=== PATIENT | female | born 1930 | race Caucasian/White ===

== ENCOUNTER 2016-07-22 08:38 | Outpatient (CLI) ==
[2015-07-03 09:52] VITALS: BMI 16.4
[2016-07-22 13:08] LABS: BASOPHILS # (AUTO) 0.1 K/uL (0-0.2); BASOPHILS % (AUTO) 0.9 % (0.0-3.0); EOSINOPHILS # (AUTO) 0.1 K/ul (0.0-0.7); EOSINOPHILS % (AUTO) 1.7 % (0.0-7.0); HEMATOCRIT 39.6 % (37.0-47.0); HEMOGLOBIN 12.1 g/dl (12.0-16.0); IMMATURE GRANULOCYTE % (AUTO) 0.5 % (0.0-5.0); LYMPHOCYTES # (AUTO) 1.5 K/uL (0.60-3.4); LYMPHOCYTES % (AUTO) 22.9 (10.0-50.0); MEAN CORPUSCULAR HEMOGLOBIN 25.7 pg (27.0-31.0); MEAN CORPUSCULAR HGB CONC 30.6 (31.8-35.4); MEAN CORPUSCULAR VOLUME 84.1 fl (81.0-99.0); MONOCYTES # (AUTO) 0.6 K/uL (0.4-2.0); MONOCYTES % (AUTO) 8.8 (0-10); NEUTROPHILS # (AUTO) 4.2 K/ul (2.0-6.9); NEUTROPHILS % (AUTO) 65.2; PLATELET COUNT 252 10^3/uL (140-440); RED BLOOD COUNT 4.71 10^6/ul (4.20-5.40)
[2016-07-22 13:13] LABS: BILIRUBIN,URINE Negative (NEGATIVE); KETONES,URINE Negative (NEGATIVE); LEUKOCYTE ESTERASE ,URINE Negative (NEGATIVE); NITRITE,URINE Negative (NEGATIVE); PH,URINE 5.5 (5-9); PROTEIN,URINE Negative (NEGATIVE); URINE, BLOOD 2+ (NEGATIVE)
[2016-07-22 13:19] LABS: ALBUMIN 3.6 g/dL (3.4-5.0); ALBUMIN/GLOBULIN RATIO 1.09; ANION GAP 15.8; BILIRUBIN,TOTAL 0.46 mg/dL (0.00-1.20); BUN/CREATININE RATIO 21.21; CALCIUM 9.6 mg/dL (8.2-10.2); CHOL/HDL RATIO 2.9 (4.5-5.5); CREATININE 0.66 mg/dL (0.60-1.30); POTASSIUM 3.8 mmol/L (3.5-5.10); TOTAL PROTEIN 6.9 g/dL (5.8-8.1)
[2016-07-22 13:28] LABS: ADD URINE MICROSCOPIC YES
== END 2016-07-22 08:39 | disposition home or self-care (01) ==
LOC: LAB 08:38
PROVIDERS: ATTEND General Practice
DX: I63.30 Cerebral infarction due to thrombosis of unspecified cerebral artery (principal); J44.9 Chronic obstructive pulmonary disease, unspecified; I73.9 Peripheral vascular disease, unspecified; Z79.899 Other long term (current) drug therapy
CPT/HCPCS: 36415; 80053; 80061; 81001; 85025

== ENCOUNTER 2016-07-30 09:21 | Outpatient (CLI) | payer OTHER ==
[2016-07-30 16:28] VITALS: BMI 16.2
== END 2016-07-30 09:22 | disposition home or self-care (01) ==
LOC: AMBL 09:21
PROVIDERS: ATTEND Emergency Medicine
DX: M79.672 Pain in left foot (principal); M79.89 Other specified soft tissue disorders

== ENCOUNTER 2016-07-30 09:33 | Inpatient (IN) ==
--- NOTE | 2016-07-30 09:44 | ED.PDOC ---
General ED Provider: Dr. LORNE GUERRERO JR Chief Complaint: Foot Pain/Injury Stated Complaint: pt states she woke up friday morning with left foot red swollen and bruised and unable to walk on it. denies any injury. also states she has had diarrhea since [End] 99.1 92 20 100 152/65 04/22 Time Seen by Physician: 09:43 Mode of Arrival: Ambulance Information Source: Patient, EMT Exam Limitations: No limitations Primary Care Provider: MICHAEL PINEDA[facility] Nursing and Triage Documentation Reviewed and Agree: No Review of Systems - Review Of Systems Constitutional: Reports: No symptoms Eyes: Reports: No symptoms Ears, Nose, Mouth, Throat: Reports: No symptoms Respiratory: Reports: No symptoms Cardiac: Reports: No symptoms GI: Reports: Diarrhea (about twice a day(16 times since friday)loose stool followed by solids; dark(I am on iron)) : Reports: No symptoms Musculoskeletal: Reports: Joint pain (foot and ankle with saddle shaped ecchymoses sparing malleolil and dosum of foot but all tender on exam pulses presnt on doppler) Skin: Reports: Bruising, Lesions Neurological: Reports: No symptoms Endocrine: Reports: No symptoms Hematologic/Lymphatic: Reports: No symptoms All Other Systems: Other Past Medical History - Past Medical History Previously Healthy: Yes Endocrine: Reports: None Cardiovascular: Reports: None Respiratory: Reports: COPD Hematological: Reports: None Gastrointestinal: Reports: Other (celiac disease) Genitourinary: Reports: None Neuro/Psych: Reports: TIA (TIA several years ago) Musculoskeletal: Reports: None Cancer: Reports: None Last Menstrual Period: none - Surgical History General Surgical History: Reports: Hysterectomy, Appendectomy, Cholecystectomy, Other (Sinus surgery, Cataract surgery). Denies: Hernia Repair ( hemorrhoidectomy) - Family History Family History: Reports: Unknown (son owns wild cat) - Social History Smoking Status: Former smoker Hx Substance Use: No Alcohol Screening: None Physical Exam - Physical Exam Appearance: Well-appearing, Thin Pain Distress: Moderate Neck: Supple Respiratory: Airway patent Skin: Warm, Dry (bruising) Re-Evaluation - Re-Evaluation Time of Re-Evaluation: 10:57 Status: Worse (tolerated norco in the past -codeine sets my teeth on edge) Physician Notification - Case Discussed Physician Notified: dr pineda Physician Notified: dr pineda Time of Notification: 14:45 (admit vancomycin check ultrasound of leg) Critical Care Note - Critical Care Note Total Time (mins): 0 Course - Course Hematology/Chemistry: 07/30/16 10:05 07/30/16 10:05 Orders, Labs, Meds: Lab Review 07/30/16 07/30/16 10:05 15:00 WBC 8.96 RBC 4.84 Hgb 12.6 Hct 39.8 MCV 82.2 MCH 26.0 L MCHC 31.7 L RDW Coeff of Gareth 15.1 H Plt Count 248 Immature Gran % (Auto) 0.4 Neut % (Auto) 72.8 Lymph % (Auto) 15.7 [place] % (Auto) 9.8 Eos % (Auto) 1.0 Baso % (Auto) 0.3 Immature Gran # (Auto) 0.0 Neut # 6.5 Lymph # 1.4 [place] # 0.9 Eos # 0.1 Baso # 0.0 ESR 36 H Sodium 140 Potassium 3.5 Chloride 102 Carbon Dioxide 29 Anion Gap 12.5 BUN 10 Creatinine 0.69 Estimated GFR (MDRD) 81.00 BUN/Creatinine Ratio 14.49 Glucose 98 Uric Acid 3.7 Calcium 9.3 Total Bilirubin 0.82 AST 18 ALT 16 Alkaline Phosphatase 81 Total Protein 7.2 Albumin 3.5 Globulin 3.7 Albumin/Globulin Ratio 0.95 Procalcitonin < 0.05 Urine Color Yellow Urine Clarity Clear Urine pH 7.0 Ur Specific [place] 1.020 Urine Protein Negative Urine Glucose (UA) Negative Urine Ketones Trace Urine Blood 2+ Urine Nitrite Negative Urine Bilirubin Negative Urine Urobilinogen 0.2 Ur Leukocyte Esterase Negative Urine Microscopic RBC 2-5 Urine Microscopic WBC 0-2 Ur Squamous Epith Cells 0-2 Ur Renal Epithelial Cell 0-2 Amorphous Sediment 2+ Urine Bacteria Trace Orders Category Date Time Status ADMIT PATIENT INPATIENT .TO [facility] (NON-MONITORED ADMISSION 07/30/16 11: 17 Active BED) ACTIVITY .BR with BRP CARE 07/30/16 11:17 Active ACTIVITY .Early Mobilization for VTE Prevention CARE 07/30/16 11:17 Completed C-DIFF MONITORING (NURSING) BID CARE 07/30/16 09:46 Active CASE MANAGEMENT CONSULT ONCE CARE 07/30/16 11:19 Completed INTAKE & OUTPUT Q8HR CARE 07/30/16 11:17 Active VITAL SIGNS Q8HR CARE 07/30/16 11:17 Completed REGULAR DIET DIETARY 07/30/16 Lunch Ordered ED IV/MEDIPORT/POWERPORT .ONCE EMERGENCY 07/30/16 11:28 Active BLOOD CULTURE Stat LAB 07/30/16 10:05 Received C. DIFFICILE Routine LAB 07/30/16 09:45 Uncollected CBC W/ AUTO DIFF DAILY@0600 LAB 07/31/16 06:00 Ordered CBC W/ AUTO DIFF DAILY@0600 LAB 08/01/16 06:00 Ordered CBC W/ AUTO DIFF DAILY@0600 LAB 08/02/16 06:00 Ordered CBC W/ AUTO DIFF DAILY@0600 LAB 08/03/16 06:00 Ordered CBC W/ AUTO DIFF DAILY@0600 LAB 08/04/16 06:00 Ordered CBC W/ AUTO DIFF DAILY@0600 LAB 08/05/16 06:00 Ordered CBC W/ AUTO DIFF DAILY@0600 LAB 08/06/16 06:00 Ordered CBC W/ AUTO DIFF DAILY@0600 LAB 08/07/16 06:00 Ordered CBC W/ AUTO DIFF DAILY@0600 LAB 08/08/16 06:00 Ordered CBC W/ AUTO DIFF DAILY@0600 LAB 08/09/16 06:00 Ordered CBC W/ AUTO DIFF DAILY@0600 LAB 08/10/16 06:00 Ordered CBC W/ AUTO DIFF DAILY@0600 LAB 08/11/16 06:00 Ordered CBC W/ AUTO DIFF DAILY@0600 LAB 08/12/16 06:00 Ordered CBC W/ AUTO DIFF DAILY@0600 LAB 08/13/16 06:00 Ordered CBC W/ AUTO DIFF DAILY@0600 LAB 08/14/16 06:00 Ordered CBC W/ AUTO DIFF DAILY@0600 LAB 08/15/16 06:00 Ordered CBC W/ AUTO DIFF DAILY@0600 LAB 08/16/16 06:00 Ordered CBC W/ AUTO DIFF DAILY@0600 LAB 08/17/16 06:00 Ordered CBC W/ AUTO DIFF DAILY@0600 LAB 08/18/16 06:00 Ordered CBC W/ AUTO DIFF DAILY@0600 LAB 08/19/16 06:00 Ordered CBC W/ AUTO DIFF Stat LAB 07/30/16 10:05 Completed CMP [COMPREHENSIVE METABOLIC PANEL] Stat LAB 07/30/16 10:05 Completed COMPREHENSIVE METABOLIC PANEL DAILY@0600 LAB 07/31/16 06:00 Ordered COMPREHENSIVE METABOLIC PANEL DAILY@0600 LAB 08/01/16 06:00 Ordered COMPREHENSIVE METABOLIC PANEL DAILY@0600 LAB 08/02/16 06:00 Ordered COMPREHENSIVE METABOLIC PANEL DAILY@0600 LAB 08/03/16 06:00 Ordered COMPREHENSIVE METABOLIC PANEL DAILY@0600 LAB 08/04/16 06:00 Ordered COMPREHENSIVE METABOLIC PANEL DAILY@0600 LAB 08/05/16 06:00 Ordered COMPREHENSIVE METABOLIC PANEL DAILY@0600 LAB 08/06/16 06:00 Ordered COMPREHENSIVE METABOLIC PANEL DAILY@0600 LAB 08/07/16 06:00 Ordered COMPREHENSIVE METABOLIC PANEL DAILY@0600 LAB 08/08/16 06:00 Ordered COMPREHENSIVE METABOLIC PANEL DAILY@0600 LAB 08/09/16 06:00 Ordered COMPREHENSIVE METABOLIC PANEL DAILY@0600 LAB 08/10/16 06:00 Ordered COMPREHENSIVE METABOLIC PANEL DAILY@0600 LAB 08/11/16 06:00 Ordered COMPREHENSIVE METABOLIC PANEL DAILY@0600 LAB 08/12/16 06:00 Ordered COMPREHENSIVE METABOLIC PANEL DAILY@0600 LAB 08/13/16 06:00 Ordered COMPREHENSIVE METABOLIC PANEL DAILY@0600 LAB 08/14/16 06:00 Ordered COMPREHENSIVE METABOLIC PANEL DAILY@0600 LAB 08/15/16 06:00 Ordered COMPREHENSIVE METABOLIC PANEL DAILY@0600 LAB 08/16/16 06:00 Ordered COMPREHENSIVE METABOLIC PANEL DAILY@0600 LAB 08/17/16 06:00 Ordered COMPREHENSIVE METABOLIC PANEL DAILY@0600 LAB 08/18/16 06:00 Ordered COMPREHENSIVE METABOLIC PANEL DAILY@0600 LAB 08/19/16 06:00 Ordered ESR Stat LAB 07/30/16 10:05 Completed OCCULT BLOOD, STOOL Stat LAB 07/30/16 09:45 Uncollected PROCALCITONIN Stat LAB 07/30/16 10:05 Completed URIC ACID Stat LAB 07/30/16 10:05 Completed VANCOMYCIN,TROUGH Timed LAB 08/03/16 08:30 Ordered 0.9 % Sodium Chloride [Saline Flush] MEDS 07/30/16 11:28 Active 1 syr IVF PRN PRN Bismuth Subsalicylate Susp [Pepto-Bismol Susp] MEDS 07/30/16 13:33 Active 15 ml PO Q6H PRN Clopidogrel Bisulfate [Plavix] MEDS 07/31/16 09:00 Active 75 mg PO DAILY Ferrous Sulfate MEDS 07/31/16 09:00 Active 324 mg PO DAILY Fluticasone/Salmeterol 500/50 [Advair 500-50 Diskus] MEDS 07/30/16 21:00 Active 1 puff IH BEDTIME Hydrocodone Bit/Acetaminophen [Hunter 5-325] MEDS 07/30/16 10:55 Discontinued 1 tab PO ONCE STA Sodium Chloride 0.9% [Sodium Chloride] 1,000 ml MEDS 07/30/16 11:30 Active IV 75 mls/hr Vancomycin HCl [Vancomycin] 1 gm MEDS 07/30/16 14:27 Discontinued 0.9 % Sodium Chloride [Sodium Chloride] 250 ml IV ONCE Vancomycin HCl [Vancomycin] 750 mg MEDS 07/31/16 09:00 Active 0.9 % Sodium Chloride [Sodium Chloride] 250 ml IV DAILY Zaleplon [Sonata] MEDS 07/30/16 11:21 Discontinued 10 mg PO PRN PRN RESUSCITATION STATUS Routine OTHERS 07/30/16 11:17 Ordered FOOT, LEFT 3 VIEWS Stat RADS 07/30/16 09:42 Completed MRI LOWER EXTREMITY W/WO LT Stat RADS 07/30/16 11:28 Completed ULTRASOUND VENOUS SCAN LT. LEG [U/S VENOUS SCAN LT. LEG RADS 07/30/16 13:21 Completed ] Stat Medications Generic Name Dose Route Start Last Admin Trade Name Freq PRN Reason Stop Dose Admin Bismuth Subsalicylate 15 ml 07/30/16 13:33 Pepto-Bismol Susp PO Q6H PRN Diarrhea Clopidogrel Bisulfate 75 mg 07/31/16 09:00 Plavix PO DAILY BRAN Ferrous Sulfate 324 mg 07/31/16 09:00 Ferrous Sulfate PO DAILY BRAN Sodium Chloride 1,000 mls @ 75 mls/hr 07/30/16 11:30 07/30/16 13:30 Sodium Chloride IV 75 mls/hr .[id number] BRAN Administration Vancomycin HCl 750 mg/ Sodium 250 mls @ 100 mls/hr 07/31/16 09:00 Chloride IV DAILY BRAN Non-Formulary Medication 10 mg 07/30/16 19:40 Zaleplon [Sonata] PO BEDTIME PRN Insomnia Fluticasone/Salmeterol 1 puff 07/30/16 21:00 07/30/16 20:08 Advair 500-50 Diskus IH 1 puff BEDTIME BRAN Administration Sodium Chloride 1 syr 07/30/16 11:28 Saline Flush IVF PRN PRN To flush IV Discontinued Medications Generic Name Dose Route Start Last Admin Trade Name Freq PRN Reason Stop Dose Admin Acetaminophen/Hydrocodone Bitart 1 tab 07/30/16 10:55 07/30/16 11:15 Hunter 5-325 PO 07/30/16 10:56 1 tab ONCE STA Administration Dexamethasone Sodium Phosphate 8 mg 07/30/16 17:56 07/30/16 18:01 Decadron 4 Mg/Ml Sdv IM 07/30/16 17:57 8 mg ONCE STA Administration Vancomycin HCl 1 gm/ Sodium 250 mls @ 250 mls/hr 07/30/16 14:27 07/30/16 14: 59 Chloride IV 07/30/16 15:26 250 mls/hr ONCE STA Administration Non-Formulary Medication 10 mg 07/30/16 11:21 Zaleplon [Sonata] PO PRN PRN Insomnia Vital Signs: Temp Pulse Resp BP Pulse Ox 07/30/16 09:33 99.1 F 92 H 20 152/65 H 100 Departure - Departure Time of Disposition: 15:00 Disposition: ADMITTED INPATIENT Discharge Problem: Injury of foot Cellulitis Qualifiers: Site of cellulitis: extremity Site of cellulitis of extremity: lower extremity Laterality: left Qualifier Code: (L03.116) Cellulitis of left lower limb Condition: Good Pt referred to PMD for follow-up: Yes Allergies/Adverse Reactions: Allergies codeine Adverse Reaction (Verified 07/30/16 09:41) Home Medications: Ambulatory Orders Ferrous Sulfate [Feosol] 325 mg PO DAILY 07/30/16 Melatonin 10 mg SL BEDTIME 07/30/16
--- NOTE | 2016-07-30 10:17 | DI ---
EXAM: Left foot three views HISTORY: Red, swollen COMPARISON: None FINDINGS: No fracture or dislocation. No cortical destruction to suggest osteomyelitis. Smoothly ma rginated periosteal reaction about the lateral aspect fourth metatarsal is nonspecific and may be du e to chronic stress reaction. Bones appear demineralized. The joints are normal. Mild posterior calc aneal enthesopathy. IMPERSSION: No acute fracture, dislocation, or cortical destruction to suggest osteomyelitis Smoothly marginated periosteal reaction about the fourth metatarsal is nonspecific and may be due to chronic stress sheree ction. MRI can be considered if there is clinical concern for osteomyelitis.
[2016-07-30 10:19] LABS: BASOPHILS % (AUTO) 0.3 % (0.0-3.0); EOSINOPHILS # (AUTO) 0.1 K/ul (0.0-0.7); HEMATOCRIT 39.8 % (37.0-47.0); HEMOGLOBIN 12.6 g/dl (12.0-16.0); IMMATURE GRANULOCYTE % (AUTO) 0.4 % (0.0-5.0); LYMPHOCYTES # (AUTO) 1.4 K/uL (0.60-3.4); LYMPHOCYTES % (AUTO) 15.7 (10.0-50.0); MEAN CORPUSCULAR HGB CONC 31.7 (31.8-35.4); MEAN CORPUSCULAR VOLUME 82.2 fl (81.0-99.0); MONOCYTES # (AUTO) 0.9 K/uL (0.4-2.0); MONOCYTES % (AUTO) 9.8 (0-10); NEUTROPHILS # (AUTO) 6.5 K/ul (2.0-6.9); NEUTROPHILS % (AUTO) 72.8; PLATELET COUNT 248 10^3/uL (140-440); RED BLOOD COUNT 4.84 10^6/ul (4.20-5.40); WHITE BLOOD COUNT 8.96 K/ul (4.6-10.2)
[2016-07-30 10:37] LABS: ALBUMIN 3.5 g/dL (3.4-5.0); ALBUMIN/GLOBULIN RATIO 0.95; ANION GAP 12.5; BILIRUBIN,TOTAL 0.82 mg/dL (0.00-1.20); BUN/CREATININE RATIO 14.49; CALCIUM 9.3 mg/dL (8.2-10.2); CREATININE 0.69 mg/dL (0.60-1.30); POTASSIUM 3.5 mmol/L (3.5-5.10); TOTAL PROTEIN 7.2 g/dL (5.8-8.1)
[2016-07-30] MEDS ORDERED: NORCO 5-325 PO STA (10:55)
[2016-07-30] MEDS ORDERED: ZALEPLON 10 MG PO PRN ×2 (11:21→19:40)
[2016-07-30 12:07] LABS: ERYTHROCYTE SEDIMENTATION RATE 36 mm/hr (0-20); ESR INTERNAL QC INTERNAL QC VALID
[2016-07-30] MEDS: SODIUM CHLORIDE 1,000 ML IV SCH (13:30)
[2016-07-30] MEDS ORDERED: PEPTO-BISMOL SUSP PO PRN (13:33)
--- NOTE | 2016-07-30 13:46 | MRI ---
EXAM: MRI left foot without and with contrast. HISTORY: Foot and ankle pain. Fourth metatarsal changes on x-ray.. Periosteal reaction described on the left foot three views 07/30/2016. No known injury. Cannot put weight on foot. Red. Swollen.. TECHNIQUE: Using a local coil on a high field strength magnet multiplanar multisequence large field of view imaging obtained of the left foot pre and post intravenous gadolinium contrast administrati on. 9 ml Omniscan administered for the examination.. COMPARISON: Three-view plain film examination left foot 07/30/2016. FINDINGS: The alignment of the left foot shows no dislocation or joint subluxation. Bone marrow si gnal intensity shows no acute fracture. Specifically no metatarsal stress fracture identified. The re is again noted periosteal ossification over the more lateral/plantar portion of the fourth metata rsal proximal to mid aspect. No underlying bone marrow edema. No lytic bone destruction. Normal kareem ne marrow enhancement otherwise. There is superficial soft tissue edema/swelling about the foot most evident over the dorsum. This m ay reflect some component of soft tissue cellulitis given the history. No soft tissue abscess. Scott e muscle bulk fatty infiltration/atrophy.. IMPRESSION: No acute fracture/stress fracture. Periosteal ossification over the more lateral/plantar portion of the fourth metatarsal, proximal to mid aspect. This corresponds to finding described on plain film radiographs 07/24/2016. Nonspecifi c. This can be seen with hypertrophic osteoarthropathy or chronic venous stasis. Superficial soft tissue edema/swelling most evident over the dorsum. This may reflect some component of cellulitis given the history. Some muscle bulk fatty infiltration/atrophy.
[2016-07-30] MEDS ORDERED: VANCOMYCIN 1 GM in SODIUM CHLORIDE 250 ML IV STA (14:27)
--- NOTE | 2016-07-30 14:35 | US ---
EXAM: Left lower extremity venous doppler. HISTORY: Left foot and ankle pain and swelling, ecchymosis. COMPARISON: None available. TECHNIQUE: Multiple grayscale and color doppler images were obtained. FINDINGS: There is normal flow, compressibility and augmentation of flow within the left common fem oral, greater saphenous, profunda, femoral, popliteal, posterior tibial, anterior tibial and peronea l veins. IMPRESSION: No evidence for left lower extremity deep vein thrombosis at the levels examined.
[2016-07-30 16:09] LABS: BILIRUBIN,URINE Negative (NEGATIVE); KETONES,URINE Trace (NEGATIVE); LEUKOCYTE ESTERASE ,URINE Negative (NEGATIVE); NITRITE,URINE Negative (NEGATIVE); PROTEIN,URINE Negative (NEGATIVE); URINE, BLOOD 2+ (NEGATIVE)
[2016-07-30 16:12] LABS: ADD URINE MICROSCOPIC YES
[2016-07-30 16:14] LABS: BACTERIA,URINE TRACE (NOT PRESENT)
[2016-07-30 16:28] VITALS: BMI 16.2
[2016-07-30] MEDS ORDERED: DECADRON 4 MG/ML SDV IM STA (17:56)
[2016-07-30] MEDS: ADVAIR 500-50 DISKUS IH SCH (20:08)
[2016-07-30] MEDS ORDERED: NON-FORMULARY MEDICATION (Melatonin [Melatonin] 1 MG) SL SCH (21:00)
[2016-07-30] MEDS ORDERED: VANCOMYCIN 500 MG in SODIUM CHLORIDE 100 ML IV SCH (21:00)
[2016-07-31] MEDS: SODIUM CHLORIDE 1,000 ML IV SCH ×3 (03:18→20:16)
[2016-07-31 04:28] LABS: BASOPHILS % (AUTO) 0.2 % (0.0-3.0); HEMOGLOBIN 11.2 g/dl (12.0-16.0); IMMATURE GRANULOCYTE % (AUTO) 0.5 % (0.0-5.0); LYMPHOCYTES # (AUTO) 0.6 K/uL (0.60-3.4); MEAN CORPUSCULAR HEMOGLOBIN 25.6 pg (27.0-31.0); MEAN CORPUSCULAR HGB CONC 31.1 (31.8-35.4); MEAN CORPUSCULAR VOLUME 82.2 fl (81.0-99.0); MONOCYTES # (AUTO) 0.1 K/uL (0.4-2.0); MONOCYTES % (AUTO) 2.5 (0-10); NEUTROPHILS # (AUTO) 4.8 K/ul (2.0-6.9); NEUTROPHILS % (AUTO) 85.8; PLATELET COUNT 213 10^3/uL (140-440); RED BLOOD COUNT 4.38 10^6/ul (4.20-5.40); WHITE BLOOD COUNT 5.54 K/ul (4.6-10.2)
[2016-07-31 04:53] LABS: ALBUMIN 2.8 g/dL (3.4-5.0); ALBUMIN/GLOBULIN RATIO 0.9; ANION GAP 11.8; BILIRUBIN,TOTAL 0.42 mg/dL (0.00-1.20); CALCIUM 8.7 mg/dL (8.2-10.2); CREATININE 0.6 mg/dL (0.60-1.30); POTASSIUM 3.8 mmol/L (3.5-5.10); TOTAL PROTEIN 5.9 g/dL (5.8-8.1)
--- NOTE | 2016-07-31 07:23 | DI ---
EXAM: Thoracic spine radiographs. HISTORY: Back pain. COMPARISON: None available. TECHNIQUE: Frontal, lateral and swimmer's views. FINDINGS: The normal curvature and alignment are maintained. Vertebral body and intervertebral dis c heights are normal. No fracture or subluxation seen. Mild multilevel endplate osteophyte formati on noted. Adjacent soft tissues are unremarkable. Right upper lung scarring is stable since prior chest radiographs. Suture anchors noted in the humeral head. Calcified granuloma seen in the anter ior right lung base. Clips seen in the upper abdomen. IMPRESSION: No acute abnormality of the thoracic spine.
--- NOTE | 2016-07-31 07:24 | DI ---
EXAM: Radiographs, lumbar spine HISTORY: Back pain. COMPARISON: 03/18/2014. TECHNIQUE: Five views. FINDINGS: There is mild left convex curvature centered in the upper lumbar spine. There is approxi mately 0.5 cm anterolisthesis of L4 on five with approximately 0.2 cm retrolisthesis of L3 on L4 and L1-2. Vertebral body heights are normal. There is severe loss of disc height throughout the lumba r spine with associated endplate sclerosis and osteophyte formation. Multilevel facet arthropathy n oted, moderate to severe. Sacral arcuate lines are intact. No acute fractures seen. Right basilar calcified granuloma noted. Previous cholecystectomy. Atherosclerotic calcifications noted. Since the prior study, there has been no significant interval change. IMPRESSION: Stable degenerative changes without acute fracture.
--- NOTE | 2016-07-31 07:25 | DI ---
EXAM: Radiographs, pelvis and bilateral hip HISTORY: Back pain. COMPARISON: 07/03/2015. TECHNIQUE: Two views. FINDINGS: Bone mineralization is decreased. There is no fracture or dislocation. The joint spaces are maintained. Lower lumbar degenerative changes incompletely imaged. Atherosclerotic calcificat ions noted. No focal soft tissue abnormality is seen. Since the prior study, there has been no sign ificant interval change. IMPRESSION: No fracture or dislocation.
[2016-07-31] MEDS: PLAVIX PO SCH (08:38)
[2016-07-31] MEDS: FERROUS SULFATE PO SCH (08:39)
[2016-07-31] MEDS ORDERED: VANCOMYCIN 750 MG in SODIUM CHLORIDE 250 ML IV SCH (09:00)
[2016-07-31] MEDS ORDERED: NON-FORMULARY MEDICATION (Ferrous Sulfate [Feosol] 325 MG) PO SCH ×22 (09:00)
[2016-07-31 10:20] LABS: OCCULT BLOOD INTERNAL QC 1 INTERNAL QC VALID; OCCULT BLOOD SAMPLE 1 NEGATIVE (NEGATIVE)
[2016-07-31] MEDS ORDERED: DECADRON 4 MG/ML SDV IM STA (11:11)
--- NOTE | 2016-07-31 12:21 | HP ---
CHIEF COMPLAINT: Pain left foot, plus swelling. Pain in the lumbar area secondary to a fall last night. SOURCE OF HISTORY: Patient and son. HISTORY OF PRESENT ILLNESS: patient claimed she experienced severe pain upon putting weight on the left foot Friday. She was unable to walk or stand. She denied any known injuty to the foot to cause swelling. The pain continued and the patient tried to get to the bathroom last night and fell getting out of bed. She is complaining of some pain in the lower lumbar area. She had movement of the lower extremities and the legs are not evaluated. The patient was evaluated at the emergency room and had x-rays of the left foot, as well as MRI. Most of the swelling is towards the tarsal area, as well as the ankle. X-ray of the foot showed some abnormalities of the foot, metatarsal, documented by MRI, but no osteomyelitis, no fracture. Labs showed slightly elevated ESR 36. The patient was admitted because of cellulitis in the foot. There were no x-rays done for the hips or lumbar spine. The emergency room physician did not indicate any fall to me when he informed me about the patient and also the need for admission. The urine has 2+ blood, 2-5 RBC. Uric acid normal. Procalcitonin normal, 0.05. PAST PERSONAL HISTORY: The patient had cataract extraction more than 20 years ago, Had sinus surgery ib deviated septum. She also had tonsillectomy. 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 The patient may have some gluten sensitivity, but no celiac disease. Previous appendectomy, cholecystectomy and abdominal hysterectomy. She also had breast biopsy. She claimed anemia and also rotator cuff surgery. The patient is known to have COPD, but that had improved after smoking cessation. FAMILY HISTORY: Father had Alzheimer's disease. Mother had cerebral vascular accident and from that problem. SOCIAL HISTORY: The patient is a and resides alone and is self sufficient. 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 She stopped smoking several years ago. No alcoholic beverages. MEDICATIONS: Prior to this admission. Plavix 75 mg daily Advair Diskus 500/50 one inhalation at bedtime Melatonin 1 mg at bedtime Ferrous sulfate 325 mg daily ALLERGIES: Codeine. REVIEW OF SYSTEMS: CONSTITUTIONAL: The patient has no fever and no chills, but some fatigue because of the pain since three days ago. AR MANAGER: The patient denies any headache, seizure disorder, ataxia, except she has problems walking now because of the pain in the left foot. VISUAL: Denies any blurred vision or double vision or transient loss of vision. AUDITORY: The patient's hearing is adequate. Denies any ringing of the ears, pain or drainage. RESPIRATORY: No cough or history of hemoptysis. CARDIOVASCULAR: Denies any chest pain or chest oppression. GASTROINTESTINAL: The patient has diarrhea since . Reason for the diarrhea is unknown. This patient had been eating a gluten free diet, but she had tried something that is not gluten free lately. Cause of the diarrhea is still unknown. She has no nausea. GENITOURINARY: The patient does not have any pain or frequency or urination. MUSCULOSKELETAL: The patient has swollen, red, markedly tender left foot. The pain is a 10 on a scale of 0-10. The pain is less when she is laying down and no weight or movement. INTEGUMENT: The patient has multiple areas of ecchymosis. This patient is on Plavix because of the TIA. She has redness of the skin on the left foot with the swelling. ENDOCRINE: Negative. HEMATOLOGIC: No history of prolonged bleeding. PSYCHIATRIC: Affect normal. PHYSICAL EXAMINATION: GENERAL: We have an 85 year old female retired Registered Nurse admitted to the hospital because of sudden swelling and redness and pain, severe , of the left foot. The pain and swelling has persisted until admission. She had fallen also the night before trying to get out of bed to the bathroom. VITAL SIGNS: HEAD: Unremarkable and there is no tenderness. FACE: Symmetrical and equal with no facial weakness. No significant tenderness in the frontal or maxillary sinus areas. EYES: Pupils equal/reactive to light. Conjunctivae not pale. Sclerae not icteric. MOUTH: Unremarkable. THROAT: No inflammation, tumors or exudate. NECK: No masses. No bruit. No tenderness. No rigidity. CHEST: Symmetrical and equal with good expansion. Ribs are prominent. LUNGS: Breath sounds are heard in both sides. No rales or wheezing. HEART: Audible and regular with good tones. No murmurs. ABDOMEN: Soft with no remarkable tenderness. No guarding. LOWER EXTREMITIES: Asymmetrical with the left foot markedly swollen and markedly tender and with adequate circulation. Anterior and posterior tibials pulse of the left is palpable. Very difficult to palpate the right. UPPER EXTREMITIES: Symmetrical and equal. ASSESSMENT: 1. 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 PAIN LUMBAR AREA SECONDARY TO FALL 3. HISTORY OF TIA ON PLAVIX 4. HISTORY OF ANEMIA ON IRON 5. HISTORY OF CHRONIC OBSTRUCTIVE LUNG DISEASE, IMPROVED 6. HISTORY OF CHRONIC TOBACCO USE, STOPPED SEVERAL YEARS AGO 7. PROBABLE GLUTEN SENSITIVITY, NOT CELIAC DISEASE PLAN: 1. Will get x-rays of the lumbar spine, plus thoracic, pelvis and hips because of the fall. 2. The patient will be tried on 8 mg of Decadron to see if this would improve the redness and swelling of the left foot, including pain. No narcotic analgesic medication is given. MTDD
--- NOTE | 2016-07-31 13:01 | RS.SLPCNOT ---
Speech Case Note Date of Note: 07/31/16 (Dysphagia Consult) Title: Dysphagia Screen Note: CUSTOMER MARKETING MANAGER consulted due to pt report of choking with PO intake. Pt reported hx of 1x choking episode prior to hospital visit. CUSTOMER MARKETING MANAGER screened pt via verbal interview. Through questions, CUSTOMER MARKETING MANAGER determined pt at mild risk for choking on stringy diet textures. CUSTOMER MARKETING MANAGER recommends to continue regular diet texture, remove any stringy diet textures, e.g. celery, from diet tray, and monitor pt intermittently during PO intake for s/s of aspiration. Pt to continue utilization of safe swallow precautions including, 90 degree posture with all liquids and solids, take small bites and sips of liquids, increase liquid intake with meals to decrease oral stasis, and monitor lung sounds post meals. Pt consumed 1 small bite and 2 small sips of liquids during interview without overt s/s of aspiration.
[2016-07-31 17:53] LABS: OCCULT BLOOD INTERNAL QC 2 INTERNAL QC VALID; OCCULT BLOOD INTERNAL QC 3 INTERNAL QC VALID; OCCULT BLOOD SAMPLE 2 NO SPECIMEN RECEIVED (NEGATIVE); OCCULT BLOOD SAMPLE 3 NO SPECIMEN RECEIVED (NEGATIVE)
[2016-07-31] MEDS: ADVAIR 500-50 DISKUS IH SCH (20:15)
[2016-08-01 05:38] LABS: BASOPHILS % (AUTO) 0.1 % (0.0-3.0); EOSINOPHILS % (AUTO) 0.1 % (0.0-7.0); HEMATOCRIT 31.4 % (37.0-47.0); IMMATURE GRANULOCYTE % (AUTO) 0.4 % (0.0-5.0); LYMPHOCYTES # (AUTO) 1.3 K/uL (0.60-3.4); LYMPHOCYTES % (AUTO) 12.9 (10.0-50.0); MEAN CORPUSCULAR HEMOGLOBIN 26.2 pg (27.0-31.0); MEAN CORPUSCULAR HGB CONC 31.8 (31.8-35.4); MEAN CORPUSCULAR VOLUME 82.2 fl (81.0-99.0); MONOCYTES # (AUTO) 0.6 K/uL (0.4-2.0); MONOCYTES % (AUTO) 6.2 (0-10); NEUTROPHILS # (AUTO) 8.3 K/ul (2.0-6.9); NEUTROPHILS % (AUTO) 80.3; PLATELET COUNT 224 10^3/uL (140-440); RED BLOOD COUNT 3.82 10^6/ul (4.20-5.40)
[2016-08-01 05:55] LABS: ALBUMIN 2.7 g/dL (3.4-5.0); ALBUMIN/GLOBULIN RATIO 0.96; ANION GAP 9.8; BILIRUBIN,TOTAL 0.32 mg/dL (0.00-1.20); BUN/CREATININE RATIO 20.68; CALCIUM 8.6 mg/dL (8.2-10.2); CREATININE 0.58 mg/dL (0.60-1.30); POTASSIUM 3.8 mmol/L (3.5-5.10); TOTAL PROTEIN 5.5 g/dL (5.8-8.1)
[2016-08-01] MEDS: PLAVIX PO SCH (08:46)
[2016-08-01] MEDS: FERROUS SULFATE PO SCH (08:46)
[2016-08-01] MEDS: SODIUM CHLORIDE 1,000 ML IV SCH (10:39)
[2016-08-01] MEDS ORDERED: DECADRON 4 MG/ML SDV IM STA (15:47)
[2016-08-01] MEDS: INFUVITE ADULT 10 ML in D5%-1/4NS-KCL 20 MEQ/L IV SOL 1,000 ML IV SCH (16:32)
[2016-08-01] MEDS: ADVAIR 500-50 DISKUS IH SCH (20:21)
[2016-08-02] MEDS ORDERED: INFUVITE ADULT IV ONE (03:39)
[2016-08-02] MEDS: INFUVITE ADULT 10 ML in D5%-1/4NS-KCL 20 MEQ/L IV SOL 1,000 ML IV SCH ×2 (03:52→16:30)
[2016-08-02 06:02] LABS: BASOPHILS % (AUTO) 0.1 % (0.0-3.0); HEMATOCRIT 33.3 % (37.0-47.0); HEMOGLOBIN 10.6 g/dl (12.0-16.0); IMMATURE GRANULOCYTE % (AUTO) 0.6 % (0.0-5.0); LYMPHOCYTES # (AUTO) 0.9 K/uL (0.60-3.4); LYMPHOCYTES % (AUTO) 13.3 (10.0-50.0); MEAN CORPUSCULAR HEMOGLOBIN 26.2 pg (27.0-31.0); MEAN CORPUSCULAR HGB CONC 31.8 (31.8-35.4); MEAN CORPUSCULAR VOLUME 82.4 fl (81.0-99.0); MONOCYTES # (AUTO) 0.2 K/uL (0.4-2.0); MONOCYTES % (AUTO) 2.8 (0-10); NEUTROPHILS # (AUTO) 5.7 K/ul (2.0-6.9); NEUTROPHILS % (AUTO) 83.2; PLATELET COUNT 264 10^3/uL (140-440); RED BLOOD COUNT 4.04 10^6/ul (4.20-5.40)
[2016-08-02 06:13] LABS: ALBUMIN 2.7 g/dL (3.4-5.0); ALBUMIN/GLOBULIN RATIO 0.9; ANION GAP 13.1; BILIRUBIN,TOTAL 0.23 mg/dL (0.00-1.20); BUN/CREATININE RATIO 18.64; CALCIUM 8.6 mg/dL (8.2-10.2); CREATININE 0.59 mg/dL (0.60-1.30); POTASSIUM 4.1 mmol/L (3.5-5.10); TOTAL PROTEIN 5.7 g/dL (5.8-8.1)
[2016-08-02] MEDS: FERROUS SULFATE PO SCH (09:12)
[2016-08-02] MEDS: PLAVIX PO SCH (09:12)
--- NOTE | 2016-08-02 11:14 | PN ---
DATE OF VISIT: 08/01/16 SUBJECTIVE: The patient is feeling better and is now able to walk but putting weight on her foot. The swelling and redness of the foot has regressed remarkably. There is no remarkably tenderness now on the left foot. I do believe that the patient had gout. I did advise her that she might be able to go home tomorrow and she told me that she would need to talk to someone who can help her home. She lives alone. The patient is generally weak at this time and she is not able to walk on her own. The patient will be referred to physical therapy and if she qualifies then maybe we could discharge her from acute care to transitional. This patient has moderate anemia, iron deficiency. Her GFR is normal. Her sugars are slightly elevated probably because of the IV plus Decadron that was given. General condition improved. Left foot and swelling and redness improved remarkably. SARAHD
[2016-08-02] MEDS ORDERED: DECADRON 4 MG/ML SDV IM STA (19:42)
[2016-08-02] MEDS: ADVAIR 500-50 DISKUS IH SCH (20:47)
[2016-08-03] MEDS ORDERED: INFUVITE ADULT IV ONE (03:18)
[2016-08-03] MEDS: INFUVITE ADULT 10 ML in D5%-1/4NS-KCL 20 MEQ/L IV SOL 1,000 ML IV SCH (03:24)
[2016-08-03] MEDS: FERROUS SULFATE PO SCH (09:40)
[2016-08-03] MEDS: PLAVIX PO SCH (09:40)
[2016-08-03 09:46] VITALS: BP 153/71; TEMP 97.5
--- NOTE | 2016-08-05 07:24 | PN ---
DATE OF VISIT: 08/02/16 SUBJECTIVE: The patient is alert, feeling better and had walked without any remarkable pain on the left foot. Nurse is Santa Olson, who tells me that she walked about 220 feet. The patient is not elgible for transitional care. The patient was evaluated by Physical Therapy. The patient does not want to go to the [facility] for further care and decided to go home. She is looking for someone who can stay with her tomorrow. She had somebody for Friday and the days after. If she has someone tomorrow we will send her home about noontime. As the patient had fallen previously, probably not prudent to send her home without someone there with her. The swelling of the left foot has almost completely resolved and no tenderness to palpation. The patient will be sent home with decreasing dose of Dexamethasone. She wanted to know what she can eat and I told her she could eat vegetables, beans and meat, preferably chicken. She needs to eat more of the beans as well as the chicken to increase her protein. This may increase the chances of recurrent acute episode of gout. She asked me if she could eat pork chops since she has at home. I told her that while she is taking the medication that indeed she can and finish it. She should avoid pork and should prepare chicken for meat. OBJECTIVE: VITAL SIGNS: Temperature today is 97.7 at 6 o'clock in the evening; 77 pulse; BP 134/62; respiratory rate 16; oxygen saturation 98% on room air. GENERAL APPEARANCE: Good. LUNGS: Clear to auscultation. HEART: Audible and regular with good tones. MTDD
--- NOTE | 2016-08-06 09:46 | DS ---
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 She woke up with the pain and was unable to put weight because of the unbearable pain. A work-up was done at the emergency room including an MRI of the foot because of the abnormal foot x-ray, but the findings were not definitive of any illness or disease. Doppler studies also were done and was negative for any thrombosis. CBC showed a normal WBC. No stabs and slightly elevated ESR at 36. Chemistry was unremarkable. Procalcitonin normal at less than 0.05. The urine had 2+ blood. RBC 2-5. The emergency room physician ordered Vancomycin 500 mg every 12 hours and was she was continued on her home medications consisting of Plavix, Advair Diskus 500/50 , Melatonin and Ferrous sulfate. The serum uric acid done at the emergency room was normal. HOSPITAL COURSE: The Vancomycin was discontinued on the second hospital day. This patient was given Decadron 8 mg IM on the first hospital day. The pain by the next day has subsided and the patient was able to put weight. Another 8 mg of Decadron was administered. The patient's pain continued to decreased remarkably and the swelling and redness also had decreased. Subsequent laboratories showed no significant abnormalities. The E GFR was 81 initially and did go up to as high as 99. The BUN has not remarkable changed. It was 10 on admission, 12 the next day and 12 again on the third hospital day and 11 on 08/02/16. Sugar did rise on the second hospital day probably secondary to the Dexamethasone. It had remained slightly high at 160, 123 and 137. The patient' s appetite had improved and she was consuming most of the meals. Her liquid intake also has improved. She was encouraged to drink more liquids of juice, tea or coffee. Water should be the major bulk of the liquids. She continued to improve and she had been walking around the hospital and Santa Olson did inform me that she walked for about 220 feet. She admits to walking around also in the hospital with no significant pain in the foot. The patient seemed to be stronger. The patient, at discharge, was alert, ambulatory. LUNGS: Clear to auscultation. HEART: Audible and regular with good tones. ABDOMEN: Nontender. LOWER EXTREMITIES: The left foot had swelling and redness and this has resolved. No tenderness to palpation and this was very tender on admission. PLAN: 1. The patient is to resume all of her previous medications. 2. Prescribed Dexamethasone 4 mg to be taken one tablet twice a day for two days and 1/2 tablet twice a day for another two days and then 1/2 tablet daily until finished or consumed. 3. The patient was given instructions for a low-purine diet. 4. She is to see me in about a week and before if there is any reoccurrence of the problem. FINAL DIAGNOSES: 1. ACUTE ARTHRITIS, GOUTY, LEFT FOOT, RESOLVED 2. PAIN IN THE LUMBAR AREA AND HIPS, SECONDARY TO FALL. NEGATIVE X-RAYS. 3. HISTORY OF TIA, PLACE ON PLAVIX 4. 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 HISTORY OF CHRONIC OBSTRUCTIVE LUNG DISEASE, IMPROVED AFTER CESSATION OF SMOKING 6. HISTORY OF CHRONIC TOBACCO USE AND STOPPED SEVERAL YEARS AGO 7. PROBABLE GLUTEN SENSITIVITY, BUT NOT CELIAC DISEASE MTDD
--- NOTE | 2016-08-13 13:16 | PN ---
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 I felt that the patient still has an acute arthritis , probably gout. This patient was given Decadron 8 mg IM last night. The pain has regressed remarkably and the patient is now able to put weight on it. The swelling also has regressed, although there is still some redness. This patient was receiving Vancomycin. I don't think that this patient has septic problems in the foot. The Vancomycin is then discontinued. The patient is given another 8 mg of Decadron IM this morning. The patient also was seen by Speech Therapy and felt that the patient is able to swallow and the likelihood of aspirating is much, much less. This patient is progressively getting debilitated. [facility]
== END 2016-08-03 14:20 | disposition home or self-care (01) | DRG 554 ==
LOC: ED 09:33 → MEDSURG B 15:29
PROVIDERS: ADMIT General Practice; ATTEND General Practice
DX: M10.9 Gout, unspecified (principal); K90.41 Non-celiac gluten sensitivity; M79.672 Pain in left foot; M54.5 Low back pain; M25.552 Pain in left hip; M25.551 Pain in right hip; S90.32XA Contusion of left foot, initial encounter; R70.0 Elevated erythrocyte sedimentation rate; D50.9 Iron deficiency anemia, unspecified; J44.9 Chronic obstructive pulmonary disease, unspecified; R31.9 Hematuria, unspecified; R19.7 Diarrhea, unspecified; L03.116 Cellulitis of left lower limb; Z86.73 Personal history of transient ischemic attack (TIA), and cerebral infarction without residual deficits; Z79.01 Long term (current) use of anticoagulants; Z79.899 Other long term (current) drug therapy; W06.XXXA Fall from bed, initial encounter; Y92.003 Bedroom of unspecified non-institutional (private) residence as the place of occurrence of the external cause
CPT/HCPCS: 36415; 80053; 81001; 82272; 84145; 84550; 85025; 85651; 87040; 87493; 96365; 97802; 99223; 99232; 99239; 99284

== ENCOUNTER 2016-09-10 10:57 | Outpatient (CLI) ==
--- NOTE | 2016-09-10 12:28 | DI ---
EXAM: Chest two views HISTORY: Cough COMPARISON: 05/10/2014 TECHNIQUE: Two views of the chest were performed FINDINGS: There is biapical scarring. No airspace consolidation. There is granulomatous calcificat ion. Lungs are hyperinflated. There is no pleural effusion or pneumothorax. The heart is normal i n size. The mediastinal contour is normal, noting atherosclerosis. There are no acute abnormalitie s of the bones. IMPRESSION: 1. No acute cardiopulmonary process. 2. Hyperinflated lungs may suggest chronic obstructive pulmonary disease.
== END 2016-09-10 10:58 | disposition home or self-care (01) ==
LOC: RAD 10:57
PROVIDERS: ATTEND General Practice
DX: R05 Cough (principal); Z87.891 Personal history of nicotine dependence

== ENCOUNTER 2016-10-01 12:03 | Outpatient (CLI) ==
--- NOTE | 2016-10-01 12:42 | CT ---
EXAM: CT right hip without contrast HISTORY: Right hip pain. COMPARISON: Radiograph 07/30/2016. TECHNIQUE: Multiple axial images of the right hip were obtained without intravenous contrast. Imag es were reformatted in the sagittal and coronal planes. FINDINGS: Bone mineralization is decreased. There is no fracture or dislocation. Moderate osteoar thritic changes of the right hip noted. No focal soft tissue abnormality is seen. Atherosclerotic c alcifications are present IMPRESSION: No fracture or dislocation.
--- NOTE | 2016-10-01 12:46 | CT ---
Examination: Noncontrast CT examination of the pelvis. Reason for study: Pain in right hip. Comparison: Pelvic radiographs performed 07/30/2016. FINDINGS: The osseous structures are diffusely demineralized. Multilevel degenerative changes seen in the low er lumbar spine and sacrum. Sacroiliac joint spaces are symmetric. No acute fracture or dislocatio n. The femoral heads articulate with the acetabula bilaterally. Moderate degenerative changes are seen with subchondral cyst formation and sclerosis. Typically benign appearing calcific hyperdensit y is seen in the right iliac on axial image number 66. Mild degenerative changes seen within the sym physis pubis. Vascular calcifications are seen within the abdomen and pelvis. Impression: No acute fracture or dislocation is seen within the pelvis or either hip. Moderate deg enerative disease is seen within both hips, the lower lumbar spine, and pelvis.
== END 2016-10-01 12:04 | disposition home or self-care (01) ==
LOC: RAD 12:03
PROVIDERS: ATTEND General Practice
DX: M25.551 Pain in right hip (principal)

== ENCOUNTER 2016-11-13 11:42 | Outpatient (CLI) | payer OTHER ==
[2016-11-13 12:45] LABS: BASOPHILS # (AUTO) 0.1 K/uL (0-0.2); BASOPHILS % (AUTO) 0.7 % (0.0-3.0); EOSINOPHILS # (AUTO) 0.1 K/ul (0.0-0.7); EOSINOPHILS % (AUTO) 1.9 % (0.0-7.0); HEMATOCRIT 40.5 % (37.0-47.0); HEMOGLOBIN 12.6 g/dl (12.0-16.0); IMMATURE GRANULOCYTE % (AUTO) 0.4 % (0.0-5.0); LYMPHOCYTES # (AUTO) 1.7 K/uL (0.60-3.4); LYMPHOCYTES % (AUTO) 25.1 (10.0-50.0); MEAN CORPUSCULAR HEMOGLOBIN 26.4 pg (27.0-31.0); MEAN CORPUSCULAR HGB CONC 31.1 (31.8-35.4); MEAN CORPUSCULAR VOLUME 84.7 fl (81.0-99.0); MONOCYTES # (AUTO) 0.5 K/uL (0.4-2.0); MONOCYTES % (AUTO) 7.9 (0-10); NEUTROPHILS # (AUTO) 4.3 K/ul (2.0-6.9); PLATELET COUNT 298 10^3/uL (140-440); RED BLOOD COUNT 4.78 10^6/ul (4.20-5.40); WHITE BLOOD COUNT 6.74 K/ul (4.6-10.2)
[2016-11-13 12:48] LABS: BILIRUBIN,URINE Negative (NEGATIVE); KETONES,URINE Negative (NEGATIVE); LEUKOCYTE ESTERASE ,URINE Negative (NEGATIVE); NITRITE,URINE Negative (NEGATIVE); PROTEIN,URINE Negative (NEGATIVE); URINE, BLOOD Trace-lysed (NEGATIVE)
[2016-11-13 12:51] LABS: ADD URINE MICROSCOPIC YES
[2016-11-13 13:01] LABS: ALBUMIN 3.4 g/dL (3.4-5.0); ANION GAP 14.9; BILIRUBIN,TOTAL 0.68 mg/dL (0.00-1.20); BUN/CREATININE RATIO 21.21; CALCIUM 9.3 mg/dL (8.2-10.2); CHOL/HDL RATIO 2.9 (4.5-5.5); CREATININE 0.66 mg/dL (0.60-1.30); POTASSIUM 3.9 mmol/L (3.5-5.10); TOTAL PROTEIN 6.8 g/dL (5.8-8.1)
== END 2016-11-13 11:43 | disposition home or self-care (01) ==
LOC: LAB 11:42
PROVIDERS: ATTEND General Practice
DX: J44.9 Chronic obstructive pulmonary disease, unspecified (principal); I63.30 Cerebral infarction due to thrombosis of unspecified cerebral artery; I87.8 Other specified disorders of veins; E53.8 Deficiency of other specified B group vitamins; M10.9 Gout, unspecified; Z79.899 Other long term (current) drug therapy; Z87.891 Personal history of nicotine dependence
CPT/HCPCS: 36415; 80053; 80061; 81001; 85025

== ENCOUNTER 2016-11-22 07:46 | Outpatient (CLI) | payer OTHER ==
--- NOTE | 2016-11-22 09:12 | CT ---
EXAM: CT ABDOMEN AND PELVIS HISTORY: Lower abdominal pain. TECHNIQUE: CT abdomen and pelvis with and without intravenous contrast. Images were reconstructed using 5 mm section thickness. Reformations were prepared. FINDINGS: Compared to 10/15/2013 and older exams. No focal hepatic or splenic lesions. Gallbladder is absent. Pancreas within normal limits. Mildly prominent left adrenal gland is stable. 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 There is a possibly partially enhancing 1.3 cm cystic mass of the inferior right renal cortex although this does not luis alberto ear noticeably changed in size since 10/26/2012. Largest simple appearing renal cortical cystic mas s is on the right at 4.8 cm. Focal parenchymal calcification of the upper left renal cortex is stab le. There is moderate atherosclerotic disease. No gastric distension. Bowel gas pattern is nonspecific with mild gaseous distension of portions of the small and large bowel. Scattered colonic diverticula are noted. Urinary bladder appears normal. No uterus is present. There is no ascites or obvious focus of inflammatory infiltration of the abdo mayelin fat. No abdominal wall hernia. The bones reveal severe degenerative disc and facet disease of the spine with mild scoliosis without noticeable change since 2013. Lung bases reveal no acute infiltrates an d there is no pneumoperitoneum. IMPRESSION: 1. Nonspecific bowel gas pattern possibly related to mild ileus. No pneumoperitoneum, ascites or w ell-defined focus of inflammatory infiltration of the abdominal fat. Follow up with KUB or other abd ominal imaging if indicated. 2. 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 There is a possibly partially enhancing 1.3 cm cystic mas s of the inferior right renal cortex although this does not appear noticeably changed in size since 10/26/2012. Correlate with renal ultrasound. 3. Moderate atherosclerotic disease. 4. Mildly prominent left adrenal gland, stable and nonspecific. 5. Severe degenerative changes of the lumbar spine is similar to that seen in 2013 without noticeab le change.
== END 2016-11-22 07:47 | disposition home or self-care (01) ==
LOC: RAD 07:46
PROVIDERS: ATTEND General Practice
DX: R10.30 Lower abdominal pain, unspecified (principal)

== ENCOUNTER 2017-05-21 08:48 | Inpatient (IN) ==
[2017-05-21] MEDS ORDERED: NORCO 10-325 PO STA (09:03)
--- NOTE | 2017-05-21 09:43 | DI ---
EXAM: Four views of the left femur. History: Left leg pain. Findings: Osteopenia. No acute fracture or dislocation. Atherosclerotic vascular calcifications. Chondrocalcinosis seen within the left hip joint. Mild narrowing of the left hip joint. Degenerativ e disc disease within the lower lumbar spine. Degenerative changes seen at the left knee joint with chondrocalcinosis. Impression: No acute osseous abnormality
--- NOTE | 2017-05-21 09:58 | CT ---
EXAM: CT Pelvis without contrast. HISTORY: Left hip pain. COMPARISON: CT 11/22/2016. Femur radiograph earlier the same day. TECHNIQUE: Multiple axial images of the pelvis were obtained without intravenous contrast. Images w ere reformatted in the coronal and sagittal plane. FINDINGS: Please note that evaluation of the pelvic soft tissue structures is limited due to lack of intravenous contrast. Bone mineralization is decreased. No fracture or dislocation identified. Mild hip joint space narro wing and marginal osteophyte formation seen bilaterally. Chondrocalcinosis surrounding the femoral h rachael noted bilaterally. Lower lumbar degenerative changes noted with disc osteophyte formation, thic kening of ligamentum flavum, and facet arthropathy causing moderate to severe central canal stenosis and severe left neural foraminal narrowing at L4-5, and moderate to severe bilateral neural foraminal narrowing at L5-S1. No localized soft tissue abnormality detected. Atherosclerotic calcifications are present. Colonic diverticulosis noted. IMPRESSION: 1. No fracture or dislocation. 2. Mild osteoarthritis of both hips. Chondrocalcinosis also present bilaterally. 3. Moderate to severe lower lumbar degenerative changes.
--- NOTE | 2017-05-21 10:03 | ED.PDOC ---
General ED Provider: Dr. SUDARSHAN TOM Chief Complaint: Hip Pain/Injury Stated Complaint: LEFT HIP PAIN Time Seen by Physician: 09:00 (CHRONIC WORSE TODAY NO INJURY) Mode of Arrival: Ambulance Information Source: Patient Exam Limitations: No limitations [facility] Documentation Reviewed and Agree: Yes Musculoskeletal Complaint Exam - Hip/Pelvis Complaint/Exam Location of Pain: Reports: Left, Hip, Groin, Pelvis Mechanism of Injury: Reports: No known trauma Onset/Duration: CHRONIC ISSUE MARKEDLY WORSE TODAY Symptoms Are: Still present Initial Severity: Moderate Current Severity: Moderate Location: Reports: Discrete Character: Reports: Aching (LEFT HIP AND TIGH) Aggravating: Reports: Movement Alleviating: Reports: Rest, Position Associated Signs and Symptoms: Denies: Swelling, Redness, Bruising, Fever, Weakness, Dizziness, Syncope, Abdominal pain, Knee pain Related History: Reports: Similar episode Able to Bear Weight: No (NOT ATTEMPTED ) Related Surgical History: Reports: None Pelvis Palpation: Stable Hip/Pelvis Findings: Absent: Extremity shortened, Swelling, Ecchymosis, Erythema , Warmth, Blisters Range of Motion Limited In: Present: Flexion, Extension, Abduction, Adduction, Internal rotation, External rotation NV Bundle Intact Distal to Injury: Yes Differential Diagnoses: Arthritis, Sprain, Strain Review of Systems - Review Of Systems Constitutional: Reports: No symptoms Eyes: Reports: No symptoms Ears, Nose, Mouth, Throat: Reports: No symptoms Respiratory: Reports: No symptoms Cardiac: Reports: No symptoms GI: Reports: No symptoms : Reports: No symptoms Musculoskeletal: Reports: Joint pain (LEFT HIP) Skin: Reports: No symptoms Neurological: Reports: No symptoms Endocrine: Reports: No symptoms Hematologic/Lymphatic: Reports: No symptoms All Other Systems: Reviewed and Negative Past Medical History - Past Medical History Previously Healthy: Yes Endocrine: Reports: None Cardiovascular: Reports: None Respiratory: Reports: COPD Hematological: Reports: None Gastrointestinal: Reports: Other (celiac disease) Genitourinary: Reports: None Neuro/Psych: Reports: TIA (TIA several years ago) Musculoskeletal: Reports: None Cancer: Reports: None Last Menstrual Period: n/a - Surgical History General Surgical History: Reports: Hysterectomy, Appendectomy, Cholecystectomy, Other (Sinus surgery, Cataract surgery). Denies: Hernia Repair ( hemorrhoidectomy) - Family History Family History: Reports: Unknown (son owns wild cat) - Social History Smoking Status: Former smoker Hx Substance Use: No Alcohol Screening: None Physical Exam - Physical Exam Appearance: Well-appearing, No pain distress, Well-nourished Eyes: DON, EOMI, Conjunctiva clear ENT: Ears normal, Nose normal, Oropharynx normal Respiratory: Airway patent, Breath sounds clear, Breath sounds equal, Respirations nonlabored Cardiovascular: RRR, Pulses normal, No rub, No murmur GI/: Soft, Nontender, No masses, Bowel sounds normal, No Organomegaly Musculoskeletal: Limited ROM (LEFT HIP) Skin: Warm, Dry, Normal color Neurological: Sensation intact, Motor intact, Reflexes intact, Cranial nerves intact, Alert, Oriented Psychiatric: Affect appropriate, Mood appropriate Interpretation - Radiology Interpretation Radiology Interpretation By: Radiologist Radiology Results: No acute changes Physician Notification - Case Discussed Physician Notified: BLOOD Time of Notification: 10:09 ([facility] ) Admit To: Inpatient Critical Care Note - Critical Care Note Total Time (mins): 0 Course - Course Orders, Labs, Meds: Orders Category Date Time Status Hydrocodone Bit/Acetaminophen [[place] 10-325] MEDS 05/21/17 09:03 Discontinued 1 tab PO ONCE STA CT PELVIS W/O CONTRAST Stat RADS 05/21/17 09:03 Completed FEMUR, LEFT 2 VIEWS Stat RADS 05/21/17 09:19 Completed Medications Discontinued Medications Generic Name Dose Route Start Last Admin Trade Name Freq PRN Reason Stop Dose Admin Acetaminophen/Hydrocodone Bitart 1 tab 05/21/17 09:03 05/21/17 09:08 [place] 10-325 PO 05/21/17 09:04 1 tab ONCE STA Administration Vital Signs: Temp Pulse Resp BP Pulse Ox 05/21/17 08:49 99.9 F H 92 H 20 156/92 H 96 Departure - Departure Time of Disposition: 10:09 Disposition: HOME SELF-CARE Discharge Problem: Hip pain Instructions: Arthralgia (ED), Hip Pain (ED) Condition: Good Pt referred to PMD for follow-up: Yes Additional Instructions: Please call your Family Physician as soon as possible to schedule a follow-up appointment. Allergies/Adverse Reactions: Allergies codeine Adverse Reaction (Verified 05/21/17 08:55) Home Medications: Ambulatory Orders Melatonin 10 mg SL BEDTIME 07/30/16 Lactobacillus Acidophilus [Probiotic] 1 each PO DAILY #30 tab-cap 05/12/17 Diazepam 2 mg PO PRN PRN 05/21/17 Disposition Discussed With: Patient
[2017-05-21] MEDS ORDERED: VALIUM PO PRN (10:11)
[2017-05-21] MEDS ORDERED: MORPHINE 2 MG/ML SYRINGE IVP STA (10:12)
[2017-05-21] MEDS ORDERED: MORPHINE 2 MG/ML SYRINGE IVP PRN (10:12)
[2017-05-21] MEDS ORDERED: ZOFRAN 4 MG/2 ML IVP PRN (10:13)
[2017-05-21] MEDS ORDERED: TORADOL IVP PRN ×2 (10:14→12:59)
[2017-05-21 10:28] LABS: BASOPHILS % (AUTO) 0.2 % (0.0-3.0); EOSINOPHILS % (AUTO) 0.1 % (0.0-7.0); HEMATOCRIT 38.9 % (37.0-47.0); IMMATURE GRANULOCYTE % (AUTO) 0.4 % (0.0-5.0); LYMPHOCYTES # (AUTO) 1.2 K/uL (0.60-3.4); LYMPHOCYTES % (AUTO) 13.4 (10.0-50.0); MEAN CORPUSCULAR HEMOGLOBIN 27.1 pg (27.0-31.0); MEAN CORPUSCULAR HGB CONC 33.4 (31.8-35.4); MEAN CORPUSCULAR VOLUME 81.2 fl (81.0-99.0); MONOCYTES # (AUTO) 0.8 K/uL (0.4-2.0); MONOCYTES % (AUTO) 8.6 (0-10); NEUTROPHILS # (AUTO) 7.2 K/ul (2.0-6.9); NEUTROPHILS % (AUTO) 77.3; PLATELET COUNT 262 10^3/uL (140-440); RED BLOOD COUNT 4.79 10^6/ul (4.20-5.40); WHITE BLOOD COUNT 9.28 K/ul (4.6-10.2)
[2017-05-21 10:34] LABS: BILIRUBIN,URINE Negative (NEGATIVE); KETONES,URINE 1+ (NEGATIVE); LEUKOCYTE ESTERASE ,URINE Trace (NEGATIVE); NITRITE,URINE Negative (NEGATIVE); PH,URINE 8.5 (5-9); PROTEIN,URINE Trace (NEGATIVE); URINE, BLOOD 2+ (NEGATIVE)
[2017-05-21 10:42] LABS: ADD URINE MICROSCOPIC YES
[2017-05-21 10:48] LABS: ALBUMIN 3.4 g/dL (3.4-5.0); ALBUMIN/GLOBULIN RATIO 0.92; ANION GAP 13.7; BILIRUBIN,TOTAL 1.05 mg/dL (0.00-1.20); BUN/CREATININE RATIO 14.75; CALCIUM 9.8 mg/dL (8.2-10.2); CREATININE 0.61 mg/dL (0.60-1.30); POTASSIUM 3.7 mmol/L (3.5-5.10); TOTAL PROTEIN 7.1 g/dL (5.8-8.1)
[2017-05-21 11:40] VITALS: BMI 16.5
[2017-05-21] MEDS: SODIUM CHLORIDE 1,000 ML IV SCH (12:04)
[2017-05-21] MEDS ORDERED: PREDNISONE PO SCH (12:58)
[2017-05-21] MEDS ORDERED: DECADRON 4 MG/ML SDV IM STA (12:58)
[2017-05-21] MEDS: PREDNISONE PO SCH (13:51)
--- NOTE | 2017-05-21 16:19 | RS.PTINEVL ---
Subjective - Patient information Date of Evaluation: 05/21/17 Date of Arrival on Unit: 05/21/17 Admitted From:: Emergency Dept Usual Living Arrangement: Alone Subjective Information/ Patient Comments:: Patient reports left hip/groin pain without any injury. States she was trying to get out of her lift chair and sat back down with severe increased pain. States she uses a rolling walker at home. States she has not needed it the last few days. States pain is down with pain medication currently to a 4/10. - Level of function Prior to this admission, the patient could do the following:: Independent Selfcare, Independent ADL's, Independent Ambulation, Perform Salt Lifter/ Cooking Abilities prior to this admission: She takes care of her 3 dogs and 2 cats. Current Level of Function: Partially Dependent Current Equipment Used at Home: lift chair, wheelchair, walker, shower chair ( if needed) Interventions - Objective Patient Orientation: Person, Place, Time, Situation Current Interventions: IV's Range of Motion - ROM Right Upper Extremity AROM: WFL's Left Upper Extremity AROM: WFL's Right Lower Extremity AROM: WFL's Left Lower Extremity AROM: Moderate limitation Muscle Strength - Muscle Strength Comments:: Bilateral LE strength at least 3+ to 4/5. Sensation - Sensation Comments: Reports impaired sensation throughout left LE. Balance - Sitting Balance and Reactions Static Sitting Balance: Good Dynamic Sitting Balance: Good - Standing Balance and Reactions Static Standing Balance: Good (-) Dynamic Standing Balance: Fair Functional Mobility - Bed Mobility Scooting: Mod Assist, 1 person assist, Verbal Cues, Tactile Cues Supine to Sit: Mod Assist, 1 person assist, Verbal Cues, Tactile Cues Sit to Supine: Mod Assist, 2 person assist, Verbal Cues, Tactile Cues Comments:: Assistance given for left LE. Patient reports pain with movement of the left hip. - Transfers Sit to Stand: Mod Assist, 2 person assist, Verbal Cues, Tactile Cues Stand to Sit: Mod Assist, 1 person assist, Verbal Cues, Tactile Cues Stand Pivot Transfers: Not Tested Comments:: Patient requires VC's to use arms to push from seated surface for sit to stand, and then VC's to reach back for bed prior to sitting down. Assisted patient with changing depends. Patient stood at walker and took her full weight onto left LE to remove right leg from the depends, but could not perform the same for the left LE. Reports pain with lifting the left LE, so she was assisted to sit on the side of the bed to remove the left leg from the depends. - Safety Awareness Safety Awareness: Fair Ambulation - Ambulation Weight Bearing Status: WBAT Assistive Device Used: Standard Walker Distance: 2 steps forward, 2 steps back to bed Assistance needed with Ambulation: Mod Assist, 1 person assist, Verbal Cues, Tactile Cues Gait Deviations: Wide Based gait, Forward posture, Short stride, Lacks step continuity Ambulation Comments: Patient demonstrates difficulty advancing the left LE. Reports pain with attempts to flex the left hip. Factors Affecting Ambulation: Pain (left hip/groin), Weakness, Decreased ROM ( left hip), Decreased Safety Treatment time - Time with patient Total treatment time: 19 (mins) Patient Education - Education Patient Education: Home Safety Teaching Recipient: Patient Teaching Methods: Discussion Assessment - Assessment Problem List:: Decreased level of function, Requires training/education, Decreased safety/Risk of falls, Pain limits previous level of function Rehab Potential: Good Further Therapy Indicated?: Yes Short Term Goals GOAL #1: Supine to sit/sit to supine with min of one. Goal to be met by: 05/24/17 GOAL #2: Sit to stand with CGA of one and consistent use of UE's to push from seat. Goal to be met by: 05/24/17 GOAL #3: Pt to amb. with RW 10 feet with min of one and VC's. Goal to be met by: 05/24/17 Agriculture Teacher Goals GOAL #1: All bed mobility independent. Goal to be met by: 05/27/17 GOAL #2: All transfers independent with good safety. Goal to be met by: 05/27/17 GOAL #3: Pt to amb. household distances with RW, independently with good safety. Goal to be met by: 05/27/17 Plan Plan of Care: Therapeutic EX, Therapeutic Activity, Self-Care/Home Management Modalities: Hot Pack, Cold Pack/Cryotherapy, Electrical Stimulation Frequency of Treatment: 1-2 X day, as tolerated Duration of Treatment: 4-5 days Anticipated Discharge Destination: Home Has the Physician been added for Co-signature?: Yes
[2017-05-21] MEDS: FLORASTOR PO SCH (20:30)
[2017-05-21] MEDS: ADVAIR 500-50 DISKUS IH SCH (20:30)
[2017-05-22] MEDS: SODIUM CHLORIDE 1,000 ML IV SCH ×2 (00:14→12:59)
[2017-05-22 04:23] LABS: BASOPHILS % (AUTO) 0.2 % (0.0-3.0); HEMATOCRIT 34.8 % (37.0-47.0); HEMOGLOBIN 11.5 g/dl (12.0-16.0); IMMATURE GRANULOCYTE % (AUTO) 0.5 % (0.0-5.0); LYMPHOCYTES # (AUTO) 0.8 K/uL (0.60-3.4); LYMPHOCYTES % (AUTO) 12.7 (10.0-50.0); MEAN CORPUSCULAR HEMOGLOBIN 27.4 pg (27.0-31.0); MEAN CORPUSCULAR VOLUME 83.1 fl (81.0-99.0); MONOCYTES # (AUTO) 0.6 K/uL (0.4-2.0); MONOCYTES % (AUTO) 9.5 (0-10); NEUTROPHILS # (AUTO) 4.9 K/ul (2.0-6.9); NEUTROPHILS % (AUTO) 77.1; PLATELET COUNT 224 10^3/uL (140-440); RED BLOOD COUNT 4.19 10^6/ul (4.20-5.40); WHITE BLOOD COUNT 6.32 K/ul (4.6-10.2)
[2017-05-22 04:55] LABS: ALBUMIN 2.9 g/dL (3.4-5.0); ALBUMIN/GLOBULIN RATIO 1.07; ANION GAP 12.1; BILIRUBIN,TOTAL 0.38 mg/dL (0.00-1.20); BUN/CREATININE RATIO 23.21; CALCIUM 8.7 mg/dL (8.2-10.2); CREATININE 0.56 mg/dL (0.60-1.30); POTASSIUM 4.1 mmol/L (3.5-5.10); TOTAL PROTEIN 5.6 g/dL (5.8-8.1)
[2017-05-22] MEDS ORDERED: PLAVIX PO SCH (09:00)
[2017-05-22] MEDS ORDERED: VALIUM PO PRN (09:30)
[2017-05-22] MEDS: PREDNISONE PO SCH (09:36)
[2017-05-22] MEDS: PLAVIX PO SCH (09:37)
[2017-05-22] MEDS: NON-FORMULARY MEDICATION (Lactobacillus Acidophilus [Probiotic] 1 EACH) PO SCH ×22 (09:37)
--- NOTE | 2017-05-22 10:12 | PCM.PROG ---
Attending Provider: ATTENDING PROVIDER: [facility] patient is seen with Amaya Cevallos, Nurse Practitioner. DATE OF SERVICE: 05/22/17 SUBJECTIVE: This 86 year old WHITE/ F was hospitalized 05/21/17. The patient is alert, lying in bed. She states she slept well. Her pain is somewhat better in the left hip. Will do PT/OT consult today. REVIEW OF SYSTEMS: CONSTITUTIONAL: No night sweats. No fatigue, malaise, lethargy. No fever or chills. HEENT: Eyes: No visual changes. No eye pain. No eye discharge. ENT: No runny nose. No epistaxis. No sinus pain. No odynophagia. No congestion. RESPIRATORY: No cough, no congestion. No hemoptysis. No shortness of breath. CARDIOVASCULAR: No angina symptoms. No CHF symptoms. No atypical chest pain for CAD. No palpitations. No orthopnea.. GASTROINTESTINAL: No abdominal pain. No nausea or vomiting. No diarrhea or constipation. No hematemesis. No hematochezia. GENITOURINARY: No urgency. No frequency. No dysuria. No hematuria. No obstructive symptoms. No discharge. No pain. No significant abnormal bleeding. MUSCULOSKELETAL: Left hip pain. Leg weakness. NEUROLOGICAL: Awake, alert, oriented to time, place and person. No headache. No neck pain. No syncope. No seizures. No dizziness. PSYCHIATRIC: Not anxious. No depression. No suicidal thoughts. No homicidal thoughts. SKIN: No rash. No lesions. No wounds. ENDOCRINE: No unexplained weight loss. No weight gain. HEMATOLOGIC/LYMPHATIC: No anemia. No purpura. No petechiae. No prolonged or excessive bleeding. No palpable lymph nodes. PHYSICAL EXAMINATION: GENERAL: The patient is awake, alert and oriented, lying/sitting in bed in no distress. VITAL SIGNS: Temperature 97.8 F, Pulse 78, Respiratory Rate 16, BP 102/56, Pulse Ox 97% HEENT: Head normocephalic, atraumatic. Eyes: Extraocular muscles are intact. Pupils are equal, round and reactive to light and accommodation. Ears: No lesions. Nose appeared normal. Throat: No exudate or erythema. NECK: Supple. No JVD, no carotid bruit. No lymphadenopathy or thyromegaly. LUNGS: Diminished breath sounds. Clear to auscultation. Percussion note normal. Chest symmetrical. HEART: S1, S2, no S3. No murmurs. No cyanosis or clubbing. No ascites. Pulses: Dorsalis pedis and posterior tibial pulses +1 to +2 both sides. ABDOMEN: Soft. Non-tender. Bowel sounds active. No CVA tenderness. No mass felt. EXTREMITIES: No edema. Full range of motion of all extremities, equal. NEUROLOGIC: No focal deficit. Cranial nerves II through XII are grossly intact. No headache, no double vision or headache. Leg weakness - uses walker. SKIN: Not dry. Intact. Turgor-normal. LYMPHATIC: No palpable lymph nodes/no lymphedema. MUSCULOSKELETAL: Normal joints with no swelling. Muscle tone is normal. LAB REVIEW: 05/22/17 03:50 05/22/17 03:50 05/22/17 03:50: Sodium 139, Potassium 4.1, Chloride 106, Carbon Dioxide 25, Anion Gap 12.1, BUN 13, Creatinine 0.56 L, Estimated GFR (MDRD) 103.00, BUN/ Creatinine Ratio 23.21, Glucose 139 H, Calcium 8.7, Total Bilirubin 0.38, AST 22 , ALT 17, Alkaline Phosphatase 88, Total Protein 5.6 L, Albumin 2.9 L, Globulin 2.7, Albumin/Globulin Ratio 1.07 05/22/17 03:50: WBC 6.32, RBC 4.19 L, Hgb 11.5 L, Hct 34.8 L, MCV 83.1, MCH 27.4 , MCHC 33.0, RDW Coeff of Gareth 14.7, Plt Count 224, Immature Gran % (Auto) 0.5, Neut % (Auto) 77.1, Lymph % (Auto) 12.7, [place] % (Auto) 9.5, Eos % (Auto) 0.0, Baso % (Auto) 0.2, Immature Gran # (Auto) 0.0, Neut # 4.9, Lymph # 0.8, [place] # 0.6, Eos # 0.0, Baso # 0.0 ASSESSMENT: 1. Left hip pain 2. Left hip osteoarthritis 3. Leg weakness 4. CAD PLAN: 1. Continue IV Toradol 2. PT/OT consult 3. D/C Morphine Plan and coordination of the patient's care discussed in the presence of Senior Geologist and nurse. CONDITION: Stable SCRIBED BY: ROMERO SHIPMAN Care Giver scribed while in presence of service performed by Dr. Blood/Amaya Cevallos APRN on 05/22/17 ([id number])
[2017-05-22] MEDS: FLORASTOR PO SCH (10:15)
[2017-05-22] MEDS: ADVAIR 500-50 DISKUS IH SCH ×3 (11:14→20:11)
[2017-05-22] MEDS: VALIUM PO SCH ×2 (11:14→17:03)
--- NOTE | 2017-05-22 13:53 | PN ---
DATE OF SERVICE: 05/21/17 ADMIT NOTE SUBJECTIVE: 86 year old white female who lives at home by herself was brought to the emergency room because severe left hip pain to the point where she is crying out with pain. Unable to get up. She has generalized DJD. REVIEW OF SYSTEMS: CONSTITUTIONAL: No night sweats. No fatigue, malaise, lethargy. No fever or chills. HEENT: Eyes: No visual changes. No eye pain. No eye discharge. ENT: No runny nose. No epistaxis. No sinus pain. No sore throat. No odynophagia. No congestion. RESPIRATORY: No cough, no congestion. No hemoptysis. No shortness of breath. CARDIOVASCULAR: No angina symptoms. No CHF symptoms. No atypical chest pain for CAD. No palpitations. No orthopnea. GASTROINTESTINAL: No abdominal pain. No nausea or vomiting. No diarrhea or constipation. No hematemesis. No hematochezia. GENITOURINARY: No urgency. No frequency. No dysuria. No hematuria. No obstructive symptoms. No discharge. No pain. No significant abnormal bleeding. MUSCULOSKELETAL: No musculoskeletal pain; no joint swelling. Left him pain. NEUROLOGICAL: No headache. No neck pain. No syncope. No seizures. No dizziness. PSYCHIATRIC: Not anxious. No depression. No suicidal thoughts. No homicidal thoughts. SKIN: No rash. No lesions. No wounds. ENDOCRINE: No unexplained weight loss. No weight gain. HEMATOLOGIC/LYMPHATIC: No anemia. No purpura. No petechiae. No prolonged or excessive bleeding. No palpable lymph nodes. MEDICATIONS: Melatonin 10mg sublingual Lactobacillus Diazepam 2mg PRN SOCIAL HISTORY: Former smoker and no alcohol about. . Son helps her to take care of her. The patient is able to do all activity of daily living but because of this pain she has been handicap. SURGICAL HISTORY: Hysterectomy Appendectomy Cholecystectomy Hernia repair Questionable history of TIA on Plavix now. PHYSICAL EXAMINATION: VITAL SIGNS: Temperature 99.9, pulse 92, respiratory rate 20, blood pressure 156/92 and pulse ox 96%. HEENT: Head normocephalic, atraumatic. Eyes: Extraocular muscles are intact. Pupils are equal, round and reactive to light and accommodation. Ears: No lesions. Nose appeared normal. Throat: No exudate or erythema. NECK: Supple. No JVD, no carotid bruit. No lymphadenopathy or thyromegaly. LUNGS: Decreased breath sounds but clear to auscultation. Percussion note normal. Chest symmetrical. HEART: S1, S2, no S3. No murmurs. No cyanosis or clubbing. No ascites. Pulses: Dorsalis pedis and posterior tibial pulses +1 to +2 both sides. ABDOMEN: Soft. Nontender. Bowel sounds active. No CVA tenderness. No mass felt. EXTREMITIES: No edema. Full range of motion of all extremities, equal. Left hip seems to be normal with normal motion. x-ray shows DJD, no fractures. Osteopenia. Four view of femur normal. 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 NEUROLOGIC: No focal deficit. Cranial nerves II through XII are grossly intact. No headache, no double vision or headache. SKIN: Not dry. Intact. Turgor - normal. LYMPHATIC: No palpable lymph nodes/no lymphedema. MUSCULOSKELETAL: Normal joints with no swelling. Muscle tone is normal. LABS: Hgb 13, hct 38, WBC 9,200 normal differential, creatinine 0.6, BUN 9, potassium 3.7, normal liver profile ASSESSMENT: 1. Severe left hip pain 2. Possible sciatica 3. Questionable History TIA 4. Hypertension PLAN: 1. Give Morphine 2mg IV Q 8 hours 2. Toradol 30mg Q 8 PRN 3. 1cc Decadron today 4. Prednisone 30mg today and tomorrow morning When I saw the patient she said that her pain is a lot better and it is bearable now. CONDITION: STABLE TIME SPENT: More than 30 minutes. Plan and coordination of the patient's care discussed in the presence of nurse. DALE
--- NOTE | 2017-05-22 14:01 | RS.SLPCNOT ---
Speech Case Note Date of Note: 05/22/17 Note: The patient was referred for a speech consult upon admission to [facility]. The patient stated that she has a history of esophageal dysphagia requiring dilitation several years ago. The patient also stated that she had an appointment with Dr. Brown a few months ago where he prescribed a medication to be taken 1 hour prior to intake. The patient stated that since she has begun taking this medication her swallowing has improved. The patient consumed a regular snack with thin liquids demonstrating no overt s/s of aspiration or difficulty. Nursing also reported no difficulty swallowing has been observed since admission. No further CERTIFIED HYPERBARIC TECHNICIAN services are recommended at this time.
--- NOTE | 2017-05-22 15:11 | RS.OTINEVL ---
Subjective - Patient information Date of Evaluation: 05/22/17 Date of Arrival on Unit: 05/20/17 Admitted From:: Emergency Dept Diagnosis: Left hip pain Usual Living Arrangement: Alone Living Arrangement Comments: Lives alone Home Environment: House Medical History: CVA/TIA Medical History Comments:: Left Hip pain, COPD, Respiratory disease, anemia, Celiac disease, Total hysterectomy, Breast Biopsy, Tonsillectomy, appendectomy, rotator cuff injury, TIA 2013, incontinent urine Surgical History: Tonsillectomy, Hysterectomy Surgical History Comments:: cataract surgery, tonsillectomy, appendectomy, Subjective Information/ Patient Comments:: "I live alone. My grandson is at [facility]. " - Level of function Prior to this admission, the patient could do the following:: Independent Selfcare, Independent ADL's, Independent Ambulation, Perform Supervisor Scenic Arts/ Cooking Abilities prior to this admission: Pt was independent at home with all ADLS and driving prior to this incident. Current Level of Function: Partially Dependent Current Equipment Used at Home: lift chair, wheelchair, walker, shower chair ( if needed) Pain Assessment - Pain Pain Score: 4 Side: left Pain Location Body Site: Hip Pain Aggravating Factors: Standing, Walking Pain Alleviating Factors: Medication, Lying Supine Interventions - Objective Patient Orientation: Person, Place, Situation Current Interventions: IV's Observation: Pt reports her Left leg feels heavy and yesterday it was numb. Interventions - ROM Right Upper Extremity AROM: Marked limitation Left Upper Extremity AROM: WFL's - Strength Right Upper Extremity Strength: Severe Weakness Left Upper Extremity Strength: Mild Weakness - Sensation Right Upper Extremity Sensation: Intact/Normal Left Upper Extremity Sensation: Intact/Normal Balance - Sitting Balance Static Sitting Balance: Fair Dynamic Sitting Balance: Fair - Standing Balance Static Standing Balance: Fair Dynamic Standing Balance: Fair ADL Skills - Self Feeding Self Feeding: Independent - Grooming Grooming: Min Assist - Bathing Bathing UE: Min Assist Bathing LE: Min Assist - Dressing Dressing UE: Min Assist Dressing LE: Min Assist - Toilet Management Toileting Management: Min Assist Functional Mobility - Bed Mobility Rolling R/L: Independent Scooting: Supervision Supine to Sit: Supervision Sit to Supine: Supervision - Transfers Sit to Stand: Min Assist Stand to Sit: Min Assist Stand Pivot Transfers: Min Assist Additional Treatment Performed - Additional units charged ADL: 15 - Time with patient Total treatment time: 24 Activities Patient Interests:: Reading Books/Magazines, Watching Television, Puzzles/Games Patient Education Patient Education: Education of diagnosis, Home Exercise Program, Education of Plan of Care Teaching Recipient: Patient Teaching Methods: Discussion Assessment Problem List:: Decreased level of function, Requires training/education, Decreased safety/Risk of falls, Weakness, Pain limits previous level of function Rehab Potential: Good Further Therapy Indicated?: Yes Short Term Goals - Goals GOAL 1: Pt to increase RUE shoulder flexion 0-110 degrees. Goal to be met by: 05/29/17 GOAL 2: Pt to be CGA with sink level ADLS. Goal to be met by: 05/29/17 GOAL 3: Pt to increase strength in RUE to 4/5. Goal to be met by: 05/29/17 Instructor Substitute Cosmetology Goals GOAL 1: Pt to increase RUE shoulder flexion 0-125 degrees. Goal to be met by: 06/05/17 GOAL 2: Pt to be IN with sink level ADLS. Goal to be met by: 06/05/17 GOAL 3: Pt to increase strength in RUE to 4+/5. Goal to be met by: 06/05/17 Plan Plan of Care: Therapeutic EX, Neuromuscular Re-Educ, Therapeutic Activity, Self- Care/Home Management Modalities: Hot Pack, Cold Pack/Cryotherapy, Ultrasound, Ultrasound Combination , Electrical Stimulation Frequency of Treatment: 1-2 X day, as tolerated Duration of Treatment: 2 Weeks Anticipated Discharge Destination: Home Has the Physician been added for Co-signature?: Yes
[2017-05-22] MEDS: NON-FORMULARY MEDICATION (Melatonin [Melatonin] 10 MG) SL SCH (20:11)
[2017-05-23] MEDS: SODIUM CHLORIDE 1,000 ML IV SCH (01:29)
[2017-05-23 05:31] LABS: BASOPHILS % (AUTO) 0.3 % (0.0-3.0); EOSINOPHILS % (AUTO) 0.6 % (0.0-7.0); HEMATOCRIT 32.3 % (37.0-47.0); HEMOGLOBIN 10.5 g/dl (12.0-16.0); IMMATURE GRANULOCYTE % (AUTO) 0.3 % (0.0-5.0); LYMPHOCYTES % (AUTO) 28.5 (10.0-50.0); MEAN CORPUSCULAR HEMOGLOBIN 26.9 pg (27.0-31.0); MEAN CORPUSCULAR HGB CONC 32.5 (31.8-35.4); MEAN CORPUSCULAR VOLUME 82.6 fl (81.0-99.0); MONOCYTES # (AUTO) 0.6 K/uL (0.4-2.0); MONOCYTES % (AUTO) 8.7 (0-10); NEUTROPHILS # (AUTO) 4.4 K/ul (2.0-6.9); NEUTROPHILS % (AUTO) 61.6; PLATELET COUNT 230 10^3/uL (140-440); RED BLOOD COUNT 3.91 10^6/ul (4.20-5.40); WHITE BLOOD COUNT 7.05 K/ul (4.6-10.2)
[2017-05-23 05:50] LABS: ALBUMIN 2.6 g/dL (3.4-5.0); ALBUMIN/GLOBULIN RATIO 0.93; ANION GAP 9.4; BILIRUBIN,TOTAL 0.26 mg/dL (0.00-1.20); BUN/CREATININE RATIO 16.98; CALCIUM 8.7 mg/dL (8.2-10.2); CREATININE 0.53 mg/dL (0.60-1.30); POTASSIUM 3.4 mmol/L (3.5-5.10); TOTAL PROTEIN 5.4 g/dL (5.8-8.1)
[2017-05-23] MEDS: VALIUM PO SCH ×3 (06:35→16:40)
[2017-05-23] MEDS ORDERED: DECADRON 4 MG/ML SDV IM STA (08:06)
[2017-05-23] MEDS: PLAVIX PO SCH (08:15)
[2017-05-23] MEDS: NON-FORMULARY MEDICATION (Lactobacillus Acidophilus [Probiotic] 1 EACH) PO SCH ×22 (08:15)
[2017-05-23] MEDS: PREDNISONE PO SCH (08:16)
[2017-05-23] MEDS: ADVAIR 500-50 DISKUS IH SCH ×2 (08:16→20:29)
[2017-05-23] MEDS: K-DUR PO SCH ×2 (08:31→17:23)
[2017-05-23] MEDS ORDERED: PLAVIX PO SCH (09:00)
--- NOTE | 2017-05-23 09:09 | PCM.PROG ---
Attending Provider: ATTENDING PROVIDER: [facility] This patient is seen with Amaya Cevallos, Nurse Practitioner. DATE OF SERVICE: 05/23/17 SUBJECTIVE: This 86 year old WHITE/ F was hospitalized 05/21/17. The patient is sitting in bed, is alert. Left hip pain is better. She is still unable to get up without assistance. REVIEW OF SYSTEMS: CONSTITUTIONAL: No night sweats. No fatigue, malaise, lethargy. No fever or chills. HEENT: Eyes: No visual changes. No eye pain. No eye discharge. ENT: No runny nose. No epistaxis. No sinus pain. No odynophagia. No congestion. RESPIRATORY: No cough, no congestion. No hemoptysis. No shortness of breath. CARDIOVASCULAR: No angina symptoms. No CHF symptoms. No atypical chest pain for CAD. No palpitations. No orthopnea.. GASTROINTESTINAL: No abdominal pain. No nausea or vomiting. No diarrhea or constipation. No hematemesis. No hematochezia. GENITOURINARY: No urgency. No frequency. No dysuria. No hematuria. No obstructive symptoms. No discharge. No pain. No significant abnormal bleeding. MUSCULOSKELETAL: Left hip pain and weakness. NEUROLOGICAL: Awake, alert, oriented to time, place and person. No headache. No neck pain. No syncope. No seizures. No dizziness. PSYCHIATRIC: Not anxious. No depression. No suicidal thoughts. No homicidal thoughts. SKIN: No rash. No lesions. No wounds. ENDOCRINE: No unexplained weight loss. No weight gain. HEMATOLOGIC/LYMPHATIC: No anemia. No purpura. No petechiae. No prolonged or excessive bleeding. No palpable lymph nodes. PHYSICAL EXAMINATION: GENERAL: The patient is awake, alert and oriented, lying in bed in no distress. VITAL SIGNS: Temperature 98.3 F, Pulse 68, Respiratory Rate 16, BP 148/70, Pulse Ox 98% HEENT: Head normocephalic, atraumatic. Eyes: Extraocular muscles are intact. Pupils are equal, round and reactive to light and accommodation. Ears: No lesions. Nose appeared normal. Throat: No exudate or erythema. NECK: Supple. No JVD, no carotid bruit. No lymphadenopathy or thyromegaly. LUNGS: Clear to auscultation. Percussion note normal. Chest symmetrical. HEART: S1, S2, no S3. No murmurs. No cyanosis or clubbing. No ascites. Pulses: Dorsalis pedis and posterior tibial pulses +1 to +2 both sides. ABDOMEN: Soft. Non-tender. Bowel sounds active. No CVA tenderness. No mass felt. EXTREMITIES: No edema. Full range of motion of all extremities, equal. NEUROLOGIC: No focal deficit. Cranial nerves II through XII are grossly intact. No headache, no double vision or headache. SKIN: Not dry. Intact. Turgor-normal. LYMPHATIC: No palpable lymph nodes/no lymphedema. MUSCULOSKELETAL: Normal joints with no swelling. Muscle tone is normal. LAB REVIEW: 05/23/17 05:05 05/23/17 05:05 05/23/17 05:05: Sodium 142, Potassium 3.4 L, Chloride 108 H, Carbon Dioxide 28, Anion Gap 9.4, BUN 9, Creatinine 0.53 L, Estimated GFR (MDRD) 109.00, BUN/ Creatinine Ratio 16.98, Glucose 96, Calcium 8.7, Total Bilirubin 0.26, AST 19, ALT 15, Alkaline Phosphatase 69, Total Protein 5.4 L, Albumin 2.6 L, Globulin 2.8, Albumin/Globulin Ratio 0.93 05/23/17 05:05: WBC 7.05, RBC 3.91 L, Hgb 10.5 L, Hct 32.3 L, MCV 82.6, MCH 26.9 L, MCHC 32.5, RDW Coeff of Gareth 15.0 H, Plt Count 230, Immature Gran % (Auto ) 0.3, Neut % (Auto) 61.6, Lymph % (Auto) 28.5, [place] % (Auto) 8.7, Eos % (Auto) 0.6, Baso % (Auto) 0.3, Immature Gran # (Auto) 0.0, Neut # 4.4, Lymph # 2.0, [place] # 0.6, Eos # 0.0, Baso # 0.0 ASSESSMENT: 1. Left hip pain, improving 2. Left hip osteoarthritis 3. Leg weakness 4. CAD 5. Hypokalemia PLAN: 1. Decadron 4 mg IM 2. PT/OT 3. Potassium 20 mg b.i.d. Plan and coordination of the patient's care discussed in the presence of Diving Instructor and nurse. CONDITION: Stable SCRIBED BY: ROMERO SHIPMAN, Hospice/Home Health Aide scribed while in presence of service performed by Dr. Blood/Amaya Cevallos APRN on 05/23/17 ([id number])
[2017-05-23] MEDS: NON-FORMULARY MEDICATION (Melatonin [Melatonin] 10 MG) SL SCH (20:28)
[2017-05-24] MEDS: VALIUM PO SCH ×3 (06:37→16:50)
[2017-05-24 07:40] LABS: BASOPHILS % (AUTO) 0.1 % (0.0-3.0); EOSINOPHILS % (AUTO) 0.4 % (0.0-7.0); HEMOGLOBIN 11.2 g/dl (12.0-16.0); IMMATURE GRANULOCYTE % (AUTO) 0.3 % (0.0-5.0); LYMPHOCYTES % (AUTO) 28.3 (10.0-50.0); MEAN CORPUSCULAR HEMOGLOBIN 26.7 pg (27.0-31.0); MEAN CORPUSCULAR VOLUME 83.3 fl (81.0-99.0); MONOCYTES # (AUTO) 0.4 K/uL (0.4-2.0); MONOCYTES % (AUTO) 6.3 (0-10); NEUTROPHILS # (AUTO) 4.5 K/ul (2.0-6.9); NEUTROPHILS % (AUTO) 64.6; PLATELET COUNT 278 10^3/uL (140-440); WHITE BLOOD COUNT 6.95 K/ul (4.6-10.2)
[2017-05-24 08:02] LABS: ALBUMIN 2.8 g/dL (3.4-5.0); ALBUMIN/GLOBULIN RATIO 0.85; ANION GAP 9.7; BILIRUBIN,TOTAL 0.26 mg/dL (0.00-1.20); BUN/CREATININE RATIO 17.54; CALCIUM 9.3 mg/dL (8.2-10.2); CREATININE 0.57 mg/dL (0.60-1.30); POTASSIUM 3.7 mmol/L (3.5-5.10); TOTAL PROTEIN 6.1 g/dL (5.8-8.1)
[2017-05-24] MEDS: PLAVIX PO SCH (08:44)
[2017-05-24] MEDS: PREDNISONE PO SCH (08:44)
[2017-05-24] MEDS: ADVAIR 500-50 DISKUS IH SCH ×3 (08:44→20:18)
[2017-05-24] MEDS: NON-FORMULARY MEDICATION (Lactobacillus Acidophilus [Probiotic] 1 EACH) PO SCH ×22 (08:45)
[2017-05-24] MEDS: K-DUR PO SCH ×2 (08:45→16:50)
[2017-05-24] MEDS: NON-FORMULARY MEDICATION (Melatonin [Melatonin] 10 MG) SL SCH (20:18)
[2017-05-25 05:27] LABS: BASOPHILS % (AUTO) 0.3 % (0.0-3.0); EOSINOPHILS # (AUTO) 0.1 K/ul (0.0-0.7); EOSINOPHILS % (AUTO) 0.8 % (0.0-7.0); HEMATOCRIT 35.3 % (37.0-47.0); HEMOGLOBIN 11.4 g/dl (12.0-16.0); IMMATURE GRANULOCYTE % (AUTO) 0.4 % (0.0-5.0); LYMPHOCYTES # (AUTO) 2.8 K/uL (0.60-3.4); LYMPHOCYTES % (AUTO) 38.6 (10.0-50.0); MEAN CORPUSCULAR HEMOGLOBIN 26.6 pg (27.0-31.0); MEAN CORPUSCULAR HGB CONC 32.3 (31.8-35.4); MEAN CORPUSCULAR VOLUME 82.3 fl (81.0-99.0); MONOCYTES # (AUTO) 0.5 K/uL (0.4-2.0); MONOCYTES % (AUTO) 6.8 (0-10); NEUTROPHILS # (AUTO) 3.9 K/ul (2.0-6.9); NEUTROPHILS % (AUTO) 53.1; PLATELET COUNT 283 10^3/uL (140-440); RED BLOOD COUNT 4.29 10^6/ul (4.20-5.40); WHITE BLOOD COUNT 7.36 K/ul (4.6-10.2)
[2017-05-25 05:43] LABS: ALBUMIN 2.8 g/dL (3.4-5.0); ALBUMIN/GLOBULIN RATIO 0.93; ANION GAP 11.1; BILIRUBIN,TOTAL 0.25 mg/dL (0.00-1.20); BUN/CREATININE RATIO 19.67; CALCIUM 9.1 mg/dL (8.2-10.2); CREATININE 0.61 mg/dL (0.60-1.30); POTASSIUM 4.1 mmol/L (3.5-5.10); TOTAL PROTEIN 5.8 g/dL (5.8-8.1)
[2017-05-25] MEDS: VALIUM PO SCH ×3 (07:53→16:56)
[2017-05-25] MEDS: K-DUR PO SCH ×2 (08:47→16:56)
[2017-05-25] MEDS: PREDNISONE PO SCH (08:47)
[2017-05-25] MEDS: PLAVIX PO SCH (08:47)
[2017-05-25] MEDS: NON-FORMULARY MEDICATION (Lactobacillus Acidophilus [Probiotic] 1 EACH) PO SCH ×22 (08:47)
[2017-05-25] MEDS: ADVAIR 500-50 DISKUS IH SCH ×3 (08:48→20:12)
[2017-05-25] MEDS: NON-FORMULARY MEDICATION (Melatonin [Melatonin] 10 MG) SL SCH (20:13)
[2017-05-26 05:22] LABS: BASOPHILS % (AUTO) 0.4 % (0.0-3.0); EOSINOPHILS # (AUTO) 0.1 K/ul (0.0-0.7); EOSINOPHILS % (AUTO) 1.4 % (0.0-7.0); HEMATOCRIT 34.8 % (37.0-47.0); HEMOGLOBIN 11.3 g/dl (12.0-16.0); IMMATURE GRANULOCYTE % (AUTO) 0.7 % (0.0-5.0); LYMPHOCYTES # (AUTO) 3.1 K/uL (0.60-3.4); LYMPHOCYTES % (AUTO) 35.8 (10.0-50.0); MEAN CORPUSCULAR HEMOGLOBIN 26.5 pg (27.0-31.0); MEAN CORPUSCULAR HGB CONC 32.5 (31.8-35.4); MEAN CORPUSCULAR VOLUME 81.7 fl (81.0-99.0); MONOCYTES # (AUTO) 0.5 K/uL (0.4-2.0); MONOCYTES % (AUTO) 6.1 (0-10); NEUTROPHILS # (AUTO) 4.8 K/ul (2.0-6.9); NEUTROPHILS % (AUTO) 55.6; PLATELET COUNT 300 10^3/uL (140-440); RED BLOOD COUNT 4.26 10^6/ul (4.20-5.40); WHITE BLOOD COUNT 8.53 K/ul (4.6-10.2)
[2017-05-26 05:40] LABS: ALBUMIN 2.7 g/dL (3.4-5.0); ALBUMIN/GLOBULIN RATIO 0.93; ANION GAP 11.1; BILIRUBIN,TOTAL 0.15 mg/dL (0.00-1.20); BUN/CREATININE RATIO 29.03; CALCIUM 8.9 mg/dL (8.2-10.2); CREATININE 0.62 mg/dL (0.60-1.30); POTASSIUM 4.1 mmol/L (3.5-5.10); TOTAL PROTEIN 5.6 g/dL (5.8-8.1)
[2017-05-26] MEDS: VALIUM PO SCH ×3 (07:27→16:39)
[2017-05-26] MEDS: PREDNISONE PO SCH (08:47)
[2017-05-26] MEDS: K-DUR PO SCH ×2 (08:47→17:39)
[2017-05-26] MEDS: NON-FORMULARY MEDICATION (Lactobacillus Acidophilus [Probiotic] 1 EACH) PO SCH ×22 (08:48)
[2017-05-26] MEDS: PLAVIX PO SCH (08:48)
[2017-05-26] MEDS: ADVAIR 500-50 DISKUS IH SCH ×2 (08:48→20:38)
--- NOTE | 2017-05-26 09:14 | PN ---
DATE OF SERVICE: 05/23/17 SUBJECTIVE: 86 year old white male hospitalized with left hip pain. The patient's left hip pain is improving some she is on physical therapy and she is up about. 4mg Decadron will be given. He had hypokalemia 20 meq K-dur twice a day should be given. The patient will seen and examined with Nurse Practitioner. TIME SPENT: More than 30 minutes. Plan and coordination of the patient's care discussed in the presence of nurse. DALE
--- NOTE | 2017-05-26 09:28 | PCM.PROG ---
Attending Provider: [facility]END[facility] patient is seen with Amaya Cevallos, Nurse Practitioner. DATE OF SERVICE: 05/26/17 SUBJECTIVE: This 86 year old WHITE/ F was hospitalized 05/21/17. The patient is sitting up in bed, alert. She states she feels good today. Left hip pain is better. Now she is having right shoulder pain. She has ambulated with assistance of a walker and gait belt over the weekend. REVIEW OF SYSTEMS: CONSTITUTIONAL: No night sweats. No fatigue, malaise, lethargy. No fever or chills. HEENT: Eyes: No visual changes. No eye pain. No eye discharge. ENT: No runny nose. No epistaxis. No sinus pain. No odynophagia. No congestion. RESPIRATORY: No cough, no congestion. No hemoptysis. No shortness of breath. CARDIOVASCULAR: No angina symptoms. No CHF symptoms. No atypical chest pain for CAD. No palpitations. No orthopnea.. GASTROINTESTINAL: No abdominal pain. No nausea or vomiting. No diarrhea or constipation. No hematemesis. No hematochezia. GENITOURINARY: No urgency. No frequency. No dysuria. No hematuria. No obstructive symptoms. No discharge. No pain. No significant abnormal bleeding. MUSCULOSKELETAL: Left hip pain, right shoulder pain. NEUROLOGICAL: Awake, alert, oriented to time, place and person. No headache. No neck pain. No syncope. No seizures. No dizziness. PSYCHIATRIC: Not anxious. No depression. No suicidal thoughts. No homicidal thoughts. SKIN: No rash. No lesions. No wounds. ENDOCRINE: No unexplained weight loss. No weight gain. HEMATOLOGIC/LYMPHATIC: No anemia. No purpura. No petechiae. No prolonged or excessive bleeding. No palpable lymph nodes. PHYSICAL EXAMINATION: GENERAL: The patient is awake, alert and oriented, lying in bed in no distress. VITAL SIGNS: Temperature 98.5 F, Pulse 82, Respiratory Rate 20, BP 116/66, Pulse Ox 98% HEENT: Head normocephalic, atraumatic. Eyes: Extraocular muscles are intact. Pupils are equal, round and reactive to light and accommodation. Ears: No lesions. Nose appeared normal. Throat: No exudate or erythema. NECK: Supple. No JVD, no carotid bruit. No lymphadenopathy or thyromegaly. LUNGS: Diminished breath sounds bilaterally. Clear to auscultation. Percussion note normal. Chest symmetrical. HEART: S1, S2, no S3. No murmurs. No cyanosis or clubbing. No ascites. Pulses: Dorsalis pedis and posterior tibial pulses +1 to +2 both sides. ABDOMEN: Soft. Non-tender. Bowel sounds active. No CVA tenderness. No mass felt. EXTREMITIES: No edema. Full range of motion of all extremities, equal. NEUROLOGIC: No focal deficit. Cranial nerves II through XII are grossly intact. No headache, no double vision or headache. SKIN: Not dry. Intact. Turgor-normal. LYMPHATIC: No palpable lymph nodes/no lymphedema. MUSCULOSKELETAL: Normal joints with no swelling. Muscle tone is normal. LAB REVIEW: 05/26/17 04:55 05/26/17 04:55 05/26/17 04:55: Sodium 140, Potassium 4.1, Chloride 105, Carbon Dioxide 28, Anion Gap 11.1, BUN 18, Creatinine 0.62, Estimated GFR (MDRD) 91.00, BUN/ Creatinine Ratio 29.03, Glucose 89, Calcium 8.9, Total Bilirubin 0.15, AST 11 L , ALT 15, Alkaline Phosphatase 67, Total Protein 5.6 L, Albumin 2.7 L, Globulin 2.9, Albumin/Globulin Ratio 0.93 05/26/17 04:55: WBC 8.53, RBC 4.26, Hgb 11.3 L, Hct 34.8 L, MCV 81.7, MCH 26.5 L , MCHC 32.5, RDW Coeff of [place]areth 14.6, Plt Count 300, Immature Gran % (Auto) 0.7, Neut % (Auto) 55.6, Lymph % (Auto) 35.8, [place] % (Auto) 6.1, Eos % (Auto) 1.4, Baso % (Auto) 0.4, Immature Gran # (Auto) 0.1, Neut # 4.8, Lymph # 3.1, [place] # 0.5, Eos # 0.1, Baso # 0.0 ASSESSMENT: 1. Left hip pain, improving 2. Left hip osteoarthritis 3. Leg weakness 4. CAD PLAN: 1. Encourage the patient to be up and about 2. Continue PT/OT 3. Possible candidate for swing bed Plan and coordination of the patient's care discussed in the presence of Huller Operator and nurse. CONDITION: Stable SCRIBED BY: ROMERO SHIPMAN Door Assembler scribed while in presence of service performed by Dr. Blood/Amaya Cevallos APRN on 05/26/17 ([id number])
--- NOTE | 2017-05-26 12:52 | PN ---
DATE OF SERVICE: 05/24/17 SUBJECTIVE: 86 year old white female hospitalized with left hip pain. The patient used to up and about at home but after she developed the pain in the left hip she requires a lot of help. The patient is much less. She is up and about doing well. The patient's pain is much better. She has been able to walk to the bathroom. She patient has been treated with Steroids and anti-inflammatory. REVIEW OF SYSTEMS: CONSTITUTIONAL: No night sweats. No fatigue, malaise, lethargy. No fever or chills. HEENT: Eyes: No visual changes. No eye pain. No eye discharge. ENT: No runny nose. No epistaxis. No sinus pain. No sore throat. No odynophagia. No congestion. RESPIRATORY: No cough, no congestion. No hemoptysis. No shortness of breath. CARDIOVASCULAR: No angina symptoms. No CHF symptoms. No atypical chest pain for CAD. No palpitations. No orthopnea. GASTROINTESTINAL: No abdominal pain. No nausea or vomiting. No diarrhea or constipation. No hematemesis. No hematochezia. GENITOURINARY: No urgency. No frequency. No dysuria. No hematuria. No obstructive symptoms. No discharge. No pain. No significant abnormal bleeding. MUSCULOSKELETAL: No musculoskeletal pain; no joint swelling. NEUROLOGICAL: No headache. No neck pain. No syncope. No seizures. No dizziness. PSYCHIATRIC: Not anxious. No depression. No suicidal thoughts. No homicidal thoughts. SKIN: No rash. No lesions. No wounds. ENDOCRINE: No unexplained weight loss. No weight gain. HEMATOLOGIC/LYMPHATIC: No anemia. No purpura. No petechiae. No prolonged or excessive bleeding. No palpable lymph nodes. PHYSICAL EXAMINATION: HEENT: Head normocephalic, atraumatic. Eyes: Extraocular muscles are intact. Pupils are equal, round and reactive to light and accommodation. Ears: No lesions. Nose appeared normal. Throat: No exudate or erythema. NECK: Supple. No JVD, no carotid bruit. No lymphadenopathy or thyromegaly. LUNGS: Clear to auscultation. Percussion note normal. Chest symmetrical. HEART: S1, S2, no S3. No murmurs. No cyanosis or clubbing. No ascites. Pulses: Dorsalis pedis and posterior tibial pulses +1 to +2 both sides. ABDOMEN: Soft. Nontender. Bowel sounds active. No CVA tenderness. No mass felt. EXTREMITIES: No edema. Full range of motion of all extremities, equal. NEUROLOGIC: No focal deficit. Cranial nerves II through XII are grossly intact. No headache, no double vision or headache. SKIN: Not dry. Intact. Turgor - normal. LYMPHATIC: No palpable lymph nodes/no lymphedema. MUSCULOSKELETAL: Normal joints with no swelling. Muscle tone is normal. LABS: Hgb is close to 11 with hct of 33. Her potassium and kidney functions are normal. ASSESSMENT: 1. Left hip pain seems to be subsiding 2. Other medication conditions are stable. PLAN: 1. Continue anti-inflammatory 2. Steroids as needed 3. Physical therapy which the patient is very cooperative. The patient's granddaughter is in the room. CONDITION: Improving. Stable TIME SPENT: More than 30 minutes. Plan and coordination of the patient's care discussed in the presence of nurse. DALE
[2017-05-26] MEDS: NON-FORMULARY MEDICATION (Melatonin [Melatonin] 10 MG) SL SCH (20:38)
[2017-05-27] MEDS: VALIUM PO SCH ×2 (06:12→11:34)
[2017-05-27] MEDS: PLAVIX PO SCH (08:23)
[2017-05-27] MEDS: NON-FORMULARY MEDICATION (Lactobacillus Acidophilus [Probiotic] 1 EACH) PO SCH ×22 (08:23)
[2017-05-27] MEDS: PREDNISONE PO SCH (08:23)
[2017-05-27] MEDS: K-DUR PO SCH (08:24)
[2017-05-27] MEDS: ADVAIR 500-50 DISKUS IH SCH (09:22)
--- NOTE | 2017-05-27 10:33 | PCM.PROG ---
Attending Provider: ATTENDING PROVIDER[facility] patient is seen with Amaya Cevallos, Nurse Practitioner. DATE OF SERVICE: 05/27/17 SUBJECTIVE: This 86 year old WHITE/ F was hospitalized 05/21/17. The patient is sitting up in bed, alert. She states she has spoken with her son and they have arranged for her to go home with help will arrange for [facility]. The patient has been up to bathroom without assistance. She is eating well. REVIEW OF SYSTEMS: CONSTITUTIONAL: Weakness. No night sweats. No fever or chills. HEENT: Eyes: No visual changes. No eye pain. No eye discharge. ENT: No runny nose. No epistaxis. No sinus pain. No odynophagia. No congestion. RESPIRATORY: No cough, no congestion. No hemoptysis. No shortness of breath. CARDIOVASCULAR: No angina symptoms. No CHF symptoms. No atypical chest pain for CAD. No palpitations. No orthopnea.. GASTROINTESTINAL: No abdominal pain. No nausea or vomiting. No diarrhea or constipation. No hematemesis. No hematochezia. GENITOURINARY: No urgency. No frequency. No dysuria. No hematuria. No obstructive symptoms. No discharge. No pain. No significant abnormal bleeding. MUSCULOSKELETAL: Left hip pain improved. NEUROLOGICAL: Awake, alert, oriented to time, place and person. No headache. No neck pain. No syncope. No seizures. No dizziness. PSYCHIATRIC: Not anxious. No depression. No suicidal thoughts. No homicidal thoughts. SKIN: No rash. No lesions. No wounds. ENDOCRINE: No unexplained weight loss. No weight gain. HEMATOLOGIC/LYMPHATIC: No anemia. No purpura. No petechiae. No prolonged or excessive bleeding. No palpable lymph nodes. PHYSICAL EXAMINATION: GENERAL: The patient is awake, alert and oriented, lying/sitting in bed in no distress. VITAL SIGNS: Temperature 98.4 F, Pulse 79, Respiratory Rate 16, BP 114/75, Pulse Ox 97% HEENT: Head normocephalic, atraumatic. Eyes: Extraocular muscles are intact. Pupils are equal, round and reactive to light and accommodation. Ears: No lesions. Nose appeared normal. Throat: No exudate or erythema. NECK: Supple. No JVD, no carotid bruit. No lymphadenopathy or thyromegaly. LUNGS: Diminished breath sounds bilaterally. Clear to auscultation. Percussion note normal. Chest symmetrical. HEART: S1, S2, no S3. No murmurs. No cyanosis or clubbing. No ascites. Pulses: Dorsalis pedis and posterior tibial pulses +1 to +2 both sides. ABDOMEN: Soft. Non-tender. Bowel sounds active. No CVA tenderness. No mass felt. EXTREMITIES: No edema. Full range of motion of all extremities, equal. NEUROLOGIC: No focal deficit. Cranial nerves II through XII are grossly intact. No headache, no double vision or headache. SKIN: Not dry. Intact. Turgor-normal. LYMPHATIC: No palpable lymph nodes/no lymphedema. MUSCULOSKELETAL: Normal joints with no swelling. Muscle tone is normal. LAB REVIEW: 05/26/17 04:55 05/26/17 04:55 ASSESSMENT: 1. Left hip pain, improving 2. Left hip osteoarthritis 3. Leg weakness 4. CAD PLAN: 1. Discharge home today 2. The patient will have [facility] for nursing services and PT/OT. 3. Ultram 50 mg b.i.d. #30 p.r.n. Plan and coordination of the patient's care discussed in the presence of Motorcycle Riding Instructor and nurse. CONDITION: Stable SCRIBED BY: Tayla WOODist scribed while in presence of service performed by Dr. Blood/Amaya Cevallos APRN on 05/27/17 ([id number])
[2017-05-27 10:52] VITALS: BP 113/68; TEMP 97.7
--- NOTE | 2017-05-27 11:14 | PN ---
DATE OF SERVICE: 05/22/17 SUBJECTIVE: The patient was admitted with hip pain, left-sided. It is much better. PT consult will be given. REVIEW OF SYSTEMS: CONSTITUTIONAL: No night sweats. No fatigue, malaise, lethargy. No fever or chills. HEENT: Eyes: No visual changes. No eye pain. No eye discharge. ENT: No runny nose. No epistaxis. No sinus pain. No sore throat. No odynophagia. No congestion. RESPIRATORY: No cough, no congestion. No hemoptysis. No shortness of breath. CARDIOVASCULAR: No angina symptoms. No CHF symptoms. No atypical chest pain for CAD. No palpitations. No orthopnea. GASTROINTESTINAL: No abdominal pain. No nausea or vomiting. No diarrhea or constipation. No hematemesis. No hematochezia. GENITOURINARY: No urgency. No frequency. No dysuria. No hematuria. No obstructive symptoms. No discharge. No pain. No significant abnormal bleeding. MUSCULOSKELETAL: Osteoarthritic pain, left hip, improved. NEUROLOGICAL: No headache. No neck pain. No syncope. No seizures. No dizziness. PSYCHIATRIC: Not anxious. No depression. No suicidal thoughts. No homicidal thoughts. SKIN: No rash. No lesions. No wounds. ENDOCRINE: No unexplained weight loss. No weight gain. HEMATOLOGIC/LYMPHATIC: No anemia. No purpura. No petechiae. No prolonged or excessive bleeding. No palpable lymph nodes. PHYSICAL EXAMINATION: HEENT: Head normocephalic, atraumatic. Eyes: Extraocular muscles are intact. Pupils are equal, round and reactive to light and accommodation. Ears: No lesions. Nose appeared normal. Throat: No exudate or erythema. NECK: Supple. No JVD, no carotid bruit. No lymphadenopathy or thyromegaly. LUNGS: Clear to auscultation. Percussion note normal. Chest symmetrical. HEART: S1, S2, no S3. No murmurs. No cyanosis or clubbing. No ascites. Pulses: Dorsalis pedis and posterior tibial pulses +1 to +2 both sides. ABDOMEN: Soft. Nontender. Bowel sounds active. No CVA tenderness. No mass felt. EXTREMITIES: No edema. Full range of motion of all extremities, equal. NEUROLOGIC: No focal deficit. Cranial nerves II through XII are grossly intact. No headache, no double vision or headache. SKIN: Not dry. Intact. Turgor - normal. LYMPHATIC: No palpable lymph nodes/no lymphedema. MUSCULOSKELETAL: Normal joints with no swelling. Muscle tone is normal. ASSESSMENT: 1. Left hip pain, osteoarthritis, better with nonsteroidal antiinflammatory and steroids. The patient is seen and examined with nurse practitioner. TIME SPENT: More than 30 minutes. Plan and coordination of the patient's care discussed in the presence of nurse. DALE
--- NOTE | 2017-05-27 11:54 | CM.DICTOOL ---
ADMISSION: 05/21/17 10:40 DISCHARGE: 05/27/17 FINAL DIAGNOSIS Hip pain (Acute) LEFT HIP OSTEOARTHRITIS HYPOKALEMIA - RESOLVED RIGHT SHOULDER PAIN LEG WEAKNESS HISTORY OF: COPD CELIAC DISEASE TIA ANEMIA CAD SURGICAL HISTORY: HYSTERECTOMY - DATE UNKNOWN APPENDECTOY - DATE UNKNOWN CHOLECYSTECETOMY - DATE UNKNOWN SINUS SURGERY - DATE UNKNOWN CATARACT SURGERY - DATE UNKNOWN HERNIA REPAIR - DATE UNKNOWN HEMORROIDECTOMY - DATE UNKNOWN BREAST BIOPSY - DATE UNKNOWN ROTATOR CUFF REPAIR - DATE UNKNOWN LAST VITALS Temp Pulse Resp BP Pulse Ox 97.7 F 84 16 113/68 97 05/27/17 10:00 05/27/17 10:00 05/27/17 10:00 05/27/17 10:00 05/27/17 10:00 ACTIVE HOME MEDICATIONS Clopidogrel Bisulfate (Plavix) 75 mg PO DAILY [facility] Last Admin: 05/27/17 08:23 Dose: 75 mg Diazepam (Valium) 1 mg PO 0700,1100,1630 [facility] Last Admin: 05/27/17 06:12 Dose: 1 mg Non-Formulary Medication (Lactobacillus Acidophilus [Probiotic]) 1 each PO DAILY [facility] Last Admin: 05/27/17 08:23 Dose: 1 each Non-Formulary Medication (Melatonin [Melatonin]) 10 mg SL BEDTIME [facility] Last Admin: 05/26/17 20:38 Dose: 10 mg Fluticasone/Salmeterol (Advair 500-50 Diskus) 1 puff IH BID [facility] Last Admin: 05/27/17 09:22 Dose: Not Given ALLERGIES codeine Adverse Reaction (Verified 05/21/17 08:55 NEW PRESCRIPTIONS: NEW MEDICATION: 1. ULTRAM 50MG TAKE 1 TABLET 2 TIMES A DAY NEEDED FOR PAIN SMOKING: N/A DISEASE SPECIFIC EDUCATION: OSTEOARTHRITIS MEDICATIONS ACTIVITY FOLLOW UP APPOINTMENTS HOME HEALTH LAB REVIEW: 05/26/17 04:55 05/26/17 04:55 PLAN: DISCHARGE HOME TODAY CONTINUE HOME MEDICATIONS PER NURSING SHEET. NEW MEDICATION: 1. ULTRAM 50MG TAKE 1 TABLET 2 TIMES A DAY NEEDED FOR PAIN DIET TOLERATED GRADUALLY RESUME ACTIVITY. USE WALKER TO AMBULATE. [facility] [place] HAS BEEN ARRANGED FOR YOU. THEY WILL CALL YOU TO SET UP AN APPOINTMENT TO COME SEE YOU. FOLLOW UP WITH DR. BLOOD ON FridayMay AT 12 NOON. CALL IF UNABLE TO KEEP APPOINTMENT. [phone]. FOLLOW UP WITH DR. FERRARI ON FridayJune AT 230PM. CALL IF UNABLE TO KEEP APPOINTMENT. [phone]. SITTING UP IN BED. ALERT AND ORIENTED X 4. Fredi DANIELLE APRN INTO SEE PATIENT. PATIENT STATES FEELING BETTER AND IS READY TO GO HOME. DISCUSSION OF HOME HEALTH AND USE OF ROLLING WALKER. Fredi DANIELLE DISCUSSED PLAN OF CARE INCLUDING DISCHARGE, MEDICATIONS, HOME HEALTH, ACTIVITY, AND FOLLOW UP APPTS. PATIENT VERBALIZES UNDERSTANDING AND AGREEABLE. APPETITE IS FAIR. VITAL SIGNS ARE STABLE. IS AFEBRILE. POX 97% ION ROOM AIR. HEART TONES ARE REGULAR. LUNGS ARE CLEAR WITH DIMINISHED BREATH SOUNDS. NO COUGH NOTED. ABDOMEN IS SOFT, NON- TENDER WITH BOWEL SOUNDS POSITIVE IN ALL 4 QUADS. LAST BM 05/27/17. PEDAL PULSES POSITIVE WITHOUT EDEMA. IS A FALL RISK WITH FALL PRECAUTIONS IN USE. STAND BY ASSIST WITH ROLLING WALKER. PATIENT DOES WELL WITH AMBULATING WITH STEADY GAIT AND MONITORING. HAS BEEN PROGRESSING WITH PT/OT THERAPY. DR. BEATRIZ BLOOD MD Fredi DANIELLE APRN
--- NOTE | 2017-05-27 14:26 | DS ---
DATE OF SERVICE: 05/27/17 FINAL DIAGNOSIS: 1. HIP PAIN (ACUTE) 2. LEFT HIP OSTEOARTHRITIS 3. HYPOKALEMIA- RESOLVED 4. RIGHT SHOULDER PAIN 5. LEG WEAKNESS 6. HISTORY OF COPD 7. CELIAC DISEASE 8. TIA 9. ANEMIA 10. CAD 11. HYSTERECTOMY, DATE UNKNOWN 12. APPENDECTOMY, DATE UNKNOWN 13. CHOLECYSTECTOMY, DATE UNKNOWN 14. SINUS SURGERY, DATE UNKNOWN 15. CATARACT SURGERY, DATE UNKNOWN 16. HERNIA REPAIR, DATE UNKNOWN 17. HEMORRHOIDECTOMY, DATE UNKNOWN 18. BREAST BIOPSY, DATE UNKNOWN 19. ROTATOR CUFF REPAIR, DATE UNKNOWN DISCHARGE INSTRUCTIONS: Followup appointment with Dr. Buchanan on June 03 at 12 noon. Call if unable to keep appointment, [phone]. [facility] has been arranged for the patient. They will call to set up an appointment. Followup with Dr. Benavidez on June 24 at 2:30 p.m. Call if unable to keep appointment, [phone]. MEDICATIONS AT DISCHARGE: Clopidogrel (Plavix) 75 mg p.o. daily [facility] Diazepam (Valium) 1 mg p.o. 0700, 1100, 1630 [facility] Probiotic - Lactobacillus Acidophilius one each p.o. daily [facility] Melatonin 10 mg SL bedtime [facility] Fluticasone/Salmeterol (Advair 500-50 Diskus) one puff IH b.i.d. [facility] NEW PRESCRIPTIONS: Ultram 50 mg take one tablet two times a day as needed for pain. DIET INSTRUCTIONS: As tolerated. ACTIVITY: Gradually resume activity, use walker to ambulate. SMOKING: N/A DISEASE SPECIFIC EDUCATION: Osteoarthritis Medications Activity Follow up appointments Home Health HOSPITAL COURSE: This is an 86-year-old white female who presented to the emergency room with acute left hip pain. X-ray and CT revealed left hip osteoarthritis. At the time of admission, she was experiencing severe leg weakness. She was unable to stand without assistance. She was unable to walk using a walker. She has a history of celiac disease, TIA, anemia and COPD. She was subsequently admitted, placed on Toradol 30 mg IV q.8hr for pain control. Again, CT scan was done after the hip x -ray which just revealed osteoarthritis. We placed her on 30 mg of Prednisone daily to help with inflammation. Her vital signs have remained stable during the course of her hospital stay. Today, on day of discharge, temperature 97.7, heart rate 84, respirations 16, BP 113/68, pulse ox 97%. She does have a history of chronic anemia although this has remained stable during her stay. Today, on day of discharge, hemoglobin 11.3, hematocrit 34.8, white count 8.53. Kidney function is normal with BUN of 18, creatinine 0.62. After 2 to 3 days she and after physical therapy was started, she has been able to ambulate without assistance for the past two days. Prior to this she was having to use a gait belt and the assistance of two people. Yesterday and today she could get up to the restroom with her walker. We discussed placing her for swing bed admission for physical therapy although she didn't qualify. The patient declines going to a rehab facility for strenghtening. She has arranged to have caretakers at home. Her son currently lives here and has arranged for this as well. Fall precautions have been discussed in detail along with getting her home ready in order to prevent falls. [facility] has agreed to come in for PT and OT at her home. She is a long term patient of Dr. Benavidez, although he is currently out of town. We will see her next week in the office for followup and then Dr. Benavidez will see her in one month. Again, she is discharged in stable condition. She has been up and and about. Pain has significantly improved. We will give her Ultram 50 mg b.i.d. p.r.n. just in case she has some pain at home. The patient is discharged in stable condition. TIME SPENT: More than 60 minutes. DALE
--- NOTE | 2017-05-28 12:52 | PN ---
DATE OF SERVICE: 05/26/17 SUBJECTIVE: The patient has left hip pain which has practically resolving. The patient is up and about doing all activity of daily living. The patient's condition it improving with physical therapy. The patient maybe considered for swing bed. The patient was seen and examined with Nurse Practitioner. TIME SPENT: More than 30 minutes. Plan and coordination of the patient's care discussed in the presence of nurse. DALE
--- NOTE | 2017-05-28 13:55 | PN ---
DATE OF SERVICE: 05/27/17 SUBJECTIVE: 86 year old white male hospitalized with left hip pain. The patient's condition has improved and she is doing well with physical therapy. PHYSICAL EXAMINATION: HEENT: Head normocephalic, atraumatic. Eyes: Extraocular muscles are intact. Pupils are equal, round and reactive to light and accommodation. Ears: No lesions. Nose appeared normal. Throat: No exudate or erythema. NECK: Supple. No JVD, no carotid bruit. No lymphadenopathy or thyromegaly. LUNGS: Clear to auscultation. Percussion note normal. Chest symmetrical. HEART: S1, S2, no S3. No murmurs. No cyanosis or clubbing. No ascites. Pulses: Dorsalis pedis and posterior tibial pulses +1 to +2 both sides. ABDOMEN: Soft. Nontender. Bowel sounds active. No CVA tenderness. No mass felt. EXTREMITIES: No edema. Full range of motion of all extremities, equal. NEUROLOGIC: No focal deficit. Cranial nerves II through XII are grossly intact. No headache, no double vision or headache. SKIN: Not dry. Intact. Turgor - normal. LYMPHATIC: No palpable lymph nodes/no lymphedema. MUSCULOSKELETAL: Normal joints with no swelling. Muscle tone is normal. PLAN: 1. Consider for swing bed 2. The patient lives by herself, used to do all activity of daily living before flair up of osteoarthritis on the left hip. CONDITION: Stable The patient was seen and examined with Nurse Practitioner. TIME SPENT: More than 30 minutes. ADDENDUM: The patient was referred for Swing bed to the Swing Bed committee and was not accepted. She will be discharged. She is up and about. The patient is going to have help at home. The patient is oriented to time, place and person. There is no history of fall. The patient is going to be followed by me in one week and be seen by Dr. Benavidez in 4 weeks. Condition at the time of discharge is stable. The patient was seen and examined with Nurse Practitioner. Plan and coordination of the patient's care discussed in the presence of nurse. DALE
--- NOTE | 2017-05-28 14:24 | PN ---
05/21/17: Level 5 05/22/17: Intermediate 05/23/17: Intermediate 05/24/17: Brief 05/25/17: Brief 05/26/17: Brief 05/27/17: D as in discharge MTDD
== END 2017-05-27 13:26 | disposition home health service (06) | DRG 556 ==
LOC: ED 08:48 → MEDSURG B 10:40
PROVIDERS: ADMIT Internal Medicine; ATTEND Internal Medicine
DX: M25.552 Pain in left hip (principal); M16.12 Unilateral primary osteoarthritis, left hip; E87.6 Hypokalemia; M62.81 Muscle weakness (generalized); K90.0 Celiac disease; I25.10 Atherosclerotic heart disease of native coronary artery without angina pectoris; D50.0 Iron deficiency anemia secondary to blood loss (chronic); J44.9 Chronic obstructive pulmonary disease, unspecified; M25.511 Pain in right shoulder; M85.80 Other specified disorders of bone density and structure, unspecified site; I10 Essential (primary) hypertension; M54.30 Sciatica, unspecified side; Z86.73 Personal history of transient ischemic attack (TIA), and cerebral infarction without residual deficits; Z79.02 Long term (current) use of antithrombotics/antiplatelets; Z79.899 Other long term (current) drug therapy
CPT/HCPCS: 36415; 80053; 81001; 85025; 93005; 93010; 96374; 97802; 99284

== ENCOUNTER 2017-06-02 10:09 | Observation (INO) | payer OTHER ==
--- NOTE | 2017-06-02 10:38 | ED.PDOC ---
General ED Provider: Dr. ALLIE ESPINO Chief Complaint: Weakness Stated Complaint: Fell last night; weak this morning Time Seen by Physician: 10:15 Mode of Arrival: Ambulance Information Source: Patient, Family, EMT [facility] Nursing and Triage Documentation Reviewed and Agree: Yes Review of Systems - Review Of Systems Constitutional: Reports: Weakness Eyes: Reports: No symptoms Ears, Nose, Mouth, Throat: Reports: No symptoms Respiratory: Reports: No symptoms Cardiac: Reports: No symptoms GI: Reports: No symptoms Musculoskeletal: Reports: Joint pain (Arthritis; chronic - multiple sites) Skin: Reports: Bruising (Chronic bruising; multiple sites) Neurological: Reports: No symptoms Hematologic/Lymphatic: Reports: Easy bruising All Other Systems: Reviewed and Negative Past Medical History - Past Medical History Previously Healthy: Yes Endocrine: Reports: None Cardiovascular: Reports: None Respiratory: Reports: COPD Hematological: Reports: None Gastrointestinal: Reports: Other (celiac disease) Genitourinary: Reports: None Neuro/Psych: Reports: TIA (TIA several years ago) Musculoskeletal: Reports: None Cancer: Reports: None Last Menstrual Period: none - Surgical History General Surgical History: Reports: Hysterectomy, Appendectomy, Cholecystectomy, Other (Sinus surgery, Cataract surgery). Denies: Hernia Repair ( hemorrhoidectomy) - Family History Family History: Reports: Unknown (son owns wild cat) - Social History Smoking Status: Former smoker Hx Substance Use: No Alcohol Screening: None Physical Exam - Physical Exam Appearance: Ill-appearing Ill-appearing: Mild Pain Distress: Mild Eyes: DON, EOMI, Conjunctiva clear ENT: Ears normal, Nose normal, Oropharynx normal Neck: Supple Respiratory: Airway patent, Breath sounds clear, Breath sounds equal Cardiovascular: RRR, Pulses normal GI/: Soft Musculoskeletal: Limited ROM (Secondary to weakness and chronic pain) Skin: Warm, Dry, Pale (Chronic bruising multiple sites) Neurological: Sensation intact, Motor intact, Alert, Oriented Psychiatric: Affect appropriate, Mood appropriate Interpretation - EKG Interpretation Time of EKG #1: 10:30 Rate: Tachy Rhythm: Sinus Ectopy: None Lane: Left ST Segment: Normal Interpretation: No acute changes Physician Notification - Case Discussed Physician Notified: Dr. Buchanan Time of Notification: 14:15 (Discussed admission) Critical Care Note - Critical Care Note Total Time (mins): 40 Course - Course Hematology/Chemistry: 06/02/17 11:25 06/02/17 10:55 Orders, Labs, Meds: Lab Review 06/02/17 06/02/17 06/02/17 10:35 10:55 11:25 WBC 16.76 H RBC 4.74 Hgb 12.9 Hct 38.5 MCV 81.2 MCH 27.2 MCHC 33.5 RDW Coeff of Gareth 14.6 Plt Count 274 Immature Gran % (Auto) 0.5 Neut % (Auto) 82.9 Lymph % (Auto) 6.9 L Otoe % (Auto) 9.5 Eos % (Auto) 0.0 Baso % (Auto) 0.2 Immature Gran # (Auto) 0.1 Neut # 13.9 H Lymph # 1.2 Otoe # 1.6 Eos # 0.0 Baso # 0.0 Puncture Site R rad O2 Saturation 96.0 ABG pH 7.522 H* ABG pCO2 30.2 L ABG pO2 74.0 L ABG HCO3 24.7 ABG Total CO2 26 ABG Base Excess 2 Ulysses Test + FiO2 % 21.0 Sodium 134 L Potassium 4.9 Chloride 97 L Carbon Dioxide 23 Anion Gap 18.9 BUN 16 Creatinine 0.73 Estimated GFR (MDRD) 76.00 BUN/Creatinine Ratio 21.91 Glucose 141 H Lactic Acid Calcium 9.7 Total Bilirubin 0.96 AST 30 ALT 14 Alkaline Phosphatase 79 Total Protein 7.8 Albumin 3.0 L Globulin 4.8 Albumin/Globulin Ratio 0.63 Procalcitonin Urine Color Urine Clarity Urine pH Ur Specific [place] Urine Protein Urine Glucose (UA) Urine Ketones Urine Blood Urine Nitrite Urine Bilirubin Urine Urobilinogen Ur Leukocyte Esterase Urine Microscopic RBC Ur Squamous Epith Cells Urine Yeast 06/02/17 06/02/17 06/02/17 12:33 13:00 13:00 WBC RBC Hgb Hct MCV MCH MCHC RDW Coeff of Gareth Plt Count Immature Gran % (Auto) Neut % (Auto) Lymph % (Auto) [place] % (Auto) Eos % (Auto) Baso % (Auto) Immature Gran # (Auto) Neut # Lymph # [place] # Eos # Baso # Puncture Site O2 Saturation ABG pH ABG pCO2 ABG pO2 ABG HCO3 ABG Total CO2 ABG Base Excess Ulysses Test FiO2 % Sodium Potassium Chloride Carbon Dioxide Anion Gap BUN Creatinine Estimated GFR (MDRD) BUN/Creatinine Ratio Glucose Lactic Acid 12.6 Calcium Total Bilirubin AST ALT Alkaline Phosphatase Total Protein Albumin Globulin Albumin/Globulin Ratio Procalcitonin 0.54 Urine Color Yellow Urine Clarity Slightly Urine pH 6.5 Ur Specific [place] 1.020 Urine Protein 2+ Urine Glucose (UA) Negative Urine Ketones 3+ Urine Blood 2+ Urine Nitrite Negative Urine Bilirubin 1+ Urine Urobilinogen 2.0 Ur Leukocyte Esterase Negative Urine Microscopic RBC Tntc Ur Squamous Epith Cells Not present Urine Yeast Trace Orders Category Date Time Status ADMIT PATIENT INPATIENT .TO [facility] (MONITORED BED) ADMISSION 06/02/17 14: 20 Active ABG DRAW REQUEST Stat CARDIO 06/02/17 10:22 Completed EKG-(IP & OP ONLY) Stat CARDIO 06/02/17 10:21 Completed OXYGEN Routine CARDIO 06/02/17 14:24 Ordered ACTIVITY .Complete BR CARE 06/02/17 14:20 Active INTAKE & OUTPUT Q8HR CARE 06/02/17 14:20 Active INTAKE & OUTPUT Q8HR CARE 06/02/17 14:24 Active IV ACCESS ONCE CARE 06/02/17 12:54 Active TELEMETRY MONITORING TELE CARE 06/02/17 14:22 Active VITAL SIGNS Q8HR CARE 06/02/17 14:20 Active REGULAR DIET DIETARY 06/02/17 Dinner Ordered ED APPLY O2 .ONCE EMERGENCY 06/02/17 12:54 Active ED FINISH OFF OPERATOR APPLIED .ONCE EMERGENCY 06/02/17 12:54 Active ED VITAL SIGNS Q1HR EMERGENCY 06/02/17 12:54 Active OXYGEN [ED APPLY O2] .ONCE EMERGENCY 06/02/17 10:44 Active ABG Stat LAB 06/02/17 10:35 Completed BLOOD CULTURE Stat LAB 06/02/17 13:15 Received CBC W/ AUTO DIFF DAILY@0600 LAB 06/03/17 06:00 Ordered CBC W/ AUTO DIFF DAILY@0600 LAB 06/04/17 06:00 Ordered CBC W/ AUTO DIFF Stat LAB 06/02/17 11:25 Completed COMPREHENSIVE METABOLIC PANEL DAILY@0600 LAB 06/03/17 06:00 Ordered COMPREHENSIVE METABOLIC PANEL DAILY@0600 LAB 06/04/17 06:00 Ordered COMPREHENSIVE METABOLIC PANEL Stat LAB 06/02/17 10:55 Completed LACTIC ACID Stat LAB 06/02/17 13:00 Completed PROCALCITONIN Stat LAB 06/02/17 13:00 Completed RAPID FLU A/B Stat LAB 06/02/17 14:30 Ordered URINALYSIS C & S IF INDICATED Stat LAB 06/02/17 12:33 Completed Methylprednisolone Sod Succ/Pf [Solu-Medrol 40 mg] MEDS 06/02/17 14:27 Discontinued 40 mg IVP ONCE STA Methylprednisolone Sod Succ/Pf [Solu-Medrol 40 mg] MEDS 06/02/17 14:30 Ordered 40 mg IVP Q12HR Sodium Chloride 0.9% [Sodium Chloride] 1,000 ml MEDS 06/02/17 14:30 Active IV 75 mls/hr RESUSCITATION STATUS Routine OTHERS 06/02/17 14:20 Ordered CHEST, 1V AP ONLY Stat RADS 06/02/17 12:54 Completed Medications Generic Name Dose Route Start Last Admin Trade Name Freq PRN Reason Stop Dose Admin Clopidogrel Bisulfate 75 mg 06/02/17 14:30 Plavix PO DAILY BRAN Diazepam 1 mg 06/02/17 15:00 Valium PO TID BRAN Sodium Chloride 1,000 mls @ 75 mls/hr 06/02/17 14:30 Sodium Chloride IV .[id number] BRAN Methylprednisolone Sodium Succinate 40 mg 06/02/17 14:30 Solu-Medrol 40 Mg IVP Q12HR BRAN Non-Formulary Medication 1 each 06/02/17 14:30 Lactobacillus Acidophilus [Probiotic] PO DAILY BRAN Non-Formulary Medication 10 mg 06/02/17 21:00 Melatonin [Melatonin] SL BEDTIME [facility]AN Fluticasone/Salmeterol 1 puff 06/02/17 14:30 Advair 500-50 Diskus IH BID BRAN Tramadol HCl 50 mg 06/02/17 14:30 Ultram PO BID PRN MODERATE PAIN Discontinued Medications Generic Name Dose Route Start Last Admin Trade Name Freq PRN Reason Stop Dose Admin Methylprednisolone Sodium Succinate 40 mg 06/02/17 14:27 Solu-Medrol 40 Mg IVP 06/02/17 14:28 ONCE STA Vital Signs: Temp Pulse Resp BP Pulse Ox 06/02/17 12:53 101.7 F H 06/02/17 10:09 99.3 F 110 H 20 134/80 96 Departure - Departure Time of Disposition: 14:34 Disposition: HOME SELF-CARE Discharge Problem: Weakness Condition: Stable Pt referred to PMD for follow-up: Yes Allergies/Adverse Reactions: Allergies codeine Adverse Reaction (Verified 06/02/17 10:23) Home Medications: Ambulatory Orders Melatonin 10 mg SL BEDTIME 07/30/16 Lactobacillus Acidophilus [Probiotic] 1 each PO DAILY #30 tab-cap 05/12/17 Diazepam 1 mg PO TID 05/21/17 Tramadol HCl [Ultram] 50 mg PO BID PRN #30 tablet 05/27/17
[2017-06-02 10:42] LABS: ABG BASE EXCESS 2 (-2.0-2.0); ABG HCO3 24.7 (22.0-26.0); ABG PCO2 30.2 mmHg (35-45); ABG PH 7.522 (7.35-7.45); ABG TCO2 26 (22.0-28.0)
[2017-06-02 11:29] LABS: BASOPHILS % (AUTO) 0.2 % (0.0-3.0); HEMATOCRIT 38.5 % (37.0-47.0); HEMOGLOBIN 12.9 g/dl (12.0-16.0); IMMATURE GRANULOCYTE % (AUTO) 0.5 % (0.0-5.0); LYMPHOCYTES # (AUTO) 1.2 K/uL (0.60-3.4); LYMPHOCYTES % (AUTO) 6.9 (10.0-50.0); MEAN CORPUSCULAR HEMOGLOBIN 27.2 pg (27.0-31.0); MEAN CORPUSCULAR HGB CONC 33.5 (31.8-35.4); MEAN CORPUSCULAR VOLUME 81.2 fl (81.0-99.0); MONOCYTES # (AUTO) 1.6 K/uL (0.4-2.0); MONOCYTES % (AUTO) 9.5 (0-10); NEUTROPHILS # (AUTO) 13.9 K/ul (2.0-6.9); NEUTROPHILS % (AUTO) 82.9; PLATELET COUNT 274 10^3/uL (140-440); RED BLOOD COUNT 4.74 10^6/ul (4.20-5.40); WHITE BLOOD COUNT 16.76 K/ul (4.6-10.2)
[2017-06-02 11:34] LABS: ALBUMIN/GLOBULIN RATIO 0.63; ANION GAP 18.9; BILIRUBIN,TOTAL 0.96 mg/dL (0.00-1.20); BUN/CREATININE RATIO 21.91; CALCIUM 9.7 mg/dL (8.2-10.2); CREATININE 0.73 mg/dL (0.60-1.30); POTASSIUM 4.9 mmol/L (3.5-5.10); TOTAL PROTEIN 7.8 g/dL (5.8-8.1)
[2017-06-02 12:53] LABS: BILIRUBIN,URINE 1+ (NEGATIVE); KETONES,URINE 3+ (NEGATIVE); LEUKOCYTE ESTERASE ,URINE Negative (NEGATIVE); NITRITE,URINE Negative (NEGATIVE); PH,URINE 6.5 (5-9); PROTEIN,URINE 2+ (NEGATIVE); URINE, BLOOD 2+ (NEGATIVE)
[2017-06-02 13:14] LABS: ADD URINE MICROSCOPIC YES
--- NOTE | 2017-06-02 13:32 | DI ---
EXAM: CHEST FRONTAL VIEW HISTORY: Fever. COMPARISON: 09/10/2016 FINDINGS: Heart size remains within normal limits. There is diffuse, chronic appearing interstitial accentuation. Lungs are hyperinflated and there is relative lucency of the lung zones suggesting the possibility of pulmonary emphysema. No acute infiltrates are seen. No vascular congestion. There is no consolidation, visible pleural fluid or pneumothorax. Bones reveal no acute fracture. IMPRESSION: Cannot exclude a component chronic obstructive pulmonary disease, correlate clinically. No acute cardiopulmonary process.
[2017-06-02] MEDS ORDERED: SOLU-MEDROL 40 MG IVP STA (14:27)
[2017-06-02] MEDS ORDERED: ADVAIR 500-50 DISKUS IH SCH (14:30)
[2017-06-02] MEDS ORDERED: PLAVIX PO SCH (14:30)
[2017-06-02] MEDS ORDERED: ULTRAM PO PRN ×2 (14:30→16:30)
[2017-06-02 14:59] LABS: FLU INTERNAL QC INTERNAL QC VALID; RAPID FLU A NEGATIVE (NEGATIVE); RAPID FLU B NEGATIVE (NEGATIVE)
[2017-06-02] MEDS ORDERED: VALIUM PO SCH (15:00)
[2017-06-02] MEDS: SOLU-MEDROL 40 MG IVP SCH ×2 (15:19→21:20)
[2017-06-02] MEDS: SODIUM CHLORIDE 1,000 ML IV SCH (15:49)
[2017-06-02 16:28] VITALS: BMI 16.1
[2017-06-02] MEDS ORDERED: TORADOL IVP STA (17:00)
[2017-06-02] MEDS ORDERED: DECADRON 4 MG/ML SDV IM STA (17:02)
[2017-06-02] MEDS: NON-FORMULARY MEDICATION (Lactobacillus Acidophilus [Probiotic] 1 EACH) PO SCH ×22 (18:34)
[2017-06-02] MEDS: ADVAIR 500-50 DISKUS IH SCH (21:18)
[2017-06-02] MEDS: VALIUM PO SCH (21:18)
[2017-06-02] MEDS: NON-FORMULARY MEDICATION (Melatonin [Melatonin] 10 MG) SL SCH (21:18)
[2017-06-02] MEDS: TORADOL IVP SCH (21:19)
[2017-06-03 05:00] LABS: BASOPHILS % (AUTO) 0.1 % (0.0-3.0); HEMATOCRIT 37.9 % (37.0-47.0); HEMOGLOBIN 12.4 g/dl (12.0-16.0); LYMPHOCYTES # (AUTO) 0.7 K/uL (0.60-3.4); LYMPHOCYTES % (AUTO) 7.8 (10.0-50.0); MEAN CORPUSCULAR HEMOGLOBIN 26.9 pg (27.0-31.0); MEAN CORPUSCULAR HGB CONC 32.7 (31.8-35.4); MEAN CORPUSCULAR VOLUME 82.2 fl (81.0-99.0); MONOCYTES # (AUTO) 0.3 K/uL (0.4-2.0); MONOCYTES % (AUTO) 3.9 (0-10); NEUTROPHILS # (AUTO) 7.3 K/ul (2.0-6.9); NEUTROPHILS % (AUTO) 87.2; PLATELET COUNT 268 10^3/uL (140-440); RED BLOOD COUNT 4.61 10^6/ul (4.20-5.40); WHITE BLOOD COUNT 8.41 K/ul (4.6-10.2)
[2017-06-03 05:32] LABS: ALBUMIN 2.4 g/dL (3.4-5.0); ALBUMIN/GLOBULIN RATIO 0.6; BILIRUBIN,TOTAL 0.45 mg/dL (0.00-1.20); BUN/CREATININE RATIO 41.09; CALCIUM 9.5 mg/dL (8.2-10.2); CREATININE 0.73 mg/dL (0.60-1.30); TOTAL PROTEIN 6.4 g/dL (5.8-8.1)
[2017-06-03] MEDS: TORADOL IVP SCH ×3 (05:50→20:36)
[2017-06-03] MEDS: SODIUM CHLORIDE 1,000 ML IV SCH ×2 (06:55→20:36)
[2017-06-03] MEDS: NON-FORMULARY MEDICATION (Lactobacillus Acidophilus [Probiotic] 1 EACH) PO SCH ×22 (08:03)
[2017-06-03] MEDS: ADVAIR 500-50 DISKUS IH SCH ×2 (08:04→20:36)
[2017-06-03] MEDS: SOLU-MEDROL 40 MG IVP SCH (08:04)
[2017-06-03] MEDS: PLAVIX PO SCH (08:04)
[2017-06-03] MEDS: DECADRON 4 MG/ML SDV IM SCH (08:04)
[2017-06-03] MEDS: VALIUM PO SCH ×3 (08:04→20:36)
[2017-06-03] MEDS ORDERED: ROCEPHIN 1 GM in SODIUM CHLORIDE 50 ML IV STA (08:19)
--- NOTE | 2017-06-03 11:04 | PCM.PROG ---
Attending Provider: ATTENDING PROVIDER: Dr. BEATRIZ BLOOD This patient is seen with Amaya Cevallos, Nurse Practitioner. DATE OF SERVICE: 06/03/17 SUBJECTIVE: This 86 year old WHITE/ F was hospitalized 06/02/17. The patient is lying in bed, alert. She had fallen at home and is still experiencing left hip pain. Discussed in detail with the patient custodial placement for PT/ OT. The patient is agreeable. REVIEW OF SYSTEMS: CONSTITUTIONAL: No night sweats. No fatigue, malaise, lethargy. No fever or chills. HEENT: Eyes: No visual changes. No eye pain. No eye discharge. ENT: No runny nose. No epistaxis. No sinus pain. No odynophagia. No congestion. RESPIRATORY: Dry cough, no congestion. No hemoptysis. No shortness of breath. CARDIOVASCULAR: No angina symptoms. No CHF symptoms. No atypical chest pain for CAD. No palpitations. No orthopnea.. GASTROINTESTINAL: No abdominal pain. No nausea or vomiting. No diarrhea or constipation. No hematemesis. No hematochezia. GENITOURINARY: No urgency. No frequency. No dysuria. No hematuria. No obstructive symptoms. No discharge. No pain. No significant abnormal bleeding. MUSCULOSKELETAL: Leg weakness, left hip pain. NEUROLOGICAL: Awake, alert, oriented to time, place and person. No headache. No neck pain. No syncope. No seizures. No dizziness. PSYCHIATRIC: Not anxious. No depression. No suicidal thoughts. No homicidal thoughts. SKIN: No rash. No lesions. No wounds. ENDOCRINE: No unexplained weight loss. No weight gain. HEMATOLOGIC/LYMPHATIC: No anemia. No purpura. No petechiae. No prolonged or excessive bleeding. No palpable lymph nodes. PHYSICAL EXAMINATION: GENERAL: The patient is awake, alert and oriented, lying in bed in no distress. VITAL SIGNS: Temperature 99.0 F, Pulse 83, Respiratory Rate 20, BP 98/54, Pulse Ox 94% HEENT: Head normocephalic, atraumatic. Eyes: Extraocular muscles are intact. Pupils are equal, round and reactive to light and accommodation. Ears: No lesions. Nose appeared normal. Throat: No exudate or erythema. NECK: Supple. No JVD, no carotid bruit. No lymphadenopathy or thyromegaly. LUNGS: Diminished breath sounds bilaterally. Clear to auscultation. Percussion note normal. Chest symmetrical. HEART: S1, S2, no S3. No murmurs. No cyanosis or clubbing. No ascites. Pulses: Dorsalis pedis and posterior tibial pulses +1 to +2 both sides. ABDOMEN: Soft. Non-tender. Bowel sounds active. No CVA tenderness. No mass felt. EXTREMITIES: No edema. Full range of motion of all extremities, equal. NEUROLOGIC: No focal deficit. Cranial nerves II through XII are grossly intact. No headache, no double vision or headache. SKIN: Not dry. Intact. Turgor-normal. LYMPHATIC: No palpable lymph nodes/no lymphedema. MUSCULOSKELETAL: Normal joints with no swelling. Muscle tone is normal. LAB REVIEW: 06/03/17 04:15 06/03/17 04:15 06/03/17 04:15: Sodium 137, Potassium 4.0, Chloride 102, Carbon Dioxide 25, Anion Gap 14.0, BUN 30 H, Creatinine 0.73, Estimated GFR (MDRD) 76.00, BUN/ Creatinine Ratio 41.09, Glucose 169 H, Calcium 9.5, Total Bilirubin 0.45, AST 13 L, ALT 11 L, Alkaline Phosphatase 75, Total Protein 6.4, Albumin 2.4 L, Globulin 4.0, Albumin/Globulin Ratio 0.60 06/03/17 04:15: WBC 8.41 D, RBC 4.61, Hgb 12.4, Hct 37.9, MCV 82.2, MCH 26.9 L , MCHC 32.7, RDW Coeff of Gareth 14.7, Plt Count 268, Immature Gran % (Auto) 1.0, Neut % (Auto) 87.2, Lymph % (Auto) 7.8 L, Cass % (Auto) 3.9, Eos % (Auto) 0.0, Baso % (Auto) 0.1, Immature Gran # (Auto) 0.1, Neut # 7.3 H, Lymph # 0.7, Cass # 0.3 L, Eos # 0.0, Baso # 0.0 ASSESSMENT: 1. Status post fall 2. left hip pain 3. OA 4. Generalized weakness 5. Urine culture pending PLAN: 1. 1 gm Rocephin Plan and coordination of the patient's care discussed in the presence of Weigher Bulker and nurse. CONDITION: Stable SCRIBED BY: ROMERO SHIPMAN, Computer Applications Developer scribed while in presence of service performed by Dr. Blood/Amaya Cevallos APRN on 06/03/17 ([id number])
--- NOTE | 2017-06-03 15:50 | DI ---
EXAM: Radiographs, pelvis and bilateral hips HISTORY: Initial presentation for pelvic trauma due to a fall. COMPARISON: CT 05/21/2017. TECHNIQUE: Two views. FINDINGS: Bone mineralization is decreased. There is no fracture or dislocation. Mild osteoarthrit ic changes present along with chondrocalcinosis. Lower lumbar degenerative changes are more advanced but incompletely imaged. Atherosclerotic calcifications are present. IMPRESSION: No fracture or dislocation.
[2017-06-03] MEDS: NON-FORMULARY MEDICATION (Melatonin [Melatonin] 10 MG) SL SCH (20:36)
[2017-06-04] MEDS: TORADOL IVP SCH (05:16)
[2017-06-04 05:17] LABS: BASOPHILS % (AUTO) 0.1 % (0.0-3.0); HEMATOCRIT 30.2 % (37.0-47.0); HEMOGLOBIN 10.1 g/dl (12.0-16.0); IMMATURE GRANULOCYTE % (AUTO) 0.8 % (0.0-5.0); LYMPHOCYTES # (AUTO) 0.6 K/uL (0.60-3.4); LYMPHOCYTES % (AUTO) 4.7 (10.0-50.0); MEAN CORPUSCULAR HEMOGLOBIN 27.1 pg (27.0-31.0); MEAN CORPUSCULAR HGB CONC 33.4 (31.8-35.4); MONOCYTES # (AUTO) 0.6 K/uL (0.4-2.0); MONOCYTES % (AUTO) 5.1 (0-10); NEUTROPHILS # (AUTO) 11.1 K/ul (2.0-6.9); NEUTROPHILS % (AUTO) 89.3; PLATELET COUNT 249 10^3/uL (140-440); RED BLOOD COUNT 3.73 10^6/ul (4.20-5.40); WHITE BLOOD COUNT 12.43 K/ul (4.6-10.2)
[2017-06-04 05:37] LABS: ALBUMIN 2.1 g/dL (3.4-5.0); ALBUMIN/GLOBULIN RATIO 0.68; ANION GAP 10.7; BILIRUBIN,TOTAL 0.13 mg/dL (0.00-1.20); BUN/CREATININE RATIO 53.03; CALCIUM 8.5 mg/dL (8.2-10.2); CREATININE 0.66 mg/dL (0.60-1.30); POTASSIUM 3.7 mmol/L (3.5-5.10); TOTAL PROTEIN 5.2 g/dL (5.8-8.1)
[2017-06-04 08:10] LABS: BILIRUBIN,URINE Negative (NEGATIVE); KETONES,URINE Negative (NEGATIVE); LEUKOCYTE ESTERASE ,URINE Trace (NEGATIVE); NITRITE,URINE Positive (NEGATIVE); PH,URINE 5.5 (5-9); PROTEIN,URINE Trace (NEGATIVE); URINE, BLOOD 2+ (NEGATIVE)
[2017-06-04 08:11] LABS: ADD URINE MICROSCOPIC YES
[2017-06-04] MEDS ORDERED: ROCEPHIN 1 GM in SODIUM CHLORIDE 50 ML IV STA (08:15)
[2017-06-04 08:22] LABS: BACTERIA,URINE 3+ (NOT PRESENT)
[2017-06-04] MEDS: VALIUM PO SCH (08:32)
[2017-06-04] MEDS: ADVAIR 500-50 DISKUS IH SCH (08:33)
[2017-06-04] MEDS: DECADRON 4 MG/ML SDV IM SCH (08:33)
[2017-06-04] MEDS: PLAVIX PO SCH (09:56)
[2017-06-04] MEDS: NON-FORMULARY MEDICATION (Lactobacillus Acidophilus [Probiotic] 1 EACH) PO SCH ×22 (09:56)
--- NOTE | 2017-06-04 10:46 | PN ---
DATE OF SERVICE: 06/02/17 SUBJECTIVE: 86 year old white female hospitalized through the emergency room with complaint of being weak. The patient on further work up has temperature of 100.5, WBC 16, 000 and her U/A is abnormal with protein blood and ketones but no leukocyte esterase positive. She seems to be somewhat Dehydrated. Atrial blood gasses and labs are otherwise negative. According to the son who is present in the room, Mark, the patient is unable to ambulate. She had a fall before she came to the hospital. The patient did fine for a couple of days after discharge a week ago but again her condition deteriorated. Mainly the patient is living by herself and now because of generalized osteoarthritis unable to carry on her daily function and needs to be in the rehab program, correction or both. After long discussion both patient and the son agreed. REVIEW OF SYSTEMS: CONSTITUTIONAL: No night sweats. Fatigue and weakness. No fever or chills. HEENT: Eyes: No visual changes. No eye pain. No eye discharge. ENT: No runny nose. No epistaxis. No sinus pain. No sore throat. No odynophagia. No congestion. RESPIRATORY: No cough, no congestion. No hemoptysis. No shortness of breath. CARDIOVASCULAR: No angina symptoms. No CHF symptoms. No atypical chest pain for CAD. No palpitations. No orthopnea. No PND. GASTROINTESTINAL: No abdominal pain. No nausea or vomiting. No diarrhea or constipation. No hematemesis. No hematochezia. GENITOURINARY: No urgency. No frequency. No dysuria. No hematuria. No obstructive symptoms. No discharge. No pain. No significant abnormal bleeding. MUSCULOSKELETAL: No musculoskeletal pain; no joint swelling. Arthritic pain. Inability to ambulate without support. NEUROLOGICAL: No headache. No neck pain. No syncope. No seizures. No dizziness. PSYCHIATRIC: Not anxious. No depression. No suicidal thoughts. No homicidal thoughts. SKIN: No rash. No lesions. No wounds. ENDOCRINE: No unexplained weight loss. No weight gain. HEMATOLOGIC/LYMPHATIC: No anemia. No purpura. No petechiae. No prolonged or excessive bleeding. No palpable lymph nodes. LABS: Hgb 12.9, hct 28, WBC 16,000 normal differential. Arterial blood gasses pH 7.52 with pO2 74, pCO2 30 with 96% saturation. Creatinine 0.7, BUN 16, potassium 4.9. Liver profile normal. lactic acid 12.6 normal, procalcitonin 0.54 normal. U /A as mentioned above 2+ protein and 3+ ketones, 2+ blood and 1+ bilirubin. Leukocyte and nitrates negative. EKG sinus rhythm, ST-T wave change, poor R wave progression, Incomplete RBB, Left bundle branch type of pattern. Chest x- ray possibly COPD. PLAN: 1. IV fluids 2. Toradol 30mg IV 3. Decadron 4mg IM 4. Lipid Q in the morning 5. Influenza Rapid A and B negative 6. Evaluate her situation again tomorrow and decide. CONDITION: Stable. TIME SPENT: More than 30 minutes. Plan and coordination of the patient's care discussed in the presence of nurse. DALE
[2017-06-04 10:52] VITALS: BP 110/59; TEMP 97.5
--- NOTE | 2017-06-04 15:21 | PN ---
DATE OF SERVICE: 06/04/17 SUBJECTIVE: 86-year-old white female hospitalized with weakness, generalized osteoarthritis type of pain. Also had hip pain with history of fall. The hip x-ray shows osteoarthritis. The patient was given Rocephin for urinary tract infection. The patient's condition is stable. The patient is going to be put on Ultram. The patient agreed to [facility]. The son also agreed. CONDITION AT TIME OF DISCHARGE TO THE DETENTION: STABLE. The patient was seen and examined with nurse practitioner and case operator. TIME SPENT: More than 30 minutes. Plan and coordination of the patient's care discussed in the presence of nurse. DALE
--- NOTE | 2017-06-04 15:22 | PN ---
CODING FOR BILLING 06/02/17 LEVEL 5 FOR OBSERVATION 06/03/17 INTERMEDIATE 06/04/17 DISCHARGE MTDD
--- NOTE | 2017-06-12 13:16 | PN ---
DATE OF SERVICE: 06/03/17 SUBJECTIVE: 86 year old white female was seen and examined with Nurse Practitioner and Helmet Hat Brim Cutter. She was admitted with weakness. The patient is living by herself with help from son who is working. The patient also had fever of 101.7. Rocephin was given for abnormal U/A and possibility of any infection. The patient had fall prior to hospitalization. We will do x-ray of the hips. The patient's family has chosen go to [facility]. Ultram 50mg three times a day will be given. CONDITION: Stable TIME SPENT: More than 30 minutes. Plan and coordination of the patient's care discussed in the presence of nurse. DALE
--- NOTE | 2017-06-26 10:23 | SSS ---
DATE OF SERVICE: 06/04/17 (DISCHARGE) 06/02/17 (ADMIT) REASON FOR CONSULTATION/ADMISSION: The patient was admitted to observation with weakness, recent fall at home. She was seen in the ER by Dr. Franklin. HISTORY OF PRESENT ILLNESS: This is an 86-year-old female who fell at home last night. She is falling more frequently. She is unsteady on her feet. She has hip pain. She feels weak this morning. REVIEW OF SYSTEMS: CONSTITUTIONAL: No night sweats. No fatigue, malaise, lethargy. No fever or chills. HEENT: Eyes: No visual changes. No eye pain. No eye discharge. ENT: No runny nose. No epistaxis. No sinus pain. No sore throat. No odynophagia. No ear pain. No congestion. RESPIRATORY: No cough, no congestion. No hemoptysis. No shortness of breath. CARDIOVASCULAR: No angina symptoms. No CHF symptoms. No atypical chest pain for CAD. No palpitations. No orthopnea. GASTROINTESTINAL: No abdominal pain. No nausea or vomiting. No diarrhea or constipation. No hematemesis. No hematochezia. GENITOURINARY: positive for urinary incontinence. MUSCULOSKELETAL: Left leg pain. NEUROLOGICAL: Awake, alert, oriented to time, place and person. No headache. No neck pain. No syncope. No seizures. No dizziness. PSYCHIATRIC: Not anxious. No depression. No suicidal thoughts. No homicidal thoughts. SKIN: No rash. No lesions. No wounds. ENDOCRINE: No unexplained weight loss. No weight gain. HEMATOLOGIC/LYMPHATIC: No anemia. No purpura. No petechiae. No prolonged or excessive bleeding. No palpable lymph nodes. PAST HISTORY: 1. Left hip osteoarthritis 2. COPD 3. Celiac disease 4. TIA 5. Anemia 6. CAD 7. Hysterectomy 8. Appendectomy 9. Cholecystectomy 10. Sinus surgery 11. Cataract extractions 12. Hernia repair 13. Breast biopsy 14. Rotator cuff repair PERSONAL/FAMILY HISTORY/SOCIAL HISTORY: The patient is . She resides at home alone. Son, Mark, is supportive. She is becoming more dependent for ADLs due to weakness. She has not required DME, Home Health or homemaking services at home. PHYSICAL EXAMINATION: GENERAL: The patient is an 86-year-old female. Height 5'7", weight 109.5 pounds. VITAL SIGNS: On admission, BP 134/80, pulse 110, respiratory rate 20, temperature 99.3. Sats 96% on room air. HEENT: Head normocephalic, atraumatic. Eyes: Extraocular muscles are intact. Pupils are equal, round and reactive to light and accommodation. Ears: No lesions. Nose appeared normal. Throat: No exudate or erythema. NECK: Supple. No JVD, no carotid bruit. Full range of motion. No lymphadenopathy or thyromegaly. LUNGS: Diminished breath sounds, clear to auscultation. Percussion note normal. Chest symmetrical. HEART: Regular rhythm and rate. S1, S2, no S3. No murmur. No cyanosis or clubbing. No ascites. Pulses: Dorsalis pedis and posterior tibial pulses +1 to +2 both sides. ABDOMEN: Soft. Nontender. Bowel sounds active. No CVA tenderness. No mass felt. EXTREMITIES: No edema. Full range of motion of all extremities, equal. NEUROLOGIC: Awake, alert and oriented times three. No focal deficit. Cranial nerves II through XII are grossly intact. No headache, no double vision or headache. SKIN: Not dry. Intact. Turgor - normal. LYMPHATIC: No palpable lymph nodes/no lymphedema. MUSCULOSKELETAL: Normal joints with no swelling. Muscle tone is normal. Old/present records reviewed Office records reviewed. ALLERGIES: CODEINE MEDICATIONS: Ultram Melatonin Probiotic Advair Diazepam Plavix LABS/EKG'S/X-RAY/ECHO/AB06/02/17 WBC 16.76, hgb 12.9, hct 38.5, platelets 274. Sodium 134, chloride 97, BUN 16, GFR 76, glucose 141, potassium 4.9, carbon dioxide 23, creatinine 0.73. 06/03/17 Sodium 137, Potassium 4.0, chloride 102, BUN 30, Creatinine 0.73, glucose 169. 06/04/17 Sodium 137, potassium 3.7, chloride 107, carbon dioxide 23, BUN 35, creatinine 0.66, glucose 177. 06/04/17 WBC 12.4, RBC 3.73, Hgb 10.1, Hct 30.2, platelet count 249. Hips and pelvic x-ray negative for fracture or dislocation. Influenza A and B negative. PROGRESS NOTES: See transcribed notes. Case Discussed with Attending Physician: Yes Case Discussed with Family: Yes DIAGNOSES: 1. LEFT HIP PAIN STATUS POST FALL AT HOME 2. OSTEOARTHRITIS/GENERALIZED WEAKNESS 3. UTI 4. NEW URINARY INCONTINENCE RECOMMENDATIONS/PLAN: 1. Discharge to [facility] 2. Continue home medications 3. Dr. [facility]avidez [facility]. We will continue to follow until his return. 4. New medications: Prednisone 10 mg p.o. b.i.d times five days with food, Keflex 500 mg p.o. b.i.d. times 10 days. Prescription for Ultram 50 mg p.o. t.i.d. for hip pain. EDUCATION CARRIED OUT ABOUT: Physical and Occupational Therapy needs, prison for rehabilitation, medications and followup. TIME SPENT: More than 70 minutes. MTDD
== END 2017-06-04 11:45 ==
LOC: ED 10:09 → MEDSURG B 14:30 → INTOOBSV 14:30
PROVIDERS: ADMIT Internal Medicine; ATTEND Internal Medicine
DX: S79.912A Unspecified injury of left hip, initial encounter (principal); N39.0 Urinary tract infection, site not specified; R50.9 Fever, unspecified; E86.0 Dehydration; M15.9 Polyosteoarthritis, unspecified; R53.1 Weakness; M79.605 Pain in left leg; R00.0 Tachycardia, unspecified; R29.6 Repeated falls; W19.XXXA Unspecified fall, initial encounter; Z79.02 Long term (current) use of antithrombotics/antiplatelets; Z86.73 Personal history of transient ischemic attack (TIA), and cerebral infarction without residual deficits; Z79.899 Other long term (current) drug therapy
CPT/HCPCS: 36415; 80053; 81001; 82803; 83605; 84145; 85025; 87040; 87086; 87804; 93005; 93010; 96374; 99284

== ENCOUNTER 2017-09-03 12:16 | Outpatient (CLI) | payer OTHER | END 2017-09-03 12:17 | disposition home or self-care (01) | LOC: LAB 12:16 | PROVIDERS: ATTEND General Practice | DX: I63.30 Cerebral infarction due to thrombosis of unspecified cerebral artery (principal); J44.9 Chronic obstructive pulmonary disease, unspecified; R31.29 Other microscopic hematuria; N28.89 Other specified disorders of kidney and ureter; I87.8 Other specified disorders of veins; E53.8 Deficiency of other specified B group vitamins; Z79.899 Other long term (current) drug therapy; Z87.891 Personal history of nicotine dependence | CPT/HCPCS: 36415; 80053; 80061; 81001; 85025 ==

== ENCOUNTER 2017-10-29 11:40 | Outpatient (CLI) | payer OTHER ==
--- NOTE | 2017-10-29 14:05 | DI ---
EXAM: Three views of the right shoulder HISTORY: Pain in right shoulder. COMPARISON: Chest x-ray 06/02/2017 FINDINGS: There is no cortical irregularity or displaced fracture of the right shoulder. There is mo derate to severe narrowing of the glenohumeral joint and the acromioclavicular joint with moderate ballesteros perior migration of the humeral head in the glenohumeral joint. There is no lytic or blastic lesion. There is no displaced fracture. The adjacent osseous structures and soft tissues are normal. 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
--- NOTE | 2017-10-29 14:15 | CT ---
EXAM: CT Head HISTORY: Dizziness and giddiness COMPARISON: 06/15/2014 TECHNIQUE: CT head performed without contrast FINDINGS: There is no mass effect, midline shift, or intracranial hemmorhage. Dobbs white differenti ation is preserved. There is no extra-axial collection. The ventricles, sulci, and basal cisterns a re patent and symmetric. There is chronic ischemic disease of the white matter and cerebral volume l oss. There is no depressed calvarial fracture. The mastoid air cells are clear. The visualized para nasal sinuses are clear. There are intracranial atherosclerotic calcifications. IMPRESSION: 1. No acute intracranial abnormality. 2. 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
== END 2017-10-29 11:41 | disposition home or self-care (01) ==
LOC: RAD 11:40
PROVIDERS: ATTEND General Practice
DX: R42 Dizziness and giddiness (principal); H53.2 Diplopia; M25.511 Pain in right shoulder; Z86.73 Personal history of transient ischemic attack (TIA), and cerebral infarction without residual deficits
CPT/HCPCS: 36415; 80053; 83090; 85025

== ENCOUNTER 2017-11-19 15:01 | Observation (INO) | payer OTHER ==
[2017-11-19 15:37] VITALS: BMI 17.6
[2017-11-19] MEDS ORDERED: INFUVITE ADULT IV ONE (17:05)
[2017-11-19] MEDS: INFUVITE ADULT 10 ML in D5%-1/2NS-KCL 20 MEQ/L IV SOL 1,000 ML IV SCH (17:08)
[2017-11-19] MEDS ORDERED: VANCOMYCIN 1,000 MG in SODIUM CHLORIDE 200 ML IV SCH (19:00)
[2017-11-19] MEDS ORDERED: VANCOMYCIN 1,000 MG in SODIUM CHLORIDE 250 ML IV SCH (21:00)
[2017-11-19] MEDS: ROCEPHIN 1 GM in SODIUM CHLORIDE 50 ML IV SCH (22:09)
[2017-11-20] MEDS ORDERED: INFUVITE ADULT IV ONE (07:21)
[2017-11-20] MEDS: INFUVITE ADULT 10 ML in D5%-1/2NS-KCL 20 MEQ/L IV SOL 1,000 ML IV SCH (07:27)
[2017-11-20] MEDS: ROCEPHIN 1 GM in SODIUM CHLORIDE 50 ML IV SCH (08:47)
[2017-11-20] MEDS ORDERED: VANCOMYCIN 1 GM in SODIUM CHLORIDE 250 ML IV SCH (09:00)
[2017-11-20] MEDS ORDERED: SODIUM CHLORIDE 250 ML IV ONE (09:30)
[2017-11-20 13:35] VITALS: BP 120/56; TEMP 98.4
--- NOTE | 2017-11-28 13:39 | SSS ---
DATE OF SERVICE: 11/19/17 AND 11/20/17 CHIEF COMPLAINT: Pain left leg lateral with scabbing ulceration with surrounding redness and swelling. The patient also had swelling of the left ankle. HISTORY OF PRESENT ILLNESS: The patient had the ulceration several days ago and she was in the office with the ulceration, but she forgot to complain about it. The pain had intensified prompting her to come to the office for examination and treatment. The patient was found to have swelling and redness on the left lateral leg. There was marked tenderness. No tenderness in the calf muscles and no significant swelling on either legs. The patient was felt to have a cellulitis maybe from staph infection because of the ulcer that is scabbing. There is no drainage visible. The patient is advised admission to the hospital for initial IV antibiotic therapy and then to be continued at home on an oral therapy. The patient was agreeable. She also claimed that she was not able to sleep for the last few days because of the pain and has difficulty ambulating, again because of the pain. PAST PERSONAL HISTORY: The patient may have some bloating sensitivity, but not celiac disease. She had an abdominal hysterectomy, appendectomy and cholecystectomy, breast biopsy, as well as tonsillectomy. Rotator cuff surgery. She also had previous bilateral cataract extraction and mini strokes some 20 to 30 years ago. She had a TIA in 2013. FAMILY HISTORY: Father had Alzheimer's disease. Mother had carcinoma, as well as a CVA, massive and from the cerebral vascular accident. SOCIAL HISTORY: The patient is a and resides alone with the help of family. 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 She doesn't drink any alcoholic beverages and she denies any use of drugs other than prescriptions. HOME MEDICATIONS: Melatonin 10 mg tablet at bedtime Advair Diskus 500/50, one puff twice a day Probiotic one capsule daily Tramadol 50 mg tablet three times a day Megestrol Acetate 400 mg in 10 cc daily Plavix 75 mg daily Diazepam 2 mg tablet before meals ALLERGIES: Codeine. REVIEW OF SYSTEMS: CONSTITUTIONAL: The patient had no fever or chills, but some fatigue because of not able to sleep, secondary to the pain in the left leg. QUALITY CONTROL LAB TECHNICIAN: No headaches. No syncopal episodes. No seizure episodes. VISUAL: Denies any blurred vision, double vision or transient loss of vision. AUDITORY: Hearing is decreased remarkably. Denies any tinnitus or pain or drainage. RESPIRATORY: The patient has no significant cough and no dyspnea with usual exertion. CARDIOVASCULAR: Denies any chest pain or chest tightness. GASTROINTESTINAL: Appetite is somewhat poor, although the patient is taking Megestrol and it seemed to help. The patient is no longer on a gluten free diet. She tried that and it seemed to help. The patient may have some gluten sensitivity, but not a celiac disease. The patient might be considered for a low food map diet fermentable alegodesaccharide and monosaccharide and polyol. GENITOURINARY: Denies any pain on urination or frequency. ENDOCRINE: Negative. INTEGUMENT: Denies any rash or pruritus. HEMATOLOGIC: No history of prolonged bleeding. PSYCHIATRIC: Affect is normal. PHYSICAL EXAMINATION: GENERAL: We have a 86 year old female , retired registered nurse, admitted to the hospital because of pain on the left leg, severe. It is keeping her awake through the night and producing difficulty of ambulation. The patient has a scabbed ulceration that is surrounded with redness and swelling in the left lateral leg. She also has some swelling on the ankle, but no tenderness in calf muscles and Honeycutt's sign in negative. No edema or both lower extremities, expect the area where there is redness and swelling. VITAL SIGNS: Temperature 97.7, pulse 85, blood pressure 150/74, respiratory rate 16, oxygen saturation 97 at room air. She is 109 pounds, 5'6", BMI 17.6. HEAD: Unremarkable. FACE: Symmetrical and equal. No weakness of either side and no significant tenderness to palpation under pressure in the frontal or maxillary sinus dora. EYES: Pupils equal/reactive to light. Conjunctivae not pale. Sclerae not icteric. EARS: No drainage. MOUTH: Unremarkable. THROAT: No inflammation, tumors or exudate. NECK: No masses. No bruit. No tenderness. No rigidity. CHEST: Symmetrical and equal with good expansion. LUNGS: Breath sounds are diminished bilaterally. No rales or wheezing. HEART: Audible and regular with good tones. No murmurs. ABDOMEN: Flat, soft with no remarkable tenderness. No guarding. No masses and no bruit and bowel sounds are normoactive. LOWER EXTREMITIES: No significant edema. The patient does have a scabbed ulceration left lateral leg, lower with surrounding redness with marked tenderness to palpation. There is some swelling in the left ankle. No tenderness in the posterior leg area and Honeycutt's sign was negative. UPPER EXTREMITIES: Symmetrical and equal. ASSESSMENT: 1. INFECTED ULCERATION LEFT LATERAL LEG/CELLULITIS Admission. 2. Antibiotics. 3. Blood culture. 4. Culture, if possible if the scab is removable. NOTE: This patient, about three weeks ago, had some dizziness, but the CT scan of the head was negative for any tumor or acute abnormalities. Other previous diagnosis consisted of CVA, thrombosis of the cerebral artery, but had good recovery. Chronic obstructive lung disease, secondary to smoking. Chronic tobacco use, stopped several years ago. Degenerative disc disease of the lumbar spine, Osteoarthritis, peripheral arterial disease, venous stasis, venous insufficiency bilateral legs, Vitamin B12 deficiency, right shoulder pain , history of dizziness and diplopia. HOSPITAL COURSE: The patient was treated after the blood culture was done with Vancomyin 1 gram every 12 hours with Rocephin 1 gram every 24 hours. The swelling in the left leg has regressed remarkably several hours after admission and much more today. The redness also is less. The tenderness is less. The scab is adherent and so no attempt to remove it. It probably will come off some several days later. The patient at discharge is alert, ambulatory with a less amount of pain and less swelling. Her initial CBC showed a normal WBC, mild anemia, maybe some iron deficiency since the MCH is 27.3 and RDW 15.5, above normal. BUN 11, creatinine 0.64, GFR 88, sugar 92 and the rest of the chemistries are normal. The patient is going to be discharged today and prescribed Bactrim DS to be taken one twice a day. She was instructed to drink plenty of liquids. I would need to see her a week from today at the office and before if she has any questions or problems. DALE
== END 2017-11-20 16:40 | disposition home or self-care (01) ==
LOC: MEDSURG A 15:01
PROVIDERS: ADMIT General Practice; ATTEND General Practice
DX: L97.829 Non-pressure chronic ulcer of other part of left lower leg with unspecified severity (principal); L03.116 Cellulitis of left lower limb; I73.89 Other specified peripheral vascular diseases; I83.12 Varicose veins of left lower extremity with inflammation; I83.11 Varicose veins of right lower extremity with inflammation; J44.9 Chronic obstructive pulmonary disease, unspecified; E53.8 Deficiency of other specified B group vitamins; Z86.73 Personal history of transient ischemic attack (TIA), and cerebral infarction without residual deficits; Z87.891 Personal history of nicotine dependence; Z79.02 Long term (current) use of antithrombotics/antiplatelets; Z79.899 Other long term (current) drug therapy
CPT/HCPCS: 36415; 80053; 85025; 87040; 97802

== ENCOUNTER 2018-01-27 09:35 | Outpatient (CLI) | END 2018-01-27 09:36 | disposition home or self-care (01) | LOC: FCC-LAB 09:35 | PROVIDERS: ATTEND General Practice | DX: I63.30 Cerebral infarction due to thrombosis of unspecified cerebral artery (principal); J44.9 Chronic obstructive pulmonary disease, unspecified; N28.89 Other specified disorders of kidney and ureter; E53.8 Deficiency of other specified B group vitamins; R63.4 Abnormal weight loss; R26.81 Unsteadiness on feet; E46 Unspecified protein-calorie malnutrition; Z87.891 Personal history of nicotine dependence; Z79.899 Other long term (current) drug therapy | CPT/HCPCS: 36415; 80053; 80061; 81001; 85025 ==

== ENCOUNTER 2018-02-25 15:18 | Inpatient (IN) ==
[2018-02-25 16:31] VITALS: BMI 16.9
[2018-02-25] MEDS ORDERED: MAXIPIME IV ONE ×2 (17:29→19:59)
[2018-02-25] MEDS: MAXIPIME 2 GM in SODIUM CHLORIDE 100 ML IV SCH ×2 (17:48→20:38)
[2018-02-25] MEDS: VALIUM PO SCH (17:48)
[2018-02-25] MEDS: ULTRAM PO SCH (20:40)
[2018-02-25] MEDS: ADVAIR 500-50 DISKUS IH SCH (20:41)
[2018-02-25] MEDS ORDERED: NON-FORMULARY MEDICATION (Melatonin [Melatonin] 10 MG) SL SCH (21:00)
[2018-02-25] MEDS: NORCO 5-325 PO PRN (21:37)
[2018-02-26] MEDS: VALIUM PO SCH ×3 (05:57→17:33)
--- NOTE | 2018-02-26 07:39 | DI ---
EXAM: Two views of the right lower leg HISTORY: Open wound. COMPARISON: Right tibia-fibula x-rays 05/10/2014 FINDINGS: There is degenerative change of the right knee with narrowing and osteophyte formation. Th ere is narrowing and degenerative change of the right ankle. There is no lytic or blastic lesion. T here is no displaced fracture or dislocation. The soft tissues are unchanged. The soft tissues are unremarkable. IMPRESSION: 1. No acute abnormality of the right lower leg. 2. Degenerative disease of the ankle and knee.
[2018-02-26] MEDS: MAXIPIME 2 GM in SODIUM CHLORIDE 100 ML IV SCH ×2 (07:44→20:57)
[2018-02-26] MEDS ORDERED: NON-FORMULARY MEDICATION (Ferrous Sulfate [Iron] 325 MG) PO SCH (09:00)
[2018-02-26] MEDS ORDERED: NON-FORMULARY MEDICATION (Lactobacillus Acidophilus [Probiotic] 1 EACH) PO SCH (09:00)
[2018-02-26] MEDS: FLORASTOR PO SCH ×2 (09:23→20:58)
[2018-02-26] MEDS: FERROUS SULFATE PO SCH (09:23)
[2018-02-26] MEDS: PLAVIX PO SCH (09:23)
[2018-02-26] MEDS: ULTRAM PO SCH ×3 (09:24→20:58)
[2018-02-26] MEDS: ADVAIR 500-50 DISKUS IH SCH (20:58)
[2018-02-26] MEDS: NON-FORMULARY MEDICATION (Melatonin [Melatonin] 10 MG) SL SCH (21:02)
[2018-02-27] MEDS: VALIUM PO SCH ×3 (06:07→16:26)
[2018-02-27] MEDS: MAXIPIME 2 GM in SODIUM CHLORIDE 100 ML IV SCH ×2 (08:58→20:14)
[2018-02-27] MEDS: ULTRAM PO SCH ×3 (08:59→20:15)
[2018-02-27] MEDS: FERROUS SULFATE PO SCH (08:59)
[2018-02-27] MEDS: FLORASTOR PO SCH ×2 (08:59→20:15)
[2018-02-27] MEDS: PLAVIX PO SCH (08:59)
[2018-02-27] MEDS: NORCO 5-325 PO PRN (11:20)
[2018-02-27] MEDS: NON-FORMULARY MEDICATION (Melatonin [Melatonin] 10 MG) SL SCH (20:15)
[2018-02-27] MEDS: ADVAIR 500-50 DISKUS IH SCH (20:15)
[2018-02-28] MEDS: VALIUM PO SCH ×2 (06:15→11:32)
[2018-02-28] MEDS: MAXIPIME 2 GM in SODIUM CHLORIDE 100 ML IV SCH (08:32)
[2018-02-28] MEDS: FERROUS SULFATE PO SCH (08:32)
[2018-02-28] MEDS: ULTRAM PO SCH (08:32)
[2018-02-28] MEDS: FLORASTOR PO SCH (08:32)
[2018-02-28] MEDS: PLAVIX PO SCH (08:33)
[2018-02-28 10:04] VITALS: BP 116/64; TEMP 97.9
--- NOTE | 2018-03-03 15:59 | HP ---
DATE OF SERVICE: 02/25/18 CHIEF COMPLAINT: Pain in right leg, swelling and redness. HISTORY OF PRESENT ILLNESS: The patient had an ulceration in the right leg caused by her god jumping on her leg during a storm. She had been treated with Silvadene cream, however the problem did not improve and instead it continued to drain and now with redness and pain, as well as swelling. The redness is mostly in the lateral side of the right leg, as well as the ankle. The swelling is the whole leg. The patient was felt to require admission for antibiotic administration. Culture was done at the office from the wound after the dressing was removed and the Silvadene. The patient was admitted in November 2017 because of ulceration and swelling and redness of the left lateral leg. The patient at that time was given Vancomycin, as well as Rocephin. The patient has some gluten sensitivity, but not Celiac disease. She also had pain in the right shoulder and was seen by an orthopedist recently and was given an articular injection. She was advised that that is all that he can do for her. 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 She had a TIA in 2018. PAST PERSONAL HISTORY: The patient has some gluten sensitivity, but not Celiac disease. She also had pain in the right shoulder and was seen by an orthopedist recently and was given an articular injection. She was advised that that is all that he can do for her. 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 She had a TIA in 2018. PAST SURGICAL HISTORY: Consisted of total abdominal hysterectomy, appendectomy , cholecystectomy, breast biopsy, tonsillectomy, rotator cuff surgery and cataract extraction. FAMILY HISTORY: Father had Alzheimer's disease. Mother had carcinoma, as well as CVA and from the CVA. SOCIAL HISTORY: The patient is a and resides alone with the help of the family. She has one son left and alive and one grandson. 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 She doesn't drink any alcoholic beverages. She denies any use of drugs other than prescriptions. MEDICATIONS: Prior to this admission consisted of: Melatonin 10 mg at bedtime Probiotics, Lactobacillus Acidophilus one daily Tramadol 50 mg three times a day as needed Plavix 75 mg daily Valium 2mg tablet p.o. at bedtime. We will need to check that on follow up visit. Ferrous Sulfate 325 mg tablet daily Adv Diskus 500/50 one puff at bedtime ALLERGIES: Codeine. REVIEW OF SYSTEMS: CONSTITUTIONAL: Denies any fever or chills, but has some fatigue. 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 No dizziness now. She had some dizziness at one time and a CT scan was unremarkable. No ataxia. No syncopal episodes. VISUAL: Denies any blurred vision, double vision or loss of vision. AUDITORY: The patient has diminished hearing acuity, but no tinnitus, no pain or drainage. RESPIRATORY: No cough, no hemoptysis, no shortness of breath with just the usual exertion. CARDIOVASCULAR: Denies any chest tightness, diaphoresis or weakness. GASTROINTESTINAL: The patient has no nausea, anorexia or dysphagia. She claims to have a good appetite. No abdominal pain. The patient does have some bloating and it is less now than it had been before. GENITOURINARY: Denies any pain on urination. No nocturnal frequency. MUSCULOSKELETAL: The patient is complaining of pain in the right shoulder and the patient had seen an orthopedist for the problem and was given an injection in the shoulder joint. The orthopedist told her that that is all he can do for her right shoulder. ENDOCRINE: Negative. INTEGUMENT: The patient has an ulceration on the right anterolateral leg with surrounding redness and swelling. The patient does experience pain in this area. HEMATOLOGIC: No history of prolonged bleeding. PSYCHIATRIC: Affect is normal. 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 VITAL SIGNS: On admission consisted of temperature 97.4, pulse 76, blood pressure 134/68, respiratory rate 20, oxygen saturation 95 at room air. She is 5'6" and 105 pounds, BMI 16.9. HEAD: Unremarkable. Scalp with no active dermatitis. FACE: Symmetrical and equal with no facial weakness and no redness. No swelling. There is no tenderness in the frontal or maxillary sinus areas to palpation under pressure. EYES: Pupils equal/reactive to light about 3 mm in size. Conjunctivae slightly pale. Sclerae not icteric. EARS: No remarkable abnormalities externally. No pain on traction. MOUTH: Unremarkable. THROAT: No inflammation, tumors or exudate. NECK: No masses. No bruit. No tenderness. No rigidity. CHEST: Essentially symmetrical and equal with prominent ribs, but no remarkable tenderness. LUNGS: Breath sounds are heard in both sides. No rales or wheezing. HEART: Audible and regular with good tones. No murmurs. ABDOMEN: Flat, soft with no remarkable tenderness. No guarding. Bowel sounds are active. No masses palpable. LOWER EXTREMITIES: The right leg is edematous, as well as erythematous with an ulceration on the anteromedial side. Swelling also involved of the right lateral malleolar surface with edema. The left has no swelling, but does have some discoloration secondary to venous insufficiency. The tibial pulses are absent. UPPER EXTREMITIES: Symmetrical and equal. ASSESSMENT: 1. CELLULITIS RIGHT LOWER LEG SECONDARY TO INJURY 2. PERIPHERAL ARTERIAL DISEASE, ABSENT TIBIAL PULSES 3. HISTORY OF TIA ON PLAVIX. 4. SHOULDER PAIN, RIGHT SIDE, SEEN BY ORTHOPEDIST 5. HISTORY OF CHRONIC TOBACCO USE STOPPED SEVERAL YEARS AGO 6. CHRONIC OBSTRUCTIVE PULMONARY DISEASE ON MEDICATION TIME SPENT: GREATER THAN 65 MINUTES MTDD
--- NOTE | 2018-03-03 16:24 | DS ---
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 The patient had an injury to the right leg caused by her dog and was treated with Silvadene. The treatment was not quite successful and the patient has developed pain in the right leg with redness and swelling, mostly on the lateral side of the leg. A culture of the wound was negative for any growth. HOSPITAL COURSE: Labs done on admission showed mild anemia, probably iron deficiency. Chemistry was unremarkable. The BUN is 20, creatinine 0.63, E GFR 89. the patient was continued on her medications, except the Probiotic was changed to Florastor, since we do not have the probiotic that she had at home. She was given Cefepime 2 grams IV every 8 hours and that was changed to every 12 hours. The leg was elevated and the ulcer was dressed with moist sterile saline dressing during the day and changed to a dry dressing during the night. The swelling and redness of the leg has resolved on 02/27/2018. The pain also had regressed remarkably. The patient on 02/28/18 was alert, ambulatory and did eat 50% of her lunch and 75% of her dinner yesterday. VITAL SIGNS: On 02/28/18 at 10 a.m. showed a temperature of 97.9, pulse 74, blood pressure 116/64, respiratory rate 20, oxygen saturation 96 at room air. LUNGS: Clear to auscultation. HEART: Normal sinus rhythm. UPPER EXTREMITIES: The shoulder is about the same. No redness and not warm to touch. It might require another injection if she would have significant amount of pain. The swelling and redness has resolved completely and an new dressing was applied. I told the patient that I would not remove the dressing, but this dressing should be changed tomorrow by herself or somebody else to help her and it should be a moist dressing during the daytime and then a dry dressing during the night. Her leg should remain elevated almost all of the time possible. No further antibiotics is prescribed today. She will be seen at the office in about a week and before if there is any concerns. The patient is to resume all of her previous medications and elevate the leg. Moist dressing was demonstrated and instructed to her in the presence of the nurse. I should see her in one week. FINAL DIAGNOSES: 1. CELLULITIS OF THE RIGHT LOWER LEG AND ANKLE, RESOLVED. 2. PERIPHERAL ARTERIAL DISEASE 3. HISTORY OF TIA ON PLAVIX 4. HISTORY OF GLUTEN SENSITIVITY 5. HISTORY OF RIGHT SHOULDER PAIN 6. HISTORY OF CHRONIC OBSTRUCTIVE PULMONARY DISEASE 7. HISTORY OF CHRONIC TOBACCO USE AND ABUSE, STOPPED SEVERAL YEARS AGO PROGNOSIS: Guarded. TIME SPENT: GREATER THAN 30 MINUTES MTDD
== END 2018-02-28 14:22 | disposition home or self-care (01) | DRG 301 ==
LOC: MEDSURG B 15:18
PROVIDERS: ADMIT General Practice; ATTEND General Practice
DX: I73.9 Peripheral vascular disease, unspecified (principal); J44.9 Chronic obstructive pulmonary disease, unspecified; M79.661 Pain in right lower leg
CPT/HCPCS: 36415; 80053; 85025

== ENCOUNTER 2018-02-25 16:01 | Outpatient (CLI) | END 2018-02-25 16:02 | disposition home or self-care (01) | LOC: FCC-LAB 16:01 | PROVIDERS: ATTEND General Practice | DX: T14.8XXA Other injury of unspecified body region, initial encounter (principal) | CPT/HCPCS: 87070 ==

== ENCOUNTER 2018-03-04 10:11 | Outpatient (CLI) | END 2018-03-04 10:12 | disposition home or self-care (01) | LOC: WOUND 10:11 | PROVIDERS: ATTEND Nurse Practitioner Family | DX: S80.811A Abrasion, right lower leg, initial encounter (principal); I70.203 Unspecified atherosclerosis of native arteries of extremities, bilateral legs; E46 Unspecified protein-calorie malnutrition; Z86.73 Personal history of transient ischemic attack (TIA), and cerebral infarction without residual deficits ==

== ENCOUNTER 2018-03-11 10:37 | Outpatient (CLI) | END 2018-03-11 10:38 | disposition home or self-care (01) | LOC: WOUND 10:37 | PROVIDERS: ATTEND Nurse Practitioner Family | DX: S80.811A Abrasion, right lower leg, initial encounter (principal); I70.203 Unspecified atherosclerosis of native arteries of extremities, bilateral legs; Z86.73 Personal history of transient ischemic attack (TIA), and cerebral infarction without residual deficits; E46 Unspecified protein-calorie malnutrition ==

== ENCOUNTER 2018-03-25 10:45 | Outpatient (CLI) | payer OTHER | END 2018-03-25 10:46 | disposition home or self-care (01) | LOC: WOUND 10:45 | PROVIDERS: ATTEND Nurse Practitioner Family | DX: S80.811A Abrasion, right lower leg, initial encounter (principal); I70.203 Unspecified atherosclerosis of native arteries of extremities, bilateral legs; Z86.73 Personal history of transient ischemic attack (TIA), and cerebral infarction without residual deficits; E46 Unspecified protein-calorie malnutrition | CPT/HCPCS: 11042 ==

== ENCOUNTER 2018-04-01 10:47 | Outpatient (CLI) | END 2018-04-01 10:48 | disposition home or self-care (01) | LOC: WOUND 10:47 | PROVIDERS: ATTEND Nurse Practitioner Family | DX: S80.811A Abrasion, right lower leg, initial encounter (principal); I70.203 Unspecified atherosclerosis of native arteries of extremities, bilateral legs; Z86.73 Personal history of transient ischemic attack (TIA), and cerebral infarction without residual deficits; E46 Unspecified protein-calorie malnutrition | CPT/HCPCS: 11042 ==

== ENCOUNTER 2018-04-08 10:57 | Outpatient (CLI) | payer OTHER | END 2018-04-08 10:58 | disposition home or self-care (01) | LOC: WOUND 10:57 | PROVIDERS: ATTEND Nurse Practitioner Family | DX: S80.811A Abrasion, right lower leg, initial encounter (principal); I70.203 Unspecified atherosclerosis of native arteries of extremities, bilateral legs; Z86.73 Personal history of transient ischemic attack (TIA), and cerebral infarction without residual deficits; E46 Unspecified protein-calorie malnutrition | CPT/HCPCS: 11042 ==

== ENCOUNTER 2018-04-15 11:09 | Outpatient (CLI) | payer OTHER | END 2018-04-15 11:10 | disposition home or self-care (01) | LOC: WOUND 11:09 | PROVIDERS: ATTEND Nurse Practitioner Family | DX: S80.811A Abrasion, right lower leg, initial encounter (principal); I70.203 Unspecified atherosclerosis of native arteries of extremities, bilateral legs; Z86.73 Personal history of transient ischemic attack (TIA), and cerebral infarction without residual deficits; E46 Unspecified protein-calorie malnutrition ==

== ENCOUNTER 2018-04-22 10:59 | Outpatient (CLI) | payer OTHER | END 2018-04-22 11:00 | disposition home or self-care (01) | LOC: WOUND 10:59 | PROVIDERS: ATTEND Nurse Practitioner Family | DX: S80.811A Abrasion, right lower leg, initial encounter (principal); I70.203 Unspecified atherosclerosis of native arteries of extremities, bilateral legs; Z86.73 Personal history of transient ischemic attack (TIA), and cerebral infarction without residual deficits; E46 Unspecified protein-calorie malnutrition | CPT/HCPCS: 99213 ==

== ENCOUNTER 2018-10-21 11:36 | Outpatient (CLI) | END 2018-10-21 11:37 | disposition home or self-care (01) | LOC: RHC-LAB 11:36 | PROVIDERS: ATTEND General Practice | DX: R53.83 Other fatigue (principal) | CPT/HCPCS: 87502 ==

== ENCOUNTER 2018-10-21 12:07 | Inpatient (IN) | payer OTHER ==
[2018-10-21 12:55] VITALS: BMI 16.2
[2018-10-21] MEDS: INFUVITE ADULT 10 ML in D5%-1/2NS-KCL 20 MEQ/L IV SOL 1,000 ML IV SCH (15:36)
[2018-10-21] MEDS ORDERED: VALIUM PO STA (15:51)
--- NOTE | 2018-10-21 15:59 | RS.PTINEVL ---
Subjective - Patient information Date of Evaluation: 10/21/18 Date of Arrival on Unit: 10/21/18 Admitted From:: Home Diagnosis: abd pain, diarrhea Usual Living Arrangement: Alone Living Arrangement Comments: Lives alone Home Environment: House, Stairs (few), Rail Medical History: Hypertension, CVA/TIA, Arthritis (OA, RA) Medical History Comments:: celiac dz, macular degeneration LATEX ALLERGY?: No Surgical History: Cholecystectomy, Hysterectomy Surgical History Comments:: appey, rotator cuff repair Medications: see chart Subjective Information/ Patient Comments:: pt states that she has been sick a couple of weeks. States she uses rollator rwx at home. - Level of function Prior to this admission, the patient could do the following:: Independent Selfcare, Independent ADL's, Independent Ambulation, Perform Project Economist/ Cooking Abilities prior to this admission: pt amb independently with rollator rwx , independent with shower, light cooking. Has a workers compensation attorney 1 x per week. Current Level of Function: Partially Dependent Current Equipment Used at Home: rollator Interventions - Objective Patient Orientation: Person, Place, Time, Situation Range of Motion - ROM Right Upper Extremity AROM: Moderate limitation (limited shld flex) Left Upper Extremity AROM: Moderate limitation (limited shld flex) Right Lower Extremity AROM: WFL's Left Lower Extremity AROM: WFL's Muscle Strength - Muscle Strength Right Upper Extremity Strength: Mild Weakness (shld flex 3-/5, elbow flex/ext 4- /5) Left Upper Extremity Strength: Mild Weakness (shld flex 3-/5, elbow flex/ext 4-/ 5) Right Lower Extremity Strength: Mild Weakness (hip flex 4-/5, knee flex/ext 4/5 , ankle DF/PF 4/5) Left Lower Extremity Strength: Mild Weakness (hip flex 4-/5, knee flex/ext 4/5, ankle DF/PF 4/5) Sensation - Sensation Right Upper Extremity Sensation: Intact/Normal Left Upper Extremity Sensation: Intact/Normal Right Lower Extremity Sensation: Impaired Left Lower Extremity Sensation: Impaired Comments: reports n/t B plantar surface of feet Palpation Palpation Findings: None/Normal Balance - Sitting Balance and Reactions Static Sitting Balance: Good Dynamic Sitting Balance: Fair - Standing Balance and Reactions Static Standing Balance: Poor Dynamic Standing Balance: Poor Standing Equilibrium Reactions: Delayed Left, Delayed Right Standing Protective Reactions: Delayed Left, Delayed Right Functional Mobility - Bed Mobility Rolling R/L: CGA Supine to Sit: Min Assist Sit to Supine: CGA - Transfers Sit to Stand: Min Assist Stand to Sit: Min Assist - Safety Awareness Safety Awareness: Fair SHLOMO INDEX SCORE: n/a Ambulation - Ambulation Assistive Device Used: Rollator Orthotic/Prosthetic Device: No Distance: 100 Assistance needed with Ambulation: CGA Quality of Ambulation: pt amb with flexed posture, decreased step length. pt requires verbal cues to stay close to rwx as well as to look up. Factors Affecting Ambulation: Decreased Balance, Weakness, Decreased Safety, Limited Endurance, Limited Sensation Treatment time - Time with patient Length of Evaluation: 21 Total treatment time: 26 Assessment - Assessment Problem List:: Decreased level of function, Requires training/education, Decreased safety/Risk of falls, Weakness Rehab Potential: Fair Further Therapy Indicated?: Yes Candidate for Swing Bed for Therapy Services?: Feel pt would need to be reevaluated at a later date to determine due to higher level of function at time of eval. Evaluation Complexity: HISTORY: Medium (HTn, TIA, celiac, OA, RA, ), EXAM OF BODY SYSTEMS: Medium (strength, balance, gait, transfers, ), CLINICAL PRESENTATION: Medium, CLINICAL DECISION MAKING: Medium Short Term Goals GOAL #1: pt demonstrate independence with rolling and scooting in bed Goal to be met by: 10/24/18 GOAL #2: pt transfer sup to/from sit with CGA Goal to be met by: 10/24/18 GOAL #3: Transfer sit to/from stand CGA Goal to be met by: 10/24/18 GOAL #4: pt amb with rollator with CGA 120ft with improved posture, sequencing. Goal to be met by: 10/24/18 GOAL #5: Improve BLE strength 4 to 4+/5 Goal to be met by: 10/24/18 Health Information Technician Goals GOAL #1: Transfer sup to/from sit with SBA to I Goal to be met by: 10/27/18 GOAL #2: Transfer sit to/from stand SBA to I Goal to be met by: 10/27/18 GOAL #3: pt amb household distances with rollator with SBA with no LOB Goal to be met by: 10/27/18 Plan Plan of Care: Therapeutic EX, Therapeutic Activity Other:: gait training Frequency of Treatment: 1-2 X day, as tolerated Duration of Treatment: 6 days Anticipated Discharge Destination: Home Treatment Diagnosis (ICD 10 Codes): difficulty walking R26.2. Balance impaired R 26.81. weakness M 62.81 Has the Physician been added for Co-signature?: Yes
--- NOTE | 2018-10-21 16:03 | DI ---
EXAM: Two views of the chest. History: Weight loss. Comparison: Chest radiograph 06/02/2017 Findings: Heart size is upper limits of normal. There is pleural thickening within the right latera l upper hemithorax which was not clearly seen on the prior study. There is a new left suprahilar den sity. Hyperinflation with increase in retrosternal clear space. No appreciable pleural fluid and no pneumothorax. No acute osseous abnormalities. Postsurgical changes of the left shoulder Impression: 1. New left suprahilar opacity and right upper lateral pleural thickening. Recommend further evalua tion with contrast enhanced CT of the chest. 2. Probable chronic obstructive pulmonary disease
--- NOTE | 2018-10-21 16:22 | CT ---
EXAM: CT of the abdomen pelvis without contrast History: Lower abdominal pain, previous appendectomy. Comparison: CT abdomen pelvis 11/22/2016 Technique: Multiplanar CT images through the abdomen pelvis were obtained without the administration of IV contrast Findings: Lung bases are clear. Pectus excavitum deformity. Osteopenia. Degenerative changes of t he spine. Chondrocalcinosis within bilateral hip joints and within the pubic symphysis. Minimal ant erolisthesis of L4 on L5 is stable and the degenerative in nature. No hydronephrosis. Stable right renal cyst. No change in the small benign calcified nodule within t he superior pole of the left kidney. The liver and spleen are not enlarged. Status post cholecystec alycia. There is new dilatation of the common bile duct measuring up to 1.8 cm in caliber. There is a lso intrahepatic biliary ductal dilatation. No serenity peripancreatic inflammation. Adrenal glands ar e unremarkable. No bladder wall thickening. Uterus is not seen. Colonic diverticulosis. There is inflammation seen adjacent to the sigmoid colon. No obvious free intraperitoneal air. Evaluation fo r abscess is limited due to the lack of contrast administration but no obvious abscess is seen. Ther e is short segment wall thickening of the sigmoid colon. Impression: 1. Acute diverticulitis of the sigmoid colon. The wall thickening of the sigmoid colon is probably reactive but follow-up is recommended to assure resolution and exclude any underlying neoplastic etio logy. 2. There is new intrahepatic and extrahepatic biliary ductal dilatation. Recommend further evaluati on with MRI/MRCP of the abdomen
[2018-10-21] MEDS ORDERED: VALIUM PO SCH (16:30)
[2018-10-21] MEDS: VALIUM PO SCH (16:38)
[2018-10-21] MEDS ORDERED: ROCEPHIN 2 GM in SODIUM CHLORIDE 100 ML IV SCH (19:00)
[2018-10-21] MEDS ORDERED: ROCEPHIN ONE (20:38)
[2018-10-21] MEDS ORDERED: FLAGYL 500 MG/100 ML 100 ML IV ONE (20:38)
[2018-10-21] MEDS: FLAGYL 500 MG/100 ML 500 MG in PREMIX 100 ML NS 1 BAG IV SCH ×2 (22:06→22:11)
[2018-10-22] MEDS ORDERED: FLAGYL 500 MG/100 ML 100 ML IV ONE (04:20)
[2018-10-22] MEDS: FLAGYL 500 MG/100 ML 500 MG in PREMIX 100 ML NS 1 BAG IV SCH ×3 (04:22→21:40)
[2018-10-22] MEDS ORDERED: INFUVITE ADULT IV ONE ×2 (06:19→20:11)
[2018-10-22] MEDS: INFUVITE ADULT 10 ML in D5%-1/2NS-KCL 20 MEQ/L IV SOL 1,000 ML IV SCH ×3 (06:22→21:48)
[2018-10-22] MEDS: VALIUM PO SCH ×3 (08:15→17:21)
[2018-10-22] MEDS: PLAVIX PO SCH (08:15)
[2018-10-22] MEDS ORDERED: PLAVIX PO SCH (09:00)
[2018-10-22] MEDS ORDERED: DILAUDID 0.5 MG/0.5 ML SYRINGE IVP STA (10:08)
[2018-10-22] MEDS ORDERED: DILAUDID 0.5 MG/0.5 ML SYRINGE ONE (10:12)
[2018-10-22] MEDS ORDERED: ULTRAM PO PRN (19:49)
[2018-10-22] MEDS: ROCEPHIN 2 GM in SODIUM CHLORIDE 100 ML IV SCH (20:22)
[2018-10-22] MEDS ORDERED: BENADRYL PO STA (21:24)
[2018-10-22] MEDS ORDERED: TYLENOL PO STA (21:28)
[2018-10-22] MEDS: ADVAIR 500-50 DISKUS IH SCH ×2 (21:38)
[2018-10-23] MEDS: FLAGYL 500 MG/100 ML 500 MG in PREMIX 100 ML NS 1 BAG IV SCH ×3 (04:13→22:10)
--- NOTE | 2018-10-23 07:33 | HP ---
DATE OF SERVICE: 10/21/18 CHIEF COMPLAINT: Diarrhea and abdominal pain; loose bowel movement after eating. SOURCE OF HISTORY: The patient. Reliability - acceptable. HISTORY OF PRESENT ILLNESS: The patient claimed that she had experienced bowel movement every time she eats for about one month. She was at the office and also complained of lower abdominal pain that may have begun yesterday or the day she presented. The patient indeed has tenderness in the left lower quadrant and because of the post prandial diarrhea as well as the abdominal pain, the patient was advised admission to the hospital. The lungs were clear to auscultation. PAST PERSONAL HISTORY: The patient was admitted 02/25/18 because of pain, swelling and redness of the right leg. The patient seemed to have improved with gluten free diet but did not stay on. She had pain in the right shoulder and seen orthopedist for the problem. She was given an injection by the orthopaedic surgeon. She was told by the orthopaedic surgeon that is all he can help her, injection and no surgical intervention. The patient had previous total abdominal hysterectomy and BSO, appendectomy and cholecystectomy, breast biopsy, tonsillectomy, rotator cuff surgery and cataract extraction. FAMILY HISTORY: Father had Alzheimer's disease, mother had carcinoma, CVA and from the CVA. Sister also had a CVA. SOCIAL HISTORY: The patient is and resides alone with the help of her family. 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 She stopped smoking several years ago and does not drink any alcoholic beverages. She denies using other drugs other than prescription. MEDICATIONS: (HOME) Melatonin 10 mg tablet at bedtime Probiotic one daily Ferrous Sulfate 325 mg daily Advair Diskus 550 one puff at bedtime Plavix 75 mg daily Tramadol 50 mg tablet q.i.d. p.r.n. Diazepam 2 mg tablet one-half tablet before meals ALLERGIES: CODEINE REVIEW OF SYSTEMS: CONSTITUTIONAL: The patient had no fever, no chills but is tired and fatigued because of the diarrhea as well as the abdominal pain. No vomiting. 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 No syncopal episode or seizure events. VISUAL: Denies any loss of vision or double vision. AUDITORY: The patient has diminished hearing. No tinnitus. No pain or drainage. RESPIRATORY: Denies any significant cough. No hemoptysis. No shortness of breath with usual exertion. CARDIOVASCULAR: Denies any chest pain, tightness or diaphoresis. The patient does have weakness but from other reasons. GASTROINTESTINAL: The patient has a bowel movement every time she eats. She also had experienced abdominal pain since yesterday. The pain is in the lower abdomen more on the left side. She denied any vomiting or dysphagia. GENITOURINARY: The patient denies any pain on urination and no nocturnal frequency. MUSCULOSKELETAL: The patient does have pain in the right shoulder and had received injection from an orthopaedic surgeon. ENDOCRINE: Negative. INTEGUMENT: The patient's skin is dry. Some areas of ecchymosis but no hematomas. No rash. HEMATOLOGIC: No history of prolonged bleeding or continuous bleeding. PSYCHIATRIC: Affect is normal. Reasoning is present. PHYSICAL EXAMINATION: GENERAL: 87-year-old female admitted to the hospital because of diarrhea post prandial with pain in the lower abdomen with tenderness in the left lower quadrant more than any other quadrant and bowel sounds are active. VITAL SIGNS: 12:30 p.m. 10/21/18: Temperature 98.5, pulse 86, blood pressure 146/ 77, respiratory rate 14, oxygen saturation 95 on room air. 5'6 inches, 103 lbs and 13.4 ozs. HEAD: Unremarkable. Scalp: No active dermatitis. Face is symmetrical and equal with no facial weakness and no redness. There is no significant tenderness to palpation and/or pressure in the frontal or maxillary sinus areas. EYES: Pupils equal/reactive to light, about 3 mm in size. Conjunctivae somewhat pale. Sclerae not icteric. EARS: Externally unremarkable. No drainage. MOUTH: Unremarkable. THROAT: No inflammation, no tumors or no exudate. NECK: No masses. No bruit. No tenderness. No rigidity. CHEST: Essentially symmetrical and equal with prominent ribs. Expansion good. LUNGS: Breath sounds are heard on both sides. No rales or wheezing. HEART: Audible and regular with good tones. No murmurs. ABDOMEN: Flat, soft with remarkable tenderness in the left lower quadrant with muscular guarding. Bowel sounds are active. No remarkable tenderness in the upper abdomen. EXTERNAL GENITALIA: Not examined. RECTAL: Not performed. LOWER EXTREMITIES: No significant edema. There is some discoloration of the skin in both lower extremities. Pedal pulses are absent. UPPER EXTREMITIES: Symmetrical and equal. ASSESSMENT: 1. 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 2. Lower quadrant tenderness probably diverticulitis. 3. Peripheral arterial disease, absent tibial pulses. 4. History of TIA, on Plavix prescribed by neurologist. 5. Right shoulder pain secondary to osteoarthritis seen by orthopaedic surgeon. 6. History of chronic tobacco use and abuse, stopped several years ago. 7. Chronic obstructive pulmonary lung disease, has improved after tobacco cessation. PLAN: 1. CT scan of the abdomen and pelvis. 2. CBC, CMP. 3. UA. 4. Blood cultures, twin site. 5. Discontinue most of the medications which might have contributed to it. 6. This patient will be given Questran after all studies are done and see if this would help the problem. PROGNOSIS: Guarded. TIME SPENT: GREATER THAN 65 MINUTES MTDD
--- NOTE | 2018-10-23 07:46 | PN ---
DATE OF SERVICE: 10/22/18 SUBJECTIVE: The patient is alert, still complaining of pain. She doesn't like her diet when I did put her on gluten free diet. She still has diarrhea post prandial. I did inform her in the presence of her son and the son's about the findings of the CT scan of the abdomen and pelvis, which showed diverticulitis, inflammation of a segment of the colon. It also showed a dilatation of the tubes that carries the bile coming from the liver. These tubes normally dilates after a gallbladder surgery but however these seem to be much bigger than what would be expected. The radiolgist had recommended MRI/MRCP and injection of contrast will be given. The patient's chest x-ray was abnormal and the radiologist recommened a CT with contrast. I would try a CT without contrast and see if we can define it better. The patient is receiving Rocephin 2 gm daily and Flagyl 500 mg every 8 hours. Again, prognosis is guarded. Will reduce the fluid to 42 cc/hr from 83. The son was hoping that things would go faster and I told him that it takes some time for the inflammation in the colon to improve. She is getting antibiotics and hopefully it will help reduce the inflammation. Sometimes patients would need surgery if it doesn't improve consisting of removal of that segment and probably a colostomy also. I don't think at this time it is needed. DALE
[2018-10-23] MEDS: VIT A PO SCH (13:17)
[2018-10-23] MEDS: COPPER PO SCH (13:17)
[2018-10-23] MEDS: [UNRECOGNIZED DRUG - OTHER] PO SCH (13:17)
[2018-10-23] MEDS: VALIUM PO SCH ×3 (13:17→16:42)
[2018-10-23] MEDS: VIT E PO SCH (13:17)
[2018-10-23] MEDS: ZINC PO SCH (13:17)
[2018-10-23] MEDS: VIT C PO SCH (13:17)
[2018-10-23] MEDS: PLAVIX PO SCH (13:18)
[2018-10-23] MEDS: ADVAIR 500-50 DISKUS IH SCH ×2 (13:19→20:37)
--- NOTE | 2018-10-23 13:48 | CT ---
EXAM: CT of the chest without contrast History: Cough, abnormal chest radiograph Comparison: Chest radiograph 10/21/2018, chest CT 09/29/2012 Technique: Multiplanar CT images through the thorax were obtained without the administration of IV c ontrast Findings: Heart size is upper limits of normal. Trace pericardial fluid. No thoracic aortic aneury sm. No axillary lymphadenopathy. No pathologically enlarged mediastinal lymph nodes. Evaluation fo r hilar lymph nodes is limited due to the lack of contrast administration but no bulky hilar adenopat hy is seen. The pleural thickening within the right upper lateral lung has slightly increased compar ed to the prior chest CT. There is a new the 2 cm irregular area of consolidation within the left up per lobe with surrounding ground-glass infiltrate. No pleural fluid. Mitral valve calcifications Within the visualized upper abdomen, status post cholecystectomy. No acute osseous abnormalities. O steopenia. Impression: 1. New irregular area of consolidation within the left upper lobe. Differential diagnosis includes focal pneumonia, invasive aspergillosis or malignancy. Biopsy may be needed. 2. Slightly increased right lateral pleural thickening most likely post inflammatory etiology. 3. Mitral valve calcifications
--- NOTE | 2018-10-23 14:50 | MRI ---
EXAM: MRI abdomen without and with contrast/MRCP HISTORY: Abdominal pain, biliary dilatation TECHNIQUE: Multiplanar, multisequence without and following the administration of intravenous Omnisc an, 9 mL. MRCP is acquired with 3-D volume rendered images of the biliary tree. COMPARISON: CT abdomen from 10/21/2018 FINDINGS: A pectus excavatum is noted. The visible fractures have normal size. No pericardial or p leural effusions are appreciated. There is no evidence of hepatic steatosis. No hepatic masses are evident. The portal and hepatic ve ins are patent. The spleen has normal size and signal. The gallbladder is surgically absent. The common bile duct is mildly dilated 9.4 mm. No intralumina l filling defects are evident. The pancreatic duct has normal signal and caliber without divisum or side branch duct dilatation. The pancreas is grossly normal. There are no duodenal diverticula. Multiple simple acquired renal cyst are noted. The ureters have normal caliber and visualized portio ns. Diverticula arise from the large bowel. There is focal thickening of the andrade of the sigmoid c olon. Trace free pelvic fluid is suggested. The bladder is grossly normal. The uterus is surgicall y absent. There are no adnexal masses. No lymphadenopathy. No suspicious bone lesions are evident. IMPRESSION: 1. Mild extra panic dilatation is 12 within normal limits with patient age and post cholecystectomy status. 2. Colitis and diverticulitis of the sigmoid colon. 3. Simple acquired renal cysts. 4. Pectus excavatum. 5. Trace free pelvic fluid suggested.
[2018-10-23] MEDS ORDERED: PHENERGAN 25 MG/ML VIAL 12.5 MG in SODIUM CHLORIDE 50 ML IV STA (14:53)
[2018-10-23] MEDS: ROCEPHIN 2 GM in SODIUM CHLORIDE 100 ML IV SCH (20:37)
[2018-10-24] MEDS ORDERED: INFUVITE ADULT IV ONE (02:33)
[2018-10-24] MEDS: INFUVITE ADULT 10 ML in D5%-1/2NS-KCL 20 MEQ/L IV SOL 1,000 ML IV SCH (02:39)
[2018-10-24] MEDS ORDERED: PHENERGAN 25 MG/ML VIAL 12.5 MG in SODIUM CHLORIDE 50 ML IV STA (04:00)
[2018-10-24] MEDS ORDERED: PHENERGAN 25 MG/ML VIAL ONE (04:03)
[2018-10-24 05:05] VITALS: BP 112/72; TEMP 97.6
[2018-10-24] MEDS: FLAGYL 500 MG/100 ML 500 MG in PREMIX 100 ML NS 1 BAG IV SCH (05:23)
[2018-10-24] MEDS: ZINC PO SCH (08:44)
[2018-10-24] MEDS: [UNRECOGNIZED DRUG - OTHER] PO SCH (08:44)
[2018-10-24] MEDS: VIT A PO SCH (08:44)
[2018-10-24] MEDS: VIT C PO SCH (08:44)
[2018-10-24] MEDS: VIT E PO SCH (08:44)
[2018-10-24] MEDS: COPPER PO SCH (08:44)
[2018-10-24] MEDS: VALIUM PO SCH (08:45)
[2018-10-24] MEDS: PLAVIX PO SCH (08:45)
[2018-10-24] MEDS: ADVAIR 500-50 DISKUS IH SCH (08:45)
--- NOTE | 2018-10-26 07:43 | PN ---
DATE OF SERVICE: 10/23/18 SUBJECTIVE: The patient is alert and not dyspneic or tachypneic. I did inform her that the MRI of the abdomen does not show anything remarkably abnormal. The diverticulitis of colitis is again demonstrated. The ductal enlargement seemed to be within normal limits according the doctor that read the MRI. I also advised her that the chest X-ray a consolidation maybe pneumonia but could be a tumor but we would address that after she gets out the hospital. The abdomen is less tender now than on the day of admission. The bowel sounds are active. She is continued on her tea, Jello and soda crackers, toast and jelly plus coffee. MTDD
--- NOTE | 2018-11-02 08:34 | DS ---
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 This had been ongoing for the last month. The pain began one day before. The patient had been complaining of increasing weakness and had difficulty standing which she was able to do without any problems before. The patient does live alone with family support. Because of the abdominal pain and bowel movement with diarrhea post prandial and increasing weakness with difficulty to ambulate and even go to the kitchen to feed herself, was then admitted to the hospital for further workup and treatment. The patient was alert and weak. Lungs were clear. Heart is audible with good tones. Abdomen is markedly tender in the left lower quadrant with no palpable mass. Bowel sounds were active with no bruit. Vital signs on admission Temperature 98.5, pulse 86, blood pressure 146/77, respiratory rate 14, oxygen saturation 95 on room air. She did weigh on admission 103 lbs and 13.4 ozs, 5'7" not measured. The patient's lab CBC marginal hemoglobin 12, hematocrit 38.7, normal WBC. MCV 85.4, MCH 26.5, MCHC 31.0. Electrolytes normal. c02 slightly above normal 31.1 , BUN 14.3, creatinine 0.52, EGFR 112. Blood sugar 143.4, liver panel normal. Total protein and albumin normal. Urine 1+ blood, 10 to 20 RBC, 5 to 10 WBC, celiac screen normal. Chest x-ray on admission 10/21/18 new left suprahilar opacity and right upper bilateral pleural thickening, recommended further study, contrast CT, probable chronic obstructive pulmonary disease. CT scan of the abdomen and pelvis without contrast acute diverticulitis of the sigmoid colon, followup is recommended to assure resolution or improvement and exclude underlying neoplastic disease. There is new intraheptic and extrahepatic ductal dilatation recommending MRCP of the abdomen with MRI. Chest CT 10/23/18 done without contrast did demonstrate the new irregular area of consolidation within the left upper lobe, differential diagnosis focal pneumonia, invasive aspergillosis or malignancy. Biopsy may be needed. Slightly increased right lateral pleural thickening, most likely post inflammation. Mitral valve calcification. MRI/MRCP of the abdomen mild extrahepatic dilatastion is 12 within normal limits with patient's age and post cholecystectomy status. Colitis and diverticulitis of the sigmoid colon. Simple acquired renal cysts. Pectus excavatum. Trace pelvic fluid suggested. This patient was advised of the dilatation of the ducts in the liver and outside of the liver and that the MRI/MRCP does not indicate any abnormalities but the chest CT does show pneumonia or a mass which would require further testing when she gets better. The patient was continued on Diazepam 1 mg before meals. She was given Flagyl 500 mg intravenously q.8hr and Ceftriaxone 2 gm intravenously daily. Intravenous fluids were initiated with multivitamins and vitamin K added. Plavix was continued at 75 mg daily. Dilaudid 0.5 mg intravenously and call me if there is further need. She did receive two doses of Hydromorphone. She had an episode of nausea and was given 12.5 mg in 50 cc' intravenously. She did receive a dose on 10/23 and also on 10/24. The patient's abdomen was flat and soft but tenderness is less. The patient's diet was changed when she had the nausea to tea, jello and soda crackers, toast with jelly and banana. This progressed to a baked potato with salt as well as meat. The patient just about discharge was given a soft diet, low fat. Vital signs on discharge 10/24/18 at 5:04 a.m. showed a temperature of 97.6, pulse 84, blood pressure 112/72, respiratory rate 20, oxygen saturation 99 on room air. The patient, the day before discharge, had 75% of lunch and 50% supper and refused snack. The patient on the day of discharge has 25% of breakfast. The patient is discharged from acute care and admitted to transitional care because of the need for continuous antibiotic therapy consisting of Flagyl 500 mg q.8hr and Rocephin 2 gm every 24 hours. FINAL DIAGNOSES: 1. ACUTE SIGMOID DIVERTICULITIS. 2. RIGHT LEFT UPPER LOBE CONSOLIDATION, PNEUMONIA VS TUMOR VS UPPER ASPERGILLOSIS. 3. EXTRAHEPTIC AND INTRAHEPATIC DUCTAL DILATATION MEASURED 12 MM BY MRI/MRCP , MEASURED PREVIOUSLY BY CT AT 16 MM - WITHIN NORMAL LIMITS PER MRI/MRCP. 4. POST PRANDIAL DIARRHEA AND BOWEL MOVEMENT, ETIOLOGY UNDETERMINED, MAY BE RELATED TO PREVIOUS CHOLECYSTECTOLY. 5. 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 6. HISTORY OF TIA ON PLAVIX PRESCRIBED BY NEUROLOGIST. 7. RIGHT SHOULDER OSTEOARTHRITIS SEEN BY ORTHOPAEDIC SURGEON. 8. CHRONIC TOBACCO USE AND ABUSE, STOPPED SEVERAL YEARS AGO. 9. CHRONIC OBSTRUCTIVE PULMONARY DISEASE, IMPROVED AFTER TOBACCO CESSATION. 10. ANEMIA. TIME SPENT: GREATER THAN 30 MINUTES MTDD
== END 2018-10-24 10:45 | disposition swing bed (61) | DRG 392 ==
LOC: MEDSURG B 12:07
PROVIDERS: ADMIT General Practice; ATTEND General Practice
DX: K57.92 Diverticulitis of intestine, part unspecified, without perforation or abscess without bleeding (principal); I73.9 Peripheral vascular disease, unspecified; M19.011 Primary osteoarthritis, right shoulder; J44.9 Chronic obstructive pulmonary disease, unspecified; D64.9 Anemia, unspecified; R10.30 Lower abdominal pain, unspecified; Z86.73 Personal history of transient ischemic attack (TIA), and cerebral infarction without residual deficits
CPT/HCPCS: 36415; 80053; 81001; 82784; 83516; 83880; 84436; 84443; 85025; 85651; 87015; 87040; 87045; 87046; 87086; 87493; 87899; 93005; 93010; 97802

== ENCOUNTER 2018-10-24 11:09 | Inpatient (IN) | payer OTHER ==
[2018-10-24 11:29] VITALS: BMI 16.1
[2018-10-24] MEDS ORDERED: ULTRAM PO PRN (11:47)
[2018-10-24] MEDS: VALIUM PO SCH ×2 (12:22→16:10)
[2018-10-24] MEDS: FLAGYL 500 MG/100 ML 500 MG in PREMIX 100 ML NS 1 BAG IV SCH ×2 (12:59→20:21)
[2018-10-24] MEDS: ADVAIR 500-50 DISKUS IH SCH (20:21)
[2018-10-24] MEDS ORDERED: ROCEPHIN 2 GM in SODIUM CHLORIDE 50 ML IV SCH (21:00)
[2018-10-25] MEDS: FLAGYL 500 MG/100 ML 500 MG in PREMIX 100 ML NS 1 BAG IV SCH ×3 (04:18→20:33)
[2018-10-25] MEDS: ZINC PO SCH (08:09)
[2018-10-25] MEDS: VALIUM PO SCH ×3 (08:09→16:16)
[2018-10-25] MEDS: VIT C PO SCH (08:09)
[2018-10-25] MEDS: VIT A PO SCH (08:09)
[2018-10-25] MEDS: VIT E PO SCH (08:09)
[2018-10-25] MEDS: [UNRECOGNIZED DRUG - OTHER] PO SCH (08:09)
[2018-10-25] MEDS: PLAVIX PO SCH (08:09)
[2018-10-25] MEDS: COPPER PO SCH (08:09)
[2018-10-25] MEDS: INFUVITE ADULT 10 ML in D5%-1/2NS-KCL 20 MEQ/L IV SOL 1,000 ML IV SCH (09:12)
[2018-10-25] MEDS: ADVAIR 500-50 DISKUS IH SCH (20:33)
[2018-10-25] MEDS: ROCEPHIN 2 GM in SODIUM CHLORIDE 100 ML IV SCH (20:33)
[2018-10-26] MEDS: FLAGYL 500 MG/100 ML 500 MG in PREMIX 100 ML NS 1 BAG IV SCH ×3 (04:28→21:35)
[2018-10-26] MEDS: [UNRECOGNIZED DRUG - OTHER] PO SCH (08:42)
[2018-10-26] MEDS: COPPER PO SCH (08:42)
[2018-10-26] MEDS: VIT E PO SCH (08:42)
[2018-10-26] MEDS: VIT C PO SCH (08:42)
[2018-10-26] MEDS: VIT A PO SCH (08:42)
[2018-10-26] MEDS: ZINC PO SCH (08:42)
[2018-10-26] MEDS: VALIUM PO SCH ×3 (08:43→16:44)
[2018-10-26] MEDS: PLAVIX PO SCH (08:43)
[2018-10-26] MEDS ORDERED: INFUVITE ADULT IV ONE (12:58)
[2018-10-26] MEDS: INFUVITE ADULT 10 ML in D5%-1/2NS-KCL 20 MEQ/L IV SOL 1,000 ML IV SCH (13:01)
--- NOTE | 2018-10-26 13:37 | RS.PTINEVL ---
Subjective - Patient information Date of Evaluation: 10/26/18 Date of Arrival on Unit: 10/24/18 Admitted From:: Facility Transfer (transfer to swing bed) Diagnosis: abd pain, diverticulitis Usual Living Arrangement: Alone Living Arrangement Comments: Lives alone Home Environment: House, Stairs (few), Rail Medical History: CVA/TIA, Arthritis (OA and RA) Medical History Comments:: celiac disease, macular degeneration, LATEX ALLERGY?: No Surgical History: Cholecystectomy, Hysterectomy Surgical History Comments:: Rotator cuff repair, appey, Medications: see chart Subjective Information/ Patient Comments:: pt states she wants to get up and walk. She said she knows she needs to get stronger. 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 Interventions - Objective Patient Orientation: Person, Place, Situation Current Interventions: IV's Observation: skin appears fragile Range of Motion - ROM Right Upper Extremity AROM: Moderate limitation (decreased shld flex) Left Upper Extremity AROM: Moderate limitation (decreased shld flex) Right Lower Extremity AROM: WFL's Left Lower Extremity AROM: WFL's Muscle Strength - Muscle Strength Right Upper Extremity Strength: Mild Weakness (shld flex 3-/5, elbow flex/ext 3+ /5) Left Upper Extremity Strength: Mild Weakness (shld flex 3-/5, elbow flex/ext 3+/ 5) Right Lower Extremity Strength: Mild Weakness (hip flex 3+/5, knee flex/ext 4-/5 , ankle DF/PF 4-/5) Left Lower Extremity Strength: Mild Weakness (hip flex 3+/5, knee flex/ext 4-/5 , ankle DF/PF 4-/5) Sensation - Sensation Right Upper Extremity Sensation: Intact/Normal Left Upper Extremity Sensation: Intact/Normal Right Lower Extremity Sensation: Intact/Normal Left Lower Extremity Sensation: Intact/Normal Balance - Sitting Balance and Reactions Static Sitting Balance: Fair Dynamic Sitting Balance: Poor Sitting Equilibrium Reactions: Delayed Left, Delayed Right Sitting Protective Reactions: Delayed Left, Delayed Right - Standing Balance and Reactions Static Standing Balance: Poor Dynamic Standing Balance: Poor Standing Equilibrium Reactions: Delayed Left, Delayed Right Standing Protective Reactions: Delayed Left, Delayed Right Functional Mobility - Bed Mobility Rolling R/L: Min Assist Scooting: Min Assist Supine to Sit: Min Assist Sit to Supine: Min Assist - Transfers Sit to Stand: Min Assist Stand to Sit: Min Assist - Safety Awareness Safety Awareness: Fair SHLOMO INDEX SCORE: 56 Ambulation - Ambulation Assistive Device Used: Rollator Orthotic/Prosthetic Device: No Distance: 120ft Assistance needed with Ambulation: Min Assist Gait Deviations: Forward posture, Short stride, Deviates from path Ambulation Comments: pt amb with flexed posture, requires verbal cues to walk close to walker, pt also requires cues for step length. Factors Affecting Ambulation: Decreased Balance, Weakness, Decreased Safety, Cognitive Status, Limited Endurance Treatment time - Units charged Gait trainin - Time with patient Length of Evaluation: 18 Total treatment time: 29 Patient Education - Education Patient Education: Activity Modification, Education of Plan of Care Teaching Recipient: Patient Teaching Methods: Discussion Comments: discussion regarding POC as well as safety with transfers and gait Assessment - Assessment Problem List:: Decreased level of function, Requires training/education, Decreased safety/Risk of falls, Weakness, Pain limits previous level of function , Cognitive status limits abilities Rehab Potential: Good Further Therapy Indicated?: Yes Candidate for Swing Bed for Therapy Services?: pt is swing bed Evaluation Complexity: HISTORY: Medium, EXAM OF BODY SYSTEMS: Medium, CLINICAL PRESENTATION: Medium, CLINICAL DECISION MAKING: Medium Short Term Goals GOAL #1: pt demonstrate independence with rolling and scooting in bed Goal to be met by: 10/30/18 GOAL #2: pt transfer sup to/from sit with CGA Goal to be met by: 10/30/18 GOAL #3: Transfer sit to/from stand CGA Goal to be met by: 10/30/18 GOAL #4: pt amb with rollator with CGA 150ft with improved posture, sequencing. Goal to be met by: 10/30/18 GOAL #5: Improve BLE strength 4 to 4+/5 Goal to be met by: 10/30/18 Penitentiary Goals GOAL #1: Transfer sup to/from sit with SBA to I Goal to be met by: 11/05/18 GOAL #2: Transfer sit to/from stand SBA to I Goal to be met by: 11/05/18 GOAL #3: pt amb household distances with rollator with SBA with no LOB Goal to be met by: 11/05/18 Plan Plan of Care: Therapeutic EX, Therapeutic Activity Other:: gait training Frequency of Treatment: 1-2 X day, as tolerated Duration of Treatment: 2 Weeks Anticipated Discharge Destination: Home Treatment Diagnosis (ICD 10 Codes): r 26.2 difficulty walking. R26.81 balance impaired. M62.81 weakness Has the Physician been added for Co-signature?: Yes
--- NOTE | 2018-10-26 13:38 | RS.OTINEVL ---
Subjective - Patient information Date of Evaluation: 10/26/18 Date of Arrival on Unit: 10/24/18 Admitted From:: Facility Transfer (transfer to swing bed) Diagnosis: Increased weakness PRECAUTIONS: A high risk for falls. 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 She has a house keeper that comes 2 x a month that does not do as she does. Current Level of Function: Partially Dependent Current Equipment Used at Home: Rollator walker. Pain Assessment - Pain Pain Score: 0 Pain Location Body Site: Abdomen Pain Alleviating Factors: Position Change Interventions - Objective Patient Orientation: Person, Place, Time, Situation Current Interventions: IV's Observation: Pt has bruising on all extremities. Pt has weakness of functional mobility and self care management. Interventions - ROM Right Upper Extremity AROM: Slight limitation Left Upper Extremity AROM: Slight limitation - Strength Right Upper Extremity Strength: Mild Weakness Left Upper Extremity Strength: Mild Weakness - Sensation Right Upper Extremity Sensation: Intact/Normal Left Upper Extremity Sensation: Intact/Normal Balance - Sitting Balance Static Sitting Balance: Fair Dynamic Sitting Balance: Fair - Standing Balance Static Standing Balance: Poor Dynamic Standing Balance: Poor ADL Skills - Self Feeding Self Feeding: Independent - Grooming Grooming: CGA - Dressing Dressing LE: Max Assist - Toilet Management Toileting Management: Min Assist Functional Mobility - Bed Mobility Rolling R/L: Min Assist Scooting: CGA Supine to Sit: Min Assist Sit to Supine: Min Assist - Transfers Sit to Stand: Min Assist Stand to Sit: Min Assist Stand Pivot Transfers: Min Assist - Ambulation Weight Bearing Status: FWB Assistive Device Used: Rollator Assistance needed with Ambulation: Min Assist - Safety Awareness Safety Awareness: Fair SHLOMO INDEX SCORE: 56 Additional Treatment Performed - Additional units charged ADL: 15 - Time with patient Length of Evaluation: 25 Total treatment time: 40 Activities Do you enjoy playing games?: Yes Would you be interested in leaving your room for activities?: Yes Would you enjoy group activities?: Yes Do you have difficulty with your vision?: Yes Patient Interests:: Watching Television, Puzzles/Games, Visiting/Socializing Patient Education Patient Education: Education of diagnosis, Home Exercise Program, Education of Plan of Care Teaching Recipient: Patient Teaching Methods: Discussion Assessment Further Therapy Indicated?: Yes Candidate for Swing Bed for Therapy Services?: yes Evaluation Complexity: HISTORY: Medium, EXAM OF BODY SYSTEMS: Medium, CLINICAL DECISION MAKING: Medium Short Term Goals - Goals GOAL 1: Pt to increase activity tolerance to 15 minutes. Goal to be met by: 11/02/18 Progress towards goal: Partially Met GOAL 2: Pt to be CGA with sink level ADLS. Goal to be met by: 11/02/18 Progress towards goal: Partially Met GOAL 3: Pt to increase strength in RUE to 4/5. Goal to be met by: 11/02/18 GOAL 4: Pt to increase LB dressing to Minimal assistance. Goal to be met by: 11/02/18 Crop Specialist Goals GOAL 1: Pt to increase activity tolerance to 20 minutes. Goal to be met by: 11/09/18 GOAL 2: Pt to be IA with sink level ADLS. Goal to be met by: 11/09/18 GOAL 3: Pt to increase strength in RUE to 4+/5. Goal to be met by: 11/09/18 Plan Plan of Care: Therapeutic EX, Neuromuscular Re-Educ, Therapeutic Activity, Self- Care/Home Management Frequency of Treatment: 1-2 X day, as tolerated Duration of Treatment: 2 Weeks Anticipated Discharge Destination: Home Treatment Diagnosis (ICD 10 Codes): M62.81 Muscle weakness, Z74.1 Need for assistance with personal care. Has the Physician been added for Co-signature?: Yes
[2018-10-26] MEDS: ROCEPHIN 2 GM in SODIUM CHLORIDE 100 ML IV SCH (20:26)
[2018-10-26] MEDS: ADVAIR 500-50 DISKUS IH SCH (20:26)
[2018-10-26] MEDS ORDERED: NON-FORMULARY MEDICATION (Melatonin [Melatonin] 10 MG) SL SCH (21:00)
[2018-10-27] MEDS: FLAGYL 500 MG/100 ML 500 MG in PREMIX 100 ML NS 1 BAG IV SCH ×3 (04:21→20:06)
[2018-10-27] MEDS: PLAVIX PO SCH (08:12)
[2018-10-27] MEDS: VALIUM PO SCH ×3 (08:13→16:49)
[2018-10-27] MEDS: VIT E PO SCH (08:14)
[2018-10-27] MEDS: VIT C PO SCH (08:14)
[2018-10-27] MEDS: ZINC PO SCH (08:14)
[2018-10-27] MEDS: VIT A PO SCH (08:14)
[2018-10-27] MEDS: COPPER PO SCH (08:14)
[2018-10-27] MEDS: [UNRECOGNIZED DRUG - OTHER] PO SCH (08:14)
[2018-10-27] MEDS ORDERED: PHENERGAN SUPP RC STA (09:46)
[2018-10-27] MEDS ORDERED: PHENERGAN SUPP RC ONE (09:49)
[2018-10-27] MEDS: NON-FORMULARY MEDICATION (Melatonin [Melatonin] 10 MG) PO SCH (20:06)
[2018-10-27] MEDS: ADVAIR 500-50 DISKUS IH SCH (20:06)
[2018-10-27] MEDS: ROCEPHIN 2 GM in SODIUM CHLORIDE 100 ML IV SCH (21:38)
[2018-10-28] MEDS ORDERED: ULTRAM PO PRN (08:00)
[2018-10-28] MEDS: FLAGYL 500 MG/100 ML 500 MG in PREMIX 100 ML NS 1 BAG IV SCH ×3 (08:07→22:09)
[2018-10-28] MEDS: VIT E PO SCH (08:18)
[2018-10-28] MEDS: COPPER PO SCH (08:18)
[2018-10-28] MEDS: ZINC PO SCH (08:18)
[2018-10-28] MEDS: VIT C PO SCH (08:18)
[2018-10-28] MEDS: [UNRECOGNIZED DRUG - OTHER] PO SCH (08:18)
[2018-10-28] MEDS: VIT A PO SCH (08:18)
[2018-10-28] MEDS: PLAVIX PO SCH (08:18)
[2018-10-28] MEDS: VALIUM PO SCH (17:03)
[2018-10-28] MEDS: NON-FORMULARY MEDICATION (Melatonin [Melatonin] 10 MG) PO SCH (20:25)
[2018-10-28] MEDS: ROCEPHIN 2 GM in SODIUM CHLORIDE 100 ML IV SCH (20:25)
[2018-10-28] MEDS: ADVAIR 500-50 DISKUS IH SCH (20:25)
[2018-10-29] MEDS: FLAGYL 500 MG/100 ML 500 MG in PREMIX 100 ML NS 1 BAG IV SCH ×3 (05:09→22:16)
[2018-10-29] MEDS: INFUVITE ADULT 10 ML in D5%-1/2NS-KCL 20 MEQ/L IV SOL 1,000 ML IV SCH (06:55)
[2018-10-29] MEDS: [UNRECOGNIZED DRUG - OTHER] PO SCH (08:05)
[2018-10-29] MEDS: VIT C PO SCH (08:05)
[2018-10-29] MEDS: ZINC PO SCH (08:05)
[2018-10-29] MEDS: VALIUM PO SCH (08:05)
[2018-10-29] MEDS: VIT E PO SCH (08:05)
[2018-10-29] MEDS: VIT A PO SCH (08:05)
[2018-10-29] MEDS: COPPER PO SCH (08:05)
[2018-10-29] MEDS: PLAVIX PO SCH (08:05)
--- NOTE | 2018-10-29 10:43 | PN ---
DATE OF SERVICE: 10/28/18 SUBJECTIVE: The patient feels somewhat better. She was able to eat and was given a regular diet low in fat. The abdomen is strip tank tender but much less. We will try to get a CAT scan of the abdomen and pelvis tomorrow without contrast and see the inflammation in the sigmoid colon. This patient has a lesion in the chest which would require a PET scan and will be scheduled after her acute hospitalization. I did tell her that she has something in her chest but we will address that after she gets better before we will do the PET scan. This patient had stopped smoking several years ago but this needs to be inspected, followed and studied to rule out any malignancy. SARAHD
--- NOTE | 2018-10-29 11:35 | CT ---
EXAM: CT abdomen pelvis without contrast HISTORY: Follow-up diverticulitis COMPARISON: 10/21/2018 TECHNIQUE: CT abdomen pelvis performed without intravenous contrast. Coronal and sagittal reformatt ed images obtained. FINDINGS: Mild bibasilar atelectasis. No free air. No acute abnormalities of the bones. Degenerat travis change in the spine. Heart normal in size. Evaluation organ parenchyma limited without contrast . Liver unremarkable. Patient status post cholecystectomy. Pancreas unremarkable. Spleen unremark able. Small stable calcification left superior kidney likely cortical calcification and similar to 2 014. Right renal cyst measures 5 cm. No hydronephrosis. Aorta normal in caliber. Extensive athero sclerosis. Bladder unremarkable. Uterus not visualized, likely surgically absent. Stomach unremark able. No dilated loops small bowel. Appendix not visualized. Colonic diverticulosis. Wall thicken ing of the sigmoid colon appears resolved with minimal residual surrounding inflammation. No focal d rainable collection IMPRESSION: Interval improvement from 10/21/2018 with minimal residual gerri-sigmoid inflammation augusto t may represent mild improved diverticulitis.
[2018-10-29] MEDS: NON-FORMULARY MEDICATION (Melatonin [Melatonin] 10 MG) PO SCH (20:01)
[2018-10-29] MEDS: ADVAIR 500-50 DISKUS IH SCH (20:02)
[2018-10-29] MEDS: ROCEPHIN 2 GM in SODIUM CHLORIDE 100 ML IV SCH (20:02)
[2018-10-29] MEDS: NORCO 5-325 PO PRN (21:42)
[2018-10-30] MEDS: FLAGYL 500 MG/100 ML 500 MG in PREMIX 100 ML NS 1 BAG IV SCH ×3 (04:41→20:55)
[2018-10-30] MEDS: PLAVIX PO SCH (07:59)
[2018-10-30] MEDS: VALIUM PO SCH (07:59)
[2018-10-30] MEDS: ZINC PO SCH (08:02)
[2018-10-30] MEDS: VIT E PO SCH (08:02)
[2018-10-30] MEDS: VIT A PO SCH (08:02)
[2018-10-30] MEDS: VIT C PO SCH (08:02)
[2018-10-30] MEDS: [UNRECOGNIZED DRUG - OTHER] PO SCH (08:02)
[2018-10-30] MEDS: COPPER PO SCH (08:02)
[2018-10-30] MEDS: NON-FORMULARY MEDICATION (Melatonin [Melatonin] 10 MG) PO SCH (20:55)
[2018-10-30] MEDS: ADVAIR 500-50 DISKUS IH SCH (20:57)
[2018-10-30] MEDS: NORCO 5-325 PO PRN (20:58)
[2018-10-30] MEDS: ROCEPHIN 2 GM in SODIUM CHLORIDE 100 ML IV SCH (22:37)
[2018-10-31] MEDS: FLAGYL 500 MG/100 ML 500 MG in PREMIX 100 ML NS 1 BAG IV SCH ×3 (05:11→20:24)
[2018-10-31] MEDS: PLAVIX PO SCH (09:31)
[2018-10-31] MEDS: VALIUM PO SCH (09:31)
[2018-10-31] MEDS: VIT A PO SCH (09:33)
[2018-10-31] MEDS: [UNRECOGNIZED DRUG - OTHER] PO SCH (09:33)
[2018-10-31] MEDS: VIT E PO SCH (09:33)
[2018-10-31] MEDS: ZINC PO SCH (09:33)
[2018-10-31] MEDS: COPPER PO SCH (09:33)
[2018-10-31] MEDS: VIT C PO SCH (09:33)
[2018-10-31] MEDS: ADVAIR 500-50 DISKUS IH SCH (20:21)
[2018-10-31] MEDS: NON-FORMULARY MEDICATION (Melatonin [Melatonin] 10 MG) PO SCH (20:24)
[2018-10-31] MEDS: ROCEPHIN 2 GM in SODIUM CHLORIDE 100 ML IV SCH (20:24)
[2018-10-31] MEDS: NORCO 5-325 PO PRN (20:24)
[2018-11-01] MEDS: FLAGYL 500 MG/100 ML 500 MG in PREMIX 100 ML NS 1 BAG IV SCH (04:05)
[2018-11-01] MEDS: PLAVIX PO SCH (08:23)
[2018-11-01] MEDS: VALIUM PO SCH (08:23)
[2018-11-01] MEDS: [UNRECOGNIZED DRUG - OTHER] PO SCH (08:26)
[2018-11-01] MEDS: VIT E PO SCH (08:26)
[2018-11-01] MEDS: COPPER PO SCH (08:26)
[2018-11-01] MEDS: VIT A PO SCH (08:26)
[2018-11-01] MEDS: ZINC PO SCH (08:26)
[2018-11-01] MEDS: VIT C PO SCH (08:26)
[2018-11-01] MEDS ORDERED: FLAGYL 500 MG/100 ML 500 MG in PREMIX 100 ML NS 1 BAG IV SCH (13:00)
[2018-11-01] MEDS ORDERED: LIDOCAINE HCL 1% SDV IM STA (17:21)
[2018-11-01] MEDS: ADVAIR 500-50 DISKUS IH SCH (20:21)
[2018-11-01] MEDS: NON-FORMULARY MEDICATION (Melatonin [Melatonin] 10 MG) PO SCH (20:22)
[2018-11-01] MEDS ORDERED: ROCEPHIN 1 GM in SODIUM CHLORIDE 50 ML IV SCH (21:00)
[2018-11-01] MEDS ORDERED: LIDOCAINE HCL 1% SDV IM ONE (21:00)
[2018-11-01] MEDS ORDERED: ROCEPHIN IM SCH (21:00)
[2018-11-02 04:51] VITALS: BP 139/78; TEMP 97.6
--- NOTE | 2018-11-02 07:56 | PN ---
DATE OF SERVICE: 10/31/18 SUBJECTIVE: The patient is seen today about 6:10 p.m. with her grandson in the room. Last vital signs were at 5:20 a.m. Temperature was 98.3, pulse 90, BP 199/72, respiratory rate 20, oxygen saturation 95 on room air and her weight is 115 lbs , 1.3 ozs. There is a jump of 9 lbs. The patient doesn't look like she has gained any weight. The left forearm and left arm no longer has remarkable tenderness and no significant redness and no swelling. Will continue warm moist compresses. If the IV comes out then we will not restart it and will give her oral medication. She is receiving Ceftriaxone at this time once a day and will probably give her Cefdinir and Flagyl p.o. when that happens. Will discuss the weight change with the nurses and see if there is any explanation. DALE
[2018-11-02] MEDS: PLAVIX PO SCH (08:24)
[2018-11-02] MEDS: COPPER PO SCH (08:26)
[2018-11-02] MEDS: [UNRECOGNIZED DRUG - OTHER] PO SCH (08:26)
[2018-11-02] MEDS: VALIUM PO SCH (08:26)
[2018-11-02] MEDS: VIT E PO SCH (08:26)
[2018-11-02] MEDS: VIT C PO SCH (08:26)
[2018-11-02] MEDS: VIT A PO SCH (08:26)
[2018-11-02] MEDS: ZINC PO SCH (08:26)
--- NOTE | 2018-11-02 10:33 | RS.SLPCNOT ---
Speech Case Note Date of Note: 11/02/18 Title: Swallow consult Note: RN reported pt had isolated choking incident from drinking water laying in bed. Pt's son reports hx of swallowing difficulty without treatment, choking incidents, or pneumonia. However, recently son and pt had noticed a change with swallow status and increased coughing with liquids are present. HIGHWAY MAINTENANCE WORKER discussed concerns for swallow status with patient and son, whom both agreed to participate in skilled ST in rehab facility. HIGHWAY MAINTENANCE WORKER recommends skilled ST to address wet vocal quality, coughing with liquids, oral motor weakness/ coordination. Also, pt was downgraded to nectar thick liquid consistency. HIGHWAY MAINTENANCE WORKER recommends to evaluate to determine safest and least restrictive diet and determine if pt is appropriate for [place] free-water protocol.
[2018-11-02] MEDS ORDERED: ROCEPHIN IM SCH (21:00)
[2018-11-02] MEDS ORDERED: LIDOCAINE HCL 1% SDV IM SCH (21:00)
--- NOTE | 2018-11-04 13:10 | HP ---
DATE OF SERVICE: 10/24/18 CHIEF COMPLAINT: Sigmoid diverticulitis requiring antibiotic HISTORY OF PRESENT ILLNESS: This patient was admitted to the hospital because of increasing weakness and tenderness in the left lower quadrant with diagnosis of sigmoid diverticulitis. CAT scan did show sigmoid diverticulitis. The patient's symptom has improved but the patient required further antibiotic treatment and so she was discharged from acute care to transition for further antibiotic administration. This patient was receiving Rocephin 2 grams intervenously daily with Flagyl 500mg every 8 hours. PAST PERSONAL HISTORY: The patient was admitted 02/25/18 because of pain, swelling and redness of the right leg. The patient seemed to have improved with gluten free diet but did not stay on. She had pain in the right shoulder and seen orthopedist for the problem. She was given an injection by the orthopaedic surgeon. She was told by the orthopaedic surgeon that is all he can help her, injection and no surgical intervention. The patient had previous total abdominal hysterectomy and BSO, appendectomy and cholecystectomy, breast biopsy, tonsillectomy, rotator cuff surgery and cataract extraction. FAMILY HISTORY: Father had Alzheimer's disease, mother had carcinoma, CVA and from the CVA. Sister also had a CVA. SOCIAL HISTORY: The patient is and resides alone with the help of her family. 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 She stopped smoking several years ago and does not drink any alcoholic beverages. She denies using other drugs other than prescription. The patient was discharged on 10/24/18 and admitted 10/24/18 to transition care. MEDICATIONS: Diazepam 1mg before each meal IV was discontinued a day before Flagyl 500mg Q 8 hours intervenously Ceftriaxone 2grams daily intervenously Plavix 75mg daily Dilaudid 0.5 intervenously PRN Tramadol 15mg Q 6 hours PRN Advair 550 diskus one puff twice a day She was on Dextrose 5% 1/2 Saline plus 20 mEq KCL plus MVI and continued on transitional care. The patient given Benadryl plus Tylenol once when Melatonin was not available at the hospital for insomnia or helps her to sleep. She had some nausea and was given Phenergan 25mg intervenously slowly Dilaudid 50cc. ALLERGIES: Codeine REVIEW OF SYSTEMS: CONSTITUTIONAL: The patient has no fever or chills but still has fatigue. She has less amount of discomfort. Her appetite is still poor and less tenderness in the abdomen and no urinary symptoms. TOW MOTOR DRIVER: Denies any headaches or visual disturbances. No syncopal episode or seizure events. VISUAL: Denies any loss of vision or double vision. AUDITORY: The patient has diminished hearing. No tinnitus. No pain or drainage. RESPIRATORY: Denies any significant cough. No hemoptysis. No shortness of breath with usual exertion. CARDIOVASCULAR: Denies any chest pain, tightness or diaphoresis. The patient does have weakness but from other reasons. GASTROINTESTINAL: The patient has a bowel movement every time she eats. She also had experienced abdominal pain since yesterday. The pain is in the lower abdomen more on the left side. She denied any vomiting or dysphagia. GENITOURINARY: The patient denies any pain on urination and no nocturnal frequency. MUSCULOSKELETAL: The patient does have pain in the right shoulder and had received injection from an orthopaedic surgeon. ENDOCRINE: Negative. INTEGUMENT: The patient's skin is dry. Some areas of ecchymosis but no hematomas. No rash. HEMATOLOGIC: No history of prolonged bleeding or continuous bleeding. PSYCHIATRIC: Affect is normal. Reasoning is present. 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 The patient had nausea. The patient had not had a colonoscopy since she rejected the idea. VITAL SIGNS: Temperature 98.3, pulse 76, blood pressure 144/68, respiratory rate 18, weight 103 pounds. She was measured at 5'7. HEAD: Unremarkable. Scalp has no active dermatitis. FACE: Symmetrical and equal with no facial weakness. Denies any tenderness to palpation in the frontal and maxillary sinus areas. EYES: Pupils equal/reactive to light. Conjunctivae slight pale. Sclerae not icteric. 3mm in size. MOUTH: Unremarkable. THROAT: No inflammation, tumors or exudate. NECK: No masses. No bruit. No tenderness. No rigidity. CHEST: Symmetrical and equal. The ribs are quite prominent LUNGS: Respiratory exchange is good. Breath sounds are diminished in both sides but no rales or wheezing. HEART: Audible and regular with good tones. No murmurs. ABDOMEN: Flat, soft with some tenderness in the left lower quadrant. There are no masses palpable. Bowel sounds are active. EXTERNAL GENITALIA: Not examined RECTAL: Nor performed LOWER EXTREMITIES: Symmetrical and equal with no significant edema. Some skin discoloration in both lower extremities, secondary to subcutaneous bleeding. Pedal pulses are absent. UPPER EXTREMITIES: Symmetrical and equal. ASSESSMENT: 1. Sigmoid diverticulitis, improved 2. Left upper lobe consolidation, possible pneumonia aspergillosis or malignancy 3. Anemia 4. Peripheral arterial disease, absent tibial pulses 5. Right shoulder pain, osteoarthritis followed and seen by Orthopedic surgeon 6. Chronic tobacco use and abuse, stopped several years ago 7. COPD, improved after smoking cessation 8. Post pharyngeal diarrhea, etiology undetermined. ADDENDUM: Through the night her appetite had improve and did eat 100% of breakfast, 75% at lunch and 75% supper. LUNGS: Clear but diminished. ABDOMEN: Some tenderness but much less. The tolerating the intervenous medications without any adverse effects. TIME SPENT: GREATER THAN 65 MINUTES MTDD
--- NOTE | 2018-11-05 08:15 | PN ---
DATE OF SERVICE: 10/26/18 SUBJECTIVE: The patient is alert and complaining of being weak. The vital signs at 6:15 p.m. on 10/26/18 - temperature 98.5, pulse 100, blood pressure 129/67, respiratory rate 14, oxygen saturation 95 on room air. The patient's appetite seems to be better, again 100% of breakfast, 50% at noon and 100% supper and refused snack at 9 p.m. She doesn't appear dyspneic or tachypneic. I did talk to her about [facility]dc. She needed to be in the [facility] to recover, to get physical therapy and also getting the regular meals being served. Lungs are the same diminished breath sounds but no rales. Heart is audible with good tones. Abdomen has minimal tenderness. The patient had evaluation for PT/ OT today. She should have physical therapy while in the hospital. DALE
--- NOTE | 2018-11-05 08:20 | PN ---
DATE OF SERVICE: 10/27/18 SUBJECTIVE: Vital signs at 5:57 p.m. showed a temperature of 98.7, pulse 92, blood pressure 122/59, respiratory rate 20, oxygen saturation 95 on room air. She did eat a good breakfast, 100% of as well as lunch, 75% supper and refused the snack in the evening. The abdomen has no remarkable tenderness. It is crepe box tender on deep palpation left lower quadrant. No masses palpable. Bowel sounds are active. Lungs have no rales but breath sounds are diminished which is a chronic problem. The patient had no labs since admission to transitional care. DALE
--- NOTE | 2018-11-05 08:26 | PN ---
DATE OF SERVICE: 10/29/18 SUBJECTIVE: The patient is alert and oriented today, feeling some better and did have physical therapy. The CT scan of the abdomen and pelvis without contrast showed interval improvement from 10/21/18 with minimal residual perisigmoid inflammation. It may represent improved diverticulitis. The patient's vital signs at 6 p.m. 10/29/18 temperature 98.6 and the patient had been afebrile now four days. Pulse 94, blood pressure 123/60, respiratory rate 14, oxygen saturation 96 on room air. The patient's appetite seemed to have decreased since she only had 25% of breakfast and 25% of lunch and 75% of dinner. This patient sometimes needs help. The patient had been complaining of pain in the left elbow as well as the arm and forearm. The patient was given Tramadol 50 mg q.6hr p.r.n. for pain. Intravenous antibiotics consisting of Flagyl and Rocephin are continued. TIME SPENT: More than 30 minutes. Plan and coordination of the patient's care discussed in the presence of nurse. DALE
--- NOTE | 2018-11-05 08:30 | PN ---
DATE OF SERVICE: 10/30/18 SUBJECTIVE: The patient is alert and responsive, still complaining of pain. The pain is less today. There were some palpable tender areas which appeared to be venous thrombosis in the left arm as well as elbow and forearm. This is less tender today as well as redness. Vital signs at 5:32 p.m. and I did see the patient after that toward the later part of the evening showed temperature 98.3, pulse 68, blood pressure 122/62, respiratory rate 16, oxygen saturation 94 on room air. Lungs are still clear to auscultation although diminished. Heart is normal sinus rhythm and good tones. Appetite is not as good, 25% breakfast, 75% lunch, 50% supper. TIME SPENT: More than 30 minutes. Plan and coordination of the patient's care discussed in the presence of nurse. DALE
--- NOTE | 2018-11-05 11:47 | PN ---
DATE OF SERVICE: 11/01/18 SUBJECTIVE: I was notified this morning that the patient has swallowing problems more so with liquids. The patient was given water and the patient did have cough. I ordered a referral to [facility], [facility]. The patient this evening about 6 p.m. was eating a meal and I did walk into the room and the patient had some problems taking the food with the fork with the right hand. She does have some spasm to fingers at times. She denied any significant pain now in the left upper extremity. I did feed her with the food and she has no problems swallowing solids. She did drink liquid and first episode was maybe a slight problem swallowing with a straw. Subsequent drinking liquid with a straw did not give her any coughing episode. She continued to eat and her appetite is good. I did notify the nurse to help feed the patient so she can eat well and hopefully get stronger. The patient's IV was also out according to the nurse so we are going to give her Rocephin 1 gm which would be diluted to 2.1 according to the nurse with Lidocaine. This would be the last dose and see how she is. Her abdomen has no significant tenderness now. Her appetite is good. Vital signs at 5:09 p.m. Temperature 98.4, pulse 83, blood pressure 136/76, respiratory rate 18, oxygen saturation 98 on room air. She weighed 102 lbs and 1.18 ozs. She was 103 lbs on admission. The patient was weighed 115 lbs 1.3 ozs and I did inform the nurseYadi of how much the patient weighed which is markedly different than the day previously. She had been reweighed and she did weigh 106 lbs, 11.2 ozs. Prior to that, before the 115 lbs was 106 lbs, 7.73 ozs. She also weighed 101 lbs, 6.6 ozs on 10/28/18. The bed scales are not uniform and she weighed 106 lbs the day before plus 7.73 ozs. There is a marked fluctuation of the weight in a day's time, up and down. Lungs are clear to auscultation. Heart is normal sinus rhythm. Abdomen nontender. Appetite is good. Will wait for the swallow evaluation tomorrow and plan on discharging this [facility]. She is agreeable to go to the [facility]. DALE
--- NOTE | 2018-11-05 11:52 | PN ---
DATE OF SERVICE: 10/27/18 SUBJECTIVE: Vital signs at 5:57 p.m. showed a temperature of 98.7, pulse 92, blood pressure 122/59, respiratory rate 20, oxygen saturation 95 on room air. She did eat a good breakfast, 100% of as well as lunch, 75% supper and refused the snack in the evening. The abdomen has no remarkable tenderness. 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 No masses palpable. Bowel sounds are active. Lungs have no rales but breath sounds are diminished which is a chronic problem. The patient had no labs since admission to transitional care. DALE
--- NOTE | 2018-11-13 11:37 | PN ---
DATE OF SERVICE: 10/30/18 SUBJECTIVE: Pain in the left upper extremity is less. The nodular area, venous thrombosis also is less tender. This patient was given Lantry for the pain. VITAL SIGNS: Temperature 98.3, pulse 68, blood pressure 122/62, respiratory rate 16, oxygen saturation 94 at room air. The patient is willing to go to the [facility]. I did tell her that we will continue medications, antibiotics. The sigmoid diverticulitis has improved. I'm predicting that Friday will be the day that she will be transferred to the [facility] from this facility. The patient's weight was 106 pounds 11.2 ounces. She was 101 pounds 6.60 on 10/28/18 MTDD
--- NOTE | 2018-11-13 14:56 | DS ---
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 The patient had tenderness to palpation. HOSPITAL COURSE: CT scan of the abdomen on admission 10/21/18 showed acute diverticulitis of the sigmoid colon, wall thickening of the sigmoid colon is probably reactive but followup is recommended to assure resolution or exclude underline malignancy. The intrahepatic and extrahepatic ducts were dilated and recommended MRI , MRCP. The patient indeed that the MRI, MRCP with contrast and the findings were within normal limits, upper limits. No pathologic findings were noted. Diverticular disease and diverticulitis was also noted on the MRI. The patient was continued Flagyl 500mg Q 8 hours and Rocephin 2grams Q 24 hours. The patient continued to improve although the weakness persisted. Physical therapy and Occupational therapy have been given her the therapy since 10/26/18. She is gradually getting better. Repeat CT scan of the abdomen and pelvis showed eva improvement of the acute diverticulitis in the sigmoid colon done 10/29/18. Since appetite had improved and had decreased at the time when she was experiencing pain in the left elbow. The pain was felt to be secondary to phlebitis secondary to the IV. Warm moist compress was instituted and the pain has subsided the next day. The patient was given Tramadol for the pain. The pain gradually decreased and almost resolved on the 3rd day. The patient's CBC on 10/29/18 showed a normal WBC 8,720, hgb 10.5, hct 32.6. Electrolyte were normal, renal panel normal. EGFR 135, total protein low 5.37, albumin low 3.02. The patient had another CBC and chemistry the day before discharge and the CBC is about the same although the hgb is now 11.8, hct 36.6. The IV had been reduced. Electrolytes still normal as well as the renal panel and liver. Her lungs remained clear throughout the hospital stay although the patient had a left upper lobe consolidation versus aspergillosis versus tumor. I had told the patient that we needed to further follow these up as whether it is a pneumonia or a tumor. I also discussed that with her son who is the POA. I told the son that maybe after she gets better that we will repeat the CT scan of the chest and maybe use a contrast and if that is still persistent that she should probably have a PET scan/CT which will be done in [place]. [facility] doesn 't have the machine nor Noemi. The son did understand and agreed to the plan. The patient was discharged on 11/02/[address] [facility] to continue physical therapy and occupational therapy. She had some coughing with liquids and so the patient was evaluated by the speech therapist. Speech therapist did recommend continuation evaluation by the [facility] speech therapist. No further antibiotic is given to this patient. She is continued on all her previous medications prior to this admission. FINAL DIAGNOSES: 1. Acute sigmoid diverticulitis, improved 2. Peripheral arterial disease absent posterior tibial pulses 3. Severe anemia, etiology undetermined 4. Left upper lobe density, etiology undetermined 5. Post pharyngeal diarrhea, etiology undetermined 6. Generalized weakness, maybe multifactorial PLAN: 1. The patient should have another CT chest with contrast 2. Renal panel to make sure that the kidney panel is normal about three weeks or four weeks from today. 3. This patient will be advised to have colonoscopy when she gets stronger and PET scan/ CT of the chest if the density is persistent or bigger. PROGNOSIS: Guarded TIME SPENT: GREATER THAN 30 MINUTES MTDD
== END 2018-11-02 16:04 | DRG 195 ==
LOC: MEDSURG B 11:09
PROVIDERS: ADMIT General Practice; ATTEND General Practice
DX: J18.1 Lobar pneumonia, unspecified organism (principal); I73.9 Peripheral vascular disease, unspecified; D64.9 Anemia, unspecified; R19.7 Diarrhea, unspecified; R53.1 Weakness; M25.511 Pain in right shoulder; J44.9 Chronic obstructive pulmonary disease, unspecified
CPT/HCPCS: 36415; 80053; 85025; 97802

== ENCOUNTER 2018-12-06 09:33 | Outpatient (CLI) ==
[2018-12-06 09:48] VITALS: BMI 16.5
== END 2018-12-06 09:35 | disposition critical access hospital (66) ==
LOC: AMBL 09:33
PROVIDERS: ATTEND Internal Medicine
DX: M25.561 Pain in right knee (principal); W19.XXXA Unspecified fall, initial encounter

== ENCOUNTER 2018-12-06 09:41 | Emergency (ER) ==
[2018-12-06 09:48] VITALS: BP 143/73; TEMP 99.3; BMI 16.5
--- NOTE | 2018-12-06 10:26 | DI ---
Exam: Four views of the right knee. Comparison: None available. Reason for exam: Fall. FINDINGS: No acute fracture is seen in the right knee. There is moderate degenerative disease with tricompartmental arthrosis and joint space narrowing with chondrocalcinosis. Image interpretation is limited by osseous demineralization. Impression: 1. No obvious fracture or dislocation is seen in the right knee. Image interpretation is limited by osseous demineralization. 2. Moderate degenerative disease with tricompartmental arthrosis and chondrocalcinosis with joint sp lisa narrowing.
--- NOTE | 2018-12-06 10:26 | DI ---
Exam: Two views of the right femur. Comparison: None available. Reason for exam: Fall. FINDINGS: No acute fracture or malalignment. The femoral cortex appears intact. No unexplained nathalia cific soft tissue density or radiopaque retained foreign body. There is diffuse osseous demineraliza tion seen throughout the femur. Impression: No acute fracture is seen in the right femur.
--- NOTE | 2018-12-06 11:14 | ED.PDOC ---
General ED Provider: Dr. SUDARSHAN TOM Chief Complaint: Knee Pain/Injury Stated Complaint: knee pain after a fall denied neck or back pain or injury. pt 's walker malfuctioned and fell. Time Seen by Physician: 09:45 (seen with nurses ) Mode of Arrival: Ambulance Information Source: Patient, EMT Exam Limitations: No limitations [facility] Nursing and Triage Documentation Reviewed and Agree: Yes Does patient meet sepsis criteria?: No System Inflammatory Response Syndrome: Not Applicable Sepsis Protocol: For patient's 13 years and over: Temp is 96.8 and below OR 101 and greater Pulse >90 BPM Resp >20/minute Acutely Altered Mental Status Are patient's symptoms suggestive of a new infection, such as: -Pneumonia -Skin, Soft Tissue -Endocarditis -UTI -Bone, Joint Infection -Implantable Device -Acute Abdominal Infection -Wound Infection -Meningitis -Blood Stream Catheter Infection -Unknown Trauma/Injury Complaint Exam - Trauma Complaint/Exam Location of Pain or Injury: Reports: RLE (knee ) Mechanism of Injury: Reports: Fall Onset/Duration: today Symptoms Are: Still present Timing of Treatment: Immediate Initial Severity: Mild Current Severity: Mild Character: Reports: Aching Aggravating: Reports: Movement Alleviating: Reports: Rest Associated Signs and Symptoms: Reports: Bruising (right tigh). Denies: LOC, Confusion, Memory loss, Lethargy, Vomiting, Bleeding, Swelling, Extremity disuse , Painful respiration, Hoarseness, Dysphagia, Hemoptysis, Significant blood loss Related Surgical History: Reports: None Nexus Low Risk Criteria: No post-midline CS tender, No evidence of intoxicat., No Altered LOC, No focal neuro deficit, No distracting injuries Glascow Coma Scale (see protocol): 15 Skin Findings: Present: Ecchymosis Differential Diagnoses: Contusions, Fracture, Sprain, Strain Review of Systems - Review Of Systems Constitutional: Reports: No symptoms Eyes: Reports: No symptoms Ears, Nose, Mouth, Throat: Reports: No symptoms Respiratory: Reports: No symptoms Cardiac: Reports: No symptoms GI: Reports: No symptoms : Reports: No symptoms Musculoskeletal: Reports: Joint pain (knee right) Skin: Reports: Other (eccymosis right tigh) Neurological: Reports: No symptoms Endocrine: Reports: No symptoms Hematologic/Lymphatic: Reports: No symptoms All Other Systems: Reviewed and Negative Past Medical History - Past Medical History Previously Healthy: Yes Endocrine: Reports: None Cardiovascular: Reports: None Respiratory: Reports: COPD Hematological: Reports: None Gastrointestinal: Reports: Other (celiac disease) Genitourinary: Reports: None Neuro/Psych: Reports: TIA (TIA several years ago) Musculoskeletal: Reports: None Cancer: Reports: None Last Menstrual Period: n/a - Surgical History General Surgical History: Reports: Hysterectomy, Appendectomy, Cholecystectomy, Other (Sinus surgery, Cataract surgery). Denies: Hernia Repair ( hemorrhoidectomy) - Family History Family History: Reports: Unknown (son owns wild cat) - Social History Smoking Status: Former smoker Hx Substance Use: No Alcohol Screening: None Physical Exam - Physical Exam Appearance: Well-appearing, No pain distress, Well-nourished Eyes: DON, EOMI, Conjunctiva clear ENT: Ears normal, Nose normal, Oropharynx normal Respiratory: Airway patent, Breath sounds clear, Breath sounds equal, Respirations nonlabored Cardiovascular: RRR, Pulses normal, No rub, No murmur GI/: Soft, Nontender, No masses, Bowel sounds normal, No Organomegaly Musculoskeletal: ROM intact (but tender right knee) Skin: Warm, Dry (ecchymosis noted right tight 10 cm , ) Neurological: Sensation intact, Motor intact, Reflexes intact, Cranial nerves intact, Alert, Oriented Psychiatric: Affect appropriate, Mood appropriate Interpretation - Radiology Interpretation Radiology Interpretation By: Radiologist Radiology Results: No acute changes Critical Care Note - Critical Care Note Total Time (mins): 0 Course - Course Orders, Labs, Meds: Orders Category Date Time Status FEMUR, RIGHT 2 VIEWS Stat RADS 12/06/18 09:51 Completed KNEE, RIGHT 4 VIEWS Stat RADS 12/06/18 09:51 Completed Vital Signs: Temp Pulse Resp BP Pulse Ox 12/06/18 09:42 99.3 F 103 H 20 143/73 H 95 Departure - Departure Time of Disposition: 11:15 Disposition: HOME SELF-CARE Discharge Problem: Knee pain Instructions: Knee Pain (ED) Condition: Good Pt referred to PMD for follow-up: Yes IPMP verified?: No Additional Instructions: Please call your Family Physician as soon as possible to schedule a follow-up appointment. Allergies/Adverse Reactions: Allergies codeine Adverse Reaction (Verified 12/06/18 09:47) Home Medications: Ambulatory Orders Melatonin 10 mg PO BEDTIME 07/30/16 Lactobacillus Acidophilus [Probiotic] 1 each PO DAILY #30 tab-cap 05/12/17 Ferrous Sulfate [Iron] 325 mg PO DAILY 02/25/18 Vit A/Vit C/Vit E/Zinc/Copper [Preservision Areds Tablet] 1 tab PO DAILY Diazepam 2 mg PO half tablet once icci 11/27/18
== END 2018-12-06 11:38 | disposition home or self-care (01) ==
LOC: ED 09:41
DX: M25.561 Pain in right knee (principal); S70.11XA Contusion of right thigh, initial encounter; W19.XXXA Unspecified fall, initial encounter
CPT/HCPCS: 99283

== ENCOUNTER 2019-02-26 13:45 | Outpatient (CLI) ==
--- NOTE | 2019-02-26 16:03 | CT ---
EXAM: CT chest without contrast HISTORY: Chronic obstructive pulmonary disease, unspecified, cough COMPARISON: 10/23/2018 TECHNIQUE: CT chest performed without intravenous contrast. Coronal and sagittal reformatted images obtained. FINDINGS: Thyroid and thoracic inlet appear normal. Heart normal in size. No pericardial effusion. Aorta normal in caliber. Mild atherosclerosis. Esophagus unremarkable. Evaluation for lymphadeno dinh limited without contrast. No lymphadenopathy identified. Visualized portion upper abdomen dem onstrates no acute abnormality. Small stable calcification left superior kidney, likely cortical nathalia cification. No acute abnormalities of the bones. Degenerative change in the spine. Central airway patent. Biapical scarring. Stable right lateral pleural parenchymal thickening, likely scarring. I nterval resolution of the previously seen left upper lobe consolidation. 6 mm ground-glass nodule ri ght lung image 13 and 6 mm ground-glass nodule right lung image 22, unchanged from 2013, consistent w ith benign etiology. IMPRESSION: 1. Interval resolution of the previously seen left sided consolidation. 2. Stable right pleural parenchymal thickening, likely post inflammatory etiology. Biapical reed maloney
== END 2019-02-26 13:46 | disposition home or self-care (01) ==
LOC: RAD 13:45
PROVIDERS: ATTEND General Practice
DX: J44.9 Chronic obstructive pulmonary disease, unspecified (principal)

== ENCOUNTER 2020-04-08 10:36 | Inpatient (IN) ==
--- NOTE | 2020-04-08 12:08 | CT ---
Examination: CT of the thoracic spine without contrast. HISTORY: Fall. COMPARISON: CT chest 01/10/2020. TECHNIQUE: 3 mm multiplanar noncontrast images were obtained of the thoracic spine. FINDINGS: Mild anterolisthesis of C5 on C6. Degenerative changes are present in the cervical spine. There is no significant spondylolisthesis in the visualized thoracic spine. Multilevel degenerativ e disc disease with loss of disc height and endplate degenerative changes as well as marginal osteoph ytosis throughout the visualized thoracic spine. The spinous processes and facet joints appear intac t with multilevel facet degenerative changes throughout the visualized thoracic spine. Minimal super ior plate deformity at T1 appears chronic. Similar findings at T4. Given degenerative endplate diego ges. There is no definite acute compression deformity in the visualized thoracic spine. There is no significant central canal narrowing in the visualized thoracic spine. There is mild dextroscoliosis in the mid thoracic spine. Mild chronic pectus excavatum deformity. No definite acute fracture is seen in the visualized thoracic spine. Apical fibronodular changes in the lungs, greater on the right. Atherosclerosis. Stable calcific fo cus in the superior pole of the left kidney. Partially visualized right renal cyst. The paraspinal soft tissues are without significant abnormalities. IMPRESSION: No definite acute traumatic osseous injury in the thoracic spine with multilevel multifa ctorial spondylotic changes and scoliosis. Chronic and incidental findings as above.
--- NOTE | 2020-04-08 12:17 | CT ---
Examination: CT of the lumbar spine without contrast. HISTORY: Fall. Pain. COMPARISON: CT abdomen 01/10/2020. TECHNIQUE: 3 mm multiplanar noncontrast images were obtained of the lumbar spine. FINDINGS: Five [id number] lumbar-type vertebral bodies. 5 mm anterolisthesis of L4 on L5, unch anged from prior CT abdomen. 5 mm retrolisthesis L3-L4, unchanged from previous. Trace retrolisthes is of L1 on L2 and L2 on L3, unchanged from previous imaging. No other significant spondylolisthesis . Levoscoliosis centered in the mid lumbar spine. Given scoliosis, no definitive evidence of acute fracture in the lumbar spine. The spinous processes appear intact. The facet joints appear intact w ith severe degenerative changes throughout the lumbar spine worst inferiorly. Multilevel disc diseas e with diffuse vacuum phenomenon, disc height loss, endplate degenerative changes, marginal osteophyt osis, and endplate sclerosis, worst at L4-L5. Sacroiliac joint degenerative changes are present. Th e bones appear osteopenic. No well-defined fracture is seen. Multilevel bilateral severe neural for aminal narrowing is seen throughout the visualized thoracolumbar spine due to osseous encroachment fr om facet disease. Posterior disc osteophyte complex L1-L2 without significant central canal narrowing. Posterior disc osteophyte complex L2-L3 with mild to moderate anterior posterior central canal narrow ing. Posterior disc osteophyte complex with retrolisthesis L3-L4. Facet and posterior ligamentous hypertr ophy. No significant anterior posterior central canal narrowing likely at least moderate concentric thecal sac narrowing. L4-L5 level demonstrates unroofing of the disc with facet and post ligamentous hypertrophy. There is likely severe concentric thecal sac narrowing on a degenerative basis. L5-S1 level demonstrates disc protrusion with minimal inferior migration in the right paracentral reg ion. The central canal remains patent. IMPRESSION: No definite acute fracture in the lumbar spine. Multilevel multifactorial severe degenerative changes, chronic spondylolisthesis, and scoliosis in th e lumbar spine with multilevel significant central canal and neural foraminal narrowing. Severe neur al foraminal narrowing is seen throughout the visualized lumbar spine. Please see above for level by level description of pertinent levels with central canal narrowing.
[2020-04-08 12:50] VITALS: BMI 19.4
[2020-04-08] MEDS ORDERED: NON-FORMULARY MEDICATION (Acetaminophen [Tylenol Arthritis Pain] 650 mg tablet extended re PO PRN (13:34)
[2020-04-08] MEDS: ULTRAM PO PRN (15:14)
[2020-04-08 17:12] LABS: BASOPHILS % (AUTO) 0.2 % (0.0-3.0); EOSINOPHILS # (AUTO) 0.1 K/ul (0.0-0.7); EOSINOPHILS % (AUTO) 1.1 % (0.0-7.0); HEMATOCRIT 36.8 % (37.0-47.0); IMMATURE GRANULOCYTE # (AUTO) 0.1 (0.0-1.0); IMMATURE GRANULOCYTE % (AUTO) 0.5 % (0.0-5.0); LYMPHOCYTES % (AUTO) 7.9 (10.0-50.0); MEAN CORPUSCULAR HEMOGLOBIN 27.3 pg (27.0-31.0); MEAN CORPUSCULAR HGB CONC 32.6 (31.8-35.4); MEAN CORPUSCULAR VOLUME 83.6 fl (81.0-99.0); MONOCYTES # (AUTO) 0.8 K/uL (0.4-2.0); MONOCYTES % (AUTO) 6.1 (0-10); NEUTROPHILS # (AUTO) 10.7 K/ul (2.0-6.9); NEUTROPHILS % (AUTO) 84.2 % (42.2-75.2); PLATELET COUNT 231 10^3/uL (140-440); RDW COEFFICIENT OF VARIATION 15.2 % (11.6-14.8)
[2020-04-08 17:25] LABS: ALBUMIN 3.54 g/dL (3.5-5.0); ALKALINE PHOSPHATASE 88.9 U/L (53-141); ASPARTATE AMINO TRANSFERASE 32.6 U/L (14-36); BILIRUBIN,TOTAL 1.1 mg/dL (0.2-1.3); BLOOD UREA NITROGEN 17.9 mg/dL (7-17); CALCIUM 8.97 mg/dL (8.4-10.2); CARBON DIOXIDE 30.2 mmol/L (22-30.0); CHLORIDE 100.4 mmol/L (98-107); CREATININE 0.47 mg/dL (0.60-1.30); GLUCOSE 117.1 mg/dL (74-106); POTASSIUM 3.66 mmol/L (3.5-5.1); SODIUM 135.4 mmol/L (134.5-145); TOTAL PROTEIN 6.59 g/dL (6.3-8.2)
[2020-04-08] MEDS: NEURONTIN PO SCH (20:12)
[2020-04-08] MEDS: MELATONIN 1 MG PO SCH (20:16)
[2020-04-08] MEDS: ADVAIR 500-50 DISKUS IH SCH (20:20)
[2020-04-09 04:34] LABS: BASOPHILS % (AUTO) 0.3 % (0.0-3.0); EOSINOPHILS # (AUTO) 0.2 K/ul (0.0-0.7); EOSINOPHILS % (AUTO) 2.7 % (0.0-7.0); HEMATOCRIT 38.5 % (37.0-47.0); HEMOGLOBIN 12.3 g/dl (12.0-16.0); IMMATURE GRANULOCYTE # (AUTO) 0.1 (0.0-1.0); IMMATURE GRANULOCYTE % (AUTO) 0.6 % (0.0-5.0); LYMPHOCYTES # (AUTO) 1.3 K/uL (0.60-3.4); MEAN CORPUSCULAR HEMOGLOBIN 26.8 pg (27.0-31.0); MEAN CORPUSCULAR HGB CONC 31.9 (31.8-35.4); MEAN CORPUSCULAR VOLUME 83.9 fl (81.0-99.0); MONOCYTES # (AUTO) 0.6 K/uL (0.4-2.0); MONOCYTES % (AUTO) 6.7 (0-10); NEUTROPHILS # (AUTO) 6.5 K/ul (2.0-6.9); NEUTROPHILS % (AUTO) 74.7 % (42.2-75.2); PLATELET COUNT 214 10^3/uL (140-440); RDW COEFFICIENT OF VARIATION 15.4 % (11.6-14.8); RED BLOOD COUNT 4.59 10^6/ul (4.20-5.40); WHITE BLOOD COUNT 8.64 K/ul (4.6-10.2)
[2020-04-09 04:47] LABS: ALANINE AMINOTRANSFERASE 15.1 U/L (0-35); ALBUMIN 3.47 g/dL (3.5-5.0); ALKALINE PHOSPHATASE 79.1 U/L (53-141); ASPARTATE AMINO TRANSFERASE 27.9 U/L (14-36); BILIRUBIN,TOTAL 0.96 mg/dL (0.2-1.3); BLOOD UREA NITROGEN 17.7 mg/dL (7-17); CALCIUM 9.03 mg/dL (8.4-10.2); CARBON DIOXIDE 33.1 mmol/L (22-30.0); CREATININE 0.54 mg/dL (0.60-1.30); GLUCOSE 105.7 mg/dL (74-106); POTASSIUM 4.3 mmol/L (3.5-5.1); SODIUM 136.7 mmol/L (134.5-145); TOTAL PROTEIN 6.57 g/dL (6.3-8.2)
[2020-04-09] MEDS: OMEGA-3 FISH OIL PO SCH (09:04)
[2020-04-09] MEDS: NEURONTIN PO SCH ×2 (09:05→20:22)
[2020-04-09] MEDS: PLAVIX PO SCH (09:05)
[2020-04-09] MEDS: LACTOBACILLUS ACIDOPHILUS PO SCH (09:51)
--- NOTE | 2020-04-09 17:18 | PCM.PROG ---
Date Seen by Provider: 04/09/20 Time Seen by Provider: 17:14 Subjective: Pt still c/o muscle aches. Very thin lady who has been falling for past several months. Nurses report that son will place her in care facility for 30 days. Pt cooperative, lucid. Continues to complain of discomfort along her thoracic spine. Objective: Vitals: T=98.9 F, P=88, R=16, GT=604/65, SPO2=92 HEENT: oropharyx moist, compromised hearing (unchanged since ER visit) [] Neck: [supple] Lungs: [clear bilaterally] CVS: RRR [] Abdomen: Soft, non tender, no masses[] Extremities: ROM wnl for age. ] Neurological: oriented x 3[] Skin: []thin, multiple bruises. Lab/Tests/Diagnostic Imaging: [] Plan: Discuss w Nurses and [employer] re [facility] plans for patient. Physical therapy for patient will be beneficial.
[2020-04-09] MEDS: ADVAIR 500-50 DISKUS IH SCH (20:22)
[2020-04-09] MEDS: MELATONIN 1 MG PO SCH (20:23)
[2020-04-09] MEDS: NON-FORMULARY MEDICATION PO SCH (20:27)
[2020-04-10 05:13] LABS: BASOPHILS % (AUTO) 0.4 % (0.0-3.0); EOSINOPHILS # (AUTO) 0.4 K/ul (0.0-0.7); EOSINOPHILS % (AUTO) 4.4 % (0.0-7.0); HEMATOCRIT 37.4 % (37.0-47.0); HEMOGLOBIN 12.3 g/dl (12.0-16.0); IMMATURE GRANULOCYTE % (AUTO) 0.4 % (0.0-5.0); LYMPHOCYTES # (AUTO) 1.4 K/uL (0.60-3.4); LYMPHOCYTES % (AUTO) 15.7 (10.0-50.0); MEAN CORPUSCULAR HGB CONC 32.9 (31.8-35.4); MEAN CORPUSCULAR VOLUME 82.2 fl (81.0-99.0); MONOCYTES # (AUTO) 0.8 K/uL (0.4-2.0); MONOCYTES % (AUTO) 8.7 (0-10); NEUTROPHILS # (AUTO) 6.4 K/ul (2.0-6.9); NEUTROPHILS % (AUTO) 70.4 % (42.2-75.2); PLATELET COUNT 200 10^3/uL (140-440); RDW COEFFICIENT OF VARIATION 15.3 % (11.6-14.8); RED BLOOD COUNT 4.55 10^6/ul (4.20-5.40)
[2020-04-10 05:24] LABS: ALANINE AMINOTRANSFERASE 13.4 U/L (0-35); ALBUMIN 3.52 g/dL (3.5-5.0); ASPARTATE AMINO TRANSFERASE 23.3 U/L (14-36); BILIRUBIN,TOTAL 0.8 mg/dL (0.2-1.3); BLOOD UREA NITROGEN 15.8 mg/dL (7-17); CALCIUM 8.87 mg/dL (8.4-10.2); CHLORIDE 100.5 mmol/L (98-107); CREATININE 0.5 mg/dL (0.60-1.30); GLUCOSE 109.3 mg/dL (74-106); POTASSIUM 3.73 mmol/L (3.5-5.1); SODIUM 133.4 mmol/L (134.5-145); TOTAL PROTEIN 6.79 g/dL (6.3-8.2)
[2020-04-10] MEDS: OMEGA-3 FISH OIL PO SCH ×2 (09:05→09:17)
[2020-04-10] MEDS: NON-FORMULARY MEDICATION PO SCH ×2 (09:05→20:22)
[2020-04-10] MEDS: ULTRAM PO PRN ×3 (09:05→20:23)
[2020-04-10] MEDS: NEURONTIN PO SCH ×2 (09:05→20:22)
[2020-04-10] MEDS: PLAVIX PO SCH (09:05)
[2020-04-10] MEDS: LACTOBACILLUS ACIDOPHILUS PO SCH (09:09)
--- NOTE | 2020-04-10 09:15 | ED.PDOC ---
General ED Provider: Dr. MANUEL SWIFT Chief Complaint: Fall Mode of Arrival: Ambulance Information Source: Patient and EMT Primary Care Provider: ALLIE TRINIDAD APRN, ALFONZO- Sepsis Protocol: For patient's 13 years and over: Temp is 96.8 and below OR 101 and greater Pulse >90 BPM Resp >20/minute Acutely Altered Mental Status Are patient's symptoms suggestive of a new infection, such as: -Pneumonia -Skin, Soft Tissue -Endocarditis -UTI -Bone, Joint Infection -Implantable Device -Acute Abdominal Infection -Wound Infection -Meningitis -Blood Stream Catheter Infection -Unknown Trauma/Injury Complaint Exam Truncal Trauma Complaint/Exam Location of Pain: Reports Posterior Onset: When trying to get into bed, she slipped and fell onto floor during night. Symptoms Are: Still present Onset of Pain: Reports Immediate Initial Severity: Moderate Current Severity: Moderate Mechanism: Reports Blunt trauma Aggravating: Reports Movement Alleviating: Reports None Related History: Reports COPD C-Collar in Place: no Backboard in Place: no Vertebral Tenderness Present: Yes Vertebral Deformity Present: Yes Trachial Deviation Present: No JVD Present: No Crepitus Present: No Diminished Breath Sounds: Yes Reproducible Pain at: erythema over thoracic spine; painful when palpated. Muffled Heart Sounds Present: No Paradoxical Chest Wall Movement Present: No Abdominal Guarding Present: No Abdominal Rigidity Present: No Referred Shoulder Pain (Kehr's Sign) Present: No Skin Findings: Present Contusion [facility] Medical History (Updated 04/08/20 @ 12:21 by JOSE ELIAS BLOUNT RN) Anxiety Bilateral leg cramps COPD (chronic obstructive pulmonary disease) Cough History of cerebrovascular accident Lumbar degenerative disc disease PAD (peripheral artery disease) Pain of left lower extremity Peripheral vascular disease Psoriatic arthritis TIA (transient ischemic attack) Wound of left lower extremity Wound of left lower extremity Family History (Updated 04/08/20 @ 12:56 by IVAN BRITT RN) Other Stroke Social History Smoking and tobacco status: Former smoker How long ago did patient quit smoking: Stopped at age 65 Alcohol intake: never Substance use type: does not use Abbie/yazidism: PRESBYTERIAN Special abbie needs: No Agree to transfusion: Yes Adopted: No Caregiver/support person: No Foster care: No Household members: none Housing: house Marital status: W / Lives independently: Yes (meals on wheels) Number of children: 1 Number of grandchildren: 1 Highest education level completed: Associate degree: occupational, technical, vocational program care home: No Current occupational status: retired Pets and animals: Yes (Dogs) History of recent travel: No Sexually active: No Do you think of yourself as: straight/heterosexual Current gender identity: female Seatbelt use: always Drives intoxicated or rides with intoxicated 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 Water heater temperature set < 120 degrees: Yes Working smoke detector in home: Yes Fire extinguisher in home: Yes Carbon monoxide detector in home: Yes Firearms in home: No Female Reproductive History Menstrual Hx Hysterectomy: Yes Hx Tubal Ligation: No Menopause type: surgical Course Course Hematology/Chemistry: 04/10/20 04:45 04/10/20 04:45 Orders, Labs, Meds: Orders Category Date Time Status CT LUMBAR SPINE W/O CONTRAST Stat RADS 04/08/20 11:[address] THORACIC SPINE W/O CONTRAST Stat RADS 04/08/20 11:08 Completed Medications Generic Name Dose Route Start Last Admin Trade Name Freq PRN Reason Stop Dose Admin Clopidogrel Bisulfate 75 mg 04/09/20 09:00 04/10/20 09:05 Clopidogrel Bisulfate 75 Mg Tablet PO 75 mg DAILY BRAN Administration Fish Oil 1,000 mg 04/09/20 09:00 04/10/20 09:05 [place]-3/Dha/Epa/Fish Oil 1,000 Mg Capsule PO 1,000 mg DAILY BRAN Administration Gabapentin 300 mg 04/08/20 21:00 04/10/20 09:05 Gabapentin 300 Mg Capsule PO 300 mg BID BRAN Administration Non-Formulary Medication 650 mg 04/08/20 13:34 Acetaminophen [Tylenol Arthritis Pain] PO Q12H PRN severe pain 2/2 multiple falls Non-Formulary Medication 500 mg 04/09/20 09:00 04/09/20 09:52 Turmeric Root Extract PO Not Given DAILY BRAN Non-Formulary Medication 1 each 04/09/20 09:00 04/10/20 09:09 Lactobacillus Acidophilus [Probiotic] PO Not Given DAILY BRAN Non-Formulary Medication 10 mg 04/08/20 21:00 04/09/20 20:23 Melatonin PO 10 mg BEDTIME BRAN Administration Non-Formulary Medication 1 each 04/09/20 21:00 04/10/20 09:05 Non-Formulary Medication 1 Each PO 1 each BID BRAN Administration Fluticasone/Salmeterol 1 puff 04/08/20 21:00 04/09/20 20:22 Fluticasone/Salmeterol 500/50 Diskus IH 1 puff BEDTIME BRAN Administration Tramadol HCl 50 mg 04/08/20 14:41 04/10/20 09:05 Tramadol Hcl 50 Mg Tablet PO 50 mg QID PRN Administration Pain Discontinued Medications Generic Name Dose Route Start Last Admin Trade Name Freq PRN Reason Stop Dose Admin Sodium Chloride 1 syr 04/08/20 21:00 04/09/20 20:22 0.9% Sodium Chloride 10 Ml Disp.Syrin IVF 1 syr Q8HR BRAN Administration Vital Signs: Temp Pulse Resp BP Pulse Ox 04/08/20 10:41 97.5 F L 77 18 137/62 96 Discharge Plan Discharge Patient Disposition: ADMITTED INPATIENT Discharge Problem: Back pain due to injury ED Provider: MANUEL SWIFT Condition: Good
--- NOTE | 2020-04-10 09:17 | ED.PDOC ---
General ED Provider: Dr. MANUEL SWIFT Stated Complaint: Injury to Thoracic spine 2/2 falling on floor trying to get into bed during night. Pt fell on floor and was found there by her son, who brought her to ER. Time Seen by Physician: 09:15 Mode of Arrival: Ambulance Information Source: Patient and EMT Primary Care Provider: ALLIE TRINIDAD APRN, FNP-BC Nursing and Triage Documentation Reviewed and Agree: Yes Does patient meet sepsis criteria?: Yes If yes, has appropriate treatment been initiated?: Yes System Inflammatory Response Syndrome: Not Applicable Sepsis Protocol: For patient's 13 years and over: Temp is 96.8 and below OR 101 and greater Pulse >90 BPM Resp >20/minute Acutely Altered Mental Status Are patient's symptoms suggestive of a new infection, such as: -Pneumonia -Skin, Soft Tissue -Endocarditis -UTI -Bone, Joint Infection -Implantable Device -Acute Abdominal Infection -Wound Infection -Meningitis -Blood Stream Catheter Infection -Unknown Trauma/Injury Complaint Exam Truncal Trauma Complaint/Exam Location of Pain: Reports Posterior Onset: Pt fell onto floor trying to get back to bed. Son found her on floor. Symptoms Are: Still present Onset of Pain: Reports Immediate Initial Severity: Moderate Mechanism: Reports Blunt trauma Aggravating: Reports Movement Alleviating: Reports None Related History: Reports Similar episode Related Surgical History: Reports None C-Collar in Place: no Backboard in Place: no Immobilization Removed Post Exam: No (no immobilization device in place.) Vertebral Tenderness Present: Yes Vertebral Deformity Present: No Trachial Deviation Present: No JVD Present: No Crepitus Present: No Diminished Breath Sounds: No Muffled Heart Sounds Present: No Paradoxical Chest Wall Movement Present: No Abdominal Guarding Present: No Abdominal Rigidity Present: No Referred Shoulder Pain (Kehr's Sign) Present: No Skin Findings: Present Ecchymosis Differential Diagnoses: Other Review of Systems Review Of Systems Constitutional: Reports Weakness Eyes: Reports No symptoms Ears, Nose, Mouth, Throat: Reports No symptoms Respiratory: Reports No symptoms Cardiac: Reports No symptoms GI: Reports No symptoms : Reports No symptoms Skin: Reports Lesions Neurological: Reports Depressed Endocrine: Reports No symptoms Hematologic/Lymphatic: Reports No symptoms All Other Systems: Reviewed and Negative [facility] Medical History (Updated 04/08/20 @ 12:21 by JOSE ELIAS BLOUNT RN) Anxiety Bilateral leg cramps COPD (chronic obstructive pulmonary disease) Cough History of cerebrovascular accident Lumbar degenerative disc disease PAD (peripheral artery disease) Pain of left lower extremity Peripheral vascular disease Psoriatic arthritis TIA (transient ischemic attack) Wound of left lower extremity Wound of left lower extremity Family History (Updated 04/08/20 @ 12:56 by IVAN BRITT RN) Other Stroke Social History Smoking and tobacco status: Former smoker How long ago did patient quit smoking: Stopped at age 65 Alcohol intake: never Substance use type: does not use Abbie/temple: PRESBYTERIAN Special abbie needs: No Agree to transfusion: Yes Adopted: No Caregiver/support person: No Foster care: No Household members: none Housing: house Marital status: W / Lives independently: Yes (meals on wheels) Number of children: 1 Number of grandchildren: 1 Highest education level completed: Associate degree: occupational, technical, vocational program custodial: No Current occupational status: retired Pets and animals: Yes (Dogs) History of recent travel: No Sexually active: No Do you think of yourself as: straight/heterosexual Current gender identity: female Seatbelt use: always Drives intoxicated or rides with intoxicated 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 Water heater temperature set < 120 degrees: Yes Working smoke detector in home: Yes Fire extinguisher in home: Yes Carbon monoxide detector in home: Yes Firearms in home: No Female Reproductive History Menstrual Hx Hysterectomy: Yes Hx Tubal Ligation: No Menopause type: surgical Physical Exam Physical Exam Appearance: Reports Other Ill-appearing: Moderate Pain Distress: Moderate Eyes: Reports DON and EOMI ENT: Reports Ears normal and Nose normal Neck: Supple Respiratory: Reports Airway patent and Breath sounds clear Cardiovascular: Reports RRR and Pulses normal GI/: Reports Soft and Nontender Musculoskeletal: Reports ROM intact and No edema Skin: Reports Warm, Dry and Pale Neurological: Reports Motor intact and Reflexes intact Psychiatric: Reports Mood appropriate and Depressed Critical Care Note Critical Care Note Total Time (mins): 0 Course Course Hematology/Chemistry: 04/10/20 04:45 04/10/20 04:45 Orders, Labs, Meds: Orders Category Date Time Status CT LUMBAR SPINE W/O CONTRAST Stat RADS 04/08/20 11:[address] THORACIC SPINE W/O CONTRAST Stat RADS 04/08/20 11:08 Completed Medications Generic Name Dose Route Start Last Admin Trade Name Estrella PRN Reason Stop Dose Admin Clopidogrel Bisulfate 75 mg 04/09/20 09:00 04/10/20 09:05 Clopidogrel Bisulfate 75 Mg Tablet PO 75 mg DAILY BRAN Administration Fish Oil 1,000 mg 04/09/20 09:00 04/10/20 09:17 [place]-3/Dha/Epa/Fish Oil 1,000 Mg Capsule PO Not Given DAILY BRAN Gabapentin 300 mg 04/08/20 21:00 04/10/20 09:05 Gabapentin 300 Mg Capsule PO 300 mg BID BRAN Administration Non-Formulary Medication 650 mg 04/08/20 13:34 Acetaminophen [Tylenol Arthritis Pain] PO Q12H PRN severe pain 2/2 multiple falls Non-Formulary Medication 500 mg 04/09/20 09:00 04/10/20 09:10 Turmeric Root Extract PO Not Given DAILY BRAN Non-Formulary Medication 1 each 04/09/20 09:00 04/10/20 09:09 Lactobacillus Acidophilus [Probiotic] PO Not Given DAILY BRAN Non-Formulary Medication 10 mg 04/08/20 21:00 04/09/20 20:23 Melatonin PO 10 mg BEDTIME BRAN Administration Non-Formulary Medication 1 each 04/09/20 21:00 04/10/20 09:05 Non-Formulary Medication 1 Each PO 1 each BID BRAN Administration Fluticasone/Salmeterol 1 puff 04/08/20 21:00 04/09/20 20:22 Fluticasone/Salmeterol 500/50 Diskus IH 1 puff BEDTIME BRAN Administration Tramadol HCl 50 mg 04/08/20 14:41 04/10/20 09:05 Tramadol Hcl 50 Mg Tablet PO 50 mg QID PRN Administration Pain Discontinued Medications Generic Name Dose Route Start Last Admin Trade Name Estrella PRN Reason Stop Dose Admin Sodium Chloride 1 syr 04/08/20 21:00 04/09/20 20:22 0.9% Sodium Chloride 10 Ml Disp.Syrin IVF 1 syr Q8HR BRAN Administration Vital Signs: Temp Pulse Resp BP Pulse Ox 04/08/20 10:41 97.5 F L 77 18 137/62 96 Discharge Plan Discharge Patient Disposition: ADMITTED INPATIENT Discharge Problem: Back pain due to injury ED Provider: MANUEL SWIFT Condition: Good
--- NOTE | 2020-04-10 09:22 | ED.PDOC ---
General ED Provider: Dr. MANUEL SWIFT Mode of Arrival: Ambulance Information Source: Patient and EMT Primary Care Provider: ALLIE TRINIDAD APRN, ALFONZO- Sepsis Protocol: For patient's 13 years and over: Temp is 96.8 and below OR 101 and greater Pulse >90 BPM Resp >20/minute Acutely Altered Mental Status Are patient's symptoms suggestive of a new infection, such as: -Pneumonia -Skin, Soft Tissue -Endocarditis -UTI -Bone, Joint Infection -Implantable Device -Acute Abdominal Infection -Wound Infection -Meningitis -Blood Stream Catheter Infection -Unknown Trauma/Injury Complaint Exam Truncal Trauma Complaint/Exam Location of Pain: Reports Posterior Onset: pt slipped and missed getting back into bed during night. Fell onto floor. Symptoms Are: Still present Onset of Pain: Reports Immediate Initial Severity: Moderate Current Severity: Moderate Mechanism: Reports Blunt trauma Aggravating: Reports Movement Alleviating: Reports None Related History: Reports Similar episode C-Collar in Place: no Backboard in Place: no Immobilization Removed Post Exam: No Vertebral Tenderness Present: Yes Vertebral Deformity Present: Yes Trachial Deviation Present: No JVD Present: No Crepitus Present: No Diminished Breath Sounds: No Reproducible Pain at: site of erythematous skin over thoracic spine. Muffled Heart Sounds Present: No Paradoxical Chest Wall Movement Present: No Abdominal Guarding Present: No Abdominal Rigidity Present: No Referred Shoulder Pain (Kehr's Sign) Present: No Skin Findings: Present Ecchymosis Differential Diagnoses: Other [facility] Medical History (Updated 04/08/20 @ 12:21 by JOSE ELIAS BLOUNT RN) Anxiety Bilateral leg cramps COPD (chronic obstructive pulmonary disease) Cough History of cerebrovascular accident Lumbar degenerative disc disease PAD (peripheral artery disease) Pain of left lower extremity Peripheral vascular disease Psoriatic arthritis TIA (transient ischemic attack) Wound of left lower extremity Wound of left lower extremity Family History (Updated 04/08/20 @ 12:56 by IVAN BRITT RN) Other Stroke Social History Smoking and tobacco status: Former smoker How long ago did patient quit smoking: Stopped at age 65 Alcohol intake: never Substance use type: does not use Abbie/christian: PRESBYTERIAN Special abbie needs: No Agree to transfusion: Yes Adopted: No Caregiver/support person: No Foster care: No Household members: none Housing: house Marital status: W / Lives independently: Yes (meals on wheels) Number of children: 1 Number of grandchildren: 1 Highest education level completed: Associate degree: occupational, technical, vocational program care home: No Current occupational status: retired Pets and animals: Yes (Dogs) History of recent travel: No Sexually active: No Do you think of yourself as: straight/heterosexual Current gender identity: female Seatbelt use: always Drives intoxicated or rides with intoxicated 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 Water heater temperature set < 120 degrees: Yes Working smoke detector in home: Yes Fire extinguisher in home: Yes Carbon monoxide detector in home: Yes Firearms in home: No Female Reproductive History Menstrual Hx Hysterectomy: Yes Hx Tubal Ligation: No Menopause type: surgical Course Course Hematology/Chemistry: 04/10/20 04:45 04/10/20 04:45 Orders, Labs, Meds: Orders Category Date Time Status CT LUMBAR SPINE W/O CONTRAST Stat RADS 04/08/20 11:[address] THORACIC SPINE W/O CONTRAST Stat RADS 04/08/20 11:08 Completed Medications Generic Name Dose Route Start Last Admin Trade Name Freq PRN Reason Stop Dose Admin Clopidogrel Bisulfate 75 mg 04/09/20 09:00 04/10/20 09:05 Clopidogrel Bisulfate 75 Mg Tablet PO 75 mg DAILY BRAN Administration Fish Oil 1,000 mg 04/09/20 09:00 04/10/20 09:17 [place]-3/Dha/Epa/Fish Oil 1,000 Mg Capsule PO Not Given DAILY BRAN Gabapentin 300 mg 04/08/20 21:00 04/10/20 09:05 Gabapentin 300 Mg Capsule PO 300 mg BID BRAN Administration Non-Formulary Medication 650 mg 04/08/20 13:34 Acetaminophen [Tylenol Arthritis Pain] PO Q12H PRN severe pain 2/2 multiple falls Non-Formulary Medication 500 mg 04/09/20 09:00 04/10/20 09:10 Turmeric Root Extract PO Not Given DAILY BRAN Non-Formulary Medication 1 each 04/09/20 09:00 04/10/20 09:09 Lactobacillus Acidophilus [Probiotic] PO Not Given DAILY BRAN Non-Formulary Medication 10 mg 04/08/20 21:00 04/09/20 20:23 Melatonin PO 10 mg BEDTIME BRAN Administration Non-Formulary Medication 1 each 04/09/20 21:00 04/10/20 09:05 Non-Formulary Medication 1 Each PO 1 each BID BRAN Administration Fluticasone/Salmeterol 1 puff 04/08/20 21:00 04/09/20 20:22 Fluticasone/Salmeterol 500/50 Diskus IH 1 puff BEDTIME BRAN Administration Tramadol HCl 50 mg 04/08/20 14:41 04/10/20 09:05 Tramadol Hcl 50 Mg Tablet PO 50 mg QID PRN Administration Pain Discontinued Medications Generic Name Dose Route Start Last Admin Trade Name Freq PRN Reason Stop Dose Admin Sodium Chloride 1 syr 04/08/20 21:00 04/09/20 20:22 0.9% Sodium Chloride 10 Ml Disp.Syrin IVF 1 syr Q8HR BRAN Administration Vital Signs: Temp Pulse Resp BP Pulse Ox 04/08/20 10:41 97.5 F L 77 18 137/62 96 Discharge Plan Discharge Patient Disposition: ADMITTED INPATIENT Discharge Problem: Back pain due to injury ED Provider: MANUEL SWIFT Condition: Good
--- NOTE | 2020-04-10 10:32 | RS.PTINEVL ---
Subjective - Patient information Date of Evaluation: 04/10/20 Date of Arrival on Unit: 04/09/20 Admitted From:: Home Diagnosis: multiple falls, LBP, thoracic pain Usual Living Arrangement: Alone Living Arrangement Comments: pt lives at home with caregivers 630am to bedtime. Caregivers assist with ADL's. amb with rollator at home. Home Environment: House, Stairs (few), Rail Medical History: Hypertension, CVA/TIA, COPD, Arthritis, Vascular Disease LATEX ALLERGY?: No Surgical History: Cholecystectomy, Tonsillectomy, Hysterectomy Surgical History Comments:: rotator cuff repair Medications: see chart Subjective Information/ Patient Comments:: pt states that she has fallen multiple times in last few weeks. States her pain is 10/10. - Level of function Prior to this admission, the patient could do the following:: Independent Selfcare, Independent ADL's, Independent Ambulation, Perform Offal Worker/Cooking Current Level of Function: Partially Dependent Current Equipment Used at Home: rollator, Pain Assessement - Location low back Description: Sharp, Aching Intensity: 10 Pain Behavior: Moaning, Facial Grimacing Pain Aggravating Factors: ADL's, Changing Position, Walking Pain Alleviating Factors: Medication Interventions - Objective Patient Orientation: Person, Place Current Interventions: IV's Observation: pt appears very thin, with multiple areas of bruising. Range of Motion - ROM Right Upper Extremity AROM: Marked limitation (limited shld ROM, elbow, wrist, hand WFL's) Left Upper Extremity AROM: Slight limitation Right Lower Extremity AROM: WFL's Left Lower Extremity AROM: WFL's Muscle Strength - Muscle Strength Right Upper Extremity Strength: Severe Weakness (R shld flex 2-/5, elbow flex/ext 3+/5,) Left Upper Extremity Strength: Mild Weakness (grossly 4-/5) Right Lower Extremity Strength: Mild Weakness (hip flex 3+/5, knee flex/ext 4- /5, ankle DF/PF 4-/5) Left Lower Extremity Strength: Mild Weakness (hip flex 3+/5, knee flex/ext 4-/5, ankle DF/PF 4-/5) Sensation - Sensation Right Upper Extremity Sensation: Impaired Left Upper Extremity Sensation: Impaired (n/t in B hands) Right Lower Extremity Sensation: Intact/Normal Left Lower Extremity Sensation: Intact/Normal Palpation Palpation Findings: Tenderness, Muscle Guarding Comments:: tenderness, muscle guarding in lumbar paraspinals. Balance - Sitting Balance and Reactions Static Sitting Balance: Poor Dynamic Sitting Balance: Poor Sitting Equilibrium Reactions: Delayed Left, Delayed Right Sitting Protective Reactions: Delayed Left, Delayed Right - Standing Balance and Reactions Static Standing Balance: Poor Dynamic Standing Balance: Poor Standing Equilibrium Reactions: Delayed Left, Delayed Right Standing Protective Reactions: Delayed Left, Delayed Right Functional Mobility - Bed Mobility Rolling R/L: Mod Assist, 1 person assist Scooting: Max Assist, 2 person assist Sit to Supine: Mod Assist, 2 person assist - Transfers Sit to Stand: Mod Assist, 2 person assist Stand to Sit: Mod Assist, 2 person assist - Safety Awareness Safety Awareness: Poor SHLOMO INDEX SCORE: n/t Ambulation - Ambulation Assistive Device Used: Rolling Walker Orthotic/Prosthetic Device: No Distance: 5ft Assistance needed with Ambulation: Mod Assist, 2 person assist Gait Deviations: Forward posture, Short stride, Deviates from path Ambulation Comments: pt with difficulty advancing LE's, short stride, decreased step length, flexed posture Factors Affecting Ambulation: Decreased Balance, Breathing/O2 Saturation, Pain, Weakness, Decreased Safety, Limited Endurance Treatment time - Time with patient Length of Evaluation: 21 Total treatment time: 26 Patient Education - Education Patient Education: Activity Modification, Education of Plan of Care Teaching Recipient: Patient Teaching Methods: Discussion Comments: discussion regarding POC Assessment - Assessment Problem List:: Decreased level of function, Requires training/education, Decreased safety/Risk of falls, Weakness, Pain limits previous level of function Rehab Potential: Fair Further Therapy Indicated?: Yes Candidate for Swing Bed for Therapy Services?: Feel pt may not be a candidate for swing bed due to may require regional intermodal truck driver care due to safety issues. Feel pt will need 24 hour care at nc. Evaluation Complexity: HISTORY: Medium, EXAM OF BODY SYSTEMS: Medium, CLINICAL PRESENTATION: Medium, CLINICAL DECISION MAKING: Medium Patient's Goal(s): "I want to go home" Short Term Goals GOAL #1: pt transfers sup to/from sit min to mod x 1 Goal to be met by: 04/12/20 GOAL #2: pt transfer sit to/from stand with min to mod x 1 Goal to be met by: 04/12/20 GOAL #3: pt amb 25ft with rwx with min x 1 Goal to be met by: 04/12/20 GOAL #4: Improve BLE strength to 4- to 4/5 Goal to be met by: 04/12/20 GOAL #5: pt demonstrate rolling with min x 1. Goal to be met by: 04/12/20 Compressor Repairer Goals GOAL #1: Transfer sup to/from sit with min x 1 Goal to be met by: 04/14/20 GOAL #2: Transfer sit to/from stand min x 1 Goal to be met by: 04/14/20 GOAL #3: pt amb household distances with rollator with min with no LOB Goal to be met by: 04/14/20 Plan Plan of Care: Therapeutic EX, Therapeutic Activity Other:: gait training Frequency of Treatment: 1-2 X day, as tolerated Duration of Treatment: 5 days Anticipated Discharge Destination: Home Treatment Diagnosis (ICD 10 Codes): difficulty walking R26.2. balance impaired R 26.81. muscle weakness M62.81. LBP M54.5 Has the Physician been added for Co-signature?: Yes
--- NOTE | 2020-04-10 11:37 | RS.BEDDYS ---
Subjective Date of Evaluation: 04/10/20 Diagnosis: Fall, weakness Current Level of Function: This 89 year old female resides at home alone. She has a hx of recurrent falls and has a PMH of rehab. She recently was admitted with thoracic spine injury that has resulted in severe pain, anxiety, and i rritability. Nursing has observed pt with difficulty swallowing medications; which resulted in several coughing incidents. Pt is at risk for aspiration/penetration. Current Diet: regular with thin liquids. Current Subjective/complaints:: Pt reported she has no difficulty with swallowing. However, she goes on to report that she frequently has difficulty with swallowing pills. She also reported UES problems, that result in medication to 'relax' the sphincter. Nursing has no record of her UES difficulty or her medications that would relieve esophageal problems. Pt is complaining about pain level is 10/10. She would not willing sit-up right to complete the BSE due to pain level. Medical History Comments:: Anixety, stroke, COPD, recurrent falls. Hx Home Medications: Refer to medications for complete list. Patient's Goals: To consume safest and least restrictive diet. Reduce feeling of choking sensation. General Information - General Patient Orientation: Person, Place Ability to Follow Directions: Good Oral Expression Ability: Mild Impairment - Voice Voice Quality: Hoarse, Weak Voice Pitch: Mildly Low Voice Loudness: Mildly Soft/Quiet Oral-Facial Assessment - Face Face Comment: Was not fully assessed this date. - Dental/Labial Mouth Occlusion: Normal Teeth Characteristics: Missing Lip Protrusion: Normal Lip Retraction: Normal - Lingual Protrusion: Reduced ROM Retraction: Reduced ROM Tip Lateralization: Reduced ROM Repeated Tip Lateralization: Reduced ROM Tip Elevation: Reduced ROM Repeated Tip Elevation: Reduced ROM Comments: Lingual movements were also weak. Mandible movments with lingual movements indicated poor disassociation and general lingual weakness. Food Presentation - Solids Behaviors/Comments: Pt would not consume food at time of evaluation. However, nursing was more concerned about her medications. Appetite has been fair with 25-50% intake at meals. - Liquids Liquid Presented: Thin (via open cup) Behaviors/Comments: Pt consumed two sips via open cup. She had labial spillage and was aware of the leakage. She used double swallow on her sips. No overt s/s of aspiration noted. - Recommendations: Dysphagia Evaluation Dietary Recommendations: Normal Comments:: At this time, UNIVERSITY SERVICES PROGRAM ASSOCIATE can not determine if a diet/liquid downgrade will benefit pt's PO intake or reduce aspiration risks. Pt appears with UES difficulty as evidenced by multiple swallows and pointing to level of UES. Nursing will monitor for s/s of aspiration and downgrade diet/liquid for safety. Dysphagia Swallow Precautions/Strategies: Reclined Position (May recline slightly to reduce pain and increase comfort with PO intake.), No Straw, Liquids from Cup, Small Bites and Sips Comments:: Pt needs to be aware of posture, which may induce safe swallowing if her UES is relaxed. Slight recline may reduce pain with sitting up-right. pillow supports should be utlized as well to reduce any pressure on the patient. No straws or cold liquids for pt. This will induce UES restriction and increase risk for UES pooling and post swallow penetration/aspiration episodes. - Summary Dysphagia Evaluation Summary: Pt appears with esophageal dysphagia. UNIVERSITY SERVICES PROGRAM ASSOCIATE has provided strategies with posture, positioning, pacing, and compensation to induce safe swallowing. Pt's risk for aspiraiton will be induced with reflux episodes and anxiety. Pt will be recommended to participate in therapy for UES exercises and NMES to increase muscle strength and coordination. Further Therapy Indicated?: Yes Rehab Potential: Good Functional Reporting G Codes: n/a Severity Impairment Rationale: n/a Short Term Goals Problem: UES Goal #1: Complete shaker 04/22 over two trials w/ max cues Goal to be met by: 04/14/20 Problem: UES Goal #2: Demonstrate comp. swallow strategies with PO intake 100% Goal to be met by: 04/14/20 Electrocardiograph Technician Goals Problem: Coughing Goal #1: Consume 100% of meal w/o overt s/s of aspiration. Goal to be met by: 04/14/20 Problem: Aspiration risks Goal #2: Verbalize safe swallow/aspiration precautions 100%. Goal to be met by: 04/14/20 Plan Duration of Treatment: 1 Week Anticipated Discharge Destination: Home (This could be changed to SNF.) Comments: UNIVERSITY SERVICES PROGRAM ASSOCIATE wants to use NMES during treatment sessions. - Treatment Code (1) Esophageal dysphagia Code(s): R13.10 - Dysphagia, unspecified
--- NOTE | 2020-04-10 13:45 | RS.OTINEVL ---
Subjective - Patient information Date of Evaluation: 10/26/18 Date of Arrival on Unit: 04/09/20 Admitted From:: Home Diagnosis: gen wkness PRECAUTIONS: falls Usual Living Arrangement: Alone Living Arrangement Comments: pt lives at home with caregivers 630am to bedtime. Caregivers assist with ADL's. amb with rollator at home. Home Environment: House, Stairs (few), Rail Medical History: Hypertension, CVA/TIA, COPD, Arthritis, Vascular Disease Medical History Comments:: Anixety, stroke, COPD, recurrent falls. 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 Pt walked with a rollator walker. Current Level of Function: Partially Dependent Current Equipment Used at Home: rollator, Pain Assessment - Pain Pain Score: 10 Side: bilateral Pain Location Body Site: Back Pain Aggravating Factors: ADL's, Changing Position, Standing, Walking Pain Alleviating Factors: Lying Supine Interventions - Objective Patient Orientation: Person, Place, Time, Situation Current Interventions: IV's, Oxygen Interventions - ROM Right Upper Extremity AROM: Moderate limitation Left Upper Extremity AROM: WFL's - Strength Right Upper Extremity Strength: Mild Weakness Left Upper Extremity Strength: Mild Weakness - Sensation Right Upper Extremity Sensation: Intact/Normal Left Upper Extremity Sensation: Intact/Normal Balance - Sitting Balance Static Sitting Balance: Fair Dynamic Sitting Balance: Fair - Standing Balance Static Standing Balance: Good Dynamic Standing Balance: Good ADL Skills - Self Feeding Self Feeding: Independent - Grooming Grooming: Min Assist - Dressing Dressing UE: Independent Dressing LE: Independent - Toilet Management Toileting Management: Min Assist Functional Mobility - Bed Mobility Rolling R/L: Min Assist Scooting: CGA Supine to Sit: CGA Sit to Supine: Mod Assist, 2 person assist - Transfers Sit to Stand: Min Assist, 2 person assist Stand to Sit: Min Assist, 2 person assist Stand Pivot Transfers: Min Assist, 2 person assist - Ambulation Weight Bearing Status: FWB Assistive Device Used: Rolling Walker Assistance needed with Ambulation: Min Assist, 2 person assist - Safety Awareness Safety Awareness: Fair SHLOMO INDEX SCORE: . Additional Treatment Performed - Time with patient Length of Evaluation: 20 Total treatment time: 25 Activities Do you enjoy playing games?: Yes Would you be interested in leaving your room for activities?: Yes Would you enjoy group activities?: Yes Do you have difficulty with your vision?: Yes Patient Interests:: Reading Books/Magazines, Watching Television, Puzzles/Games, Visiting/Socializing Assessment Problem List:: Decreased level of function, Requires training/education, Decreased safety/Risk of falls, Weakness, Pain limits previous level of function Rehab Potential: Good Further Therapy Indicated?: Yes Evaluation Complexity: HISTORY: Medium, EXAM OF BODY SYSTEMS: Medium, CLINICAL DECISION MAKING: Medium Patient's Goal(s): for her pain to decrease and be able to return to her home. Short Term Goals - Goals GOAL 1: Pt to increase activity tolerance to 15 minutes. Goal to be met by: 11/02/18 Progress towards goal: Partially Met Comments: with numerous rests GOAL 2: Pt to be CGA with sink level ADLS. Goal to be met by: 11/02/18 Progress towards goal: Regressing Comments: simple grmg/hyg GOAL 3: Pt to increase strength in RUE to 4/5. Goal to be met by: 11/02/18 Progress towards goal: No Change GOAL 4: Pt to increase LB dressing to Minimal assistance. Goal to be met by: 11/02/18 Progress towards goal: No Change Die Attaching Machine Tender Goals GOAL 1: Pt to increase transfer from Chair to bed to be CGA. Goal to be met by: 04/14/20 GOAL 2: Pt to increase dyn. std. balance to Fair- to increase safety of transfers. Goal to be met by: 04/14/20 GOAL 3: Pt to increase activity tolerance to 15 minutes to increase strength. Goal to be met by: 04/14/20 Plan Frequency of Treatment: 1-2 X day, as tolerated Anticipated Discharge Destination: Home Treatment Diagnosis (ICD 10 Codes): Muscle weakness M62.81, Need for assistance with personal care Z74.1 Has the Physician been added for Co-signature?: Yes
--- NOTE | 2020-04-10 18:10 | PCM.PROG ---
Date Seen by Provider: 04/10/20 Time Seen by Provider: 18:00 Subjective: Pt awake, alert, oriented x3. Discussed opinions re politics and tv programs. Has been eating well... recounted her meals today. States she's "just sleeping while I'm here until they (her son) figure out what to do with me." Objective: Vitals: T=97.4 F, P=62, R=15, FT=578/62, SPO2=94 HEENT: []wnl ... no changes. No deficits. Neck: supple, no nodes[] Lungs: clear, bilateral.[] CVS: RRR] Abdomen: [soft, thin, no masses, nontender] Extremities: [very thin, able to move on command, change position. weak.] Neurological: CN intact, sensory nl, motor weak.[] Skin: [thin, multiple bruises 2/2 falls.] Lab/Tests/Diagnostic Imaging: [] Plan: Will discuss son's plan with [employer] research worker encyclopedia, in am.
[2020-04-10] MEDS: MELATONIN 1 MG PO SCH (20:22)
[2020-04-10] MEDS: ADVAIR 500-50 DISKUS IH SCH (20:22)
[2020-04-11] MEDS: PLAVIX PO SCH (09:03)
[2020-04-11] MEDS: OMEGA-3 FISH OIL PO SCH ×2 (09:03→09:09)
[2020-04-11] MEDS: NEURONTIN PO SCH (09:03)
[2020-04-11] MEDS: NON-FORMULARY MEDICATION PO SCH (09:06)
[2020-04-11] MEDS: ULTRAM PO PRN (09:08)
[2020-04-11] MEDS: LACTOBACILLUS ACIDOPHILUS PO SCH (09:39)
--- NOTE | 2020-04-11 09:46 | PCM.PROG ---
Date Seen by Provider: 04/11/20 Time Seen by Provider: 09:34 Subjective: Mrs. Cortes agreeable to going to [facility] in service of Dr. Gonzales. Diet: Regular. Card Processing Clerk to see pt for optimal nutrition, intake, dietary preferences. Activity: Up to chair for meals. PT/OT evaluation Speech evaluation. Meds: Plavix 75 mg daily [place] 3 Fish Oil 1000 mg daily Advair diskus 500/50 , 1 puff at bedtime. Neurontin 300 mg BID Tylenol Arthritis 650mg q 12 hrs prn pain Probiotic 1 daily Melatonin 10 mg at bedtime Tramadol 50 mg QID prn pain Turmeric Root Extract 500 mg daily DISCHARGE PER Dr. GONZALES See note below. Objective: Vitals: T=97.7 F, P=89, R=18, ZW=668/71, SPO2=93 HEENT: [Pt did not cooperate with ophthalmic exam. Hearing intact. N-T wnl. ] Neck: Nontender to palpation. Mild arthritis.] Lungs: [Breath sounds clear bilaterally. No respiratory distress.] CVS: [RRR] Abdomen: [soft, thin, nontender] Extremities: [ROM slow; pt strength minimal] Neurological: [CN intact, pt essentially bedridden. Sensory normal. Motor we ak] Skin: [thin, multiple bruises.] Lab/Tests/Diagnostic Imaging: [] (1) Esophageal dysphagia: Status: Acute Code(s): R13.10 - Dysphagia, unspecified SNOMED Code(s): 21490844 Plan: DISCHARGE as per Dr. GONZALES to [facility]. See discharge notes, above.
[2020-04-11] MEDS ORDERED: MILK OF MAGNESIA PO PRN (10:12)
[2020-04-11] MEDS ORDERED: GLYCERIN SUPPOSITORY RC PRN (10:14)
[2020-04-11 15:05] VITALS: BP 142/76; TEMP 97.6
--- NOTE | 2020-04-12 08:38 | OTDC ---
Date of Evaluation:04/08/20 Diagnosis:[Back pain, fell] Number of visits:[] Last Date of Service:[04/11/20] Reason For Discharge:[Pt discharged to [facility] nursing home facility for therapy.] Discharge Summary:[Pt was CGA for transfers with Rolling walker. Pt is Minimal assistance for self cares. ] DALE
--- NOTE | 2020-05-01 09:43 | PCM.DC ---
Final Diagnosis: Back Pain 2/2 injury. DNR. Dysphagia. (1) Esophageal dysphagia: Status: Acute Code(s): R13.10 - Dysphagia, unspecified SNOMED Code(s): 79342864 Reason for Hospitalization: Dysphagia. DNR. Prognosis at Discharge: Poor. Condition at Discharge: Poor. DNR. Medications at Discharge: Ambulatory Orders Medication Instructions Recorded melatonin 10 mg PO BEDTIME 07/30/16 Probiotic 1 ea PO DAILY #30 tab-cap 05/12/17 acetaminophen 650 mg 650 mg PO Q12H PRN 12/03/19 tablet,extended release omega-3 fatty acids 1,000 mg 1,000 mg PO QDAY 12/03/19 capsule turmeric root extract 500 mg 500 mg PO QDAY 12/03/19 capsule fluticasone 500 mcg-salmeterol 50 1 ea INHALATION BEDTIME #1 ihnref 01/17/20 mcg/dose blistr powdr for inhalation clopidogrel 75 mg tablet 75 mg PO DAILY #90 tab-cap 03/01/20 gabapentin 300 mg capsule 300 mg PO BID #60 cap 03/01/20 polyethylene glycol 3350 [Miralax] 17 g PO DAILY #1 ea 04/11/20 tramadol 50 mg PO QID PRN #120 tab 04/11/20 Discharge Disposition: Systems Security Consultant Care Facility Plan: Comfort patient. DNR.
== END 2020-04-11 16:11 | DRG 948 ==
LOC: ED 10:36 → MEDSURG B 11:49
PROVIDERS: ADMIT Emergency Medicine Emergency Medical Services; ATTEND Emergency Medicine Emergency Medical Services
DX: R53.1 Weakness; M54.9 Dorsalgia, unspecified; S29.9XXA Unspecified injury of thorax, initial encounter

== ENCOUNTER 2020-09-17 18:23 | Inpatient (IN) ==
[2020-09-17] MEDS ORDERED: SODIUM CHLORIDE 500 ML IV STA (18:47)
--- NOTE | 2020-09-17 18:56 | ED.PDOC ---
General <JEANNETTE FRAUSTO MD - Last Filed: 09/18/20 07:39> ED Provider: Dr. JEANNETTE FRAUSTO MD Stated Complaint: sudden weakness x this am. has gotten worse today. no acute chest pain, SOB or fever. no GI loss. Mode of Arrival: Ambulance Information Source: Patient Exam Limitations: No limitations Primary Care Provider: ALLIE TRINIDAD APRN, RENAL TECHNICIAN- Nursing and Triage Documentation Reviewed and Agree: Yes Does patient meet sepsis criteria?: No System Inflammatory Response Syndrome: Not Applicable Sepsis Protocol: For patient's 13 years and over: Temp is 96.8 and below OR 101 and greater Pulse >90 BPM Resp >20/minute Acutely Altered Mental Status Are patient's symptoms suggestive of a new infection, such as: -Pneumonia -Skin, Soft Tissue -Endocarditis -UTI -Bone, Joint Infection -Implantable Device -Acute Abdominal Infection -Wound Infection -Meningitis -Blood Stream Catheter Infection -Unknown Neurological Complaint Exam <JEANNETTE FRAUSTO MD - Last Filed: 09/18/20 07:39> Weakness Complaint/Exam Last Known Well: this early AM. Onset: Gradual Duration: 12 hrs. Symptoms Are: Still present Timing: Constant Episodes Lasting: Hours Initial Severity: Mild Current Severity: Moderate Character: Reports Weak Aggravating: Reports None Alleviating: Reports None Associated Signs and Symptoms: Reports Unsteady gait; Denies Nausea, Vomiting, Diaphoresis, Tinnitus, Chest pain, Short of air, Palpitations, GI blood loss, Vi sual changes, Decreased oral intake, Change in medication, Change in diet, OTC meds and Loss of balance JVD Present: No Carotid Bruit Present: No Rectal Heme Positive: No Glascow Coma Scale (see protocol): 15 Nystagmus Present: No Gag Reflex Present: Yes Meningeal Signs Positive: No Focal Weakness: Present None Focal Sensory Loss: Present None Gait: Unable (gait was not seen in the ED) Differential Diagnoses: BPPV, Hypovolemia and Meniere's Review of Systems <JEANNETTE FRAUSTO MD - Last Filed: 09/18/20 07:39> Review Of Systems Constitutional: Reports No symptoms and Weakness Eyes: Reports No symptoms Ears, Nose, Mouth, Throat: Reports No symptoms Respiratory: Reports No symptoms Cardiac: Reports No symptoms GI: Reports No symptoms : Reports No symptoms Musculoskeletal: Reports Other (generalized weakness. right shoulder chronic pain) Skin: Reports No symptoms Neurological: Reports Weakness Endocrine: Reports No symptoms Hematologic/Lymphatic: Reports No symptoms All Other Systems: Reviewed and Negative PFSH <JEANNETTE FRAUSTO MD - Last Filed: 09/18/20 07:39> Medical History Anxiety Bilateral leg cramps COPD (chronic obstructive pulmonary disease) Cough History of cerebrovascular accident Lumbar degenerative disc disease PAD (peripheral artery disease) Pain of left lower extremity Peripheral vascular disease Psoriatic arthritis TIA (transient ischemic attack) Wound of left lower extremity Wound of left lower extremity Family History Other Stroke Social History Smoking and tobacco status: Former smoker How long ago did patient quit smoking: Stopped at age 65 Alcohol intake: never Substance use type: does not use Abbie/jewish: PRESBYTERIAN Special abbie needs: No Agree to transfusion: Yes Adopted: No Caregiver/support person: No Foster care: No Household members: none Housing: house Marital status: W / Lives independently: Yes (meals on wheels) Number of children: 1 Number of grandchildren: 1 Highest education level completed: Associate degree: occupational, technical, vocational program penitentiary: No Current occupational status: retired Pets and animals: Yes (Dogs) History of recent travel: No Sexually active: No Do you think of yourself as: straight/heterosexual Current gender identity: female Seatbelt use: always Drives intoxicated or rides with intoxicated backhaul driver: No Water heater temperature set < 120 degrees: Yes Working smoke detector in home: Yes Fire extinguisher in home: Yes Carbon monoxide detector in home: Yes Firearms in home: No Surgical History (Updated 09/17/20 @ 23:27 by NARGIS INGRAM) History of shoulder surgery Status post cholecystectomy Status post hysterectomy Status post tonsillectomy Status post tonsillectomy and adenoidectomy Female Reproductive History Menstrual Hx Hysterectomy: Yes Hx Tubal Ligation: No Physical Exam <JEANNETTE FRAUSTO MD - Last Filed: 09/18/20 07:39> Physical Exam Appearance: Reports Ill-appearing and Thin Ill-appearing: Mild Pain Distress: None Eyes: Reports DON, EOMI and Conjunctiva clear ENT: Reports Ears normal, Nose normal and Oropharynx normal Neck: Supple Respiratory: Reports Airway patent, Breath sounds clear and Breath sounds equal Cardiovascular: Reports RRR, Pulses normal, No rub and No murmur GI/: Reports Soft, Nontender, No masses, Bowel sounds normal and No Organomegaly Musculoskeletal: Reports Normal strength, ROM intact, No edema and No calf tenderness Skin: Reports Warm, Dry and Normal color Neurological: Reports Sensation intact, Motor intact, Reflexes intact, Cranial nerves intact, Alert and Oriented Psychiatric: Reports Affect appropriate and Mood appropriate Interpretation <JEANNETTE FRAUSTO MD - Last Filed: 09/18/20 07:39> Radiology Interpretation Radiology Interpretation By: Radiologist Exam Interpreted: CXR and CT Scan Re-Evaluation <JEANNETTE FRAUSTO MD - Last Filed: 09/18/20 07:39> Re-Evaluation Time of Re-Evaluation: 19:08 Status: Unchanged Vital Signs Stable: Yes Pain Level: 2 Appearance: NAD Lungs: Clear Skin: Warm and Dry Neuro: Alert and Oriented X3 CV: RRR <GABY SIMPSON MD - Last Filed: 09/17/20 21:16> Critical Care Note Total Critical Care Time (mins): 0 Course <JEANNETTE FRAUSTO MD - Last Filed: 09/18/20 07:39> Course Hematology/Chemistry: 09/18/20 04:50 09/18/20 04:50 Orders, Labs, Meds: Lab Review 09/17/20 09/17/20 09/17/20 19:05 19:05 19:05 WBC 8.94 RBC 4.41 Hgb 11.7 L Hct 36.8 L MCV 83.4 MCH 26.5 L MCHC 31.8 RDW Coeff of Gareth 15.2 H Plt Count 251 Immature Gran % (Auto) 0.3 Neut % (Auto) 71.8 Lymph % (Auto) 15.5 [place] % (Auto) 11.4 H Eos % (Auto) 0.7 Baso % (Auto) 0.3 Neut # (Auto) 6.4 Lymph # (Auto) 1.4 [place] # (Auto) 1.0 Eos # (Auto) 0.1 Baso # (Auto) 0.0 Immature Gran # (Auto) 0.0 Sodium 135.0 Potassium 4.60 Chloride 97.0 L Carbon Dioxide 30.0 Anion Gap 12.60 BUN 18.0 H Creatinine 0.60 Estimated GFR (MDRD) 94.00 BUN/Creatinine Ratio 30.00 Glucose 107.0 H Lactic Acid 0.70 Calcium 9.00 Total Bilirubin 0.60 AST 23.0 ALT 7.0 Alkaline Phosphatase 99.0 POC Venous Troponin I Troponin I Total Protein 7.20 Albumin 3.80 Globulin 3.40 Albumin/Globulin Ratio 1.11 Urine Color Urine Clarity Urine pH Ur Specific [place] Urine Protein Urine Glucose (UA) Urine Ketones Urine Blood Urine Nitrite Urine Bilirubin Urine Urobilinogen Ur Leukocyte Esterase Urine Microscopic RBC Ur Squamous Epith Cells Urine Bacteria Adenovirus (PCR) B. pertussis DNA (PCR) B.parapertussis DNA PCR C. pneumoniae DNA (PCR) Coronavirus OC43 (PCR) Coronavirus HKU1 (PCR) Coronavirus 229E (PCR) Coronavirus NL63 (PCR) Human Metapneumovir PCR Influenza Type A (PCR) Influenza B (RT-PCR) M. pneumoniae (PCR) Parainfluenza 1 (PCR) Parainfluenza 2 (PCR) Parainfluenza 3 (PCR) Parainfluenza 4 (PCR) RSV (PCR) Entero/Rhino (PCR) SARS-CoV-2 (PCR) 09/17/20 09/17/20 09/17/20 19:05 20:30 21:40 WBC RBC Hgb Hct MCV MCH MCHC RDW Coeff of Gareth Plt Count Immature Gran % (Auto) Neut % (Auto) Lymph % (Auto) [place] % (Auto) Eos % (Auto) Baso % (Auto) Neut # (Auto) Lymph # (Auto) [place] # (Auto) Eos # (Auto) Baso # (Auto) Immature Gran # (Auto) Sodium Potassium Chloride Carbon Dioxide Anion Gap BUN Creatinine Estimated GFR (MDRD) BUN/Creatinine Ratio Glucose Lactic Acid Calcium Total Bilirubin AST ALT Alkaline Phosphatase POC Venous Troponin I 0.01 Troponin I Total Protein Albumin Globulin Albumin/Globulin Ratio Urine Color Yellow Urine Clarity Slightly Urine pH 7.0 Ur Specific [place] 1.025 Urine Protein Trace H Urine Glucose (UA) Negative Urine Ketones Negative Urine Blood 1+ H Urine Nitrite Negative Urine Bilirubin Negative Urine Urobilinogen 0.2 Ur Leukocyte Esterase Negative Urine Microscopic RBC 5-10 Ur Squamous Epith Cells 0-2 Urine Bacteria 1+ Adenovirus (PCR) Not detected B. pertussis DNA (PCR) Not detected B.parapertussis DNA PCR Not detected C. pneumoniae DNA (PCR) Not detected Coronavirus OC43 (PCR) Not detected Coronavirus HKU1 (PCR) Not detected Coronavirus 229E (PCR) Not detected Coronavirus NL63 (PCR) Not detected Human Metapneumovir PCR Not detected Influenza Type A (PCR) Not detected Influenza B (RT-PCR) Not detected M. pneumoniae (PCR) Not detected Parainfluenza 1 (PCR) Not detected Parainfluenza 2 (PCR) Not detected Parainfluenza 3 (PCR) Not detected Parainfluenza 4 (PCR) Not detected RSV (PCR) Not detected Entero/Rhino (PCR) Not detected SARS-CoV-2 (PCR) Not detected Orders Category Date Time Status OBSERVATION [PLACE PATIENT OBSERVATION] .TO MEDSURG ADMISSION 09/17/20 21:38 Active (MONITORED BED) EKG-(ED ONLY) Stat CARDIO 09/17/20 18:47 Completed INTAKE & OUTPUT Q8HR CARE 09/17/20 21:17 Active IP: INSERT SALINE LOCK ONCE CARE 09/17/20 21:17 Active NEUROLOGICAL CHECKS Q4HR CARE 09/17/20 21:17 Active TELEMETRY MONITORING TELE CARE 09/17/20 21:38 Active VITAL SIGNS Q8HR CARE 09/17/20 21:17 Active REGULAR DIET DIETARY 09/17/20 Breakfast Ordered ED IV/MEDIPORT/POWERPORT .ONCE EMERGENCY 09/17/20 18:47 Active CBC W/ AUTO DIFF DAILY@0600 LAB 09/18/20 04:50 Completed CBC W/ AUTO DIFF DAILY@0600 LAB 09/19/20 06:00 Ordered CBC W/ AUTO DIFF Stat LAB 09/17/20 19:05 Completed COMPREHENSIVE METABOLIC PANEL DAILY@0600 LAB 09/18/20 04:50 Completed COMPREHENSIVE METABOLIC PANEL DAILY@0600 LAB 09/19/20 06:00 Ordered COMPREHENSIVE METABOLIC PANEL Stat LAB 09/17/20 19:05 Completed LACTIC ACID Stat LAB 09/17/20 19:05 Completed RESPIRATORY PANEL 2.1 (PCR) Stat LAB 09/17/20 21:40 Completed TROPONIN I Stat LAB 09/17/20 19:05 Completed URINALYSIS C & S IF INDICATED Stat LAB 09/17/20 20:30 Completed URINE CULTURE Stat LAB 09/17/20 20:30 Received 0.9 % Sodium Chloride [Saline Flush] MEDS 09/17/20 18:47 Active 1 syr IVF PRN PRN Acetaminophen [Tylenol] MEDS 09/17/20 19:09 Discontinued 650 mg PO ONCE STA Clopidogrel Bisulfate [Plavix] MEDS 09/18/20 09:00 Active 75 mg PO DAILY Diazepam [Valium] MEDS 09/17/20 21:19 Active 2 mg PO BID PRN Diphenhydramine HCl [Benadryl] MEDS 09/17/20 21:30 Active 25 mg PO BEDTIME Enoxaparin Sodium [Lovenox] MEDS 09/18/20 09:00 Active 30 mg SUBCUT DAILY Gabapentin [Neurontin] MEDS 09/17/20 22:00 Active 300 mg PO BID Lactobacillus acidophilus [Probiotic] MEDS 09/18/20 09:00 Pending 1 each PO DAILY Psyllium Seed [Metamucil] MEDS 09/18/20 09:00 Active 1 packet PO BID Sodium Chloride 0.9% [Sodium Chloride] 500 ml MEDS 09/17/20 18:47 Discontinued IV BOLUS magnesium MEDS 09/18/20 09:00 Pending 15 mg PO DAILY melatonin MEDS 09/18/20 21:00 Active 10 mg PO BEDTIME vit C,H-Uj-aaofc-lutein-zeaxan [PreserVision AREDS-2] MEDS 09/18/20 09:00 Active 1 tab PO BID RESUSCITATION STATUS Routine OTHERS 09/17/20 21:17 Completed RESUSCITATION STATUS Routine OTHERS 09/17/20 21:23 Ordered CHEST, 1V AP ONLY Stat RADS 09/17/20 18:[address] HEAD W/O CONTRAST Stat RADS 09/17/20 18:47 Completed MRI BRAIN W/O CONTRAST Routine RADS 09/18/20 07:17 Ordered PT INPATIENT EVALUATION Routine THERAPIES 09/17/20 Ordered Medications Generic Name Dose Route Start Last Admin Trade Name Freq PRN Reason Stop Dose Admin Acetaminophen 500 mg 09/18/20 06:02 09/18/20 06:21 Acetaminophen 500 Mg Tablet PO 500 mg Q6H PRN Administration Pain Clopidogrel Bisulfate 75 mg 09/18/20 09:00 Clopidogrel Bisulfate 75 Mg Tablet PO DAILY BRAN Diazepam 2 mg 09/17/20 21:19 09/18/20 06:21 Diazepam 2 Mg Tablet PO 2 mg BID PRN Administration Anxiety Diphenhydramine HCl 25 mg 09/17/20 21:30 09/18/20 00:02 Diphenhydramine Hcl 25 Mg Capsule PO Not Given BEDTIME BRAN Enoxaparin Sodium 30 mg 09/18/20 09:00 Enoxaparin Sodium 30 Mg/0.3 Ml Syr SUBCUT DAILY BRAN Gabapentin 300 mg 09/17/20 22:00 09/18/20 00:02 Gabapentin 300 Mg Capsule PO Not Given BID BRAN Non-Formulary Medication 15 mg 09/18/20 09:00 Magnesium PO DAILY BRAN Non-Formulary Medication 1 tab 09/18/20 09:00 Vit C,M-Rm-Vglfl-Lutein-Zeaxan [Preservision Areds-2] PO BID BRAN Non-Formulary Medication 1 each 09/18/20 09:00 Lactobacillus Acidophilus [Probiotic] PO DAILY BRAN Non-Formulary Medication 10 mg 09/18/20 21:00 Melatonin PO BEDTIME BRAN Psyllium Hydrophilic Mucilloid 1 packet 09/18/20 09:00 Psyllium Seed 6 Gm Packet PO BID BRAN Sodium Chloride 1 syr 09/17/20 18:47 09/17/20 19:10 0.9% Sodium Chloride 10 Ml Disp.Syrin IVF 1 syr PRN PRN Administration To flush IV Sodium Chloride 1 syr 09/18/20 05:00 09/18/20 05:58 0.9% Sodium Chloride 10 Ml Disp.Syrin IVF 1 syr Q8HR BRAN Administration Discontinued Medications Generic Name Dose Route Start Last Admin Trade Name Freq PRN Reason Stop Dose Admin Acetaminophen 650 mg 09/17/20 19:09 09/17/20 19:29 Acetaminophen 325 Mg Tablet PO 09/17/20 19:10 650 mg ONCE STA Administration Sodium Chloride 500 mls @ 500 mls/hr 09/17/20 18:47 09/17/20 19:10 Sodium Chloride IV 09/17/20 19:46 500 mls/hr BOLUS STA Administration Vital Signs: Temp Pulse Resp BP Pulse Ox 09/17/20 22:00 97.1 F L 74 16 111/70 94 L 09/17/20 18:24 97.1 F L 83 20 138/66 94 L <GABY SIMPSON MD - Last Filed: 09/17/20 21:16> Course Orders, Labs, Meds: Lab Review 09/17/20 09/17/20 09/17/20 19:05 19:05 19:05 WBC 8.94 RBC 4.41 Hgb 11.7 L Hct 36.8 L MCV 83.4 MCH 26.5 L MCHC 31.8 RDW Coeff of Gareth 15.2 H Plt Count 251 Immature Gran % (Auto) 0.3 Neut % (Auto) 71.8 Lymph % (Auto) 15.5 [place] % (Auto) 11.4 H Eos % (Auto) 0.7 Baso % (Auto) 0.3 Neut # (Auto) 6.4 Lymph # (Auto) 1.4 [place] # (Auto) 1.0 Eos # (Auto) 0.1 Baso # (Auto) 0.0 Immature Gran # (Auto) 0.0 Sodium 135.0 Potassium 4.60 Chloride 97.0 L Carbon Dioxide 30.0 Anion Gap 12.60 BUN 18.0 H Creatinine 0.60 Estimated GFR (MDRD) 94.00 BUN/Creatinine Ratio 30.00 Glucose 107.0 H Lactic Acid 0.70 Calcium 9.00 Total Bilirubin 0.60 AST 23.0 ALT 7.0 Alkaline Phosphatase 99.0 POC Venous Troponin I Troponin I Total Protein 7.20 Albumin 3.80 Globulin 3.40 Albumin/Globulin Ratio 1.11 Urine Color Urine Clarity Urine pH Ur Specific [place] Urine Protein Urine Glucose (UA) Urine Ketones Urine Blood Urine Nitrite Urine Bilirubin Urine Urobilinogen Ur Leukocyte Esterase Urine Microscopic RBC Ur Squamous Epith Cells Urine Bacteria Adenovirus (PCR) B. pertussis DNA (PCR) B.parapertussis DNA PCR C. pneumoniae DNA (PCR) Coronavirus OC43 (PCR) Coronavirus HKU1 (PCR) Coronavirus 229E (PCR) Coronavirus NL63 (PCR) Human Metapneumovir PCR Influenza Type A (PCR) Influenza B (RT-PCR) M. pneumoniae (PCR) Parainfluenza 1 (PCR) Parainfluenza 2 (PCR) Parainfluenza 3 (PCR) Parainfluenza 4 (PCR) RSV (PCR) Entero/Rhino (PCR) SARS-CoV-2 (PCR) 09/17/20 09/17/20 09/17/20 19:05 20:30 21:40 WBC RBC Hgb Hct MCV MCH MCHC RDW Coeff of Gareth Plt Count Immature Gran % (Auto) Neut % (Auto) Lymph % (Auto) [place] % (Auto) Eos % (Auto) Baso % (Auto) Neut # (Auto) Lymph # (Auto) [place] # (Auto) Eos # (Auto) Baso # (Auto) Immature Gran # (Auto) Sodium Potassium Chloride Carbon Dioxide Anion Gap BUN Creatinine Estimated GFR (MDRD) BUN/Creatinine Ratio Glucose Lactic Acid Calcium Total Bilirubin AST ALT Alkaline Phosphatase POC Venous Troponin I 0.01 Troponin I Total Protein Albumin Globulin Albumin/Globulin Ratio Urine Color Yellow Urine Clarity Slightly Urine pH 7.0 Ur Specific [place] 1.025 Urine Protein Trace H Urine Glucose (UA) Negative Urine Ketones Negative Urine Blood 1+ H Urine Nitrite Negative Urine Bilirubin Negative Urine Urobilinogen 0.2 Ur Leukocyte Esterase Negative Urine Microscopic RBC 5-10 Ur Squamous Epith Cells 0-2 Urine Bacteria 1+ Adenovirus (PCR) Not detected B. pertussis DNA (PCR) Not detected B.parapertussis DNA PCR Not detected C. pneumoniae DNA (PCR) Not detected Coronavirus OC43 (PCR) Not detected Coronavirus HKU1 (PCR) Not detected Coronavirus 229E (PCR) Not detected Coronavirus NL63 (PCR) Not detected Human Metapneumovir PCR Not detected Influenza Type A (PCR) Not detected Influenza B (RT-PCR) Not detected M. pneumoniae (PCR) Not detected Parainfluenza 1 (PCR) Not detected Parainfluenza 2 (PCR) Not detected Parainfluenza 3 (PCR) Not detected Parainfluenza 4 (PCR) Not detected RSV (PCR) Not detected Entero/Rhino (PCR) Not detected SARS-CoV-2 (PCR) Not detected Orders Category Date Time Status OBSERVATION [PLACE PATIENT OBSERVATION] .TO MEDSURG ADMISSION 09/17/20 21:38 Active (MONITORED BED) EKG-(ED ONLY) Stat CARDIO 09/17/20 18:47 Completed INTAKE & OUTPUT Q8HR CARE 09/17/20 21:17 Active IP: INSERT SALINE LOCK ONCE CARE 09/17/20 21:17 Active NEUROLOGICAL CHECKS Q4HR CARE 09/17/20 21:17 Active TELEMETRY MONITORING TELE CARE 09/17/20 21:38 Active VITAL SIGNS Q8HR CARE 09/17/20 21:17 Active REGULAR DIET DIETARY 09/17/20 Breakfast Ordered ED IV/MEDIPORT/POWERPORT .ONCE EMERGENCY 09/17/20 18:47 Active CBC W/ AUTO DIFF DAILY@0600 LAB 09/18/20 04:50 Completed CBC W/ AUTO DIFF DAILY@0600 LAB 09/19/20 06:00 Ordered CBC W/ AUTO DIFF Stat LAB 09/17/20 19:05 Completed COMPREHENSIVE METABOLIC PANEL DAILY@0600 LAB 09/18/20 04:50 Completed COMPREHENSIVE METABOLIC PANEL DAILY@0600 LAB 09/19/20 06:00 Ordered COMPREHENSIVE METABOLIC PANEL Stat LAB 09/17/20 19:05 Completed LACTIC ACID Stat LAB 09/17/20 19:05 Completed RESPIRATORY PANEL 2.1 (PCR) Stat LAB 09/17/20 21:40 Completed TROPONIN I Stat LAB 09/17/20 19:05 Completed URINALYSIS C & S IF INDICATED Stat LAB 09/17/20 20:30 Completed URINE CULTURE Stat LAB 09/17/20 20:30 Received 0.9 % Sodium Chloride [Saline Flush] MEDS 09/17/20 18:47 Active 1 syr IVF PRN PRN Acetaminophen [Tylenol] MEDS 09/17/20 19:09 Discontinued 650 mg PO ONCE STA Clopidogrel Bisulfate [Plavix] MEDS 09/18/20 09:00 Active 75 mg PO DAILY Diazepam [Valium] MEDS 09/17/20 21:19 Active 2 mg PO BID PRN Diphenhydramine HCl [Benadryl] MEDS 09/17/20 21:30 Active 25 mg PO BEDTIME Enoxaparin Sodium [Lovenox] MEDS 09/18/20 09:00 Active 30 mg SUBCUT DAILY Gabapentin [Neurontin] MEDS 09/17/20 22:00 Active 300 mg PO BID Lactobacillus acidophilus [Probiotic] MEDS 09/18/20 09:00 Pending 1 each PO DAILY Psyllium Seed [Metamucil] MEDS 09/18/20 09:00 Active 1 packet PO BID Sodium Chloride 0.9% [Sodium Chloride] 500 ml MEDS 09/17/20 18:47 Discontinued IV BOLUS magnesium MEDS 09/18/20 09:00 Pending 15 mg PO DAILY melatonin MEDS 09/18/20 21:00 Active 10 mg PO BEDTIME vit C,W-Yx-xgcin-lutein-zeaxan [PreserVision AREDS-2] MEDS 09/18/20 09:00 Active 1 tab PO BID RESUSCITATION STATUS Routine OTHERS 09/17/20 21:17 Completed RESUSCITATION STATUS Routine OTHERS 09/17/20 21:23 Ordered CHEST, 1V AP ONLY Stat RADS 09/17/20 18:[address] HEAD W/O CONTRAST Stat RADS 09/17/20 18:47 Completed MRI BRAIN W/O CONTRAST Routine RADS 09/18/20 07:17 Ordered PT INPATIENT EVALUATION Routine THERAPIES 09/17/20 Ordered Medications Generic Name Dose Route Start Last Admin Trade Name Freq PRN Reason Stop Dose Admin Acetaminophen 500 mg 09/18/20 06:02 09/18/20 06:21 Acetaminophen 500 Mg Tablet PO 500 mg Q6H PRN Administration Pain Clopidogrel Bisulfate 75 mg 09/18/20 09:00 Clopidogrel Bisulfate 75 Mg Tablet PO DAILY BRAN Diazepam 2 mg 09/17/20 21:19 09/18/20 06:21 Diazepam 2 Mg Tablet PO 2 mg BID PRN Administration Anxiety Diphenhydramine HCl 25 mg 09/17/20 21:30 09/18/20 00:02 Diphenhydramine Hcl 25 Mg Capsule PO Not Given BEDTIME BRAN Enoxaparin Sodium 30 mg 09/18/20 09:00 Enoxaparin Sodium 30 Mg/0.3 Ml Syr SUBCUT DAILY BRAN Gabapentin 300 mg 09/17/20 22:00 09/18/20 00:02 Gabapentin 300 Mg Capsule PO Not Given BID BRAN Non-Formulary Medication 15 mg 09/18/20 09:00 Magnesium PO DAILY BRAN Non-Formulary Medication 1 tab 09/18/20 09:00 Vit C,H-Lj-Uzbub-Lutein-Zeaxan [Preservision Areds-2] PO BID BRAN Non-Formulary Medication 1 each 09/18/20 09:00 Lactobacillus Acidophilus [Probiotic] PO DAILY BRAN Non-Formulary Medication 10 mg 09/18/20 21:00 Melatonin PO BEDTIME BRAN Psyllium Hydrophilic Mucilloid 1 packet 09/18/20 09:00 Psyllium Seed 6 Gm Packet PO BID BRAN Sodium Chloride 1 syr 09/17/20 18:47 09/17/20 19:10 0.9% Sodium Chloride 10 Ml Disp.Syrin IVF 1 syr PRN PRN Administration To flush IV Sodium Chloride 1 syr 09/18/20 05:00 09/18/20 05:58 0.9% Sodium Chloride 10 Ml Disp.Syrin IVF 1 syr Q8HR BRAN Administration Discontinued Medications Generic Name Dose Route Start Last Admin Trade Name Estrella PRN Reason Stop Dose Admin Acetaminophen 650 mg 09/17/20 19:09 09/17/20 19:29 Acetaminophen 325 Mg Tablet PO 09/17/20 19:10 650 mg ONCE STA Administration Sodium Chloride 500 mls @ 500 mls/hr 09/17/20 18:47 09/17/20 19:10 Sodium Chloride IV 09/17/20 19:46 500 mls/hr BOLUS STA Administration Vital Signs: Temp Pulse Resp BP Pulse Ox 09/17/20 22:00 97.1 F L 74 16 111/70 94 L 09/17/20 18:24 97.1 F L 83 20 138/66 94 L Discharge Plan Discharge Patient Disposition: PLACED OBSERVATION Discharge Problem: Bilateral leg weakness ED Provider: JEANNETTE FRAUSTO Condition: Stable <JEANNETTE FRAUSTO MD - Last Filed: 09/18/20 07:39> Physician Progress Note: []Pt was endorsed to Dr Martin at 1900.
[2020-09-17] MEDS ORDERED: TYLENOL PO STA (19:09)
[2020-09-17 19:10] LABS: BASOPHILS % (AUTO) 0.3 % (0.0-3.0); EOSINOPHILS # (AUTO) 0.1 K/ul (0.0-0.7); EOSINOPHILS % (AUTO) 0.7 % (0.0-7.0); HEMATOCRIT 36.8 % (37.0-47.0); HEMOGLOBIN 11.7 g/dl (12.0-16.0); IMMATURE GRANULOCYTE % (AUTO) 0.3 % (0.0-5.0); LYMPHOCYTES # (AUTO) 1.4 K/uL (0.60-3.4); LYMPHOCYTES % (AUTO) 15.5 (10.0-50.0); MEAN CORPUSCULAR HEMOGLOBIN 26.5 pg (27.0-31.0); MEAN CORPUSCULAR HGB CONC 31.8 (31.8-35.4); MEAN CORPUSCULAR VOLUME 83.4 fl (81.0-99.0); MONOCYTES % (AUTO) 11.4 (0-10); NEUTROPHILS # (AUTO) 6.4 K/ul (2.0-6.9); NEUTROPHILS % (AUTO) 71.8 % (42.2-75.2); PLATELET COUNT 251 10^3/uL (140-440); RDW COEFFICIENT OF VARIATION 15.2 % (11.6-14.8); RED BLOOD COUNT 4.41 10^6/ul (4.20-5.40); WHITE BLOOD COUNT 8.94 K/ul (4.6-10.2)
--- NOTE | 2020-09-17 20:13 | CT ---
EXAM: CT head without contrast. HISTORY: Weakness. PROCEDURE: Contiguous axial CT images of the head without contrast with coronal and sagittal reforma ts. FINDINGS: There is diffuse cerebral atrophy. The ventricles and basal cisterns are normal in size an d configuration. No evidence of mass or midline shift. No intracranial hemorrhage or evidence of la rge vessel infarct. No extra-axial fluid collection. There are chronic small vessel ischemic change s in the white matter. The paranasal sinuses and mastoid air cells are normal in appearance. Impression: No intracranial hemorrhage or evidence of large vessel infarct. Chronic small vessel ischemic changes. Diffuse cerebral atrophy. All CT scans are performed using dose optimization techniques as appropriate to the performed exam an d include at least one of the following: Automated exposure control, adjustment of the mA and/or kV according t o size, and the use of iterative reconstruction technique.
--- NOTE | 2020-09-17 20:15 | DI ---
EXAM: AP single view of the chest. HISTORY: Weakness. FINDINGS: The bones are unremarkable. The cardiac silhouette and pulmonary vasculature are within no rmal limits. The costophrenic angles are clear. There is minimal left basilar atelectasis and/or pn eumonia. There is minimal scarring in the right upper lobe. Impression: Minimal left basilar atelectasis and/or pneumonia.
[2020-09-17 20:40] LABS: BILIRUBIN,URINE Negative (NEGATIVE); CLARITY,URINE Slightly (CLEAR); COLOR,URINE Yellow (YELLOW); GLUCOSE, URINE (UA) Negative (NEGATIVE); KETONES,URINE Negative (NEGATIVE); LEUKOCYTE ESTERASE ,URINE Negative (NEGATIVE); NITRITE,URINE Negative (NEGATIVE); PROTEIN,URINE Trace (NEGATIVE); URINE, BLOOD 1+ (NEGATIVE); UROBILINOGEN,URINE 0.2 (0.2)
[2020-09-17 20:47] LABS: BACTERIA,URINE 1+ (NOT PRESENT); SQUAMOUS EPITHELIAL CELL,UR 0-2 (0-5)
[2020-09-17] MEDS ORDERED: VALIUM PO PRN (21:19)
[2020-09-17 23:24] VITALS: BMI 21.4
[2020-09-18] MEDS: BENADRYL PO SCH ×2 (00:02→20:14)
[2020-09-18] MEDS: NEURONTIN PO SCH ×3 (00:02→20:14)
[2020-09-18 05:22] LABS: BASOPHILS % (AUTO) 0.4 % (0.0-3.0); EOSINOPHILS # (AUTO) 0.2 K/ul (0.0-0.7); EOSINOPHILS % (AUTO) 3.5 % (0.0-7.0); HEMATOCRIT 32.2 % (37.0-47.0); HEMOGLOBIN 10.3 g/dl (12.0-16.0); IMMATURE GRANULOCYTE % (AUTO) 0.2 % (0.0-5.0); LYMPHOCYTES # (AUTO) 1.6 K/uL (0.60-3.4); LYMPHOCYTES % (AUTO) 27.1 (10.0-50.0); MEAN CORPUSCULAR HEMOGLOBIN 26.5 pg (27.0-31.0); MEAN CORPUSCULAR VOLUME 82.8 fl (81.0-99.0); MONOCYTES # (AUTO) 0.8 K/uL (0.4-2.0); MONOCYTES % (AUTO) 13.7 (0-10); NEUTROPHILS # (AUTO) 3.2 K/ul (2.0-6.9); NEUTROPHILS % (AUTO) 55.1 % (42.2-75.2); PLATELET COUNT 215 10^3/uL (140-440); RDW COEFFICIENT OF VARIATION 15.2 % (11.6-14.8); RED BLOOD COUNT 3.89 10^6/ul (4.20-5.40); WHITE BLOOD COUNT 5.71 K/ul (4.6-10.2)
[2020-09-18 05:41] LABS: ALBUMIN 3.1 g/dL (3.5-5.0); BILIRUBIN,TOTAL 0.6 mg/dL (0.2-1.3); CALCIUM 8.5 mg/dL (8.4-10.2); CREATININE 0.4 mg/dL (0.60-1.30); POTASSIUM 3.6 mmol/L (3.5-5.1); TOTAL PROTEIN 6.1 g/dL (6.3-8.2)
[2020-09-18] MEDS: TYLENOL PO PRN (06:21)
--- NOTE | 2020-09-18 07:11 | PCM ---
Chief Complaint Chief Complaint: Generalized Weakness, arm and legs felt tired/weak. 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 Small. Patient noted weakness in am, worsening throughout the day. No acute CP, no SOA, fever, no GI losses N/V/D. Vitals at initial presentation were within normal limits. Temp 97.1, pulse 83, rr 20, BP 138/66, pulse ox 94% on RA. History presented gradual onset weakness over 12 hours, still prsent in ED. Unsteady gait, weakness. She did not report vertigo but ddx in ED was listed as BPPV, hypovolemia, menieres. Patient has history of anxiety, copd, chronic shoulder pain, Lumbar DDD, history of CVA/PVD, history of PAD, psoriatic arthritis, bilateral leg cramps. She is a former smoker, stopped at age 65. No other illicit substances or ETOH are used per patient. Surg history reviewed and history of cholecystectomy, hysterectomy, tonsillectomy/adenoidectomy and history of heart surgery. Reviewed ED note, nursing documentation. Examination appeared to be non focal. Imaging studies completed included a CXR chest which showed minimal basilar atelectasis and or pneumonia. She has not had fever, no other s/sx of pneumonia. CT scan head: Chronic small vessel changes/diffuse cerebral atrophy but no acute intracranial hemorrhage or large vessel infarct. Labs completed in the ER showed CBC with WBC of 8.94, hgb 11.7, hct 36.8, plt 251. CMP showed sodium 135, K+ 4.0, Cl 97.0, Co2 30, BUN 18, cr 0.60 and glucose of 107. Lactic acid was negative at 0.70. Calcium 9.0 and normal> AST 23, ALT 7, alk phos 989. Venous troponin was negative. UA showed 1+ blood trace protein sg 1.025.Nit negative. Micro RBC 55-10, squam epi 0-2, bact 1+. Dr. Martin contacted ma 09/17/20 at 2111 with request for admission. I accepted to observational status. EKG was completed, labs as noted above. Urine sent for culture. Nursing note Nargis Mccain reviewed and noted weakness mostly with distal UE and LE. No Pain c/o, neuro check intact. Tele onboard and SR throughout the night. Narrative at 00:00 3/8 resting no s/sx of distress. Saline lock left AC. Tele SR. Unchanged 0100. Neuro check 0200 GCS 15, mild weakness in extremities. 0300 resting. 0400 unchanged. 0500 unchanged. Neuro check 0600 GCS 15, mild weakness bilateral UE and LE. Up at bedside commode 0600. C/o back pain 01/20. I was contacted by nursing and requested tylenol. I ordered 500mg QID. MRI brain w/o contrast ordered for this am. CBC/CMP q am. Home medications reviewed. Lovenox 30mg daily. OT and PT consult have been placed. We will assess patient wishes for hospital stay as well as for continuing to live alone. Patient lives alone with her dog. She does have a sitter [facility], that does come and stay with her in the am and pm. Son is in [place]. I talked with patient in room 111 this am, discussed case with nursing. No reported headache, no fever, no vision changes, no loss of taste/sme ll, No new URI symptoms, reviewed allergy symptoms, no cough/congestion/wheezing/SOA, No CP, no reported fatigue, no abd pain, no N/V/D, no constipation, no changes in urination/stooling, no new MSK pain except as above, no recent injuries except as listed above. Falls reviewed and listed above. Patient has no c/o this am. She has normal neuro exam, normal CN II-XII, normal facial symmetry, display carver 4+/5 bilaterally. OK sign 4+/5 bilaterally. She has normal reflexes, babinski is downgoing. Normal sensation to cold, to pin prick bilateral UE and LE, normal vibratory sense as well. At this time she just "feels weak." She is afraid to ambulate but again noted no falls. Yesterday am felt hands were too weak to display carver her rollator. [place] likes would not move as she felt that they were needed. Today she feels fine, she reports no back pain at present but did this am. She has no c/o swallowing, no choking on food, no aspiration, no trouble w/ weight loss. She notes urination/stooling are okay. She has "blow-outs" every am on the commode. No reported constipation. NO dysuria, no freq, no hesitancy, no flank pain. She has no calf pain, no changes in clothing sizes. After discussion patient noted that she has had a cough over the past 1 week. She denied any fever, SOA, LEACH. PCR negative for respiratory pathogens. Weight in our hospital was listed as 137. Weights do not appear to be up to date. I would like a weight. Will order this as well. She has denied room spinning/vertigo/syncope/collapse today. Labs from this am were reviewed: CBC 10.3 hgb, wbc 5.71. plt 215. MCV normal. Chemistry showed sodium 133, K+ 3.60, Creatinine 0.40, glucose 101. Calcium 8.50. Ast 19, alt 5. Albumin 3.10. Urine culture so far too young to read. REVIEW OF SYMPTOMS: (Positives bolded) General: no reported weight loss, fever, chills, night sweats, fatigue, appetite loss HEENT: blurry vision, eye pain, eye discharge, dry eyes, decreased vision, sore throat tinnitus, bloody nose, hearin gloss, sinus pain/pressure, ear pain/pressure. Respiratory: shortness of breath, cough, hemoptysis, wheezing, pleurisy, Cardiovascular: chest pain, PND, palpitation, edema, orthopnea, syncope, swelling of extremities Gastro: Nausea, vomiting, diarrhea, hematemesis, abdominal pain, constipation Genito: hematuria, dysuria, glycosuria, hesitancy, frequency, incontinence [place]: Arthralgia, myalgia back pain, muscle weakness, joint swelling, NSAID use Skin: rash, pruritis, sores, nail changes, skin thickening, change in wart/mole, itching, rash, new lesions, pruritus, nail changes Neuro: Migraine, numbness, ataxia, tremor, vertigo, weakness, memory loss, I rritability, dizziness Endocrine: excessive thirst, polyuria, cold intolerance, heat intolerance, goiter Psychiatric: depression, anxiety, anti-depressants, alcohol abuse, drug abuse, insomnia, change in sleep pattern and mood changes Heme/lymph: easy bruising, bleeding gums, blood clots, swollen glands, lymphedema, Allergic/immune: allergic rhinitis, hay fever, asthma, hives Constitutional: Appearance-No acute distress, Consistent with stated age. Orientation- Oriented x 3, alert Gait- In hospital bed. Hip flexion 4/5 supine bilaterally. Bilateral UE and LE ~4+/5. Did not assess gait. Would appreciate phys therapy input. General- Patient is pleasant and cooperative with the interview and exam. Integumentary: General-No rashes, ulcers or lesions. Palpation- Normal skin moisture/turgor. Skin is warm to touch, appropriate. Capillary refill is normal bilateral Upper and lower extremity. Head/Neck: Head- normocephalic and atraumatic. Neck- without visible/palpable lumps or pulsations. Palpation- No bony tenderness about head/neck along frontal, occipital, temporal, parietal, mastoid, jawline, zygoma, orbit or any other location. NO temporal artery tenderness. No TMJ tenderness. Neck Supple. Thyroid-No thyromegaly, no nodules Eye: Bilaterally PERRLA, EOMI. No discharge. Upper and lower eyelids are normal. Sclera/conjunctiva normal without discharge. Cornea is normal and clear. Lens is normal. Eyeball appears normal. No ciliary flushing, no conjunctival injection. ENMT: Pinna- normal without tenderness or erythema. External auditory canal Left- normal without erythema or discharge, no excessive cerumen. External auditory canal Right-normal without erythema or discharge, no excessive cerumen. TM left- Dobbs/pearly, normal light reflex and anatomy TM Right- Dobbs/pearly, normal light reflex and anatomy Hearing Assessment-normal to conversational speech. Nose and sinus- No sinus tenderness along frontal/maxillary region. External appearance normal and midline. Nares- bilateral quiet airflow, no discharge. Nasal mucosa- No bleeding noted and no ulcerations observed. [place], moist. Turbinates non boggy. Lips- normal color, moist without cracks/lesions Oral Cavity/Palate- hard/soft palate intact without lesions, oral mucosa pink an d moist. Tongue normal midline. Oropharynx- no pharyngeal erythema, Uvula midline. No post nasal drip. No exudate. Salivary glands- Non tender to palpation CHEST/LUNG: Inspection- symmetric chest wall no pectus deformity. Normal effort, no distress, no use of accessory muscles. Palpation- nontender sternum, ribline. No abnormal pulsations. Auscultation- Breath sounds normal throughout all lung beck. Normal tracheal sounds, Normal bronchial sounds overlying sternum, Bronchovessicular sounds coarse, rare crackling bilaterally between scapulae posteriorly, vessicular breath sounds heard throughout periphery mildly reduced, coarse. Adventitious sounds- No wheezes, rare basilar rales and rhonchi. CARDIOVASCULAR: Carotid artery- normal, no bruits or abnormal pulsations. Jugular vein- no pulsations. Palpation/Percussion- Normal PMI, no palpable thrill Auscultation- Regular rate and rhythm. No murmur noted in sitting, supine positions. Extremities- no digital clubbing, cyanosis, edema, increased warmth. ABDOMEN: Inspection- normal and no visible pulsations. Normal contour. Auscultation- Bowel sounds normal, no abdominal bruits. Palpation/Percussion- soft, non-tender, no rebound tenderness, no rigidity (guarding), no jar tenderness, no masses. Liver-no hepatomegaly, Spleen no splenomegaly, Hernias- none. Rectal not examined. Peripheral Vascular: Upper extremity Left- Normal temperature with pink nailbeds and no ulcerations. Upper extremity Right- Normal temperature with pink nailbeds and no ulcerations. Lower extremity- Normal temperature with pink nailbeds and no ulcerations. DP pulses 2+ bilaterally. Pedal hair intact. Normal capillary refill. Edema- No edema. Musculoskeletal: Generalized-No generalized swelling or edema of extremities, no digital clubbing or cyanosis, neurovascularly intact all four extremities. Upper extremity- Symmetrical posture. No visible deformity. Normal sensation along medial and lateral upper extremity proximally and distally. NO tenderness overlying shoulder, lateral/medial epicondyle. Hotel Sales Manager 5/5 and strength 4/5 bilateral UE. Elbow palpated, no tenderness overlying olecranon. Normal supination, pronation to active/passive ROM and to resisted rotation. Bicep insertion/tricep insertion appear normal without obvious pathology. Rotator cuff evaluated and intact. Normal wrist ROM bilaterally. Normal hand movement, intrinsic muscles of hands normal. No tenderness to palpation of hands/wrist s/elbows. hands thin. Mildly enlarged PIP joints all fingers 2-4 bilaterally. Lower extremity- Hip: Not tender to palpation, no pain, no swelling, edema or erythema of surrounding tissue. Mildly reduced hip ROM bilaterally without pain. Hip flexion to gravity but no resistance. knee extension/flexion 4/5 bilaterally. Mildly reduced hip flexion. Knee: Knee ROM normal. No tenderness overlying trochanters, no tenderness about patella, quad tendon, patellar tendon. No tenderness at tibial tuberosity. Ankle: normal ROM not tender to palpation along medial/lateral malleolus. Foot: Normal movement of toes, no tenderness bilateral feet/toes. Normal foot type. Spine/Ribs- No deformities, masses or tenderness, no facet tenderness, no paraspinal tenderness on exam today, no known fractures, normal strength, Neurological: General- Moves all 4 extremities symmetrically. Symmetrical face and body posture. Cranial nerves- individually evaluated II-XII and intact. PERRLA, Normal EOMI, visual/special senses appear intact, Face is symmetrical and normal sensation/movement, normal tongue, normal strength/posture of neck musculature. Reflexes- intact with DTR 2+ patellar, Achilles, bicep, brachial, tricep. Ankle clonus normal with 2 beats. Strength- 4/5 bilateral UE and LE. Soft touch- intact bilateral UE and LE. Temperature sensation- intact bilateral UE and LE. Neuropsych: Oriented- Person, place, time. (AAOx3), Mild confusion. Some repeating and confabulating. Mood/affect- normal and congruent. Able to articulate. Speech-Normal speech, normal rate, normal tone, normal use of language, volume and coherence. Thought content- repeats, some confabulation. no SI/HI, no hallucinations, delusions, obsessions. Judgment/insight- Appropriate. Memory-Recall intact, remote and recent memory intact. Knowledge- Age appropriate fund of knowledge, concentration and attention span normal. Lymphatic: Head/Neck- normal size and non tender to palpation. Axillary- normal size and non tender to palpation. Femoral and Inguinal- normal size and non tender to palpation. Allergies Allergies Allergy/AdvReac Type Severity Reaction Status Date / Time codeine AdvReac Anxiety Verified 09/17/20 18:29 [facility] Medical History (Updated 09/19/20 @ 13:19 by LORIN RUIZ) Anxiety Bilateral leg cramps COPD (chronic obstructive pulmonary disease) Cough History of cerebrovascular accident Lumbar degenerative disc disease PAD (peripheral artery disease) Pain of left lower extremity Peripheral vascular disease Psoriatic arthritis TIA (transient ischemic attack) Wound of left lower extremity Wound of left lower extremity Surgical History (Updated 09/19/20 @ 12:30 by LORIN RUIZ) History of shoulder surgery Status post cholecystectomy Status post hysterectomy Status post tonsillectomy Status post tonsillectomy and adenoidectomy Family History Other Stroke Social History Smoking and tobacco status: Former smoker How long ago did patient quit smoking: Stopped at age 65 Alcohol intake: never Substance use type: does not use Abbie/presybeterian: PRESBYTERIAN Special abbie needs: No Agree to transfusion: Yes Adopted: No Caregiver/support person: No Foster care: No Household members: none Housing: house Marital status: W / Lives independently: Yes (meals on wheels) Number of children: 1 Number of grandchildren: 1 Highest education level completed: Associate degree: occupational, technical, vocational program half-way: No Current occupational status: retired Pets and animals: Yes (Dogs) History of recent travel: No Sexually active: No Do you think of yourself as: straight/heterosexual Current gender identity: female Seatbelt use: always Drives intoxicated or rides with intoxicated parts delivery driver: No Water heater temperature set < 120 degrees: Yes Working smoke detector in home: Yes Fire extinguisher in home: Yes Carbon monoxide detector in home: Yes Firearms in home: No Medications Medications: Medications Generic Name Dose Route Start Last Admin Trade Name Freq PRN Reason Stop Dose Admin Acetaminophen 500 mg 09/18/20 06:02 09/18/20 06:21 Acetaminophen 500 Mg Tablet PO 500 mg Q6H PRN Administration Pain Clopidogrel Bisulfate 75 mg 09/18/20 09:00 Clopidogrel Bisulfate 75 Mg Tablet PO DAILY BRAN Diazepam 2 mg 09/17/20 21:19 09/18/20 06:21 Diazepam 2 Mg Tablet PO 2 mg BID PRN Administration Anxiety Diphenhydramine HCl 25 mg 09/17/20 21:30 09/18/20 00:02 Diphenhydramine Hcl 25 Mg Capsule PO Not Given BEDTIME BRAN Enoxaparin Sodium 30 mg 09/18/20 09:00 Enoxaparin Sodium 30 Mg/0.3 Ml Syr SUBCUT DAILY BRAN Gabapentin 300 mg 09/17/20 22:00 09/18/20 00:02 Gabapentin 300 Mg Capsule PO Not Given BID [facility] Non-Formulary Medication 15 mg 09/18/20 09:00 Magnesium PO DAILY BRAN Non-Formulary Medication 1 tab 09/18/20 09:00 Vit C,U-Zm-Riesk-Lutein-Zeaxan [Preservision Areds-2] PO BID BRAN Non-Formulary Medication 1 each 09/18/20 09:00 Lactobacillus Acidophilus [Probiotic] PO DAILY BRAN Non-Formulary Medication 10 mg 09/18/20 21:00 Melatonin PO BEDTIME BRAN Psyllium Hydrophilic Mucilloid 1 packet 09/18/20 09:00 Psyllium Seed 6 Gm Packet PO BID BRAN Sodium Chloride 1 syr 09/17/20 18:47 09/17/20 19:10 0.9% Sodium Chloride 10 Ml Disp.Syrin IVF 1 syr PRN PRN Administration To flush IV Sodium Chloride 1 syr 09/18/20 05:00 09/18/20 05:58 0.9% Sodium Chloride 10 Ml Disp.Syrin IVF 1 syr Q8HR BRAN Administration Body Composition Height: 5 ft 7 in Weight: 137 lb 2.04 oz Body Mass Index (BMI): 21.4 Vital Signs Temperature: 98.2 F Pulse Rate: 69 Respiratory Rate: 16 Blood Pressure: 138/70 O2 Sat by Pulse Oximetry: 96 Lab/Tests/Diagnostic Imaging Lab/Tests/Diagnostic Imaging: Lab Review 09/17/20 09/17/20 09/17/20 19:05 19:05 19:05 WBC 8.94 RBC 4.41 Hgb 11.7 L Hct 36.8 L MCV 83.4 MCH 26.5 L MCHC 31.8 RDW Coeff of Gareth 15.2 H Plt Count 251 Immature Gran % (Auto) 0.3 Neut % (Auto) 71.8 Lymph % (Auto) 15.5 Donley % (Auto) 11.4 H Eos % (Auto) 0.7 Baso % (Auto) 0.3 Neut # (Auto) 6.4 Lymph # (Auto) 1.4 Donley # (Auto) 1.0 Eos # (Auto) 0.1 Baso # (Auto) 0.0 Immature Gran # (Auto) 0.0 Sodium 135.0 Potassium 4.60 Chloride 97.0 L Carbon Dioxide 30.0 Anion Gap 12.60 BUN 18.0 H Creatinine 0.60 Estimated GFR (MDRD) 94.00 BUN/Creatinine Ratio 30.00 Glucose 107.0 H Lactic Acid 0.70 Calcium 9.00 Total Bilirubin 0.60 AST 23.0 ALT 7.0 Alkaline Phosphatase 99.0 POC Venous Troponin I Troponin I Total Protein 7.20 Albumin 3.80 Globulin 3.40 Albumin/Globulin Ratio 1.11 Urine Color Urine Clarity Urine pH Ur Specific [place] Urine Protein Urine Glucose (UA) Urine Ketones Urine Blood Urine Nitrite Urine Bilirubin Urine Urobilinogen Ur Leukocyte Esterase Urine Microscopic RBC Ur Squamous Epith Cells Urine Bacteria Adenovirus (PCR) B. pertussis DNA (PCR) B.parapertussis DNA PCR C. pneumoniae DNA (PCR) Coronavirus OC43 (PCR) Coronavirus HKU1 (PCR) Coronavirus 229E (PCR) Coronavirus NL63 (PCR) Human Metapneumovir PCR Influenza Type A (PCR) Influenza B (RT-PCR) M. pneumoniae (PCR) Parainfluenza 1 (PCR) Parainfluenza 2 (PCR) Parainfluenza 3 (PCR) Parainfluenza 4 (PCR) RSV (PCR) Entero/Rhino (PCR) SARS-CoV-2 (PCR) 09/17/20 09/17/20 09/17/20 19:05 20:30 21:40 WBC RBC Hgb Hct MCV MCH MCHC RDW Coeff of Gareth Plt Count Immature Gran % (Auto) Neut % (Auto) Lymph % (Auto) [place] % (Auto) Eos % (Auto) Baso % (Auto) Neut # (Auto) Lymph # (Auto) [place] # (Auto) Eos # (Auto) Baso # (Auto) Immature Gran # (Auto) Sodium Potassium Chloride Carbon Dioxide Anion Gap BUN Creatinine Estimated GFR (MDRD) BUN/Creatinine Ratio Glucose Lactic Acid Calcium Total Bilirubin AST ALT Alkaline Phosphatase POC Venous Troponin I 0.01 Troponin I Total Protein Albumin Globulin Albumin/Globulin Ratio Urine Color Yellow Urine Clarity Slightly Urine pH 7.0 Ur Specific [place] 1.025 Urine Protein Trace H Urine Glucose (UA) Negative Urine Ketones Negative Urine Blood 1+ H Urine Nitrite Negative Urine Bilirubin Negative Urine Urobilinogen 0.2 Ur Leukocyte Esterase Negative Urine Microscopic RBC 5-10 Ur Squamous Epith Cells 0-2 Urine Bacteria 1+ Adenovirus (PCR) Not detected B. pertussis DNA (PCR) Not detected B.parapertussis DNA PCR Not detected C. pneumoniae DNA (PCR) Not detected Coronavirus OC43 (PCR) Not detected Coronavirus HKU1 (PCR) Not detected Coronavirus 229E (PCR) Not detected Coronavirus NL63 (PCR) Not detected Human Metapneumovir PCR Not detected Influenza Type A (PCR) Not detected Influenza B (RT-PCR) Not detected M. pneumoniae (PCR) Not detected Parainfluenza 1 (PCR) Not detected Parainfluenza 2 (PCR) Not detected Parainfluenza 3 (PCR) Not detected Parainfluenza 4 (PCR) Not detected RSV (PCR) Not detected Entero/Rhino (PCR) Not detected SARS-CoV-2 (PCR) Not detected 09/18/20 09/18/20 04:50 04:50 WBC 5.71 RBC 3.89 L Hgb 10.3 L Hct 32.2 L MCV 82.8 MCH 26.5 L MCHC 32.0 RDW Coeff of Gareth 15.2 H Plt Count 215 Immature Gran % (Auto) 0.2 Neut % (Auto) 55.1 Lymph % (Auto) 27.1 [place] % (Auto) 13.7 H Eos % (Auto) 3.5 Baso % (Auto) 0.4 Neut # (Auto) 3.2 Lymph # (Auto) 1.6 [place] # (Auto) 0.8 Eos # (Auto) 0.2 Baso # (Auto) 0.0 Immature Gran # (Auto) 0.0 Sodium 133.0 L Potassium 3.60 Chloride 100.0 Carbon Dioxide 28.0 Anion Gap 8.60 BUN 14.0 Creatinine 0.40 L Estimated GFR (MDRD) 150.00 BUN/Creatinine Ratio 35.00 Glucose 101.0 Lactic Acid Calcium 8.50 Total Bilirubin 0.60 AST 19.0 ALT 5.0 Alkaline Phosphatase 79.0 POC Venous Troponin I Troponin I Total Protein 6.10 L Albumin 3.10 L Globulin 3.00 Albumin/Globulin Ratio 1.03 Urine Color Urine Clarity Urine pH Ur Specific [place] Urine Protein Urine Glucose (UA) Urine Ketones Urine Blood Urine Nitrite Urine Bilirubin Urine Urobilinogen Ur Leukocyte Esterase Urine Microscopic RBC Ur Squamous Epith Cells Urine Bacteria Adenovirus (PCR) B. pertussis DNA (PCR) B.parapertussis DNA PCR C. pneumoniae DNA (PCR) Coronavirus OC43 (PCR) Coronavirus HKU1 (PCR) Coronavirus 229E (PCR) Coronavirus NL63 (PCR) Human Metapneumovir PCR Influenza Type A (PCR) Influenza B (RT-PCR) M. pneumoniae (PCR) Parainfluenza 1 (PCR) Parainfluenza 2 (PCR) Parainfluenza 3 (PCR) Parainfluenza 4 (PCR) RSV (PCR) Entero/Rhino (PCR) SARS-CoV-2 (PCR) Orders Category Date Time Status OBSERVATION [PLACE PATIENT OBSERVATION] .TO MEDSURG ADMISSION 09/17/20 21:38 Active (MONITORED BED) EKG-(ED ONLY) Stat CARDIO 09/17/20 18:47 Completed INTAKE & OUTPUT Q8HR CARE 09/17/20 21:17 Active IP: INSERT SALINE LOCK ONCE CARE 09/17/20 21:17 Active NEUROLOGICAL CHECKS Q4HR CARE 09/17/20 21:17 Active TELEMETRY MONITORING TELE CARE 09/17/20 21:38 Active VITAL SIGNS Q8HR CARE 09/17/20 21:17 Active REGULAR DIET DIETARY 09/17/20 Breakfast Ordered ED IV/MEDIPORT/POWERPORT .ONCE EMERGENCY 09/17/20 18:47 Active CBC W/ AUTO DIFF DAILY@0600 LAB 09/18/20 04:50 Completed CBC W/ AUTO DIFF DAILY@0600 LAB 09/19/20 06:00 Ordered CBC W/ AUTO DIFF Stat LAB 09/17/20 19:05 Completed COMPREHENSIVE METABOLIC PANEL DAILY@0600 LAB 09/18/20 04:50 Completed COMPREHENSIVE METABOLIC PANEL DAILY@0600 LAB 09/19/20 06:00 Ordered COMPREHENSIVE METABOLIC PANEL Stat LAB 09/17/20 19:05 Completed LACTIC ACID Stat LAB 09/17/20 19:05 Completed RESPIRATORY PANEL 2.1 (PCR) Stat LAB 09/17/20 21:40 Completed TROPONIN I Stat LAB 09/17/20 19:05 Completed URINALYSIS C & S IF INDICATED Stat LAB 09/17/20 20:30 Completed URINE CULTURE Stat LAB 09/17/20 20:30 Received 0.9 % Sodium Chloride [Saline Flush] MEDS 09/17/20 18:47 Active 1 syr IVF PRN PRN 0.9 % Sodium Chloride [Saline Flush] MEDS 09/18/20 05:00 Active 1 syr IVF Q8HR Acetaminophen [Tylenol] MEDS 09/18/20 06:02 Active 500 mg PO Q6H PRN Acetaminophen [Tylenol] MEDS 09/17/20 19:09 Discontinued 650 mg PO ONCE STA Clopidogrel Bisulfate [Plavix] MEDS 09/18/20 09:00 Active 75 mg PO DAILY Diazepam [Valium] MEDS 09/17/20 21:19 Active 2 mg PO BID PRN Diphenhydramine HCl [Benadryl] MEDS 09/17/20 21:30 Active 25 mg PO BEDTIME Enoxaparin Sodium [Lovenox] MEDS 09/18/20 09:00 Active 30 mg SUBCUT DAILY Gabapentin [Neurontin] MEDS 09/17/20 22:00 Active 300 mg PO BID Lactobacillus acidophilus [Probiotic] MEDS 09/18/20 09:00 Pending 1 each PO DAILY Psyllium Seed [Metamucil] MEDS 09/18/20 09:00 Active 1 packet PO BID Sodium Chloride 0.9% [Sodium Chloride] 500 ml MEDS 09/17/20 18:47 Discontinued IV BOLUS magnesium MEDS 09/18/20 09:00 Pending 15 mg PO DAILY melatonin MEDS 09/18/20 21:00 Active 10 mg PO BEDTIME vit C,D-Tp-jyuot-lutein-zeaxan [PreserVision AREDS-2] MEDS 09/18/20 09:00 Active 1 tab PO BID RESUSCITATION STATUS Routine OTHERS 09/17/20 21:17 Completed RESUSCITATION STATUS Routine OTHERS 09/17/20 21:23 Ordered CHEST, 1V AP ONLY Stat RADS 09/17/20 18:[address] HEAD W/O CONTRAST Stat RADS 09/17/20 18:47 Completed MRI BRAIN W/O CONTRAST Routine RADS 09/18/20 07:17 Ordered OT CONSULTATION Routine THERAPIES 09/17/20 Ordered PT CONSULT Routine THERAPIES 09/17/20 Ordered PT INPATIENT EVALUATION Routine THERAPIES 09/17/20 Ordered Medications Generic Name Dose Route Start Last Admin Trade Name Freq PRN Reason Stop Dose Admin Acetaminophen 500 mg 09/18/20 06:02 09/18/20 06:21 Acetaminophen 500 Mg Tablet PO 500 mg Q6H PRN Administration Pain Clopidogrel Bisulfate 75 mg 09/18/20 09:00 Clopidogrel Bisulfate 75 Mg Tablet PO DAILY BRAN Diazepam 2 mg 09/17/20 21:19 09/18/20 06:21 Diazepam 2 Mg Tablet PO 2 mg BID PRN Administration Anxiety Diphenhydramine HCl 25 mg 09/17/20 21:30 09/18/20 00:02 Diphenhydramine Hcl 25 Mg Capsule PO Not Given BEDTIME BRAN Enoxaparin Sodium 30 mg 09/18/20 09:00 Enoxaparin Sodium 30 Mg/0.3 Ml Syr SUBCUT DAILY BRAN Gabapentin 300 mg 09/17/20 22:00 09/18/20 00:02 Gabapentin 300 Mg Capsule PO Not Given BID BRAN Non-Formulary Medication 15 mg 09/18/20 09:00 Magnesium PO DAILY BRAN Non-Formulary Medication 1 tab 09/18/20 09:00 Vit C,J-Oh-Mzmrj-Lutein-Zeaxan [Preservision Areds-2] PO BID BRAN Non-Formulary Medication 1 each 09/18/20 09:00 Lactobacillus Acidophilus [Probiotic] PO DAILY BRAN Non-Formulary Medication 10 mg 09/18/20 21:00 Melatonin PO BEDTIME BRAN Psyllium Hydrophilic Mucilloid 1 packet 09/18/20 09:00 Psyllium Seed 6 Gm Packet PO BID BRAN Sodium Chloride 1 syr 09/17/20 18:47 09/17/20 19:10 0.9% Sodium Chloride 10 Ml Disp.Syrin IVF 1 syr PRN PRN Administration To flush IV Sodium Chloride 1 syr 09/18/20 05:00 09/18/20 05:58 0.9% Sodium Chloride 10 Ml Disp.Syrin IVF 1 syr Q8HR BRAN Administration Discontinued Medications Generic Name Dose Route Start Last Admin Trade Name Freq PRN Reason Stop Dose Admin Acetaminophen 650 mg 09/17/20 19:09 09/17/20 19:29 Acetaminophen 325 Mg Tablet PO 09/17/20 19:10 650 mg ONCE STA Administration Sodium Chloride 500 mls @ 500 mls/hr 09/17/20 18:47 09/17/20 19:10 Sodium Chloride IV 09/17/20 19:46 500 mls/hr BOLUS STA Administration AM labs reviewed. CBC/CMP. CBC WBC 5.71, hgb 10.3, plt 215. CMP sodium 133, K+ 3.60, bun 14, creatinine 0.40. Albumin 3.10, Imaging: CXR: Impression: Minimal left basilar atelectasis and/or pneumonia. CT CHEST 01/10/20 no acute process of lung. CT Head: Impression: No intracranial hemorrhage or evidence of large vessel infarct. Chronic small vessel ischemic changes. Diffuse cerebral atrophy. Assessment (1) Weakness: Status: Acute Code(s): R53.1 - Weakness SNOMED Code(s): 57503871 (2) Left lower lobe pneumonia: Status: Acute Code(s): J18.9 - Pneumonia, unspecified organism SNOMED Code(s): 941933431 (3) Chronic anemia: Status: Acute Code(s): D64.9 - Anemia, unspecified SNOMED Code(s): 635528996 Plan Plan: Weakness/Pneumonia: 89 yo CF who has been active, living alone, presented with progressive weakness over last 12-24 hours. COVID negative, labs reviewed and no e/o SIRS, no e/o SEPSIS. Patient has reported a cough, SOA, weakness. CXR showed left atelectasis and pneumonia. Based on presentation, it was deemed that she had a pneumonia and she was started on empiric abx azithromycin 500mg today, 250mg PO daily x 4 days, and cefdinir 300 BID. Phys therapy and Occ Therapy assessed patient today and felt that she was confused, giving various answers and required 24/7 care. I would like speech to evaluate patient, we have changed her to IV antibiotics azithromycin 500 daily x 3 days, ceftriaxone 1gram daily starting tomorrow. We will have therapy work with her over next few days, speech therapy to evaluate for any related pathology. History of TIA, she has no new symptoms on physical examination. Her CrCl is 90 w/ creatinine of 0.40. Her medications can continue at current values. We will have bedside swallow eval. Will have speech do a formal review. Saline lock IV at present. PORT score severity index: 109: Risk Class IV 8.2-9.3% mortality. Hospitalization recommended. She has some confusion and HCT <30%. The CURB 65 score of 2 points 6.8% 30 day mortality at least. Inpatient treatment reccommended. I suspect 3 day admission based on presentation. - Admit to inpatient service bed 111 - Telemetry - Vitals q 8 hours - Monitor for need for O2. NC to keep O2 >90% <98% - CBC/CMP repeat in am - anticoag with lovenox. Continue plavix. - Weigh patient to get accurate weight - F/U with patient again in am 09/19/20 - R/B/A to meds d/w patient, SE reviewed, - Consider change of antibiotic therapy if febrile, worsening, etc. For now treat for CAP. - PT/OT/Speech Anemia: normocytic process. Established problem. Current Status STABLE. Was 11.7 09/17/20 and 10.3 this am. 12.3 04/10/20. 03/23 20 was 11.8. MCV is normal 82.8 and RDW is mildly elevated. Saline locked IV. At this time monitor. Well above transfusion levels. Will monitor CBC. Normocytic anemia. - CBC in am -Iron/TIBC/Ferritin/B12 09/19/20. Bacteruria: 1+ on sample. Will await culture. Antibiotic selection may change based on this. BMI unable to calculate at present. WEight to be checked today. Diet: Normal diet. Trial of breakfast in am. DVT prophy: - Lovenox 30mg sub cutaneous daily. Activity: Up w/ assist. Fall precautions. Therapy Goals: Short Term Goals GOAL #1: Rolling and scooting up in bed with verbal cues. Goal to be met by: 09/20/20 GOAL #2: Transfer sup to/from sit min x 1 Goal to be met by: 09/20/20 GOAL #3: Transfer sit to/from stand min x 1 Goal to be met by: 09/20/20 GOAL #4: pt amb 50ft with rwx with min x 1 with improved posture, step length Goal to be met by: 09/20/20 GOAL #5: Improve BLE strength to 4- to 4/5 Goal to be met by: 09/20/20 Correction Goals GOAL #1: pt transfer sup to/from sit to/from stand CGA Goal to be met by: 09/22/20 GOAL #2: pt amb functional household distances with rwx/ rollator with CGA no LOB Goal to be met by: 09/22/20 GOAL #3: pt independent with rolling and scooting in bed Goal to be met by: 09/22/20 CODE STATUS: DNR Disposition: 87 yr old female COVID -, Generalized weakness, Pneumonia on CXR LLL. Admitted initially overnight as OBS but felt inpatient admission was more appropriate for her. Will have therapy eval for her weakness/difficulty with ambulation. Patient seen on floor, >70 minutes today spent on admission. Discussed with nursing, discussed with case management and discussed with therapy. Observation status is not appropriate based on age and diagnosis. Expected length of stay 3-5 days. Discharge planning ongoing. Will see if case management can help to eval NH placement if desired by family.
[2020-09-18] MEDS ORDERED: ZITHROMAX PO SCH (08:00)
[2020-09-18] MEDS ORDERED: OMNICEF PO SCH (09:00)
[2020-09-18] MEDS ORDERED: NON-FORMULARY MEDICATION (Magnesium 500 mg Tablet) PO SCH (09:00)
[2020-09-18] MEDS ORDERED: ZITHROMAX PO ONE (09:00)
[2020-09-18] MEDS ORDERED: LACTOBACILLUS ACIDOPHILUS PO SCH (09:00)
[2020-09-18] MEDS: FLORASTOR PO SCH (09:29)
[2020-09-18] MEDS: PLAVIX PO SCH (09:29)
[2020-09-18] MEDS: METAMUCIL PO SCH ×3 (09:30→20:14)
[2020-09-18] MEDS: LOVENOX SUBCUT SCH (09:30)
[2020-09-18] MEDS: NON-FORMULARY MEDICATION (Magnesium 500 mg Tablet) PO SCH (09:30)
[2020-09-18] MEDS: NON-FORMULARY MEDICATION (Vit C,E-Zn-Coppr-Lutein-Zeaxan [Preservision Areds-2] 250-90-40- PO SCH ×2 (09:30→20:15)
--- NOTE | 2020-09-18 09:32 | MRI ---
EXAM: MRI brain without contrast. Date: 09/18/2020 COMPARISON: CT brain 09/17/2020 HISTORY: Leg weakness. TECHNIQUE: Routine MR images of the brain were obtained without IV Gadolinium FINDINGS: No intracranial mass, mass effect, hemorrhage, or abnormal extra-axial fluid collection. The ventricles and subarachnoid spaces are moderately enlarged. No acute infarct on diffusion weight ed imaging. 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 There are periventricular and subcort ical white matter T2 hyperintensities that are nonspecific and most likely represent small vessel dis ease. No pituitary, pineal, or cerebellopontine angle lesion seen. The craniocervical junction appe ars normal. There has been bilateral cataract removal. Paranasal sinuses are clear. No fluid in th e middle ear cavities or mastoid air cells. IMPRESSION: 1. No acute intracranial abnormality. 2. 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 3. Periventricular and subcortical white matter T2 hyperintensities that are nonspecific and most li lisa represent small vessel disease.
[2020-09-18 12:59] LABS: TROPONIN I < 0.012 ng/ml (0.0000-0.120)
--- NOTE | 2020-09-18 15:00 | RS.PTINEVL ---
Subjective - Patient information Date of Evaluation: 09/18/20 Date of Arrival on Unit: 09/17/20 Admitted From:: Home Diagnosis: weakness, unsteady gait Usual Living Arrangement: Alone Living Arrangement Comments: pt lives alone has caregivers a few hours a day Home Environment: House Medical History: Hypertension, CVA/TIA, COPD, Arthritis Medical History Comments:: psoriatic arthritis, PVD, lumbar DDD, anxiety Surgical History: Cholecystectomy, Tonsillectomy, Hysterectomy Surgical History Comments:: L shld surgery(pt unsure what kind) Medications: see chart Subjective Information/ Patient Comments:: pt states that she feels weak. She has some difficulty answering questions, contradicting herself at times. 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 was by herself all night and for several hours during the day Current Level of Function: Partially Dependent Current Equipment Used at Home: Rollator, bedside commode Interventions - Objective Patient Orientation: Person, Place Current Interventions: Telemetry Observation: pt with difficulty coordinating movements, unable to perform opposition of finger to thumb Range of Motion - ROM Right Upper Extremity AROM: Moderate limitation (significantly limited R shld ROM, elbow wrist and hand WFL's) Left Upper Extremity AROM: Slight limitation (limited L shld ROM, elbow wrist and hand WFL's) Right Lower Extremity AROM: WFL's Left Lower Extremity AROM: WFL's Muscle Strength - Muscle Strength Right Upper Extremity Strength: Severe Weakness (shld flex 2-/5, elbow flex/ext 3/5 decreased refuge manager) Left Upper Extremity Strength: Mild Weakness (shld flex 3-/5, elbow flex/ext 3/5, decreased refuge manager) Right Lower Extremity Strength: Mild Weakness (hip flex 3/5, knee flex/ext 4-/5, ankle DF/PF 4-/5) Left Lower Extremity Strength: Mild Weakness (hip flex 3/5, knee flex/ext 4-/5, ankle DF/PF 4-/5) Sensation - Sensation Right Upper Extremity Sensation: Intact/Normal Left Upper Extremity Sensation: Intact/Normal Right Lower Extremity Sensation: Intact/Normal Left Lower Extremity Sensation: Intact/Normal Palpation Palpation Findings: None/Normal Balance - Sitting Balance and Reactions Static Sitting Balance: Poor Dynamic Sitting Balance: Poor Sitting Equilibrium Reactions: Delayed Left, Delayed Right Sitting Protective Reactions: Delayed Left, Delayed Right - Standing Balance and Reactions Static Standing Balance: Poor Dynamic Standing Balance: Poor Standing Equilibrium Reactions: Delayed Left, Delayed Right Standing Protective Reactions: Delayed Left, Delayed Right Functional Mobility - Bed Mobility Rolling R/L: Min Assist, 1 person assist Supine to Sit: Mod Assist, 1 person assist - Transfers Sit to Stand: Min Assist, Mod Assist, 1 person assist, 2 person assist Stand to Sit: Mod Assist, 1 person assist - Safety Awareness Safety Awareness: Poor SHLOMO INDEX SCORE: n/a Ambulation - Ambulation Assistive Device Used: Rolling Walker Orthotic/Prosthetic Device: No Distance: 15ft Assistance needed with Ambulation: Min Assist, Mod Assist, 2 person assist Gait Deviations: Forward posture, Short stride, Deviates from path Ambulation Comments: pt required assist advancing rwx and assist with walker placement. pt amb with knees flexed Factors Affecting Ambulation: Decreased Balance, Weakness, Decreased Coordination, Cognitive Status, Limited Endurance Treatment time - Time with patient Length of Evaluation: 21 Total treatment time: 26 Patient Education - Education Patient Education: Activity Modification, Education of Plan of Care Teaching Recipient: Patient Teaching Methods: Discussion Comments: Sent message to Dr. Peterson regarding PT/OT concerns with patient going home without 24hour supervision due to cogntive as well as physical deficits. Assessment - Assessment Problem List:: Decreased level of function, Requires training/education, Decreased safety/Risk of falls, Weakness, Cognitive status limits abilities Rehab Potential: Fair Further Therapy Indicated?: Yes Candidate for Swing Bed for Therapy Services?: Feel pt may not be a candidate for swing bed for therapy due to low functional level may require longer term care. However could reassess if pt admitted. Evaluation Complexity: HISTORY: High, EXAM OF BODY SYSTEMS: Medium, CLINICAL PRESENTATION: Medium, CLINICAL DECISION MAKING: Medium Patient's Goal(s): pt unable to express goal at this time. Short Term Goals GOAL #1: Rolling and scooting up in bed with verbal cues. Goal to be met by: 09/20/20 GOAL #2: Transfer sup to/from sit min x 1 Goal to be met by: 09/20/20 GOAL #3: Transfer sit to/from stand min x 1 Goal to be met by: 09/20/20 GOAL #4: pt amb 50ft with rwx with min x 1 with improved posture, step length Goal to be met by: 09/20/20 GOAL #5: Improve BLE strength to 4- to 4/5 Goal to be met by: 09/20/20 Federal Judge Goals GOAL #1: pt transfer sup to/from sit to/from stand CGA Goal to be met by: 09/22/20 GOAL #2: pt amb functional household distances with rwx/ rollator with CGA no LOB Goal to be met by: 09/22/20 GOAL #3: pt independent with rolling and scooting in bed Goal to be met by: 09/22/20 Plan Plan of Care: Therapeutic EX, Neuromuscular Re-Educ, Therapeutic Activity Other:: gait training Frequency of Treatment: 1-2 X day, as tolerated Duration of Treatment: 5 days Anticipated Discharge Destination: Dr. Peterson to discuss dc plan with son Treatment Diagnosis (ICD 10 Codes): impaired balance R 26.81. difficulty walking R 26.2. weakness M62.81. risk of falls Z91.81 Has the Physician been added for Co-signature?: Yes
[2020-09-18] MEDS: MELATONIN 1 MG PO SCH (20:17)
[2020-09-19 05:48] LABS: BASOPHILS % (AUTO) 0.5 % (0.0-3.0); EOSINOPHILS # (AUTO) 0.3 K/ul (0.0-0.7); EOSINOPHILS % (AUTO) 4.8 % (0.0-7.0); HEMATOCRIT 37.2 % (37.0-47.0); HEMOGLOBIN 11.7 g/dl (12.0-16.0); IMMATURE GRANULOCYTE % (AUTO) 0.4 % (0.0-5.0); LYMPHOCYTES # (AUTO) 1.5 K/uL (0.60-3.4); LYMPHOCYTES % (AUTO) 27.2 (10.0-50.0); MEAN CORPUSCULAR HEMOGLOBIN 26.2 pg (27.0-31.0); MEAN CORPUSCULAR HGB CONC 31.5 (31.8-35.4); MEAN CORPUSCULAR VOLUME 83.2 fl (81.0-99.0); MONOCYTES # (AUTO) 0.5 K/uL (0.4-2.0); MONOCYTES % (AUTO) 9.5 (0-10); NEUTROPHILS # (AUTO) 3.3 K/ul (2.0-6.9); NEUTROPHILS % (AUTO) 57.6 % (42.2-75.2); PLATELET COUNT 262 10^3/uL (140-440); RDW COEFFICIENT OF VARIATION 14.9 % (11.6-14.8); RED BLOOD COUNT 4.47 10^6/ul (4.20-5.40); WHITE BLOOD COUNT 5.67 K/ul (4.6-10.2)
[2020-09-19 05:59] LABS: IRON 27.5 ug/dL (37-170)
[2020-09-19 06:24] LABS: ALANINE AMINOTRANSFERASE 6.2 U/L (0-35); ALBUMIN 3.63 g/dL (3.5-5.0); ALKALINE PHOSPHATASE 84.5 U/L (53-141); ASPARTATE AMINO TRANSFERASE 24.2 U/L (14-36); BILIRUBIN,TOTAL 0.44 mg/dL (0.2-1.3); CALCIUM 9.06 mg/dL (8.4-10.2); CHLORIDE 100.9 mmol/L (98-107); CREATININE 0.45 mg/dL (0.60-1.30); GLUCOSE 93.7 mg/dL (74-106); POTASSIUM 3.83 mmol/L (3.5-5.1); SODIUM 136.4 mmol/L (134.5-145); TOTAL PROTEIN 7.06 g/dL (6.3-8.2)
--- NOTE | 2020-09-19 07:28 | PCM.PROG ---
Date Seen by Provider: 09/19/20 Time Seen by Provider: 07:16 Subjective: 89 yo CF HD #2 Pneumonia, generalized weakness, gait abnormality, frailty admitted to Med/surg room 111. Patient is now on day 2/5 of antibiotics (2/3 of 500mg azithromycin and 2/5 for cephalosporin). Labs this am showed wbc 5.67, hgb 11.7 *up from 10.3 yesterday* hct 37.2 and plt 262. Normal differential. Chemistry showed sodium 136.4, K+ 3.83, co2 31, cl 100.9, cr 0.45, GFR 131, glucose normal at 93.7. She has an iron of 27.5, TIBC 226, Ferritin of 124 suggesting anemia of chronic disease. AST 24.2 and normal, alt 6.2 and normal. b12 was 578 and normal. Vitals this am within normal limits. Reviewed overnight vitals. Remains afebrile BP within acceptable limits for age throughout hospital stay. So far ranging from 102-142/58-79. RR remains stable at ~16. O2 98-99% on RA. Telemetry was reviewed throughout the stay and she has had SA with BBB. No chest pain, no new symptoms. Cough present for last 3-5 days. I+O throughout hospital stay have not been recorded. She has had 1 BM yesterday 09/18/20. Therapy met with patient yesterday and recommended 24hour care. She is able to articulate, able to discuss her care but has some weakness and some mild confusion. She has not developed any new focal neurological findings so far. 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 She has some perivventricular and subcortical white matter T2 hyperintensities non specific small vessel disease. Reviewed overnight nursing documentation, talked with nursing this am. Neuro checks q4 hours GCS remains 15, mild bilateral UE and LE weakness, non focal findings. Note at 19:20 WNL AAO fully, unlabored breathing, remains weak difficulty walking, saline lock LAC. No pain c/o. This am [id number] Weir note reviewed. Repositioning self in bed. Some weakness remains/reported. Eval by OT/PT today. Will also have ST eval as concern for oral care as well. At present no choking/coughing. She has minimal occasional cough. No c/o pain. No reported headache, no fever, no vision changes, no loss of taste/smell, No new URI symptoms, reviewed allergy symptoms, no cough/congestion/wheezing/SOA, No CP, no reported fatigue, no abd pain, no N/V/D, no constipation, no changes in urination/stooling, no new MSK pain except as above, no recent injuries except as listed above. Falls reviewed and listed above. Therapy working with patient feels she needs 24 hour care. Family is not here, she lives alone. With confusion, concern for self medication intake for her pneumonia. Hospital admission remains appropriate. Consider swing/rehab/SNF vs LNF as next line. REVIEW OF SYMPTOMS: (Positives bolded) General: no reported weight loss, fever, chills, night sweats, fatigue, appetite loss HEENT: blurry vision, eye pain, eye discharge, dry eyes, decreased vision, sore throat tinnitus, bloody nose, hearin gloss, sinus pain/pressure, ear pain/pressure. Respiratory: shortness of breath, cough, hemoptysis, wheezing, pleurisy, Cardiovascular: chest pain, PND, palpitation, edema, orthopnea, syncope, swelling of extremities Gastro: Nausea, vomiting, diarrhea, hematemesis, abdominal pain, constipation Genito: hematuria, dysuria, glycosuria, hesitancy, frequency, incontinence [place]: Arthralgia, myalgia back pain, muscle weakness, joint swelling, NSAID use Skin: rash, pruritis, sores, nail changes, skin thickening, change in wart/mole, itching, rash, new lesions, pruritus, nail changes Neuro: Migraine, numbness, ataxia, tremor, vertigo, weakness, memory loss, Irritability, dizziness Endocrine: excessive thirst, polyuria, cold intolerance, heat intolerance, goiter Psychiatric: depression, anxiety, anti-depressants, alcohol abuse, drug abuse, insomnia, change in sleep pattern and mood changes Heme/lymph: easy bruising, bleeding gums, blood clots, swollen glands, lymphedema, Allergic/immune: allergic rhinitis, hay fever, asthma, hives Objective: Vital Signs - 24 hr 09/18/20 08:00 09/18/20 14:00 09/18/20 21:34 Temperature 97.6 F 97.8 F Pulse Rate 77 75 Respiratory Rate 16 20 16 Blood Pressure 102/63 142/58 H O2 Sat by Pulse Oximetry 100 98 09/19/20 05:15 Temperature 97.6 F Pulse Rate 71 Respiratory Rate 16 Blood Pressure 137/79 O2 Sat by Pulse Oximetry 99 Constitutional: Appearance-Still without any distress, no accessory muscle usage, breathing is calmer today, lungs are clear. Thin/frail. Consistent with stated age. Orientation- Oriented x 3/full, alert Gait- In hospital bed. General- Patient is pleasant and cooperative with the interview and exam. Integumentary: General-No rashes, ulcers or lesions. Palpation- Normal skin moisture/turgor. Skin is warm to touch, appropriate. Capillary refill is normal bilateral Upper and lower extremity. Head/Neck: Head- normocephalic and atraumatic. Neck- without visible/palpable lumps or pulsations. Palpation- No bony tenderness about head/neck along frontal, occipital, temporal, parietal, mastoid, jawline, zygoma, orbit or any other location. NO temporal artery tenderness. No TMJ tenderness. Neck Supple. Thyroid-No thyromegaly, no nodules Eye: Bilaterally PERRLA, EOMI. No discharge. Upper and lower eyelids are normal. ENMT: Pinna- normal without tenderness or erythema. External auditory canal Left- normal without erythema or discharge, no excessive cerumen. Nose: External appearance normal and midline. Nares- bilateral quiet airflow, no discharge. Nasal mucosa- No bleeding noted and no ulcerations observed. [place], moist. Turbinates non boggy. Lips- normal color, moist without cracks/lesions Oral Cavity/Palate- hard/soft palate intact without lesions, oral mucosa pink and moist. Tongue normal midline. Oropharynx- no pharyngeal erythema, Uvula midline. No post nasal drip. No exudate. Salivary glands- Non tender to palpation CHEST/LUNG: Inspection- symmetric chest wall Normal effort, no distress, no use of accessory muscles. Palpation- nontender sternum, ribline. Auscultation- Breath sounds mildly reduced bases. Normal tracheal sounds, Normal bronchial sounds overlying sternum, Bronchovessicular sounds coarse, rare crackling bilaterally remains, cough x 2 during visit today. vessicular breath sounds heard throughout periphery mildly reduced, coarse. Adventitious sounds- No wheezes, no rhonchi, rare bibasilar crackling. CARDIOVASCULAR:Palpation/Percussion- Normal PMI, no palpable thrill Auscultation- Regular rate and rhythm. No murmur noted in sitting, supine positions. Extremities- no digital clubbing, cyanosis, edema, increased warmth. ABDOMEN: Inspection- normal and no visible pulsations. Normal contour. Auscultation- Bowel sounds normal, no abdominal bruits. Palpation/Percussion- soft, non-tender, no rebound tenderness, no rigidity (guarding), no jar tenderness, no masses. Liver-no hepatomegaly, Spleen no splenomegaly, Peripheral Vascular: Upper extremity Left- Normal temperature with pink nailbeds and no ulcerations. Upper extremity Right- Normal temperature with pink nailbeds and no ulcerations. Lower extremity- Normal temperature with pink nailbeds and no ulcerations. DP pulses 2+ bilaterally. Pedal hair intact. Normal capillary refill. Edema- No edema. Musculoskeletal: Generalized-No generalized swelling or edema of extremities, no digital clubbing or cyanosis, neurovascularly intact all four extremities. Upper extremity- Symmetrical posture. No visible deformity. Normal sensation along medial and lateral upper extremity proximally and distally. NO tenderness overlying shoulder, lateral/medial epicondyle. Component Prep Operator is 5/5 mildly reduced UE strenght to elbow flexion/extension. Elbow palpated, no tenderness overlying olecranon. Normal supination, pronation to active/passive ROM and to resisted rotation. Bicep insertion/tricep insertion appear normal without obvious pathology. Normal wrist ROM bilaterally. Normal hand movement, intrinsic muscles of hands normal. No tenderness to palpation of hands/wrists/elbows. hands thin. Mildly enlarged PIP joints all fingers 2-4 bilaterally. Lower extremity- Hip: Not tender to palpation, no pain, no swelling, edema or erythema of surrounding tissue. Mildly reduced hip ROM bilaterally without pain. Hip flexion to gravity but no resistance. knee extension/flexion 4/5 bilaterally. Mildly reduced hip flexion. Knee: Knee ROM normal. No tenderness overlying trochanters, no tenderness about patella, quad tendon, patellar tendon. No tenderness at tibial tuberosity. Ankle: normal ROM not tender to palpation along medial/lateral malleolus. Foot: Normal movement of toes, no tenderness bilateral feet/toes. Normal foot type. Spine/Ribs- No deformities, masses or tenderness, no facet tenderness, no paraspinal tenderness on exam today, no known fractures, normal strength, Neurological: General- Moves all 4 extremities symmetrically. Symmetrical face and body posture. Cranial nerves- individually evaluated II-XII and intact. PERRLA, Normal EOMI, visual/special senses appear intact, Face is symmetrical and normal sensation/movement, normal tongue, normal strength/posture of neck musculature. Reflexes- intact with DTR 1+ patellar, Achilles, bicep, brachial, tricep. Neuropsych: Oriented- Person, place, time. (AAOx3), Mild confusion. Still with some repeating answers. Mood/affect- pleasant normal and congruent. Able to articulate. Speech-Normal speech, normal rate, normal tone, normal use of language, volume and coherence. Thought content- repeats, some confabulation. no SI/HI, no hallucinations, delusions, obsessions. Judgment/insight- Appropriate. Memory-Recall intact, remote and recent memory intact. Knowledge- Age appropriate fund of knowledge, concentration and attention span normal. Lymphatic: Head/Neck- normal size and non tender to palpation. Laboratory Last Values WBC 5.67 K/ul (4.6-10.2) 09/19/20 05:26 RBC 4.47 10^6/ul (4.20-5.40) 09/19/20 05:26 Hgb 11.7 g/dl (12.0-16.0) L 09/19/20 05:26 Hct 37.2 % (37.0-47.0) 09/19/20 05:26 MCV 83.2 fl (81.0-99.0) 09/19/20 05:26 MCH 26.2 pg (27.0-31.0) L 09/19/20 05:26 MCHC 31.5 (31.8-35.4) L 09/19/20 05:26 RDW Coeff of Gareth 14.9 % (11.6-14.8) H 09/19/20 05:26 Plt Count 262 10^3/uL (140-440) 09/19/20 05:26 Immature Gran % (Auto) 0.4 % (0.0-5.0) 09/19/20 05:26 Neut % (Auto) 57.6 % (42.2-75.2) 09/19/20 05:26 Lymph % (Auto) 27.2 (10.0-50.0) 09/19/20 05:26 [place] % (Auto) 9.5 (0-10) 09/19/20 05:26 Eos % (Auto) 4.8 % (0.0-7.0) 09/19/20 05:26 Baso % (Auto) 0.5 % (0.0-3.0) 09/19/20 05:26 Neut # (Auto) 3.3 K/ul (2.0-6.9) 09/19/20 05:26 Lymph # (Auto) 1.5 K/uL (0.60-3.4) 09/19/20 05:26 [place] # (Auto) 0.5 K/uL (0.4-2.0) 09/19/20 05:26 Eos # (Auto) 0.3 K/ul (0.0-0.7) 09/19/20 05:26 Baso # (Auto) 0.0 K/uL (0-0.2) 09/19/20 05:26 Immature Gran # (Auto) 0.0 (0.0-1.0) 09/19/20 05:26 Sodium 136.4 mmol/L (134.5-145) 09/19/20 05:26 Potassium 3.83 mmol/L (3.5-5.1) 09/19/20 05:26 Chloride 100.9 mmol/L (98-107) 09/19/20 05:26 Carbon Dioxide 31.0 mmol/L (22-30.0) H 09/19/20 05:26 Anion Gap 8.33 09/19/20 05:26 BUN 12.0 mg/dL (7-17) 09/19/20 05:26 Creatinine 0.45 mg/dL (0.60-1.30) L 09/19/20 05:26 Estimated GFR (MDRD) 131.00 mL/min 09/19/20 05:26 BUN/Creatinine Ratio 26.66 09/19/20 05:26 Glucose 93.7 mg/dL (74-106) 09/19/20 05:26 Lactic Acid 0.70 mmol/L (0.7-2.1) 09/17/20 19:05 Calcium 9.06 mg/dL (8.4-10.2) 09/19/20 05:26 Iron 27.5 ug/dL (37-170) L 09/19/20 05:26 TIBC 226 ug/dL (261-497) L 09/19/20 05:26 % Saturation 12 % 09/19/20 05:26 Ferritin 124.00 ng/mL (11.1-264.0) 09/19/20 05:26 Total Bilirubin 0.44 mg/dL (0.2-1.3) 09/19/20 05:26 AST 24.2 U/L (14-36) 09/19/20 05:26 ALT 6.2 U/L (0-35) 09/19/20 05:26 Alkaline Phosphatase 84.5 U/L (53-141) 09/19/20 05:26 POC Venous Troponin I 0.01 ng/ml (0.00-0.08) 09/17/20 19:05 Troponin I < 0.012 ng/ml (0.0000-0.120) 09/17/20 19:05 Total Protein 7.06 g/dL (6.3-8.2) 09/19/20 05:26 Albumin 3.63 g/dL (3.5-5.0) 09/19/20 05:26 Globulin 3.43 09/19/20 05:26 Albumin/Globulin Ratio 1.05 09/19/20 05:26 Vitamin B12 578 pg/mL (239-931) 09/19/20 05:26 Urine Color Yellow (YELLOW) 09/17/20 20:30 Urine Clarity Slightly (CLEAR) 09/17/20 20:30 Urine pH 7.0 (5-9) 09/17/20 20:30 Ur Specific [place] 1.025 (1.005-1.030) 09/17/20 20:30 Urine Protein Trace (NEGATIVE) H 09/17/20 20:30 Urine Glucose (UA) Negative (NEGATIVE) 09/17/20 20:30 Urine Ketones Negative (NEGATIVE) 09/17/20 20:30 Urine Blood 1+ (NEGATIVE) H 09/17/20 20:30 Urine Nitrite Negative (NEGATIVE) 09/17/20 20:30 Urine Bilirubin Negative (NEGATIVE) 09/17/20 20:30 Urine Urobilinogen 0.2 (0.2) 09/17/20 20:30 Ur Leukocyte Esterase Negative (NEGATIVE) 09/17/20 20:30 Urine Microscopic RBC 5-10 (0-2) 09/17/20 20:30 Ur Squamous Epith Cells 0-2 (0-5) 09/17/20 20:30 Urine Bacteria 1+ (NOT PRESENT) 09/17/20 20:30 Adenovirus (PCR) Not detected (NOT DETECT) 09/17/20 21:40 B. pertussis DNA (PCR) Not detected (NOT DETECT) 09/17/20 21:40 B.parapertussis DNA PCR Not detected (NOT DETECT) 09/17/20 21:40 C. pneumoniae DNA (PCR) Not detected (NOT DETECT) 09/17/20 21:40 Coronavirus OC43 (PCR) Not detected (NOT DETECT) 09/17/20 21:40 Coronavirus HKU1 (PCR) Not detected (NOT DETECT) 09/17/20 21:40 Coronavirus 229E (PCR) Not detected (NOT DETECT) 09/17/20 21:40 Coronavirus NL63 (PCR) Not detected (NOT DETECT) 09/17/20 21:40 Human Metapneumovir PCR Not detected (NOT DETECT) 09/17/20 21:40 Influenza Type A (PCR) Not detected (NOT DETECT) 09/17/20 21:40 Influenza B (RT-PCR) Not detected (NOT DETECT) 09/17/20 21:40 M. pneumoniae (PCR) Not detected (NOT DETECT) 09/17/20 21:40 Parainfluenza 1 (PCR) Not detected (NOT DETECT) 09/17/20 21:40 Parainfluenza 2 (PCR) Not detected (NOT DETECT) 09/17/20 21:40 Parainfluenza 3 (PCR) Not detected (NOT DETECT) 09/17/20 21:40 Parainfluenza 4 (PCR) Not detected (NOT DETECT) 09/17/20 21:40 RSV (PCR) Not detected (NOT DETECT) 09/17/20 21:40 Entero/Rhino (PCR) Not detected (NOT DETECT) 09/17/20 21:40 SARS-CoV-2 (PCR) Not detected (NOT DETECT) 09/17/20 21:40 Urine culture Pending. (1) Weakness: Status: Acute Code(s): R53.1 - Weakness SNOMED Code(s): 32275113 (2) Left lower lobe pneumonia: Status: Acute Code(s): J18.9 - Pneumonia, unspecified organism SNOMED Code(s): 517334225 (3) Chronic anemia: Status: Acute Code(s): D64.9 - Anemia, unspecified SNOMED Code(s): 915291482 Plan: Weakness/Pneumonia: 89 yo CF HD 2 admitted with generalized UE/LE weakness and pneumonia. Antibiotic day 2 azithromycin 500 day 2/3, ceftriaxone Day 1/ (total cephalosporin day 08/18). Patient was active, living alone, and presented 09/17/20 with worsening weakness. Labs reviewed, telemetry reviewed, d/w care with patient/nursing/case management. She still has no e/o SIRS, no e/o SEPSIS. Patient has reported cough is improving. Denied SOA today, weakness may be a bit better. CXR showed left atelectasis and pneumonia. 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 Phys therapy and Occ Therapy following with patient. ST to see patient today. Therapist dept has requested 03/02 care for patient. Despite history of TIA, she has no new symptoms on physical examination, MRI no new symptoms/findings. Await speech formal review. Saline lock IV at present. PORT score severity index: 109: Risk Class IV 8.2-9.3% mortality. Hospitalization recommended. She has some confusion and HCT <30%. The CURB 65 score of 2 points 6.8% 30 day mortality at least. Continued inpatient treatment recommended. I suspect another 1-2 day admission based on presentation/status. She is improving. - Admit to inpatient service bed 111 - Telemetry - Vitals q 8 hours - Monitor for need for O2. NC to keep O2 >90% <98% - CBC/CMP repeat in am - anticoag with lovenox. Continue plavix. - F/U with patient again in am 09/20/20 - R/B/A to meds d/w patient, SE reviewed, - Consider change of antibiotic therapy if febrile, worsening, etc. For now treat for CAP. - PT/OT/Speech Anemia: normocytic process. Anemia of Chronic Disease. Improved today compared to yesterday. Iron/TIBC/Ferritin/b12 do not support Fe Def or B12 def, rather Chronic disease. This is an established problem and currently stable. We will continue to monitor. - CBC in am Bacteruria: Culture negative to date. On rocephin. Monitor. Diet: Normal diet pending speech therapy eval. DVT prophy: - Lovenox 30mg sub cutaneous daily. Activity: Up w/ assist. Fall precautions. CODE STATUS: DNR Disposition: 89 yr old female COVID -, Generalized weakness, Pneumonia on CXR LLL HD #2. She was admitted initially into obs on 09/17/20, but was changed to inpatient 09/18/20 due to PORT score, weakness. She is on IV abx, speech eval today. Will have therapy continue to eval/treat for her weakness/difficulty with ambulation. Patient seen on floor today, 38 minutes today spent on rounding, discussion with nursing/case management and therapy dept. Observation status is still inappropriate based on age and diagnosis. Expected length of stay 1-2 more. Discharge planning ongoing. Patient not interested in rehab/SNF.
[2020-09-19] MEDS: FLORASTOR PO SCH (08:40)
[2020-09-19] MEDS: PLAVIX PO SCH (08:40)
[2020-09-19] MEDS: NEURONTIN PO SCH ×2 (08:40→20:25)
[2020-09-19] MEDS: ROCEPHIN 1 GM/50 ML D5W 1 GM/50 ML BAG IV SCH (08:40)
[2020-09-19] MEDS: NON-FORMULARY MEDICATION (Magnesium 500 mg Tablet) PO SCH (08:44)
[2020-09-19] MEDS: NON-FORMULARY MEDICATION (Vit C,E-Zn-Coppr-Lutein-Zeaxan [Preservision Areds-2] 250-90-40- PO SCH ×2 (08:45→20:27)
[2020-09-19] MEDS: METAMUCIL PO SCH ×2 (08:46→21:07)
[2020-09-19] MEDS: LOVENOX SUBCUT SCH (08:55)
[2020-09-19] MEDS ORDERED: ZITHROMAX PO SCH (09:00)
[2020-09-19] MEDS: ZITHROMAX 500 MG in SODIUM CHLORIDE 250 ML IV SCH (09:43)
--- NOTE | 2020-09-19 12:30 | RS.BEDDYS ---
Subjective Date of Evaluation: 09/19/20 Diagnosis: Fall, weakness, LLL pnuemonia Current Level of Function: This 89 year old woman currently consumes a regular diet texture and thin liquids. She has a hx of diverticulitis and independently prefers to restricts food textures. Pt also currently does not consume wheat. She has a hx of UES dysfunction with x2 stretching. Pt is admitted with change in mental status, LLL pneumonia, and gereralized weakness. CONCRETE M[employer]ING TRUCK DRIVER will evaluate at the bedside for aspiration risks, safer and least restrictive diet texture. Current Diet: Regular diet texture, thin liquids; medications whole with water. Pt does not consume wheat or lettuce. Current Subjective/complaints:: Pt reported that she has a hx of esophagus problems. She discussed her concerns with food sticking in her throat, multiple swallows, use of liquids to wash food down, and difficulty with use of straws. She also discussed globus sensation when eating or taking her pills. Pt had esophagus stretched 2x, and reported she needed it stretched again; however does not agree to complete the procedure. Pt also reported hoarse vocal quality that is new. Medical History Comments:: CVA; TIA; esophagus stretching vs dilation; anxiety; COPD not oxygen dependent Hx Home Medications: Refer to medications to review complete list. Patient's Goals: Figure out compensatory swallow strategies to induce easier swallowing. General Information - General Denture Type: Not Applicable Patient Orientation: Person, Place, Time, Situation Ability to Follow Directions: Good Is Patient able to Repeat Directions?: Yes Oral Expression Ability: Mild Impairment (mild dysarthric quality with longer speech utterances. 90% intelligible in all environments with background noise.) - Voice Voice Quality: Hoarse, Weak Voice Pitch: Mildly Low Voice Loudness: Moderately Soft/Quiet Oral-Facial Assessment - Face Facial Symmetry: Symmetrical - Dental/Labial Mouth Occlusion: Normal Teeth Characteristics: Intact/Normal Lip Protrusion: Weak Lip Retraction: Reduced ROM Puff Cheeks: Reduced Strength - Lingual Protrusion: Normal Retraction: Normal Tip Lateralization: Discoordination Repeated Tip Lateralization: Discoordination Tip Elevation: Reduced ROM Repeated Tip Elevation: Reduced ROM Comments: Repeated lingual tip elevation several attempts with CONCRETE M[employer]ING TRUCK DRIVER providing tactile prompts. Pt could not disassociate mandible and lingual base. Weak, poor ROM, and discoordinated lingual movements with all oral motor tasks. - Comments/Additional Info. Comments:: When speaking to CONCRETE M[employer]ING TRUCK DRIVER, right side drool noted several times. No attempt at wiping or swallowing pooled saliva. Oral cavity is in good condition without edema or xerostoma. Food Presentation - Solids Food Presented: Regular (Cracker; pt fed self) Behaviors/Comments: Pt took appropriate size bite of regular texture. Mastication process slightly prolonged, but functional labial closure and vertical jaw movement. Bolus formation mildly discoordinated for functional A-P transfer. Suspected poor a-p transfer due to, post swallow, moderate oral stasis followed with liquid wash to clear bolus. Pt had 2x swallow; audible swallow; and throat clear. Pt has risks for aspiration. - Liquids Liquid Presented: Thin (open cup; room temperature liquids) Behaviors/Comments: Pt took sips of thin liquids via open cup. Cervical ausculation revealed initial swallow timely and appropriate sound of UES open, apnea period, and clear breath sound post swallow. Second trial, pt had moderate delay in swallow initiation with resulting 2 additional dry swallows. Loud audible swallow, throat clear, delayed cough, and laryngeal burping for outward s/s of aspiration. Pt has risks for aspiration with thin liquids. - Recommendations: Dysphagia Evaluation Dietary Recommendations: Regular, Thin Comments:: CONCRETE M[employer]ING [employer] DRIVER wants to continue regular diet texture and thin liquids with restrictions. Food texture restrictions include bread. Thin liquids need to be room temperature or cool, and no straws. MEDS WHOLE; CRUSH OR REFER TO CONCRETE M[employer]ING TR[employer] DRIVER IF DIFFICULTY OBSERVED. Dysphagia Swallow Precautions/Strategies: Sitting Upright (90 deg), No Straw, Alternate Liquids/Solids Comments:: CONCRETE M[employer]ING TR[employer] DRIVER wants to trial several compensatory swallow strategies including a head turn. However, to determine the appropriate swallow strategy, CONCRETE M[employer]ING TR[employer] DRIVER recommends a formal MBSS. - Summary Dysphagia Evaluation Summary: Pt presents at the bedside with risks for aspiration due to hx of esophageal dysfunction, decreased laryngeal elevation, general weakness, and lingual function. Pt has moderate dysphagia with suspected change in esophageal deficits that may induce risks for aspiration episodes. Pt's weak lingual coordination and ROM affects her oral phase for bolus manipulation and transfer; with decreased pressure in oral cavity for functional swallow. Laryngeal elevation has sluggish superior height with minimal to no anterior movement. Post swallow, moderate oral residue/stasis observed and requires a liquid wash to clean. However if Pt's UES is impaired at this time, multiple swallows could increase globus sensation, pooling around UES, and fatigue of mechanisms. CONCRETE M[employer]ING TR[employer] DRIVER feels to determine safer diet and liquid with use of appropriate swallow strategies a MBSS is needed. Pt has risks for aspiration at this time. Further Therapy Indicated?: Yes Comments: Recommends MBSS to trial swallow strategies. Train pt on strategies with PO intake. Rehab Potential: Good Functional Reporting G Codes: n/a Severity Impairment Rationale: n/a Short Term Goals Problem: UES Goal #1: Complete shaker 10/10 over two trials w/ max cues Goal to be met by: 09/22/20 Problem: UES Goal #2: Demonstrate comp. swallow strategies with PO intake 100% Goal to be met by: 09/22/20 Problem: UES/aspiration Goal #3: Complete MBSS Goal to be met by: 09/20/20 Problem: aspiration Goal #4: pt/family/staff follow safe swallow/aspiration precautions 100% Goal to be met by: 09/22/20 Community Worker Goals Problem: UES/aspiration Goal #1: Pt tolerate safer and least restrictive diet w/ min to no s/s aspiration. Goal to be met by: 09/22/20 Plan Duration of Treatment: 1 Week Frequency of Treatment: 1-2 X day, as tolerated Anticipated Discharge Destination: Home Comments: Pt wants to go home. See CONCRETE M[employer]ING TR[employer] DRIVER's full cognitive report for recommendations on d/c placement. - Treatment Code (1) Left lower lobe pneumonia Code(s): J18.9 - Pneumonia, unspecified organism (2) Dysphagia Code(s): R13.10 - Dysphagia, unspecified Qualifiers: Dysphagia type: pharyngoesophageal phase Qualified Code(s): R13.14 - Dysphagia, pharyngoesophageal phase
--- NOTE | 2020-09-19 13:19 | RS.COGEVAL ---
Subjective Date of Evaluation: 09/19/20 Date of Onset/Injury/Change in Status: 09/18/20 Diagnosis: Fall, weakness, LLL pnuemonia Current Level of Function: Pt is 89 year old female whom lives alone. She has a hx of TIA and CVA, difficulty with swallowing, and vision deficits. Pt receives home care 2-3x a day. A mill turner assists pt with getting in/out of bed in the am and pm; meal prep; and running errands. Pt also requires assistance for medication administration and meal set-up. Pt currently has a dog whom she cares for and sleeps with every night. She also enjoys reading and watching several different TV shows throughout the day. She has a son that visits her frequently and she talks on the phone with consistently. Pt does has meals on wheel, but does not always accept the meals due to her food preferences. Current Subjective/complaints:: Pt discussed her home routine and recent concerns. She reported prior to admission she could walk around her home. However, she currently noticed her 'feet wouldn't move.' This worried her and her family, where she was brought to the hospital to determine a dx of pneumonia inducing her weakness. Pt wants to exercise and participate in therapy to continue her daily routines in her home environment. Pt wants to go home at d/c. Patient's Goals: To go home and continue her routine with assistance from her mill turner. Information History:: Pt has a hx of CVA, TIA, and falls. She resides at home and has a 'helper' come to the house. At 7 am pt is out of bed and helper stays until 9 am. At 11:30 helper comes back and assists with lunch and cleaning, laundry, etc. Then at 5pm helper stays until 8pm and 'tucks pt into bed.' Pt has currently been wearing Depends at night and does not get out of bed to use the bathroom during the night. Informal Assessment:: MICROBIOLOGY COORDINATOR used sections from "Assessment of neurologically based communicative disorders" Pt's receptive language presented functional with abstract y/n questions; 2-3 step directions; repeating words/phrase/sentences verbatim; and reading short sentences aloud. She demonstrated mild deficits with auditory comprehension occasionally requiring verbal prompts, verbal re- phrasing, or verbal repetition. MICROBIOLOGY COORDINATOR suspects hard of hearing may induce need for repetition. For expressive language pt demonstrated confrontational naming with 100% accuracy; divergent naming demonstrated with moderate deficits; word finding deficits also observed in structured and unstructured tasks. Cognitive skills indirectly assessed and discrepancies with formal evaluation to informal questions were observed. Pt demonstrated 70-80% accuracy with word-problems presented for functional problem solving. Pt demonstrated no deficits with orientation, attention. Memory deficits noted in structured tasks, but not unstructured. Logic/reasoning tasks presented and pt demonstrated 100%. Sequencing task presented and pt demonstrated no difficulty with the sequence, but difficulty with thought organization of language was observed. MICROBIOLOGY COORDINATOR continued to discuss pt's home routines, activities, interests to further assess general cognitive skills and fatigue. Pt demonstrated independent level with use of phone, calling for information, making appointments, recall of MD names and offices. Pt also was open about her functional level of mobility and stated bed mobility was difficult, but she walks around her home(refer to PT/OT smith for more gait details). Formal/Objective Assessment:: SLUMs assessment was completed. Pt scored 14/30 which indicates a mild-moderate dementia range. Pt demonstrated cognitive deficits with calculations, mental math, mental flexibility, immediate and delayed memory recall, divergent thinking, and expressive writing. MICROBIOLOGY COORDINATOR feels that pt's cognitive score is lower than her functional cognitive functioning in her structured home environment. Functional Communication Measure:: Pt presented with a cognitive communicative deficit with primary deficits on expressive communication. Pt demonstrated moderate word finding deficits and occasional semantic paraphasia's in spontaneous speech utterances. Communicative deficits include: difficulty with word retrieval, impaired auditory comprehension, dysarthria. Analysis:: Communicative deficits include: difficulty with word retrieval, impaired auditory comprehension, dysarthria. Cognitive impairments include: mental flexibility, thought organization, memory recall. Summary and Recommendations:: Pt was assessed with formal and informal cognitive/speech/language assessments. MICROBIOLOGY COORDINATOR suspects pt's hx of Right frontal lobe CVA resulted in residual deficits. MRI did not show acute changes with intracranial processes. Pt's current pneumonia may affect her general level of functioning including fatigue of mechanisms, and/or mental fatigue. Pt's formal cognitive score reflects a mild dementia range. When unstructured conversation and questions were presented, pt demonstrated more of expressive language deficits with thought organization impairments. MICROBIOLOGY COORDINATOR feels that if pt receives help at home, assistance with medication/bill/finacial management; pt can return to her home environment from a cognitive stand-point. Functional Reporting G Codes: n/a Severity Impairment Rationale: n/a Short Term Goals Problem: expressive language Goal #1: name 15 members in category in 90 seconds. Goal to be met by: 09/22/20 Problem: memory recall Goal #2: Use compensatory memory strategies 100% of opportunities. Goal to be met by: 09/22/20 Problem: auditory comprehension Goal #3: Answer complex questions with 80% accuracy Goal to be met by: 09/22/20 Problem: thought organization Goal #4: Complete verbal sequencing tasks w/ verbal cues 80% Goal to be met by: 09/22/20 Director Corporate Goals Problem: Cognition Goal #1: Re-assessment of cognition Goal to be met by: 09/22/20 Plan Duration of Treatment: 1 Week Frequency of Treatment: 1-2 X day, as tolerated Anticipated Discharge Destination: Home Comments: MICROBIOLOGY COORDINATOR recommends pt to return home if PT/OT feel she is safe with mobility and ADLs. Pt's cognition is impaired at this time, but does not interfere with the routines she completes in her home enivronment. Pt reports helper who assists 2-3x a day; meals on wheels; reading books; exercising legs; and watching TV are her daily home activities. Pt's expressive language may impact efficiency of communication exchanges; listener may need to ask for repetition at times or rephrase her utterances for understanding. - Treatment Code (1) Left lower lobe pneumonia Code(s): J18.9 - Pneumonia, unspecified organism (2) Dysphagia Code(s): R13.10 - Dysphagia, unspecified Qualifiers: Dysphagia type: pharyngoesophageal phase Qualified Code(s): R13.14 - Dysphagia, pharyngoesophageal phase (3) Cognitive communication deficit Code(s): R41.841 - Cognitive communication deficit (4) History of cerebrovascular accident Code(s): Z86.73 - Personal history of transient ischemic attack (TIA), and cerebral infarction without residual deficits (5) TIA (transient ischemic attack) Code(s): G45.9 - Transient cerebral ischemic attack, unspecified
[2020-09-19] MEDS: BENADRYL PO SCH (20:25)
[2020-09-19] MEDS: MELATONIN 1 MG PO SCH (20:28)
[2020-09-20 05:02] LABS: BASOPHILS % (AUTO) 0.5 % (0.0-3.0); EOSINOPHILS # (AUTO) 0.2 K/ul (0.0-0.7); EOSINOPHILS % (AUTO) 2.9 % (0.0-7.0); HEMATOCRIT 33.2 % (37.0-47.0); HEMOGLOBIN 10.8 g/dl (12.0-16.0); IMMATURE GRANULOCYTE % (AUTO) 0.3 % (0.0-5.0); LYMPHOCYTES # (AUTO) 1.4 K/uL (0.60-3.4); LYMPHOCYTES % (AUTO) 18.8 (10.0-50.0); MEAN CORPUSCULAR HEMOGLOBIN 26.9 pg (27.0-31.0); MEAN CORPUSCULAR HGB CONC 32.5 (31.8-35.4); MEAN CORPUSCULAR VOLUME 82.8 fl (81.0-99.0); MONOCYTES # (AUTO) 0.8 K/uL (0.4-2.0); MONOCYTES % (AUTO) 10.5 (0-10); NEUTROPHILS # (AUTO) 4.9 K/ul (2.0-6.9); PLATELET COUNT 248 10^3/uL (140-440); RDW COEFFICIENT OF VARIATION 14.9 % (11.6-14.8); RED BLOOD COUNT 4.01 10^6/ul (4.20-5.40)
[2020-09-20 05:26] LABS: ALBUMIN 3.1 g/dL (3.5-5.0); BILIRUBIN,TOTAL 0.3 mg/dL (0.2-1.3); CALCIUM 8.5 mg/dL (8.4-10.2); CREATININE 0.5 mg/dL (0.60-1.30); POTASSIUM 3.6 mmol/L (3.5-5.1); TOTAL PROTEIN 6.2 g/dL (6.3-8.2)
--- NOTE | 2020-09-20 07:25 | PCM.PROG ---
Date Seen by Provider: 09/20/20 Time Seen by Provider: 07:14 Subjective: 89 yo CF HD #3 admitted with bilateral UE and LE weakness, LLL Pneumonia, mild confusion, possible concern for dysphagia. Azithromycin 500mg Day 09/13. Cephalosporin Day 09/15 currently on ceftriaxone 1000mg daily. Vitals over the last 24 hours showed afebrile status 97.6-98.3. HR range from 71-82. BP 137/79, 106/62, 107/59, 124/64 and stable. RR 16-18. o2 94-99% on RA. continuous telemetry (on azithromycin with possible QT changing properties), with SR w/ BBB throughout. She has QRS interval of 0.12, MA 0.16. Current weight of 132 lb. Labs this am showed WBC 7.30, hgb mildly decreased from yesterday from 11.7 to 10.8. Plt also dropped from 262 to 248. She has been 10.3-11.7 throughout hospital stay. Chemistry this am WNL. Sodium 138, K+ 3.60, bun 12, cr 0.50. GFR 116. Glucose 100. Calcium 8.50. Overnight nursing notes reviewed. Neuro checks remainded with GCS 15. We will stop these today as they are not needed at this time. Note at 09/19/20 1931 AAOx4 clear, gen weakness. Tele as noted above, no pain. LAC IV site clear, no changes. Fall prec in place. 0600 09/20/20 note from ESTEPHANIE BORREGO, tele in place, no c/o. Continue fall precaution. Case management note from yesterday reviewed. She was seen by and felt ?dysphagia. patient does not want SNF/LNF, wants to go home. ST [facility] contacted me evening of 09/19/20 and noted that the patient would benefit from a dysphagia evaluation. Discussed case on phone with her, reviewed her note. Current diet regular texture/thin liquids. Medications whole with water. No wheat or lettuce per ST. Full cognitive report 09/19/20. Known history of CVA/TIA. Difficulty with swallowing. Home care 2-3x daily 6+ hours per day. Impaired cognition but not interfering with daily activities. "Pt reports helper who assists 2-3x a day; meals on wheels; reading books; exercising legs; and watching TV are her daily home activities. Pt's expressive language may impact efficiency of communication exchanges; listener may need to ask for repetition at times or rephrase her utterances for understanding." She is due for a dysphagia study today. Plan to d/c patient home tomorrow. REVIEW OF SYMPTOMS: (Positives bolded) General: no reported weight loss, fever, chills, night sweats, fatigue, appetite loss HEENT: blurry vision, eye pain, eye discharge, dry eyes, decreased vision, sore throat tinnitus, bloody nose, hearin gloss, sinus pain/pressure, ear pain/pressure. Respiratory: shortness of breath, cough, hemoptysis, wheezing, pleurisy, Cardiovascular: chest pain, PND, palpitation, edema, orthopnea, syncope, swelling of extremities Gastro: Nausea, vomiting, diarrhea, hematemesis, abdominal pain, constipation Genito: hematuria, dysuria, glycosuria, hesitancy, frequency, incontinence [place]: Arthralgia, myalgia back pain, muscle weakness, joint swelling, NSAID use Skin: rash, pruritis, sores, nail changes, skin thickening, change in wart/mole, itching, rash, new lesions, pruritus, nail changes Neuro: Migraine, numbness, ataxia, tremor, vertigo, weakness, memory loss, Irritability, dizziness Endocrine: excessive thirst, polyuria, cold intolerance, heat intolerance, goiter Psychiatric: depression, anxiety, anti-depressants, alcohol abuse, drug abuse, insomnia, change in sleep pattern and mood changes Heme/lymph: easy bruising, bleeding gums, blood clots, swollen glands, lymphedema, Allergic/immune: allergic rhinitis, hay fever, asthma, hives Objective: Vital Signs - 24 hr 09/19/20 14:00 09/19/20 20:47 09/20/20 05:22 Temperature 97.6 F 98.3 F 98.2 F Pulse Rate 82 81 73 Respiratory Rate 18 16 18 Blood Pressure 106/62 107/59 L 124/64 O2 Sat by Pulse Oximetry 97 94 L 96 Constitutional: Appearance-Sitting in bed reading reading [employer]. Aware of name, aware of month, not day. She said nobody could know the day when sun up/sun down is not truly known. She knew my name. She was alert and answered questions. Some confusion regarding current events, but she said it does not matter what is going on as it did not affect her. She remembered meeting with ST yesterday. She has no distress, no accessory muscle usage, breathing is calm/clear today, lungs are clear. Thin/frail frame. Integumentary: General-No rashes, ulcers or lesions. Palpation- Normal skin moisture/turgor. Skin is warm to touch, appropriate. Capillary refill is normal bilateral Upper and lower extremity. ENMT: Pinna- normal without tenderness or erythema. External auditory canal Left- normal without erythema or discharge, no excessive cerumen. Nose: External appearance normal and midline. Nares- bilateral quiet airflow, no discharge. Nasal mucosa- No bleeding noted and no ulcerations observed. [place], moist. Turbinates non boggy. Lips- normal color, moist without cracks/lesions Oral Cavity/Palate- hard/soft palate intact without lesions, oral mucosa pink and moist. Tongue normal midline. Oropharynx- no pharyngeal erythema, Uvula midline. No post nasal drip. No exudate. CHEST/LUNG: Inspection- no use of accessory muscles. Palpation- nontender sternum, ribline. Auscultation- Breath sounds clear today at bilateral bases. Normal tracheal sounds, Normal bronchial sounds overlying sternum, Bronchovessicular sounds coarse, rare crackling heard bilaterally has resolved. no cough during visit. vessicular breath sounds heard throughout periphery normal. Adventitious sounds- No wheezes, no rhonchi, no crackles today. CARDIOVASCULAR:Palpation/Percussion- Normal PMI, no palpable thrill Auscultation- Regular rate and rhythm. No murmur noted in sitting, supine positions. Extremities- no digital clubbing, cyanosis, edema, increased warmth. ABDOMEN: Inspection- Normal appearance. Auscultation- Bowel sounds normal, no abdominal bruits. Palpation/Percussion- soft, non-tender, no rebound tenderness, no rigidity (guarding), no jar tenderness, no masses. Peripheral Vascular: Upper extremity Left- Normal temperature with pink nailbeds and no ulcerations. Upper extremity Right- Normal temperature with pink nailbeds and no ulcerations. Lower extremity- Normal temperature with pink nailbeds and no ulcerations. DP pulses 2+ bilaterally. Pedal hair intact. Normal capillary refill. Edema- No edema. Musculoskeletal: Generalized-No generalized swelling or edema of extremities, no digital clubbing or cyanosis, neurovascularly intact all four extremities. 4/5 strength bilateral UE and LE remain. Not tender overlying shoulders/hips. Neurological: General- Moves all 4 extremities symmetrically. Symmetrical face and body posture. Cranial nerves- individually evaluated II-XII and intact. PERRLA, Normal EOMI, visual/special senses appear intact, Face is symmetrical and normal sensation/movement, normal tongue, normal strength/posture of neck musculature. Reflexes- intact with DTR 1+ patellar, Achilles, bicep, brachial, tricep. Neuropsych: Oriented- Person, place, time. (AAOx3), Mild confusion. Still with some repeating answers. Unaware of current events. She is aware of season and general month but not date. Mood/affect- pleasant normal and congruent. Able to articulate. Speech-Normal speech, normal rate, normal tone, normal use of language, volume and coherence. Thought content- repeats, some confabulation. no SI/HI, no hallucinations, delusions, obsessions. Judgment/insight- Appropriate. Memory-Recall intact, remote and recent memory intact. Knowledge- Age appropriate fund of knowledge generalized, but some decrease in current events. Patients cognition may be declining with time, with history of CVA and with her assistants helping with many of the things that she has done herself historically. Lymphatic: Head/Neck- normal size and non tender to palpation. Laboratory Results - last 24 hr 09/20/20 09/20/20 04:55 04:55 WBC 7.30 RBC 4.01 L Hgb 10.8 L Hct 33.2 L MCV 82.8 MCH 26.9 L MCHC 32.5 RDW Coeff of Gareth 14.9 H Plt Count 248 Immature Gran % (Auto) 0.3 Neut % (Auto) 67.0 Lymph % (Auto) 18.8 Meade % (Auto) 10.5 H Eos % (Auto) 2.9 Baso % (Auto) 0.5 Neut # (Auto) 4.9 Lymph # (Auto) 1.4 Meade # (Auto) 0.8 Eos # (Auto) 0.2 Baso # (Auto) 0.0 Immature Gran # (Auto) 0.0 Sodium 138.0 Potassium 3.60 Chloride 103.0 Carbon Dioxide 27.0 Anion Gap 8.0 BUN 12.0 Creatinine 0.50 L Estimated GFR (MDRD) 116.00 BUN/Creatinine Ratio 24.00 Glucose 100.0 Calcium 8.50 Total Bilirubin 0.30 AST 22.0 ALT 8.0 Alkaline Phosphatase 75.0 Total Protein 6.20 L Albumin 3.10 L Globulin 3.10 Albumin/Globulin Ratio 1.00 No additional imaging overnight. (1) Weakness: Status: Acute Code(s): R53.1 - Weakness SNOMED Code(s): 49870260 (2) Left lower lobe pneumonia: Status: Acute Code(s): J18.9 - Pneumonia, unspecified organism SNOMED Code(s): 843132905 (3) Chronic anemia: Status: Acute Code(s): D64.9 - Anemia, unspecified SNOMED Code(s): 197843212 (4) Dysphagia: Status: Acute Code(s): R13.10 - Dysphagia, unspecified SNOMED Code(s): 67624688 Plan: Weakness/Pneumonia: 89 yo CF HD 3 admitted with generalized UE/LE weakness and pneumonia. Concern with dysphagia yesterday. Due for dysphagia study today. Antibiotic day / for azithromycin 500 day and now cephalosporin day 3/5 (rocephin 1gram daily day 2). Patient was active, up and reading this am. She was up active/living alone w/ help at home, meals on wheels and several other assiting agencies throughout her day. Se was getting help 6+ hours per day. She feels weakness is better today. Labs reviewed, telemetry reviewed, d/w care with patient/nursing/case management. She still has no e/o SIRS, no e/o SEPSIS. Patient has reported cough is improving. Lungs clear today. Denied SOA today, weakness improving. CXR showed left atelectasis and pneumonia. 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 Phys therapy and Occ Therapy following with patient. ST to see patient again today. Therapist dept has requested 03/02 care for patient. Patient wants to go home. SNF/computer terminal operator not an option as patient declines this. Despite history of TIA, she has no new symptoms on physical examination, MRI no new symptoms/findings. Await speech dysphagia study today. Saline lock IV at present left AC. PORT score severity index: 109: Risk Class IV 8.2-9.3% mortality. Hospitalization recommended. She has some confusion and HCT <30%. The CURB 65 score of 2 points 6.8% 30 day mortality at least. Continued inpatient treatment recommended. Plan d/c tomorrow with home health. Patient is thankful for this today. - Admit to inpatient service bed 111 - Telemetry - Vitals q 8 hours - Can do neurochecks q 8 hours while in hospital. - Monitor for need for O2. NC to keep O2 >90% <98% - CBC/CMP repeat in am - anticoag with lovenox. Continue plavix. - F/U with patient again in am 09/20/20 - R/B/A to meds d/w patient, SE reviewed, - Azithromycin Day 09/13 today (LAST DOSE THIS AM) - Ceftriaxone Day 2 1g IV. We will change to cefdinir and finish 5 day course at d/c. She will need 2 days of abx PO. - PT/OT/Speech Anemia: normocytic process. Up/down. labs support Anemia of Chronic Disease. Continue to monitor - CBC in am Bacteruria: Culture negative to date. On rocephin. Monitor. Diet: Trouble Operator to see patient. Diet per ST. DVT prophy: - Lovenox 30mg sub cutaneous daily. Activity: Up w/ assist. Fall precautions. CODE STATUS: DNR Disposition: 89 yr old female COVID -, Generalized weakness, Pneumonia on CXR LLL HD #3. She was admitted initially into obs evening of 09/17/20, but was changed to inpatient 09/18/20 due to PORT score, weakness. She is on IV abx, speech eval with dysphagia study today. Will have therapy continue to eval/treat for her weakness/difficulty with ambulation. Patient seen on floor today, 27 minutes today spent on rounding, discussion with nursing/case management and therapy dept. Observation status is still inappropriate based on age and diagnosis. Expected length of stay 1 more day. Discharge planning ongoing. Patient not interested in rehab/SNF. Likely plan for d/c in the am.
[2020-09-20] MEDS: PLAVIX PO SCH (08:11)
[2020-09-20] MEDS: FLORASTOR PO SCH (08:11)
[2020-09-20] MEDS: NEURONTIN PO SCH ×2 (08:11→20:42)
[2020-09-20] MEDS: TYLENOL PO PRN (08:11)
[2020-09-20] MEDS: ROCEPHIN 1 GM/50 ML D5W 1 GM/50 ML BAG IV SCH (08:12)
[2020-09-20] MEDS: NON-FORMULARY MEDICATION (Vit C,E-Zn-Coppr-Lutein-Zeaxan [Preservision Areds-2] 250-90-40- PO SCH ×2 (08:13→20:43)
[2020-09-20] MEDS: NON-FORMULARY MEDICATION (Magnesium 500 mg Tablet) PO SCH (08:13)
[2020-09-20] MEDS: METAMUCIL PO SCH ×2 (08:14→20:44)
[2020-09-20] MEDS: LOVENOX SUBCUT SCH (08:14)
[2020-09-20] MEDS: ZITHROMAX 500 MG in SODIUM CHLORIDE 250 ML IV SCH (09:31)
--- NOTE | 2020-09-20 10:42 | DI ---
EXAM: Modified barium swallow. History: Cough. Technique: Video fluoroscopy was performed in conjunction with speech therapy using multiple consist encies to evaluate swallowing function. Findings / impression: Aspiration with cough using thin liquids that resolved with head turn. Teresa stone see dedicated speech pathology report for further details.
--- NOTE | 2020-09-20 11:21 | RS.MODBRM ---
Subjective Number of treatment sessions: 1 Date of Evaluation: 09/19/20 Diagnosis: Fall, weakness, LLL pnuemonia Current Level of Function: This is an 89 year old female with hx of swallowing difficulty without diet texture modifications. She is currently followed by [facility] fide [facility]aylor recommendations for modified barium swallow study (MBSS). Pt has hx of esophagus dysfunction and difficulty with thin liquids. Pt currently treated with IV antibiotics for LLL pneumonia. Pt to be assessed under fluro this date to determine safer and least restrictive diet and liquid, compensatory swallow strategies, and risks for aspiration. Current Diet: Regular diet texture, thin liquids, medications whole with water. Current Subjective/complaints:: Pt alert and oriented for MBSS. She consumed breakfast meal, but limited PO intake to have appetite for trials during swallow study. Pt was educated on swallow study procedure and assessment for safer swallowing with thin liquids; as well as to evaluate the UES function. Pt agreeable and ready to participate. Pt transferred to dysphagia chair with assistance. She maintained upright 90 degree sitting position for longer than 30 minutes without complaint of fatigue or dififculty with sitting balance in low back chair. RN and [facility] [employer] discussed MBSS this date. RN had no new concerns or reports with pt. Pt is planning for d/c tomorrow this date, per MD notes. Patient's Goals: To consume thin liquids and maintain nutrition/hydration with PO intake. Food Presented Thin Liquid: cup (Four trials of thin liquids via open cup presented to pt via [facility] [employer]. Pt had shallow aspiration with productive coughing on fourth trial. ) Vanilla Wafer: 1/4 cookie (Soft cookie was presented coated in barium. Pt demonstrated prolonged mastication process with piecemeal deglutition. Pt swallowed 2x with each bolus and had mild-moderate pharyngeal residue and minimal UES residue. Throat clear 1x post swallow.) Oral Phase - Oral Phase Labial Closure: WFL Bolus Formation: Mild Impairment Mastication: Mild Impairment Lingual Movement: Mild Impairment A/P Propulsion: Mild Impairment Premature Vallecular Pooling: Scant Oral Residue: Coating Comments:: Pt demonstrates mild deficits with oral phase of swallowing including; prolonged mastication and piecemeal deglutition. Pt's A-P transfer was functional for bolus propulsion and swallow initiation. Pt has mild oral stasis post swallow that is primarily around dentition and bilateral sulci. Pharyngeal Phase Pharyngeal Response: Moderate Impairment (A-P view only; however [facility] [employer] noted decreased pressure with swallow that is suspected from poor pharyngeal wall squeeze at time of swallow intiation.) Base of Tongue: Moderate Impairment ([facility] [employer] suspected pt had decreased BOT movement to pharyngeal wall as piecemeal deglutition was observed frequently. A-P view only obtained during MBSS.) Epiglottic Movement: Mild Impairment (Decreased excursion observed with all swallows. Pt independently used chin tuck with solid texture; which only i ncreased residue spillage over epiglottis prior to swallow.) Laryngeal Excursion: Mild Impairment (Decreased with all swallow responses.) Vallecular Residue: Moderate (Pre-swallow poooling in valleculae observed with thin liquids without compensatory swallow strategy. Post swallow mild residue in valleculae that cleared with additional dry swallow.) Pyriform Residue: Mild ([facility] [employer] observed pyriform residue with thin liquids and solid textures. Pt clears residuals with additional dry swallow. Pt has risk for aspiraiton on pyriform residue) Comments:: Pt's pharyngeal phase is mild-moderately impaired as evidenced by; delay in swallow initiation with pooling in valleculae, decreased pharyngeal wall contact for functional pressure in swallow response; moderate valleculae residue and mild pyriform residue pre and post swallow increase risks for aspiration. [facility] [employer] observed 1x aspiration episode on thin liquids without strategies. Aspiration was during pt's second swallow attempt to clear residuals. Shallow aspiration noted; and pt demonstrated a productive cough and cleared aspirated liquids. Pt used right head turn with thin liquids and no aspiration/penetration episodes were observed. Chin tuck is not recommended for pt as this increased her risk for aspiration. Summary and Recommendations - Recommendations PO Diet: Regular (With restrictions to bread and lettuce), NO Dry Breads/Crackers, Thin Liquids (HAS TO HAVE RIGHT HEAD TURN AND OPEN CUP), Cup Sips ONLY-NO STRAWS Comments:: [facility] [employer]'s impressions: Pt was assessed in A-P view with thin barium and soft solid textures. Pt has mild oral phase deficits that appear to be induced with fatigue of mechanisms as well as decreased lingual coordination and ROM. Pharyngeal phase is moderately impaired as pt had shallow aspiration episode on thin liquids via open cup without use of strategies. With use of right head turn pt clears thin liquids without aspiration/penetration episodes. Pharyngeal strutures have mild-moderate deficits with physiology including decreased pharyngeal pressure; incomplete epiglottic movement; and decreased LE. UES was assessed with timing, coordination, and opening. Pt's UES was observed with minimal pooling with liquids and solids. Pt did require 2x swallow with all boli. Pt's UES coordination required a head turn to increase opening and bolus passage. Pt's GERD was not noted during study, no backflow observed with all trials. Pt's esophagus was hourglass shape indicating some dysfunction, however over the 8 minute swallow study and several trials of PO, esophagus emptied all textures. Full view of esophagus was not obtained but A-P position did allow perfect view of UES and upper esophagus. Further Therapy Indicated?: Yes Functional Reporting G Codes: n/a Severity Impairment Rationale: n/a Short Term Goals Problem: UES Goal #1: Complete shaker 04/22 over two trials w/ max cues Goal to be met by: 09/22/20 Problem: UES Goal #2: Demonstrate comp. swallow strategies with PO intake 100% Goal to be met by: 09/22/20 Progress Towards Goal: Progressing Comments:: Pt practiced during MBSS. She required cues for timing of head turn. Problem: UES/aspiration Goal #3: Complete MBSS Goal to be met by: 09/20/20 Progress Towards Goal: Met Comments:: MBSS completed this date. Pt had 1x aspiration episode Problem: aspiration Goal #4: pt/family/staff follow safe swallow/aspiration precautions 100% Goal to be met by: 09/22/20 Progress Towards Goal: Progressing Comments:: Pt has risks for aspiration with thin liquids. Plan Duration of Treatment: 1 Week Frequency of Treatment: 1-2 X day, as tolerated Anticipated Discharge Destination: Home Comments: is planning for pt to d/c home tomorrow this date. [facility] [employer] to send pt with paper instructions on right head turn. Pt has risks for aspiration with thin liquids, however pt does not agree to use thickened liquids in home environment. [facility] [employer] feels that if pt is compliant with compensatory swallow strategies, she can maintain adequate hydration and nutrition without diet/liquids modifications. - Treatment Code (1) Left lower lobe pneumonia Code(s): J18.9 - Pneumonia, unspecified organism (2) Dysphagia Code(s): R13.10 - Dysphagia, unspecified Qualifiers: Dysphagia type: pharyngoesophageal phase Qualified Code(s): R13.14 - Dysphagia, pharyngoesophageal phase (3) Cognitive communication deficit Code(s): R41.841 - Cognitive communication deficit (4) History of cerebrovascular accident Code(s): Z86.73 - Personal history of transient ischemic attack (TIA), and cerebral infarction without residual deficits
[2020-09-20] MEDS: BENADRYL PO SCH (20:42)
[2020-09-20] MEDS: MELATONIN 1 MG PO SCH (20:44)
[2020-09-21 05:27] LABS: BASOPHILS % (AUTO) 0.4 % (0.0-3.0); EOSINOPHILS # (AUTO) 0.2 K/ul (0.0-0.7); EOSINOPHILS % (AUTO) 4.1 % (0.0-7.0); HEMATOCRIT 33.2 % (37.0-47.0); HEMOGLOBIN 10.8 g/dl (12.0-16.0); IMMATURE GRANULOCYTE % (AUTO) 0.4 % (0.0-5.0); LYMPHOCYTES # (AUTO) 1.8 K/uL (0.60-3.4); LYMPHOCYTES % (AUTO) 31.3 (10.0-50.0); MEAN CORPUSCULAR HEMOGLOBIN 26.6 pg (27.0-31.0); MEAN CORPUSCULAR HGB CONC 32.5 (31.8-35.4); MEAN CORPUSCULAR VOLUME 81.8 fl (81.0-99.0); MONOCYTES # (AUTO) 0.6 K/uL (0.4-2.0); MONOCYTES % (AUTO) 10.7 (0-10); NEUTROPHILS % (AUTO) 53.1 % (42.2-75.2); PLATELET COUNT 254 10^3/uL (140-440); RDW COEFFICIENT OF VARIATION 14.7 % (11.6-14.8); RED BLOOD COUNT 4.06 10^6/ul (4.20-5.40); WHITE BLOOD COUNT 5.62 K/ul (4.6-10.2)
[2020-09-21 05:41] LABS: ALBUMIN 3.36 g/dL (3.5-5.0); ALKALINE PHOSPHATASE 77.9 U/L (53-141); ASPARTATE AMINO TRANSFERASE 28.4 U/L (14-36); BILIRUBIN,TOTAL 0.5 mg/dL (0.2-1.3); BLOOD UREA NITROGEN 14.1 mg/dL (7-17); CALCIUM 8.71 mg/dL (8.4-10.2); CARBON DIOXIDE 27.8 mmol/L (22-30.0); CHLORIDE 102.3 mmol/L (98-107); CREATININE 0.48 mg/dL (0.60-1.30); GLUCOSE 95.3 mg/dL (74-106); POTASSIUM 3.56 mmol/L (3.5-5.1); SODIUM 136.1 mmol/L (134.5-145); TOTAL PROTEIN 6.38 g/dL (6.3-8.2)
[2020-09-21 05:49] VITALS: BP 117/58; TEMP 97.8
--- NOTE | 2020-09-21 07:31 | PCM.DC ---
Final Diagnosis: 1. LLL Pneumonia. 2. Generalized weakness of UE and LE. 3. Chronic Anemia of Chronic Disease. 4. Dysphagia. 5. Generalized frailty. (1) Weakness: Status: Acute Code(s): R53.1 - Weakness SNOMED Code(s): 30774647 (2) Left lower lobe pneumonia: Status: Acute Code(s): J18.9 - Pneumonia, unspecified organism SNOMED Code(s): 109642825 (3) Chronic anemia: Status: Acute Code(s): D64.9 - Anemia, unspecified SNOMED Code(s): 389639560 Reason for Hospitalization: 1. Patient noted weakness worsening am of 09/17/20 presented to ED. Found to have mild LLL pneumonia. Prognosis at Discharge: Baseline. Prognosis is somewhat guarded by age, weakness, dysphagia. However, she is adamant about going home, not going to assisted living, SNF, LNF, rehab. Did not like these during rios, wants to be at home. She has the capacity to understand/make this decision and I feel that would be the best/most loving decision for her. Condition at Discharge: Improved overall. Breathing stable, lungs clear. Strength is better. Speech therapy met with patient and worked through techniques to help with aspiration avoidance. Medications at Discharge: Ambulatory Orders Medication Instructions Recorded melatonin 10 mg PO BEDTIME 07/30/16 Probiotic 1 ea PO DAILY #30 tab-cap 05/12/17 turmeric root extract 500 mg 500 mg PO QDAY 12/03/19 capsule clopidogrel 75 mg tablet 75 mg PO DAILY #90 tab-cap 03/01/20 diazepam 2 mg tablet 2 mg PO BID PRN #100 tab 06/21/20 gabapentin 300 mg capsule 300 mg PO BID #60 cap 09/14/20 Fiber Therapy (m-cellulose) 500 mg PO BID 09/17/20 PreserVision AREDS-2 1 tab PO BID 09/17/20 magnesium 500 mg PO DAILY 09/18/20 acetaminophen 500 mg PO Q6H PRN #30 tab 09/21/20 cefdinir 300 mg PO Q12HR #6 cap 09/21/20 Resumed home med. Only new medication is 3 days of cefdinir to satisfy 5 day course of abx. Completed 3/3 days of azithromycin 500mg. Completed 3/5 days of cephalopsorin. Lab/Diagnostics: Laboratory Last Values WBC 5.62 K/ul (4.6-10.2) 09/21/20 05:20 RBC 4.06 10^6/ul (4.20-5.40) L 09/21/20 05:20 Hgb 10.8 g/dl (12.0-16.0) L 09/21/20 05:20 Hct 33.2 % (37.0-47.0) L 09/21/20 05:20 MCV 81.8 fl (81.0-99.0) 09/21/20 05:20 MCH 26.6 pg (27.0-31.0) L 09/21/20 05:20 MCHC 32.5 (31.8-35.4) 09/21/20 05:20 RDW Coeff of Gareth 14.7 % (11.6-14.8) 09/21/20 05:20 Plt Count 254 10^3/uL (140-440) 09/21/20 05:20 Immature Gran % (Auto) 0.4 % (0.0-5.0) 09/21/20 05:20 Neut % (Auto) 53.1 % (42.2-75.2) 09/21/20 05:20 Lymph % (Auto) 31.3 (10.0-50.0) 09/21/20 05:20 [place] % (Auto) 10.7 (0-10) H 09/21/20 05:20 Eos % (Auto) 4.1 % (0.0-7.0) 09/21/20 05:20 Baso % (Auto) 0.4 % (0.0-3.0) 09/21/20 05:20 Neut # (Auto) 3.0 K/ul (2.0-6.9) 09/21/20 05:20 Lymph # (Auto) 1.8 K/uL (0.60-3.4) 09/21/20 05:20 [place] # (Auto) 0.6 K/uL (0.4-2.0) 09/21/20 05:20 Eos # (Auto) 0.2 K/ul (0.0-0.7) 09/21/20 05:20 Baso # (Auto) 0.0 K/uL (0-0.2) 09/21/20 05:20 Immature Gran # (Auto) 0.0 (0.0-1.0) 09/21/20 05:20 Sodium 136.1 mmol/L (134.5-145) 09/21/20 05:20 Potassium 3.56 mmol/L (3.5-5.1) 09/21/20 05:20 Chloride 102.3 mmol/L (98-107) 09/21/20 05:20 Carbon Dioxide 27.8 mmol/L (22-30.0) 09/21/20 05:20 Anion Gap 9.56 09/21/20 05:20 BUN 14.1 mg/dL (7-17) 09/21/20 05:20 Creatinine 0.48 mg/dL (0.60-1.30) L 09/21/20 05:20 Estimated GFR (MDRD) 122.00 mL/min 09/21/20 05:20 BUN/Creatinine Ratio 29.37 09/21/20 05:20 Glucose 95.3 mg/dL (74-106) 09/21/20 05:20 Lactic Acid 0.70 mmol/L (0.7-2.1) 09/17/20 19:05 Calcium 8.71 mg/dL (8.4-10.2) 09/21/20 05:20 Iron 27.5 ug/dL (37-170) L 09/19/20 05:26 TIBC 226 ug/dL (261-497) L 09/19/20 05:26 % Saturation 12 % 09/19/20 05:26 Ferritin 124.00 ng/mL (11.1-264.0) 09/19/20 05:26 Total Bilirubin 0.50 mg/dL (0.2-1.3) 09/21/20 05:20 AST 28.4 U/L (14-36) 09/21/20 05:20 ALT 6.0 U/L (0-35) 09/21/20 05:20 Alkaline Phosphatase 77.9 U/L (53-141) 09/21/20 05:20 POC Venous Troponin I 0.01 ng/ml (0.00-0.08) 09/17/20 19:05 Troponin I < 0.012 ng/ml (0.0000-0.120) 09/17/20 19:05 Total Protein 6.38 g/dL (6.3-8.2) 09/21/20 05:20 Albumin 3.36 g/dL (3.5-5.0) L 09/21/20 05:20 Globulin 3.02 09/21/20 05:20 Albumin/Globulin Ratio 1.11 09/21/20 05:20 Vitamin B12 578 pg/mL (239-931) 09/19/20 05:26 Urine Color Yellow (YELLOW) 09/17/20 20:30 Urine Clarity Slightly (CLEAR) 09/17/20 20:30 Urine pH 7.0 (5-9) 09/17/20 20:30 Ur Specific [place] 1.025 (1.005-1.030) 09/17/20 20:30 Urine Protein Trace (NEGATIVE) H 09/17/20 20:30 Urine Glucose (UA) Negative (NEGATIVE) 09/17/20 20:30 Urine Ketones Negative (NEGATIVE) 09/17/20 20:30 Urine Blood 1+ (NEGATIVE) H 09/17/20 20:30 Urine Nitrite Negative (NEGATIVE) 09/17/20 20:30 Urine Bilirubin Negative (NEGATIVE) 09/17/20 20:30 Urine Urobilinogen 0.2 (0.2) 09/17/20 20:30 Ur Leukocyte Esterase Negative (NEGATIVE) 09/17/20 20:30 Urine Microscopic RBC 5-10 (0-2) 09/17/20 20:30 Ur Squamous Epith Cells 0-2 (0-5) 09/17/20 20:30 Urine Bacteria 1+ (NOT PRESENT) 09/17/20 20:30 Adenovirus (PCR) Not detected (NOT DETECT) 09/17/20 21:40 B. pertussis DNA (PCR) Not detected (NOT DETECT) 09/17/20 21:40 B.parapertussis DNA PCR Not detected (NOT DETECT) 09/17/20 21:40 C. pneumoniae DNA (PCR) Not detected (NOT DETECT) 09/17/20 21:40 Coronavirus OC43 (PCR) Not detected (NOT DETECT) 09/17/20 21:40 Coronavirus HKU1 (PCR) Not detected (NOT DETECT) 09/17/20 21:40 Coronavirus 229E (PCR) Not detected (NOT DETECT) 09/17/20 21:40 Coronavirus NL63 (PCR) Not detected (NOT DETECT) 09/17/20 21:40 Human Metapneumovir PCR Not detected (NOT DETECT) 09/17/20 21:40 Influenza Type A (PCR) Not detected (NOT DETECT) 09/17/20 21:40 Influenza B (RT-PCR) Not detected (NOT DETECT) 09/17/20 21:40 M. pneumoniae (PCR) Not detected (NOT DETECT) 09/17/20 21:40 Parainfluenza 1 (PCR) Not detected (NOT DETECT) 09/17/20 21:40 Parainfluenza 2 (PCR) Not detected (NOT DETECT) 09/17/20 21:40 Parainfluenza 3 (PCR) Not detected (NOT DETECT) 09/17/20 21:40 Parainfluenza 4 (PCR) Not detected (NOT DETECT) 09/17/20 21:40 RSV (PCR) Not detected (NOT DETECT) 09/17/20 21:40 Entero/Rhino (PCR) Not detected (NOT DETECT) 09/17/20 21:40 SARS-CoV-2 (PCR) Not detected (NOT DETECT) 09/17/20 21:40 CXR on 09/17/20: Impression: Minimal left basilar atelectasis and/or pneumonia. CT Head 09/17/20: Impression: No intracranial hemorrhage or evidence of large vessel infarct. Chronic small vessel ischemic changes. Diffuse cerebral atrophy. Brain MRI 09/18/20: IMPRESSION: 1. No acute intracranial abnormality. 2. 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 3. Periventricular and subcortical white matter T2 hyperintensities that are nonspecific and most likely represent small vessel disease. CULTURES: Urine culture Mixed growth, no UTI. Education Provided to Patient and Family: 1. Aspiration pneumonia avoidance. ST recommendations. 2. Physical therapy recommendations. 3. Night lights to help prevent falls. 4. Antibiotics for pneumonia. 5. Fall avoidance techniques 6. Recommended use of rollator. 7. Would like help in home ideally 24 hours. 8. R/B/A to SNF/LNF/Rehab facility. Follow-ups: 1. SHAR Sharpe 09/26/20 at 1300. Discharge Disposition: Home Hospital Course: HD #1 09/18/20 History of Present Illness: 89 yo CF patient of [facility] clinics (Regular Provider SHAR MEJÍA-, IT DIRECTOR) presented to ED at 18:[address] Small. Patient noted weakness in am, worsening throughout the day. No acute CP, no SOA, fever, no GI losses N/V/D. Vitals at initial presentation were within normal limits. Temp 97.1, pulse 83, rr 20, BP 138/66, pulse ox 94% on RA. History presented gradual onset weakness over 12 hours, still prsent in ED. Unsteady gait, weakness. She did not report vertigo but ddx in ED was listed as BPPV, hypovolemia, menieres. Patient has history of anxiety, copd, chronic shoulder pain, Lumbar DDD, history of CVA/PVD, history of PAD, psoriatic arthritis, bilateral leg cramps. She is a former smoker, stopped at age 65. No other illicit substances or ETOH are used per patient. Surg history reviewed and history of cholecystectomy, hysterectomy, tonsillectomy/adenoidectomy and history of heart surgery. Reviewed ED note, nursing documentation. Examination appeared to be non focal. Imaging studies completed included a CXR chest which showed minimal basilar atelectasis and or pneumonia. She has not had fever, no other s/sx of pneumonia. CT scan head: Chronic small vessel changes/diffuse cerebral atrophy but no acute intracranial hemorrhage or large vessel infarct. Labs completed in the ER showed CBC with WBC of 8.94, hgb 11.7, hct 36.8, plt 251. CMP showed sodium 135, K+ 4.0, Cl 97.0, Co2 30, BUN 18, cr 0.60 and glucose of 107. Lactic acid was negative at 0.70. Calcium 9.0 and normal> AST 23, ALT 7, alk phos 989. Venous troponin was negative. UA showed 1+ blood trace protein sg 1.025.Nit negative. Micro RBC 55-10, squam epi 0-2, bact 1+. Dr. Martin contacted [place] 09/17/20 at 2111 with request for admission. I accepted to observational status. EKG was completed, labs as noted above. Urine sent for culture. Nursing note Verena Mccain reviewed and noted weakness mostly with distal UE and LE. No Pain c/o, neuro check intact. Tele onboard and SR throughout the night. Narrative at 00:00 3/8 resting no s/sx of distress. Saline lock left AC. Tele SR. Unchanged 0100. Neuro check 0200 GCS 15, mild weakness in extremities. 0300 resting. 0400 unchanged. 0500 unchanged. Neuro check 0600 GCS 15, mild weakness bilateral UE and LE. Up at bedside commode 0600. C/o back pain 01/20. I was contacted by nursing and requested tylenol. I ordered 500mg QID. MRI brain w/o contrast ordered for this am. CBC/CMP q am. Home medications reviewed. Lovenox 30mg daily. OT and PT consult have been placed. We will assess patient wishes for hospital stay as well as for continuing to live alone. Patient lives alone with her dog. She does have a sitter Мария Oh, that does come and stay with her in the am and pm. Son is in [place]. I talked with patient in room 111 this am, discussed case with nursing. No reported headache, no fever, no vision changes, no loss of taste/smell, No new URI symptoms, reviewed allergy symptoms, no cough/congestion/wheezing/SOA, No CP, no reported fatigue, no abd pain, no N/V/D, no constipation, no changes in urination/stooling, no new MSK pain except as above, no recent injuries except as listed above. Falls reviewed and listed above. Patient has no c/o this am. She has normal neuro exam, normal CN II-XII, normal facial symmetry, medicaid billing clerk 4+/5 bilaterally. OK sign 4+/5 bilaterally. She has normal reflexes, babinski is downgoing. Normal sensation to cold, to pin prick bilateral UE and LE, normal vibratory sense as well. At this time she just "feels weak." She is afraid to ambulate but again noted no falls. Yesterday am felt hands were too weak to medicaid billing clerk her rollator. [place] likes would not move as she felt that they were needed. Today she feels fine, she reports no back pain at present but did this am. She has no c/o swallowing, no choking on food, no aspiration, no trouble w/ weight loss. She notes urination/stooling are okay. She has "blow-outs" every am on the commode. No reported constipation. NO dysuria, no freq, no hesitancy, no flank pain. She has no calf pain, no changes in clothing sizes. After discussion patient noted that she has had a cough over the past 1 week. She denied any fever, SOA, LEACH. PCR negative for respiratory pathogens. Weight in our hospital was listed as 137. Weights do not appear to be up to date. I would like a weight. Will order this as well. She has denied room spinning/vertigo/syncope/collapse today. Labs from this am were reviewed: CBC 10.3 hgb, wbc 5.71. plt 215. MCV normal. Chemistry showed sodium 133, K+ 3.60, Creatinine 0.40, glucose 101. Calcium 8.50. Ast 19, alt 5. Albumin 3.10. Urine culture so far too young to read. HD #2 09/19/20: 89 yo CF HD #2 Pneumonia, generalized weakness, gait abnormality, frailty admitted to Med/surg room 111. Patient is now on day 2/5 of antibiotics (2/3 of 500mg azithromycin and 2/5 for cephalosporin). Labs this am showed wbc 5.67, hgb 11.7 *up from 10.3 yesterday* hct 37.2 and plt 262. Normal differential. Chemistry showed sodium 136.4, K+ 3.83, co2 31, cl 100.9, cr 0.45, GFR 131, glucose normal at 93.7. She has an iron of 27.5, TIBC 226, Ferritin of 124 suggesting anemia of chronic disease. AST 24.2 and normal, alt 6.2 and normal. b12 was 578 and normal. Vitals this am within normal limits. Reviewed overnight vitals. Remains afebrile BP within acceptable limits for age throughout hospital stay. So far ranging from 102-142/58-79. RR remains stable at ~16. O2 98-99% on RA. Telemetry was reviewed throughout the stay and she has had SA with BBB. No chest pain, no new symptoms. Cough present for last 3-5 days. I+O throughout hospital stay have not been recorded. She has had 1 BM yesterday 09/18/20. Therapy met with patient yesterday and recommended 24hour care. She is able to articulate, able to discuss her care but has some weakness and some mild confusion. She has not developed any new focal neurological findings so far. 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 She has some perivventricular and subcortical white matter T2 hyperintensities non specific small vessel disease. Reviewed overnight nursing documentation, talked with nursing this am. Neuro checks q4 hours GCS remains 15, mild bilateral UE and LE weakness, non focal findings. Note at 19:20 WNL AAO fully, unlabored breathing, remains weak difficulty walking, saline lock LAC. No pain c/o. This am 0603 ESTEPHANIE Weir note reviewed. R epositioning self in bed. Some weakness remains/reported. Eval by OT/PT today. Will also have ST eval as concern for oral care as well. At present no choking/coughing. She has minimal occasional cough. No c/o pain. No reported headache, no fever, no vision changes, no loss of taste/smell, No new URI symptoms, reviewed allergy symptoms, no cough/congestion/wheezing/SOA, No CP, no reported fatigue, no abd pain, no N/V/D, no constipation, no changes in urination/stooling, no new MSK pain except as above, no recent injuries except as listed above. Falls reviewed and listed above. Therapy working with patient feels she needs 24 hour care. Family is not here, she lives alone. With confusion, concern for self medication intake for her pneumonia. Hospital admission remains appropriate. Consider swing/rehab/SNF vs LNF as next line. HD #3 21: 89 yo CF HD #3 admitted with bilateral UE and LE weakness, LLL Pneumonia, mild confusion, possible concern for dysphagia. Azithromycin 500mg Day 09/13. Cephalosporin Day 09/15 currently on ceftriaxone 1000mg daily. Vitals over the last 24 hours showed afebrile status 97.6-98.3. HR range from 71-82. BP 137/79, 106/62, 107/59, 124/64 and stable. RR 16-18. o2 94-99% on RA. continuous telemetry (on azithromycin with possible QT changing properties), with SR w/ BBB throughout. She has QRS interval of 0.12, MS 0.16. Current weight of 132 lb. Labs this am showed WBC 7.30, hgb mildly decreased from yesterday from 11.7 to 10.8. Plt also dropped from 262 to 248. She has been 10.3-11.7 throughout hospital stay. Chemistry this am WNL. Sodium 138, K+ 3.60, bun 12, cr 0.50. GFR 116. Glucose 100. Calcium 8.50. Overnight nursing notes reviewed. Neuro checks remainded with GCS 15. We will stop these today as they are not needed at this time. Note at 09/19/20 1931 AAOx4 clear, gen weakness. Tele as noted above, no pain. LAC IV site clear, no changes. Fall prec in place. 0600 09/20/20 note from ESTEPHANIE BORREGO, tele in place, no c/o. Continue fall precaution. Case management note from yesterday reviewed. She was seen by and felt ?dysphagia. patient does not want SNF/LNF, wants to go home. ST [facility] contacted me evening of 09/19/20 and noted that the patient would benefit from a dysphagia evaluation. Discussed case on phone with her, reviewed her note. Current diet regular texture/thin liquids. Medications whole with water. No wheat or lettuce per ST. Full cognitive report 09/19/20. Known history of CVA/TIA. Difficulty with swallowing. Home care 2-3x daily 6+ hours per day. Impaired cognition but not interfering with daily activities. "Pt reports helper who assists 2-3x a day; meals on wheels; reading books; exercising legs; and watching TV are her daily home activities. Pt's expressive language may impact efficiency of communication exchanges; listener may need to ask for repetition at times or rephrase her utterances for understanding." She is due for a dysphagia study today. Plan to d/c patient home tomorrow. HD #4 09/21/20: DAY OF D/C: 89 yo CF HD #4 admitted with LLL pneumonia, generalized weakness, dysphagia. Met with phys therapy. Will benefit from home health and from phys/OT therapy. ST met with patient yesterday. They taught several techniques to help with swallowing. Patient did not want to thicken her liquids. She will be d/c today with f/u early next week with SHAR Sharpe for hospital f/u. Reviewed case with [facility] nursing, case management. Vitals in last 24 hours remain stable. Afebrile, BP 124/64, 125/60, 111/50, 117/58. RR 16, 02 95-96% on RA. Tele SR w/ BBB throughout last 24 hours. Labs this am showed stable WBC at 5.62. Stable anemia of chronic disease with hemoglobin at 10.8. Plt 254. Chemistry remained stable as well. Sodium 136.1, K+ 3.56, creatinine 0.48 and glucose 95.3. Overnight neuro checks w/o issues. Mild weakness bilateral UE and LE. Continued Phys therapy would be recommended. Dysphagia study with ST completed yesterday. She completed azithromycin 500mg 3/3 days yesterday. Cephalosporin day 3/5 yesterday. I will change her to cefdinir and complete 3 days (today +48 more hours). Dysphagia study: Findings / impression: Aspiration with cough using thin liquids that resolved with head turn. Please see dedicated speech pathology report for further details. Reviewed comments from ST: Comments: is planning for pt to d/c home tomorrow this date. MANAGER MERCHANDISE to send pt with paper instructions on right head turn. Pt has risks for aspiration with thin liquids, however pt does not agree to use thickened liquids in home environment. MANAGER MERCHANDISE feels that if pt is compliant with compensatory swallow strategies, she can maintain adequate hydration and nutrition without diet/liquids modifications. I agree with this plan. Patient desires to be d/c today. We will set her up with home health. Plan d/c today. Vital Signs - 24 hr 09/20/20 14:00 09/20/20 21:51 09/21/20 05:48 Temperature 98.9 F 98.9 F 97.8 F Pulse Rate 93 H 82 69 Respiratory Rate 16 16 16 Blood Pressure 125/60 111/50 L 117/58 L O2 Sat by Pulse Oximetry 98 95 96 REVIEW OF SYMPTOMS: (Positives bolded) General: no reported weight loss, fever, chills, night sweats, fatigue, appetite loss HEENT: blurry vision, eye pain, eye discharge, dry eyes, decreased vision, sore throat tinnitus, bloody nose, hearin gloss, sinus pain/pressure, ear pain/pressure. Respiratory: shortness of breath, cough, hemoptysis, wheezing, pleurisy, Cardiovascular: chest pain, PND, palpitation, edema, orthopnea, syncope, swelling of extremities Gastro: Nausea, vomiting, diarrhea, hematemesis, abdominal pain, constipation Genito: hematuria, dysuria, glycosuria, hesitancy, frequency, incontinence [place]: Arthralgia, myalgia back pain, muscle weakness, joint swelling, NSAID use Skin: rash, pruritis, sores, nail changes, skin thickening, change in wart/mole, itching, rash, new lesions, pruritus, nail changes Neuro: Migraine, numbness, ataxia, tremor, vertigo, weakness, memory loss, Irritability, dizziness Endocrine: excessive thirst, polyuria, cold intolerance, heat intolerance, goiter Psychiatric: depression, anxiety, anti-depressants, alcohol abuse, drug abuse, insomnia, change in sleep pattern and mood changes Heme/lymph: easy bruising, bleeding gums, blood clots, swollen glands, lymphedema, Allergic/immune: allergic rhinitis, hay fever, asthma, hives Day of Discharge examination: Constitutional: Appearance-Baseline/stable. She remembered meeting with ST yesterday. She has no distress, no accessory muscle usage, breathing is calm/clear today, lungs are clear. Thin/frail frame. Integumentary: General-No rashes, ulcers or lesions. Palpation- Normal skin moisture/turgor. Skin is warm to touch, appropriate. Capillary refill is normal bilateral Upper and lower extremity. ENMT: Pinna- normal without tenderness or erythema. External auditory canal Left- normal without erythema or discharge, no excessive cerumen. Nose: External appearance normal and midline. Nares- bilateral quiet airflow, no discharge. Nasal mucosa- No bleeding noted and no ulcerations observed. [place], moist. Turbinates non boggy. Lips- normal color, moist without cracks/lesions Oral Cavity/Palate- hard/soft palate intact without lesions, oral mucosa pink and moist. Tongue normal midline. Oropharynx- no pharyngeal erythema, Uvula midline. No post nasal drip. No exudate. CHEST/LUNG: Inspection- no use of accessory muscles. Palpation- nontender sternum, ribline. Auscultation- Breath sounds clear today at bilateral bases. Normal tracheal sounds, Normal bronchial sounds overlying sternum, Bronchovessicular sounds coarse, rare crackling heard bilaterally has resolved. no cough during visit. vessicular breath sounds heard throughout periphery normal. Adventitious sounds- No wheezes, no rhonchi, no crackles today. CARDIOVASCULAR:Palpation/Percussion- Normal PMI, no palpable thrill Auscultation- Regular rate and rhythm. No murmur noted in sitting, supine positions. Extremities- no digital clubbing, cyanosis, edema, increased warmth. ABDOMEN: Inspection- Normal appearance. Auscultation- Bowel sounds normal, no abdominal bruits. Palpation/Percussion- soft, non-tender, no rebound tenderness, no rigidity (guarding), no jar tenderness, no masses. Peripheral Vascular: Upper extremity Left- Normal temperature with pink nailbeds and no ulcerations. Upper extremity Right- Normal temperature with pink nailbeds and no ulcerations. Lower extremity- Normal temperature with pink nailbeds and no ulcerations. DP pulses 2+ bilaterally. Pedal hair intact. Normal capillary refill. Edema- No edema. Musculoskeletal: Generalized-No generalized swelling or edema of extremities, no digital clubbing or cyanosis, neurovascularly intact all four extremities. 4/5 strength bilateral UE and LE remain. Not tender overlying shoulders/hips. Neurological: General- Moves all 4 extremities symmetrically. Symmetrical face and body posture. Cranial nerves- individually evaluated II-XII and intact. PERRLA, Normal EOMI, visual/special senses appear intact, Face is symmetrical and normal sensation/movement, normal tongue, normal strength/posture of neck musculature. Reflexes- intact with DTR 1+ patellar, Achilles, bicep, brachial, tricep. Neuropsych: Oriented- Person, place, time. (AAOx3), Mild confusion. Still with some repeating answers. Unaware of current events. She is aware of season and general month but not date. Mood/affect- pleasant normal and congruent. Able to articulate. Speech-Normal speech, normal rate, normal tone, normal use of language, volume and coherence. Thought content- repeats, some confabulation. no SI/HI, no hallucinations, delusions, obsessions. Judgment/insight- Appropriate. Memory-Recall intact, remote and recent memory intact. Knowledge- Age appropriate fund of knowledge generalized, but some decrease in current events. Patients cognition may be declining with time, with history of CVA and with her assistants helping with many of the things that she has done herself historically. Lymphatic: Head/Neck- normal size and non tender to palpation. Plan: 1. D/C Home 09/21/20 2. Complete 3 days of cefdinir 3. Resume home meds 4. Home health PT/OT 5. Rollator for ambulation 6. Stop benadryl 7. F/U with SHAR Sharpe on 09/26/20 at 1300. 8. Call/return to clinic if worsening/changing 9. Return to ED if worsening/new symptoms. Discharge today 35 minutes: Rounding, Discussion with nursing/patient, med rec, orders, education.
[2020-09-21] MEDS: NEURONTIN PO SCH (08:48)
[2020-09-21] MEDS: PLAVIX PO SCH (08:48)
[2020-09-21] MEDS: FLORASTOR PO SCH (08:48)
[2020-09-21] MEDS: ROCEPHIN 1 GM/50 ML D5W 1 GM/50 ML BAG IV SCH (08:49)
[2020-09-21] MEDS: METAMUCIL PO SCH (08:49)
[2020-09-21] MEDS: NON-FORMULARY MEDICATION (Vit C,E-Zn-Coppr-Lutein-Zeaxan [Preservision Areds-2] 250-90-40- PO SCH (08:51)
[2020-09-21] MEDS: NON-FORMULARY MEDICATION (Magnesium 500 mg Tablet) PO SCH (08:51)
[2020-09-21] MEDS: LOVENOX SUBCUT SCH (08:51)
== END 2020-09-21 13:35 | disposition home or self-care (01) | DRG 195 ==
LOC: MEDSURG A 18:23 → ED 18:23 → MEDSURG A 22:55
PROVIDERS: ADMIT Family Medicine; ATTEND Family Medicine
DX: Z20.822 Contact with and (suspected) exposure to COVID-19; J18.9 Pneumonia, unspecified organism; R13.10 Dysphagia, unspecified; R26.81 Unsteadiness on feet; D64.9 Anemia, unspecified